=== PATIENT | male | born 1960 | race Caucasian/White ===

== ENCOUNTER → 2020-04-23 14:11 | Outpatient (BNVA) | payer MEDICARE, MEDICAID, SELFPAY | PROVIDERS: PCP Nurse Practitioner Family; Visit Provider Hospitalist | DX: J44.9 Chronic obstructive pulmonary disease, unspecified (principal); J96.10 Chronic respiratory failure, unspecified whether with hypoxia or hypercapnia; R91.8 Other nonspecific abnormal finding of lung field; F17.200 Nicotine dependence, unspecified, uncomplicated; Z99.81 Dependence on supplemental oxygen; Z71.6 Tobacco abuse counseling | CPT/HCPCS: 99214 ==

== ENCOUNTER 2020-05-14 10:37 | Outpatient (REF) | payer MEDICARE, MEDICAID, SELFPAY ==
--- NOTE | 2020-05-14 10:41 | CT_ITS ---
EXAMINATION: CT CHEST SCREENING CLINICAL INFORMATION: Smoker. COMPARISON: None. TECHNIQUE: Multidetector volumetric CT imaging of the chest is performed without contrast using low dose technique. Additional 2D coronal and sagittal reformatted images and axial 3D maximum intensity projection (MIP) images are generated on the CT workstation. This CT examination was performed using dose optimization techniques as appropriate, variously including the following: *Automated exposure control *Adjustment of mA and/or kV according to patient size (this includes techniques or standardized protocols for targeted exams where dose is matched to indication/reason for exam; i.e. extremities or head) *Use of iterative reconstruction technique DLP: 44 mGy-cm FINDINGS: LUNGS: The lungs are hyperinflated but clear of acute pneumonic process. There is no pulmonary nodule, mass or ground-glass density. Minimal atelectatic changes are seen in both lower lobes. MEDIASTINUM: The central trachea and bronchi are widely patent. The thyroid lobes are symmetrical and normal. The heart size and the great vessels are normal in caliber. There are pacer electrodes in right atrium and right ventricle. No pericardial effusion seen. PLEURA: There is no pleural effusion. No pleural mass or thickening. AXILLA: No lymphadenopathy. UPPER ABDOMEN: Visualized liver, spleen, pancreas, and bilateral adrenal glands are unremarkable. OSSEOUS STRUCTURES: No lytic or sclerotic process seen. CT/CT lung screening IMPRESSION: Emphysematous lungs without acute process. There is bilateral lower lobe atelectasis or scarring. ASSESSMENT: Lung-RADS category 1: Negative RECOMMENDATION: Low dose annual CT chest.
== END 2020-05-14 10:38 | disposition home or self-care (01) ==
LOC: HO.CT 10:37
PROVIDERS: Visit Provider Physician Assistant Medical
DX: F17.210 Nicotine dependence, cigarettes, uncomplicated (principal)
CPT/HCPCS: 71250

== ENCOUNTER 2020-09-17 14:22 | Outpatient (REF) | payer OTHER, SELFPAY ==
--- NOTE | ~2020-09-17 | XR_ITS ---
EXAMINATION: XR CHEST CLINICAL INFORMATION: Atrial fibrillation COMPARISON: 05/02/2019 TECHNIQUE: 2 views of the chest were obtained. FINDINGS: Heart size is enlarged. Again seen is a 3-lead pacer/defibrillator. There is mild upper zone redistribution consistent with elevated left ventricular end-diastolic pressure. No interstitial edema is seen. No infiltrates effusions or lung masses are present. The lungs are hyperinflated consistent with underlying emphysema. XR/XR chest 2V IMPRESSION: Emphysema, cardiomegaly and mild pulmonary vascular congestion without edema.
[2020-09-17 16:09] LABS: PLT CLUMP 1
[2020-09-17 16:11] LABS: Hematocrit 37.8 % (42-52); Hemoglobin 12.2 g/dl (14.0-18.0); Mean Corpuscular HGB Conc 32.3 g/dl (31.0-36.0); Mean Corpuscular Volume 105.3 fL (80-98); Mean Platelet Volume 11.2 fL (9.4-12.4); Red Blood Count 3.59 X10*6/uL (4.60-5.80); Red Cell Distribution Width 12.6 % (11.0-16.0); White Blood Count 4.9 X10*3/uL (4.8-10.8)
[2020-09-17 16:29] LABS: Platelet Count 72 X10*3/uL (160-400)
[2020-09-17 16:31] LABS: Anion Gap 13 (12-20); Blood Urea Nitrogen 28 mg/dL (9-16); Calcium 9.3 mg/dL (8.4-10.2); Carbon Dioxide 30 mmol/L (22-29); Chloride 103 mmol/L (96-108); Estimated Glomerular Filt Rate > 60; Glucose Random 65 mg/dL (60-115); Potassium 5.2 mmol/L (3.3-5.1); Sodium 141 mmol/L (135-145)
[2020-09-17 16:36] LABS: B Type Natriuretic Peptide 1210 pg/mL (<100)
[2020-09-17 16:52] LABS: TSH reflex Free T4 1.25 uIU/mL (0.32-4.0)
== END 2020-09-17 14:23 | disposition home or self-care (01) ==
LOC: HO.LAB 14:22
PROVIDERS: PCP Nurse Practitioner Family; Visit Provider Internal Medicine Cardiovascular Disease
DX: I48.19 Other persistent atrial fibrillation (principal); I48.0 Paroxysmal atrial fibrillation; I35.0 Nonrheumatic aortic (valve) stenosis; J96.10 Chronic respiratory failure, unspecified whether with hypoxia or hypercapnia; J44.9 Chronic obstructive pulmonary disease, unspecified; I50.20 Unspecified systolic (congestive) heart failure; Z88.0 Allergy status to penicillin; Z95.0 Presence of cardiac pacemaker; Z93.0 Tracheostomy status; Z87.891 Personal history of nicotine dependence; Z79.899 Other long term (current) drug therapy
CPT/HCPCS: 36415; 71046; 80048; 83880; 84443; 85027; 99212

== ENCOUNTER → 2020-09-18 13:17 | Outpatient (BNVA) | payer OTHER, SELFPAY | PROVIDERS: PCP Nurse Practitioner Family; Visit Provider Hospitalist | DX: R91.8 Other nonspecific abnormal finding of lung field (principal); J96.11 Chronic respiratory failure with hypoxia; J43.2 Centrilobular emphysema | CPT/HCPCS: 99212 ==

== ENCOUNTER 2020-09-24 19:39 | Emergency (ER) | payer OTHER, SELFPAY ==
--- NOTE | 2020-09-24 | ECG_ITS ---
Test Reason : SOB Blood Pressure : / mmHG Vent. Rate : 071 BPM Atrial Rate : 071 BPM P-R Int : 336 ms QRS Dur : 170 ms QT Int : 454 ms P-R-T Axes : 132 -35 210 degrees QTc Int : 493 ms Atrial-sensed ventricular-paced rhythm with prolonged AV conduction Abnormal ECG When compared with ECG of 24-SEP-2020 20:12, No significant change was found Referred By: Abdi Minaya Electronically Signed By:PONCHO DOMINGUEZ
--- NOTE | ~2020-09-24 | XR_ITS ---
EXAMINATION: XR CHEST CLINICAL INFORMATION: Shortness of breath COMPARISON: 09/17/2020 and 05/02/2020 TECHNIQUE: Frontal view of the chest was obtained. FINDINGS: Lungs are poorly expanded. The heart remains enlarged. There is a prominent central interstitial markings. It is difficult to rule out subtle infiltrates in the lungs, but some of these findings are chronic as can be seen when compared to the study from 05/02/2019. No gross lobar consolidation is seen. Again noted is a 3-lead left chest wall pacemaker/defibrillator XR/XR chest 1V IMPRESSION: Poorly inflated lungs. Interstitial prominence. Subtle infiltrates cannot be excluded. This could be due to infectious etiologies but ruling out mild interstitial edema is difficult.
[2020-09-24 19:52] VITALS: BP 114/91; BP 141/92; PULSE 76; PULSE 85; RESP 20; TEMP 36.7; O2SAT 100; O2SAT 95; BMI 20.9
[2020-09-24 19:58] VITALS: PULSE 86; O2SAT 95
[2020-09-24 20:00] VITALS: BP 125/86; PULSE 72; RESP 16; TEMP 36.7; O2SAT 95
--- NOTE | 2020-09-24 21:19 | ED.GENADULT ---
HPI - General Adult General Chief complaint: Dyspnea Stated complaint: sob Time Seen by Provider: 09/24/20 20:47 Source: family (Patient's daughter) Mode of arrival: EMS Limitations: language barrier ([place] speaking only, dementia) History of Present Illness HPI narrative: 60-year-old male who was sent to the emergency department by his daughter for evaluation of shortness of breath. Information was obtained from the patient's daughter since the patient has dementia and is [place]-speaking only. According to the daughter, the patient has been short of breath for about 3 days and his shortness of breath was getting worse. He felt hot and was diaphoretic yesterday but did not have a documented fever. He has had decreased appetite with good fluid intake. The daughter states that yesterday he seemed to be very short of breath and she called an ambulance, he was checked out by the paramedics and the family decided to keep him at home. Today he complained of increased shortness of breath. The daughter spoke to his assemblies and installations inspector who was concerned the patient started amiodarone and that this shortness of breath could be related this medication advised the daughter to bring the patient to the emergency department for evaluation. The daughter states that the patient has had increased dementia over the last 2-3 months and has been more confused than his baseline. He has also had an unsteady gait which is gotten progressively worse over the last 2-3 months. The daughter states that he stopped smoking approximately 2-3 weeks prior and is using a nicotine patch. The patient also has anxiety and this sometimes makes shortness of breath worse. 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 The daughter states that the patient did not take his nighttime amiodarone. Patient was seen by Cardiology on 09/17/2020 for increased exertional shortness of breath which was felt to be secondary to persistent underlying atrial fibrillation therefore he was started on amiodarone. He is on rivaroxaban. Related Data Home Medications Medication Instructions Recorded Confirmed benzonatate 100 mg capsule 100 mg PO Q8H PRN 04/18/20 09/18/20 carbamazepine 200 mg tablet mg PO 04/18/20 09/18/20 divalproex 500 mg tablet,delayed mg PO 04/18/20 09/18/20 release erythromycin 5 mg/gram (0.5 %) eye 500 mg OPHTHALMIC-RIGHT TID 04/18/20 09/18/20 ointment fluoxetine 20 mg capsule 20 mg PO DAILY 04/18/20 09/18/20 fluticasone propionate 50 1 spray INTRANASAL DAILY 04/18/20 09/18/20 mcg/actuation nasal spray,suspension lamotrigine 25 mg tablet 25 mg PO BID 04/18/20 09/18/20 melatonin 5 mg tablet 5 mg PO BEDTIME 04/18/20 09/18/20 metronidazole 500 mg tablet 500 mg PO TID 04/18/20 09/18/20 montelukast 10 mg tablet 10 mg PO BEDTIME 04/18/20 09/18/20 multivitamin 1 tab PO QAM 04/18/20 09/18/20 nystatin 100,000 unit/mL oral 2 PO Q3H PRN 04/18/20 09/18/20 suspension omeprazole 20 mg capsule,delayed 20 mg PO DAILY 04/18/20 09/18/20 release peg [id number] 1 1 drp OPHTHALMIC (EYE) TID-QID 04/18/20 09/18/20 %-0.2 %-0.2 % eye drops primidone 50 mg tablet 50 mg PO QID 04/18/20 09/18/20 Previous Rx's Medication Instructions Recorded albuterol sulfate 90 mcg/actuation 2 puff PO Q6H PRN 30 Days #18 g 04/23/20 aerosol inhaler fluticasone fur. 100 mcg-umeclid 1 ea PO DAILY 30 Days #60 ea 04/23/20 62.5 mcg-vilant 25 mcg inhalat.powder albuterol sulfate 2.5 mg INHALATION Q6H PRN #180 ml 06/23/20 rivaroxaban 20 mg tablet 20 mg PO DAILY 90 Days #90 tab 07/16/20 furosemide 20 mg tablet 20 mg PO QAM 90 Days #90 tab 08/05/20 lisinopril 10 mg tablet 10 mg PO QAM 90 Days #90 tab 08/05/20 metoprolol succinate 50 mg 50 mg PO QAM 90 Days #90 tab 08/05/20 tablet,extended release 24 hr amiodarone 200 mg tablet 200 mg PO DAILY #30 tab 09/17/20 amiodarone 400 mg tablet 400 mg PO BID #30 tab 09/17/20 ipratropium 0.5 mg-albuterol 3 mg 3 ml INHALATION QID 30 Days #360 ml 09/18/20 (2.5 mg base)/3 mL nebulization soln umeclidinium 62.5 mcg-vilanterol 1 inh INHALATION DAILY #60 ea 09/18/20 25 mcg/actuation powdr for inhalation nicotine 14 mg/24 hr daily 1 patch TRANSDERMAL DAILY 28 Days 09/24/20 transdermal patch #28 ea Allergies Allergy/AdvReac Type Severity Reaction Status Date / Time Penicillins [PENICILLINS] Allergy Severe SWELLING Verified 09/18/20 13:31 Review of Systems Review of Systems: Yes all other systems are reviewed and are negative [facility] Past Medical History [facility] Narrative: The patient lives at home with his family. He stopped smoking 2-3 weeks prior and uses a nicotine patch daily. He does not drink alcohol. He is a former heroin user and is receiving methadone daily. Medical History Aortic stenosis Biventricular ICD (implantable cardioverter-defibrillator) in place Chronic respiratory failure COPD (chronic obstructive pulmonary disease) Heart failure with reduced ejection fraction Nonischemic cardiomyopathy Paroxysmal atrial fibrillation Persistent atrial fibrillation Pulmonary nodules Tobacco dependence Surgical History Cardiac catheterization as the cause of abnormal reaction of the patient, or of later complication, without mention of misadventure at the time of the procedure Endotracheal tube present Epidermal cyst Lesion of tongue Pacemaker Family History Family History Father No problems noted. Mother HTN (hypertension) Arthritis of knee Unknown Recurrent strokes Diabetes mellitus Thyroid disease CVD (cerebrovascular disease) Social History Social History Alcohol intake: unknown Smoking Status: Unknown if ever smoked Tobacco Type: Cigarette Use of substances other than those prescribed or required for medical reasons: Unknown Advance Directives: No Advance Directives Information Provided: Yes Physical Exam Vital Signs: Vital Signs: Last Vital Signs Temp 98.5 F 09/24/20 21:28 Pulse 66 09/24/20 23:15 Resp 12 09/24/20 23:15 BP 105/77 09/24/20 23:15 Pulse Ox 97 09/24/20 23:15 Body Mass Index 20.9 Const: General: cooperative and other (Anxious appearing) Orientation/consciousness: oriented to person Limitations: other limitations (Dementia) HENMT: Head: Yes normal to inspection, Yes normocephalic and Yes atraumatic Ears: external ears normal General nose exam: Normal external nose present Face and sinus: Yes normal facial exam Mouth: Normal oral and palatal mucosa present Throat: Yes posterior oropharynx normal Eyes: Periorbital: periorbital findings normal Eyelids: Yes eyelids normal Conjunctivae: conjunctivae normal Sclerae: sclerae normal Corneas: corneas normal Pupils: Equal, round and reactive pupils present Direct Ophthalmoscopy: normal light reflex Neck: Neck: Yes full ROM, Yes no lymphadenopathy, Yes no meningeal signs, Yes trachea midline and Yes supple Chest: Chest palpation & inspection: normal inspection of the chest and normal palpation of entire chest wall Resp: Effort & Inspection: normal respiratory effort and able to speak in complete sentences Auscultation: clear to auscultation bilaterally Cardio: Rate: regular rate Rhythm: regular rhythm Heart sounds: S1 normal heart sound present, S2 normal heart sound present and no murmurs GI: Inspection: Yes normal to inspection Palpation (GI): Soft to palpation, nontender, no guarding, not rigid and No hepatosplenomegaly present : General: Yes no CVA tenderness Back/Spine/Pelvis: Back: no CVA tenderness Cervical Spine: normal cervical lordosis Thoracic/Lumbar Spine: thoracic and lumbar spine normal to inspection Skin: Lesions: no lesions Rashes: no rashes Wounds: no wounds Neuro: General: oriented to person and no meningeal signs Cranial nerves: Yes CN's II-XII intact bilaterally and Yes Equal, round and reactive pupils present Cognition (Neuro): normal cognition Motor exam (neuro): 5/5 motor strength present throughout Extrem: General: Yes normal to inspection and Yes full ROM Psych: Attitude: cooperative Course Course Course Narrative: 60-year-old male who was sent to the emergency department by his family for evaluation of shortness of breath x3 days which is gotten progressively worse. The patient does have chronic atrial fibrillation and nonischemic cardiomyopathy and has been recently started on amiodarone approximately 6 days prior. The patient's physical examination revealed that he was afebrile, his respiratory rate varied from 16-20, blood pressure was normal, O2 saturation was 70% on room air and 95% on 2 L (patient wears oxygen chronically for his COPD). The patient was cooperative but anxious. Lung exam was clear. I did order a septic workup and a COVID-19 test on this patient. The patient was ordered to get Ativan 0.5 mg IV for his anxiety. I also gave him his nighttime dose of amiodarone 400 mg orally. 0001: The patient's chest x-ray did not reveal any obvious pneumonia, he does have increased interstitial markings but I suspect this is secondary to COPD and this is chronic. The patient's laboratory evaluation did reveal an elevated BNP of 1396, this is similar to a value from 09/17/2020 and I suspect that this is chronic. CBC was consistent with his chronic anemia. Chemistries did reveal an elevated BUN 38 with an elevated creatinine of 1.39. The patient does have an elevated troponin of 52.9 but I do not think this reflects myocardial injury and may be secondary to chronic elevation and renal insufficiency. The patient was treated with Solu-Medrol 125 mg IV for possible COPD exacerbation, he may have bronchitis and he was started on doxycycline 100 mg twice a day. I did discuss my findings with the patient's daughter and the patient will be transported back to home by ambulance since he requires oxygen during transport. Medical Decision Making Lab Data Result diagrams: 09/24/20 21:53 09/24/20 22:55 Labs: Lab Results 09/24/20 09/24/20 09/24/20 Range/Units 21:53 21:53 21:53 WBC 4.2 L (4.8-10.8) X10*3/uL RBC 3.16 L (4.60-5.80) X10*6/uL Hgb 10.8 L (14.0-18.0) g/dl Hct 33.4 L (42-52) % MCV 105.7 H (80-98) fL MCH 34.2 H (27.0-33.0) pg MCHC 32.3 (31.0-36.0) g/dl RDW 13.0 (11.0-16.0) % Plt Count Not Reportable MPV Not Reportable Immature Gran % (Auto) 0.7 H (0.0-0.4) % Neut % (Auto) 69.9 (45-73) % Lymph % (Auto) 17.3 L (20-40) % Fisher % (Auto) 7.3 (2-11) % Eos % (Auto) 4.3 H (0-4) % Baso % (Auto) 0.5 (0-2) % Lymph # (Auto) 0.7 L (1.2-4.9) X10*3/uL Fisher # (Auto) 0.3 (0.1-1.2) X10*3/uL Eos # (Auto) 0.2 (0.0-0.4) X10*3/uL Baso # (Auto) 0.0 (0.0-0.2) X10*3/uL Abs Immat Gran (auto) 0.03 (0.00-0.03) X10*3/uL Absolute Neuts (auto) 3.0 (2.0-8.3) X10*3/uL Absolute Nucleated RBC 0.050 H (0.0-0.012) X10*3/uL Nucleated RBC % (auto) 1.2 H (0.0-0.2) /100WBC Smear Tech's Comments VERIFIED PT 18.8 H (10.8-13.0) SEC INR 1.6 H (0.9-1.1) APTT 47.5 H (24.1-38.0) SEC Sodium (135-145) mmol/L Potassium (3.3-5.1) mmol/L Chloride (96-108) mmol/L Carbon Dioxide (22-29) mmol/L Anion Gap (12-20) BUN (9-16) mg/dL Creatinine (0.5-1.4) mg/dL Estim Creat Clear Calc Estimated GFR Random Glucose (60-115) mg/dL Lactic Acid (0.5-2.0) mmol/L Calcium (8.4-10.2) mg/dL Total Bilirubin (0.0-1.0) mg/dL AST (5-37) U/L ALT (0-40) U/L Alkaline Phosphatase (39-117) U/L Troponin I High Sens (<3.5-35.0) ng/L B-Natriuretic Peptide 1396 H (<100) pg/mL Total Protein (6.5-8.0) g/dL Albumin (3.5-5.0) g/dL Lipase (8-78) U/L Ethyl Alcohol mg/dL COVID-19 (SAM) (Negative) COVID-19 Clin Com 09/24/20 09/24/20 09/24/20 Range/Units 21:53 21:53 21:54 WBC (4.8-10.8) X10*3/uL RBC (4.60-5.80) X10*6/uL Hgb (14.0-18.0) g/dl Hct (42-52) % MCV (80-98) fL MCH (27.0-33.0) pg MCHC (31.0-36.0) g/dl RDW (11.0-16.0) % Plt Count MPV Immature Gran % (Auto) (0.0-0.4) % Neut % (Auto) (45-73) % Lymph % (Auto) (20-40) % Fisher % (Auto) (2-11) % Eos % (Auto) (0-4) % Baso % (Auto) (0-2) % Lymph # (Auto) (1.2-4.9) X10*3/uL Fisher # (Auto) (0.1-1.2) X10*3/uL Eos # (Auto) (0.0-0.4) X10*3/uL Baso # (Auto) (0.0-0.2) X10*3/uL Abs Immat Gran (auto) (0.00-0.03) X10*3/uL Absolute Neuts (auto) (2.0-8.3) X10*3/uL Absolute Nucleated RBC (0.0-0.012) X10*3/uL Nucleated RBC % (auto) (0.0-0.2) /100WBC Smear Tech's Comments PT (10.8-13.0) SEC INR (0.9-1.1) APTT (24.1-38.0) SEC Sodium (135-145) mmol/L Potassium (3.3-5.1) mmol/L Chloride (96-108) mmol/L Carbon Dioxide (22-29) mmol/L Anion Gap (12-20) BUN (9-16) mg/dL Creatinine (0.5-1.4) mg/dL Estim Creat Clear Calc Estimated GFR Random Glucose (60-115) mg/dL Lactic Acid 1.0 (0.5-2.0) mmol/L Calcium (8.4-10.2) mg/dL Total Bilirubin (0.0-1.0) mg/dL AST (5-37) U/L ALT (0-40) U/L Alkaline Phosphatase (39-117) U/L Troponin I High Sens (<3.5-35.0) ng/L B-Natriuretic Peptide (<100) pg/mL Total Protein (6.5-8.0) g/dL Albumin (3.5-5.0) g/dL Lipase 78 (8-78) U/L Ethyl Alcohol < 10 mg/dL COVID-19 (SAM) (Negative) COVID-19 Clin Com 09/24/20 09/24/20 09/24/20 Range/Units 21:55 22:55 23:35 WBC (4.8-10.8) X10*3/uL RBC (4.60-5.80) X10*6/uL Hgb (14.0-18.0) g/dl Hct (42-52) % MCV (80-98) fL MCH (27.0-33.0) pg MCHC (31.0-36.0) g/dl RDW (11.0-16.0) % Plt Count MPV Immature Gran % (Auto) (0.0-0.4) % Neut % (Auto) (45-73) % Lymph % (Auto) (20-40) % Fisher % (Auto) (2-11) % Eos % (Auto) (0-4) % Baso % (Auto) (0-2) % Lymph # (Auto) (1.2-4.9) X10*3/uL Fisher # (Auto) (0.1-1.2) X10*3/uL Eos # (Auto) (0.0-0.4) X10*3/uL Baso # (Auto) (0.0-0.2) X10*3/uL Abs Immat Gran (auto) (0.00-0.03) X10*3/uL Absolute Neuts (auto) (2.0-8.3) X10*3/uL Absolute Nucleated RBC (0.0-0.012) X10*3/uL Nucleated RBC % (auto) (0.0-0.2) /100WBC Smear Tech's Comments PT (10.8-13.0) SEC INR (0.9-1.1) APTT (24.1-38.0) SEC Sodium 138 (135-145) mmol/L Potassium 5.6 H (3.3-5.1) mmol/L Chloride 100 (96-108) mmol/L Carbon Dioxide 31 H (22-29) mmol/L Anion Gap 13 (12-20) BUN 38 H (9-16) mg/dL Creatinine 1.39 (0.5-1.4) mg/dL Estim Creat Clear Calc 48.7 Estimated GFR 52 Random Glucose 102 D (60-115) mg/dL Lactic Acid (0.5-2.0) mmol/L Calcium 8.3 L D (8.4-10.2) mg/dL Total Bilirubin 0.3 (0.0-1.0) mg/dL AST 17 (5-37) U/L ALT 12 (0-40) U/L Alkaline Phosphatase 75 (39-117) U/L Troponin I High Sens 52.9 H (<3.5-35.0) ng/L B-Natriuretic Peptide (<100) pg/mL Total Protein 5.8 L (6.5-8.0) g/dL Albumin 3.7 (3.5-5.0) g/dL Lipase (8-78) U/L Ethyl Alcohol mg/dL COVID-19 (SAM) Negative (Negative) COVID-19 Clin Com See Note ECG Data Interpretation: 2125: The patient has an electronically paced rhythm with a rate of 71. Discharge Plan Discharge Clinical Impression: Acute exacerbation of chronic obstructive pulmonary disease, Bronchitis Patient Disposition: Home, Self-Care Instructions: Acute Bronchitis (ED), COPD (Chronic Obstructive Pulmonary Disease) (ED) Additional Instructions: Your laboratory evaluation is consistent with your baseline tests and is unchanged. Your chest x-ray did not reveal any evidence for pneumonia. Your EKG is consistent with a paced rhythm. I suspect that you may have bronchitis which is making your COPD worse. You received a dose of steroids, Solu-Medrol 125 mg IV here in the emergency department. Take doxycycline 100 mg pills, 1 pill twice a day for 7 days to treat bronchitis. I did give you your nighttime dose of amiodarone 400 mg orally, continue your amiodarone as prescribed by your doctor. Follow-up with your doctor in 2 days. Please return to the emergency department if your symptoms get worse or if you develop any symptoms that are concerning to you. Prescriptions: No Action albuterol sulfate 2.5 mg /3 mL (0.083 %) solution for nebulization 2.5 mg inhalation Q6H PRN (Reason: shortness of breath or wheezing) Qty: 180 RF: 3 rivaroxaban 20 mg tablet 20 mg PO DAILY 90 Days Qty: 90 RF: 1 metoprolol succinate 50 mg tablet extended release 24 hr 50 mg PO QAM 90 Days Qty: 90 RF: 3 furosemide 20 mg tablet 20 mg PO QAM 90 Days Qty: 90 RF: 3 lisinopril 10 mg tablet 10 mg PO QAM 90 Days Qty: 90 RF: 3 nicotine 14 mg/24 hr patch 24 hour 1 patch transdermal DAILY 28 Days Qty: 28 RF: 6 omeprazole 20 mg capsule,delayed release(DR/EC) 20 mg PO DAILY RF: 0 melatonin 5 mg tablet 5 mg PO BEDTIME RF: 0 fluoxetine 20 mg capsule 20 mg PO DAILY RF: 0 montelukast 10 mg tablet 10 mg PO BEDTIME RF: 0 carbamazepine 200 mg tablet PO RF: 0 lamotrigine 25 mg tablet 25 mg PO BID RF: 0 divalproex 500 mg tablet,delayed release (DR/EC) PO RF: 0 primidone 50 mg tablet 50 mg PO QID RF: 0 multivitamin Tablet 1 tab PO QAM RF: 0 Artificial Tears([id number]) 1-0.2-0.2 % drops 1 drp ophthalmic (eye) TID-QID RF: 0 erythromycin 5 mg/gram (0.5 %) ointment 500 mg ophthalmic-Right TID RF: 0 fluticasone propionate 50 mcg/actuation spray,suspension 1 spray intranasal DAILY RF: 0 metronidazole 500 mg tablet 500 mg PO TID RF: 0 benzonatate 100 mg capsule 100 mg PO Q8H PRN (Reason: cough) RF: 0 nystatin 100,000 unit/mL suspension 2 PO Q3H PRNRF: 0 [id number]-[id number] 100-62.5-25 mcg blister with device 1 ea PO DAILY 30 Days Qty: 60 RF: 11 albuterol sulfate 90 mcg/actuation HFA aerosol inhaler 2 puff PO Q6H PRN (Reason: shortness of breath or wheezing) 30 Days Qty: 18 RF: 11 Anoro Ellipta 62.5-25 mcg/actuation blister with device 1 inh inhalation DAILY Qty: 60 RF: 11 ipratropium-albuterol 0.5 mg-3 mg(2.5 mg base)/3 mL solution for nebulization 3 ml inhalation QID 30 Days Qty: 360 RF: 11 amiodarone 200 mg tablet 200 mg PO DAILY Qty: 30 RF: 2 amiodarone 400 mg tablet 400 mg PO BID Qty: 30 RF: 0 Interventions: ED Discharge Assessment Last Done: 09/25/20 00:46 Discharge Date/Time: 09/25/20 00:47
[2020-09-24 21:25] VITALS: BP 134/68; PULSE 69
[2020-09-24] MEDS: Amiodarone HCL 200 MG TABLET 400 MG PO (21:25)
[2020-09-24] MEDS: LORazepam 2 MG/ML VIAL 0.5 MG IVPUSH (21:27)
[2020-09-24 21:28] VITALS: BP 143/73; PULSE 78; RESP 14; TEMP 36.9; O2SAT 94
[2020-09-24 22:05] LABS: Basophils Percent Auto 0.5 % (0-2); Eosinophils Absolute Auto 0.2 X10*3/uL (0.0-0.4); Eosinophils Percent Auto 4.3 % (0-4); Imm Gran Abs Auto 0.03 X10*3/uL (0.00-0.03); Imm Gran Pct Auto 0.7 % (0.0-0.4); MANUAL DIFF FLAG SCAN; PLT CLUMP 1; Red Blood Count 3.16 X10*6/uL (4.60-5.80); SCAN SMEAR FLAG 1
[2020-09-24 22:07] LABS: Hematocrit 33.4 % (42-52); Hemoglobin 10.8 g/dl (14.0-18.0); Lymphocytes Absolute Auto 0.7 X10*3/uL (1.2-4.9); Lymphocytes Percent Auto 17.3 % (20-40); Mean Corpuscular HGB Conc 32.3 g/dl (31.0-36.0); Mean Corpuscular Hemoglobin 34.2 pg (27.0-33.0); Mean Corpuscular Volume 105.7 fL (80-98); Monocytes Absolute Auto 0.3 X10*3/uL (0.1-1.2); Monocytes Percent Auto 7.3 % (2-11); Neutrophils Percent Auto 69.9 % (45-73); White Blood Count 4.2 X10*3/uL (4.8-10.8)
--- NOTE | 2020-09-24 22:08 | PC.NURSE ---
PATIENT ATTEMPT TO HIT THIS PCT DURING BLOOD DRAW .
[2020-09-24 22:10] LABS: INTERNATIONAL NORM RATIO 1.6 (0.9-1.1); Prothrombin Time 18.8 SEC (10.8-13.0)
[2020-09-24 22:13] LABS: Partial Thromboplastin Time 47.5 SEC (24.1-38.0)
[2020-09-24 22:14] LABS: NRBC Pct Auto 1.2 /100WBC (0.0-0.2)
[2020-09-24 22:26] LABS: SLIDE REVIEW VERIFIED
[2020-09-24 22:27] LABS: Ethanol < 10 mg/dL
[2020-09-24 22:30] LABS: Lipase 78 U/L (8-78)
[2020-09-24 22:38] LABS: B Type Natriuretic Peptide 1396 pg/mL (<100)
[2020-09-24 22:56] LABS: COVID-19 Test Negative (Negative); IDNOW Serial# 9DD0AD1C
[2020-09-24 23:15] VITALS: BP 105/77; PULSE 66; RESP 12; O2SAT 97
[2020-09-24] MEDS: methylPREDNISolone Sod Succ/PF 125 MG/2 ML VIAL IVPUSH (23:17)
[2020-09-24 23:25] LABS: Alanine Aminotransferase 12 U/L (0-40); Albumin Level 3.7 g/dL (3.5-5.0); Alkaline Phosphatase 75 U/L (39-117); Anion Gap 13 (12-20); Aspartate Amino Transferase 17 U/L (5-37); Bilirubin Total 0.3 mg/dL (0.0-1.0); Blood Urea Nitrogen 38 mg/dL (9-16); Calcium 8.3 mg/dL (8.4-10.2); Carbon Dioxide 31 mmol/L (22-29); Chloride 100 mmol/L (96-108); Creatinine Clr Calc Pharmacy 48.7; Estimated Glomerular Filt Rate 52; Glucose Random 102 mg/dL (60-115); Potassium 5.6 mmol/L (3.3-5.1); Sodium 138 mmol/L (135-145); Total Protein 5.8 g/dL (6.5-8.0)
[2020-09-25 00:26] LABS: Troponin-I High Sensitivity 52.9 ng/L (<3.5-35.0)
== END 2020-09-25 00:47 | disposition home or self-care (01) ==
PROVIDERS: Emergency Provider Emergency Medicine Emergency Medical Services
DX: J44.1 Chronic obstructive pulmonary disease with (acute) exacerbation (principal); J20.9 Acute bronchitis, unspecified; F41.9 Anxiety disorder, unspecified; R26.81 Unsteadiness on feet; Z20.822 Contact with and (suspected) exposure to COVID-19; F03.90 Unspecified dementia, unspecified severity, without behavioral disturbance, psychotic disturbance, mood disturbance, and anxiety; F11.20 Opioid dependence, uncomplicated; Z95.810 Presence of automatic (implantable) cardiac defibrillator; I48.0 Paroxysmal atrial fibrillation; I48.19 Other persistent atrial fibrillation; Z79.01 Long term (current) use of anticoagulants; Z87.891 Personal history of nicotine dependence
CPT/HCPCS: 36415; 71045; 80053; 80320; 83605; 83690; 83880; 84484; 85025; 85610; 85730; 87040; 87635; 93005; 96361; 96374; 96375; 99285; J2060; J2930

== ENCOUNTER 2020-09-30 10:50 | Day surgery (SDC) | payer OTHER, SELFPAY ==
[2020-09-25 14:09] VITALS: BMI 23.3
--- NOTE | 2020-09-29 11:45 | HO.ANESPROP2 ---
Documented by User: Venita Harrisney 09/29/20 11:53 HPI - Anesthesia Eval Consult details Narrative: 60yo M for Cardioversion Chronic O2, [facility] ER 09/24/20 with SOB x 3 days. No acute findings. FORMERLY [facility], [facility]–1983 Active Problems Active Problems: All Active Problems (Updated 09/26/20 @ 00:01 by Background Daemon) Nonischemic cardiomyopathy (Acute) Chest discomfort (Acute) SOB (shortness of breath) (Acute) Persistent atrial fibrillation (Acute) Paroxysmal atrial fibrillation (Acute) Biventricular ICD (implantable cardioverter-defibrillator) in place (Acute) Heart failure with reduced ejection fraction (Acute) Aortic stenosis (Acute) Thrombocytopenia (Chronic) Tobacco dependence (Acute) Pulmonary nodules (Acute) Chronic respiratory failure (Acute) COPD (chronic obstructive pulmonary disease) (Acute) Past Medical History Medical History Aortic stenosis Biventricular ICD (implantable cardioverter-defibrillator) in place Chronic respiratory failure COPD (chronic obstructive pulmonary disease) Heart failure with reduced ejection fraction Nonischemic cardiomyopathy Paroxysmal atrial fibrillation Persistent atrial fibrillation Pulmonary nodules Tobacco dependence Family History Family History Father No problems noted. Mother HTN (hypertension) Arthritis of knee Unknown Recurrent strokes Diabetes mellitus Thyroid disease CVD (cerebrovascular disease) Surgical History Surgical History Cardiac catheterization as the cause of abnormal reaction of the patient, or of later complication, without mention of misadventure at the time of the procedure Endotracheal tube present Epidermal cyst Lesion of tongue Pacemaker Social History Social History Alcohol intake: unknown Smoking Status: Former smoker Tobacco Type: Cigarette Advance Directives: No Advance Directives Information Provided: Yes Meds Allergies Allergy/AdvReac Type Severity Reaction Status Date / Time Penicillins [PENICILLINS] Allergy Severe SWELLING Verified 09/30/20 11:06 Home Medications Medication Instructions Recorded Confirmed Last Taken Type carbamazepine 200 mg tablet mg PO 04/18/20 09/18/20 Unknown History erythromycin 5 mg/gram (0.5 %) eye 500 mg OPHTHALMIC-RIGHT TID 04/18/20 09/18/20 Unknown History ointment fluoxetine 20 mg capsule 20 mg PO DAILY 04/18/20 09/18/20 Unknown History fluticasone propionate 50 1 spray INTRANASAL DAILY 04/18/20 09/18/20 Unknown History mcg/actuation nasal spray,suspension lamotrigine 25 mg tablet 25 mg PO BID 04/18/20 09/18/20 09/30/20 08:00 History melatonin 5 mg tablet 5 mg PO BEDTIME 04/18/20 09/18/20 Unknown History montelukast 10 mg tablet 10 mg PO BEDTIME 04/18/20 09/18/20 Unknown History multivitamin 1 tab PO QAM 04/18/20 09/18/20 Unknown History nystatin 100,000 unit/mL oral 2 PO Q3H PRN 04/18/20 09/18/20 Unknown History suspension omeprazole 20 mg capsule,delayed 20 mg PO DAILY 04/18/20 09/18/20 Unknown History release peg [id number] 1 1 drp OPHTHALMIC (EYE) TID-QID 04/18/20 09/18/20 Unknown History %-0.2 %-0.2 % eye drops primidone 50 mg tablet 50 mg PO QID 04/18/20 09/18/20 Unknown History divalproex 2 tab PO 09/30/20 09/30/20 09/30/20 08:00 History doxycycline monohydrate 1 cap PO BID 09/30/20 09/30/20 09/30/20 08:00 History Exam Exam Date and Time: September 29, 2020 1145 Height,Weight and Vital Signs: Height 5 ft 5 in Weight 63.503 kg Pertinent Lab Results Pertinent Lab Results: Laboratory Tests 09/24/20 09/24/20 21:53 22:55 WBC 4.2 L Hgb 10.8 L Hct 33.4 L Sodium 138 Potassium 5.6 H Chloride 100 Carbon Dioxide 31 H BUN 38 H Creatinine 1.39 Narrative Narrative: EKG 09/24/20 Atrial-sensed ventricular-paced rhythm with prolonged AV conduction Abnormal ECG When compared with ECG of 24-SEP-2020 20:12, No significant change was found ICD Interr 08/2020 atrial fibrillation for at least last 50 days. Pacing mode was changed from DDDR to VVIR. Biventricular pacing is 96% of the time. No shocks delivered Documented by User: Jesus Manuel Escobedo 09/30/20 13:20 FORMERLY [facility], [facility] Past Medical History Medical History Aortic stenosis Biventricular ICD (implantable cardioverter-defibrillator) in place Chronic respiratory failure COPD (chronic obstructive pulmonary disease) Heart failure with reduced ejection fraction Nonischemic cardiomyopathy Paroxysmal atrial fibrillation Persistent atrial fibrillation Pulmonary nodules Tobacco dependence Family History Family History Father No problems noted. Mother HTN (hypertension) Arthritis of knee Unknown Recurrent strokes Diabetes mellitus Thyroid disease CVD (cerebrovascular disease) Surgical History Surgical History Cardiac catheterization as the cause of abnormal reaction of the patient, or of later complication, without mention of misadventure at the time of the procedure Endotracheal tube present Epidermal cyst Lesion of tongue Pacemaker Social History Social History Alcohol intake: unknown Smoking Status: Former smoker Tobacco Type: Cigarette Advance Directives: No Advance Directives Information Provided: Yes Meds Allergies Allergy/AdvReac Type Severity Reaction Status Date / Time Penicillins [PENICILLINS] Allergy Severe SWELLING Verified 09/30/20 11:06 Home Medications Medication Instructions Recorded Confirmed Last Taken Type carbamazepine 200 mg tablet mg PO 04/18/20 09/18/20 Unknown History erythromycin 5 mg/gram (0.5 %) eye 500 mg OPHTHALMIC-RIGHT TID 04/18/20 09/18/20 Unknown History ointment fluoxetine 20 mg capsule 20 mg PO DAILY 04/18/20 09/18/20 Unknown History fluticasone propionate 50 1 spray INTRANASAL DAILY 04/18/20 09/18/20 Unknown History mcg/actuation nasal spray,suspension lamotrigine 25 mg tablet 25 mg PO BID 04/18/20 09/18/20 09/30/20 08:00 History melatonin 5 mg tablet 5 mg PO BEDTIME 04/18/20 09/18/20 Unknown History montelukast 10 mg tablet 10 mg PO BEDTIME 04/18/20 09/18/20 Unknown History multivitamin 1 tab PO QAM 04/18/20 09/18/20 Unknown History nystatin 100,000 unit/mL oral 2 PO Q3H PRN 04/18/20 09/18/20 Unknown History suspension omeprazole 20 mg capsule,delayed 20 mg PO DAILY 04/18/20 09/18/20 Unknown History release peg [id number] 1 1 drp OPHTHALMIC (EYE) TID-QID 04/18/20 09/18/20 Unknown History %-0.2 %-0.2 % eye drops primidone 50 mg tablet 50 mg PO QID 04/18/20 09/18/20 Unknown History divalproex 2 tab PO 09/30/20 09/30/20 09/30/20 08:00 History doxycycline monohydrate 1 cap PO BID 09/30/20 09/30/20 09/30/20 08:00 History Exam Airway Mallampati Class: II TM Dist: >3cm Neck ROM: Full Denture: Upper and Lower Heart: irreg irreg S1S2 Lungs: CTA b/l Assessment and Plan Assessment Anesthesia Assessment: Anesthesia Plan Discussed, PAT Visit and Chart Reviewed Final Anesthetic Review NPO: Yes ASA Class: IV Final Preanesthetic Review: No Changes in Pt Med Stat, Meds/Allgs Chart Reviewed, Consent Obtained/Reviewed and Anes Risks/Benef Reviewed Patient Risk: Intermediate Procedure Risk: Low Assessment/Block/Sedation in SS: Assess/Block/Sedation-SS Anesthetic Plan Anesthetic Plan: MAC: and Agree w/ Assess. and Plan Disposition: Standard PACU
[2020-09-30] VITALS (7 sets, daily range): BP systolic 116–135; BP diastolic 76–86; PULSE 60–75; RESP 16–18; TEMP 36.7; O2SAT 96–99
--- NOTE | 2020-09-30 08:32 | MHC.SHP ---
Pre-Procedural Eval Section A The patient is an INPATIENT: No Changes since office visit: Yes Changes in Medication and Yes Patient answered all questions; No Cold of Flu in the past 2 weeks and No New Medical Problems The History & Physical has been completed within 30 days and I have reviewed it.: Yes Section B Chief Complaint: afib Allergies: Allergies Allergy/AdvReac Type Severity Reaction Status Date / Time Penicillins [PENICILLINS] Allergy Severe SWELLING Verified 09/18/20 13:31 Plan I have reviewed the history and physical and performed a pertinent physical examination on my patient. No changes have occurred unless specified.
[2020-09-30] MEDS: Lactated Ringers 1,000 ML 20 ML IVCONT (11:29)
--- NOTE | 2020-09-30 13:15 | ECG_ITS ---
Test Reason : POST CARDIOVERSION Blood Pressure : / mmHG Vent. Rate : 073 BPM Atrial Rate : 070 BPM P-R Int : 000 ms QRS Dur : 184 ms QT Int : 478 ms P-R-T Axes : 000 -82 096 degrees QTc Int : 526 ms Ventricular-paced rhythm Abnormal ECG When compared with ECG of 24-SEP-2020 20:31, Vent. rate has increased BY 2 BPM Referred By: Elton Moore Electronically Signed By:Enzo Culver
--- NOTE | 2020-09-30 13:16 | P.PNCAR_ITS ---
Cardioversion Procedure Note Cardioversion Date of Procedure: 09/30/2020 Ordering Provider: Myself Performing Provider: Myself Indication for Procedure: Symptomatic persistent atrial fibrillation/flutter Pre-Op Diagnosis: Persistent atrial fibrillation Post-Op Diagnosis: Same Performed with Transesophageal Echo: No History: See history and physical for details Consent: Verbal and Written consent was obtained from the patient's daughter with the help of a certified sign language interpreter before starting and confirming oral anticoagulation. The patient was made aware of the risk of the procedure including risks, alternatives and 2nd opinion. Procedure: After consent obtained, cardioversion pads were attached in AP configuration and the patient was sedated by the anesthesia team. Once adequate sedation achieved, delivered 200 joules of biphasic synchronized energy in AP configuration Complications: None Impression: Successful conversion to atrially paced rhythm reestablishing AV synchrony Recommendations: 1. Status EKG 2. Switch to 200 mg of amiodarone daily 3. Continue Xarelto 4. Follow-up in the office in 4 weeks time.
--- NOTE | 2020-09-30 13:18 | P.EN_ITS ---
Event Note Date of Service: 09/30/20 Event Note: Patient has biventricular [employer] ICD in place. This was reprog rammed from VVIR to DDDR at 70 beats per minute. Atrial pacing thresholds are excellent. RV pacing thresholds are stable. LV pacing thresholds elevated and reprogrammed to provide adequate safety. Battery life is around 11 months
== END 2020-09-30 14:32 | disposition home or self-care (01) ==
PROVIDERS: PCP Nurse Practitioner Family; Visit Provider Internal Medicine Cardiovascular Disease
PROC: 5A2204Z Restoration of Cardiac Rhythm, Single (ICD-10-PCS; principal; 2020-09-30 12:30)
DX: I48.19 Other persistent atrial fibrillation (principal); Z79.01 Long term (current) use of anticoagulants; I42.8 Other cardiomyopathies; Z95.810 Presence of automatic (implantable) cardiac defibrillator; J96.10 Chronic respiratory failure, unspecified whether with hypoxia or hypercapnia; I35.0 Nonrheumatic aortic (valve) stenosis; Z79.51 Long term (current) use of inhaled steroids; Z79.899 Other long term (current) drug therapy; Z88.0 Allergy status to penicillin; F17.210 Nicotine dependence, cigarettes, uncomplicated
CPT/HCPCS: 92960; 93005; J0330; J0461

== ENCOUNTER → 2020-10-13 11:21 | Outpatient (REF) | payer OTHER, SELFPAY ==
--- NOTE | 2020-10-13 11:31 | CA_ITS ---
Transthoracic Echocardiogram Patient (Last, First, Middle): Benito Guzman, Gender: Male Date of : 1960 Age: 60 Procedure Date: 10/13/2020 Procedure Type: Transthoracic Echocardiogram Location: OP Height: 167.64 cm Weight: 63.5 kg BSA: 1.72 m2 Heart Rate: bpm BP: 100 / 58 mmHg Hand Bootmaker: SONIA Referring MD: Elton Moore MD Symptoms: R06.02 - Shortness of breath Study Quality: Fair ECG Rhythm: Undetermined Conclusions: - The left ventricular systolic function is severely decreased. The visually estimated ejection fraction is between 10-15%. There is severe global hypokinesis. - The inferolateral wall, the basal inferior, and mid inferior segments are akinetic. - There is severe aortic valve stenosis. The peak aortic velocity is 2.91 m/s with a calculated peak gradient of 34 mmHg. The mean gradient is 20 mmHg. The aortic valve area is 0.71 cm2. Dimensionless index 0.21. LV stroke volume index 21ml/m2. Diminished gradients due to low stroke volume. - There is moderate tricuspid valve regurgitation. - Mild pulmonary hypertension is present. Findings Left Ventricle Normal left ventricular cavity size. There is mildly increased left ventricular wall thickness. The left ventricular systolic function is severely decreased. The visually estimated ejection fraction is between 10 15%. There is severe global hypokinesis. E/E prime ratio is between 8 and 15 consistent with indeterminate filling pressures. Wall Motion Rest Echo Findings The inferolateral wall, the basal inferior, and mid inferior segments are akinetic. Right Ventricle Mildly increased right ventricular cavity size. There is mildly decreased right ventricular systolic function. Atria Severe biatrial enlargement. A pacemaker wire is identified in the right atrium. Aortic Valve There is severe aortic valve stenosis. The peak aortic velocity is 2.91 m/s with a calculated peak gradient of 34 mmHg. The mean gradient is 20 mmHg. The aortic valve area is 0.71 cm2. There is mild aortic valve regurgitation. Dimensionless index 0.21. LV stroke volume index 21ml/m2. Mitral Valve There is mild mitral annular calcification. There is mild mitral valve regurgitation. There is no mitral valve stenosis. Pulmonic Valve The pulmonic valve was not well visualized. Tricuspid Valve Normal tricuspid valve structure. There is moderate tricuspid valve regurgitation. The right ventricular systolic pressure is 41 mmHg. Mild pulmonary hypertension is present. Great Vessels The aortic annulus is normal in size. Venous The inferior vena cava is normal in size and collapses greater than 50% with inspiration. Pericardium/Pleural There is no evidence of pericardial effusion. Prior Study Comparison Changes noted compared to prior study dated: 02/28/2020. Suspect progression of aortic stenosis. Measurements 2D Linear Measurements RVIDd: 4.38 RVIDd Index: 2.55 IVSd: 1.11 0.6-0.9/0.6-1.0 cm LVIDd: 5.74 3.9-5.3/4.2-5.9 cm LVIDd Index: 3.34 2.4-3.2/2.2-3.1 cm/m2 LVIDs: 4.93 2.0-3.6 cm LVPWd: 1.33 0.7-1.1 cm Ao Root: 2.90 2.1-3.5 cm LA Diam: 5.30 2.7-3.8/3.0-4.0 cm LAIDs Index: 3.08 1.5-2.3 cm/m2 LV Mass: 372.55 67-162/88-224 g LV Mass Index: 216.60 43-95/49-115 g/m2 LVOT Diam: 2.20 3.0+(-)1.3 cm 2D Systolic Function EF 4C: 14.40 >55% EF 2C: 25.70 >55% EF BiP: 25.60 >55% Mitral Valve MV Pk E: 0.72 MV Decel Time: 219.00 E'Lateral: 5.55 E'Medial: 5.22 E/E' Med: 13.80 E/E' Lat: 13.00 PHT: 64.00 MVA PHT: 3.44 Decel [place]: 3.30 Aortic Valve AoV Pk Diaz: 2.91 AoV Mn Diaz: 2.06 AoV VTI: 0.51 AoV Pk Grad: 34.00 Aov Mn Grad: 20.00 RIANNA Cont.VTI: 0.71 LVOT LVOT Pk Diaz: 0.60 LVOT Mn Diaz: 0.37 LVOT VTI: 0.09 LVOT Pk Grad: 1.00 LVOT Mn Grad: 1.00 LVOT Diam: 2.20 LVOT Area: 3.80 Diastolic Function MV Pk E: 0.72 E'Medial: 5.22 E/E' Med: 13.80 E' Laterial: 5.55 E/E' Lat: 13.00 Tricuspid Valve TR Pk Diaz: 3.08 TR Pk Grad: 38.00 RA Press: 3.00 RVSP: 41.00 Great Vessels Aorta Ao Root-2D: 2.90 2.0-3.7 cm Updated in Other Vendor System with Status of Final Jaspreet Bain MD electronically signed on 10/15/2020 5:08:14 PM with status of Final
== END ==
LOC: HO.CARD 11:21
PROVIDERS: Visit Provider Internal Medicine Cardiovascular Disease
DX: R06.02 Shortness of breath (principal); I35.0 Nonrheumatic aortic (valve) stenosis; I50.20 Unspecified systolic (congestive) heart failure
CPT/HCPCS: 93306

== ENCOUNTER → 2020-10-29 13:12 | Outpatient (BNVA) | payer OTHER, SELFPAY | PROVIDERS: PCP Nurse Practitioner Family; Visit Provider Nurse Practitioner Family | DX: I48.92 Unspecified atrial flutter (principal); I42.8 Other cardiomyopathies; I35.0 Nonrheumatic aortic (valve) stenosis; Z95.810 Presence of automatic (implantable) cardiac defibrillator | CPT/HCPCS: 93005; 99212 ==

== ENCOUNTER 2020-11-07 10:08 | Emergency (ER) | payer OTHER, SELFPAY ==
--- NOTE | ~2020-11-07 | XR_ITS ---
EXAMINATION: XR CHEST CLINICAL INFORMATION: Chest pain. COMPARISON: None TECHNIQUE: Frontal view of the chest was obtained. FINDINGS: The lungs are well-expanded with patchy opacities seen scattered in both lungs consistent with infiltrates. Underlying pulmonary vascular congestion cannot be excluded. There is prominence of hypervascularity with mild cardiomegaly. There are pacer electrodes in right atrium and right ventricle. No pleural effusion seen on this exam. No gross bony abnormality. XR/XR chest 1V IMPRESSION: Bilateral patchy opacities question infiltrate. Underlying vascular congestion catheter cannot be excluded. There is mild cardiomegaly.
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
[2020-11-07 10:11] VITALS: BP 153/95; PULSE 105; O2SAT 95
--- NOTE | 2020-11-07 10:16 | ECG_ITS ---
Test Reason : SOB Blood Pressure : / mmHG Vent. Rate : 083 BPM Atrial Rate : 066 BPM P-R Int : 000 ms QRS Dur : 186 ms QT Int : 454 ms P-R-T Axes : 000 -35 079 degrees QTc Int : 533 ms Poor data quality, interpretation may be adversely affected Ventricular-paced rhythm with premature ventricular or aberrantly conducted complexes Abnormal ECG When compared with ECG of 30-SEP-2020 13:29, Vent. rate has increased BY 10 BPM Referred By: Terrance Killian Electronically Signed By:Enzo Culver
--- NOTE | 2020-11-07 10:17 | ECG_ITS ---
Test Reason : SOB Blood Pressure : / mmHG Vent. Rate : 071 BPM Atrial Rate : 036 BPM P-R Int : 000 ms QRS Dur : 170 ms QT Int : 442 ms P-R-T Axes : 000 -85 100 degrees QTc Int : 480 ms Ventricular-paced rhythm Abnormal ECG When compared with ECG of 30-SEP-2020 13:29, Vent. rate has decreased BY 2 BPM Referred By: Terrance Killian Electronically Signed By:Enzo Culver
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
[2020-11-07 10:24] VITALS: BP 120/78; PULSE 105; RESP 18; TEMP 36.9; O2SAT 94; BMI 26.5
--- NOTE | 2020-11-07 10:49 | PC.NURSE ---
REPORT GIVEN TO BELEN SOLANO. PT MOVED TO MAIN ED FOR FURTHER WORK.
[2020-11-07 11:43] LABS: Basophils Percent Auto 0.6 % (0-2); Imm Gran Abs Auto 0.01 X10*3/uL (0.00-0.03); Imm Gran Pct Auto 0.3 % (0.0-0.4); MANUAL DIFF FLAG SCAN; PLT CLUMP 1; SCAN SMEAR FLAG 1
[2020-11-07 11:44] LABS: Eosinophils Absolute Auto 0.2 X10*3/uL (0.0-0.4); Eosinophils Percent Auto 5.9 % (0-4); Hematocrit 37.7 % (42-52); Hemoglobin 11.7 g/dl (14.0-18.0); Lymphocytes Absolute Auto 1.2 X10*3/uL (1.2-4.9); Lymphocytes Percent Auto 34.6 % (20-40); Mean Corpuscular Hemoglobin 33.4 pg (27.0-33.0); Mean Corpuscular Volume 107.7 fL (80-98); Mean Platelet Volume 11.6 fL (9.4-12.4); Monocytes Absolute Auto 0.3 X10*3/uL (0.1-1.2); Neutrophils Absolute Auto 1.8 X10*3/uL (2.0-8.3); Neutrophils Percent Auto 49.6 % (45-73); Red Cell Distribution Width 14.6 % (11.0-16.0); White Blood Count 3.6 X10*3/uL (4.8-10.8)
[2020-11-07 11:45] LABS: Platelet Count 73 X10*3/uL (160-400)
[2020-11-07 12:00] LABS: COVID-19 Test Negative (Negative); IDNOW Serial# 9DD0AD1C
[2020-11-07 12:03] LABS: Anion Gap 18 (12-20); Blood Urea Nitrogen 28 mg/dL (9-16); Calcium 8.9 mg/dL (8.4-10.2); Carbon Dioxide 30 mmol/L (22-29); Chloride 99 mmol/L (96-108); Creatinine Clr Calc Pharmacy 52.8; Estimated Glomerular Filt Rate > 60; Glucose Random 105 mg/dL (60-115); Potassium 5.2 mmol/L (3.3-5.1); Sodium 142 mmol/L (135-145)
[2020-11-07 12:08] LABS: Troponin-I High Sensitivity 34.9 ng/L (<3.5-35.0)
[2020-11-07 14:10] VITALS: BP 125/84; PULSE 70; RESP 18; O2SAT 99
[2020-11-07 15:29] LABS: Troponin-I High Sensitivity 46.1 ng/L (<3.5-35.0)
== END 2020-11-07 16:34 | disposition home or self-care (01) ==
PROVIDERS: Physician Assistant Medical; Emergency Provider Emergency Medicine
DX: S29.8XXA Other specified injuries of thorax, initial encounter (principal); R07.81 Pleurodynia; I48.91 Unspecified atrial fibrillation; F17.210 Nicotine dependence, cigarettes, uncomplicated; V43.62XA Car passenger injured in collision with other type car in traffic accident, initial encounter; Y93.9 Activity, unspecified; Y92.410 Unspecified street and highway as the place of occurrence of the external cause; Y99.9 Unspecified external cause status; Z20.822 Contact with and (suspected) exposure to COVID-19; Z79.899 Other long term (current) drug therapy; Z71.6 Tobacco abuse counseling
CPT/HCPCS: 36415; 71045; 71250; 80048; 84484; 85025; 87635; 93005; 99284

== ENCOUNTER → 2020-11-17 13:08 | Outpatient (BNVA) | payer OTHER, SELFPAY | PROVIDERS: PCP Nurse Practitioner Family; Visit Provider Hospitalist | DX: J43.2 Centrilobular emphysema (principal); J96.11 Chronic respiratory failure with hypoxia; R91.8 Other nonspecific abnormal finding of lung field; Z79.899 Other long term (current) drug therapy; Z87.891 Personal history of nicotine dependence | CPT/HCPCS: Q3014 ==

== ENCOUNTER → 2020-12-08 13:13 | Outpatient (BNVA) | payer OTHER, SELFPAY | PROVIDERS: PCP General Practice; Visit Provider Internal Medicine Cardiovascular Disease | DX: Z45.02 Encounter for adjustment and management of automatic implantable cardiac defibrillator (principal); I35.0 Nonrheumatic aortic (valve) stenosis; I48.19 Other persistent atrial fibrillation; I50.20 Unspecified systolic (congestive) heart failure | CPT/HCPCS: 93005; 99212 ==

== ENCOUNTER 2020-12-10 18:07 | Inpatient (IN) | payer OTHER, SELFPAY ==
--- NOTE | ~2020-12-10 | XR_ITS ---
EXAMINATION: PORTABLE CHEST 1 VIEW CLINICAL INFORMATION: Shortness of breath . COMPARISON: 11/07/2020. TECHNIQUE: Portable frontal view of the chest was obtained. FINDINGS: Lungs are mildly hyperinflated with patchy bilateral airspace disease with a distribution similar to the prior chest x-ray. The emphysematous changes were better delineated on the CT scan obtained at that time. No significant effusion overt edema, or pneumothorax. Cardiac silhouette remains enlarged with a biventricular pacemaker/AICD. No acute bony abnormality XR/XR chest 1V IMPRESSION: Hyperinflated with chronic appearing changes in the lungs. The emphysematous changes are better seen on prior CT scans but there are chronic airspace changes that persists similar to the 11/07/2020 exam.
--- NOTE | ~2020-12-10 | CT_ITS ---
EXAMINATION: CT HEAD WITHOUT CONTRAST CLINICAL INFORMATION: Dizziness. COMPARISON: None TECHNIQUE: Contiguous axial imaging was performed from the skull base to vertex without intravenous administration of contrast. This CT examination was performed using dose optimization techniques as appropriate, variously including the following: *Automated exposure control *Adjustment of mA and/or kV according to patient size (this includes techniques or standardized protocols for targeted exams where dose is matched to indication/reason for exam; i.e. extremities or head) *Use of iterative reconstruction technique DLP: 697 mGy-cm FINDINGS: There is no evidence of acute intracranial hemorrhage or territorial infarction. There is right subfrontal deep white matter hypodensity likely old infarct No abnormal mass effect or midline shift is seen. Hernandez to white matter differentiation is well preserved. No extra-axial fluid collections are identified. The lateral ventricles are symmetrical but mildly dilated. The osseous structures and soft tissues are normal. The mastoid air cells and visualized portions of the paranasal sinuses are well aerated. CT/CT head/brain wo con IMPRESSION: No acute intracranial process seen. 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
--- NOTE | 2020-12-10 18:19 | ED_ITS ---
HPI - SOB/Dyspnea General Chief Complaint: Dizziness Stated Complaint: SOB Time Seen by Provider: 12/11/20 00:39 Source: patient, family and EMS Mode of arrival: EMS Limitations: language barrier History of Present Illness HPI Narrative: 60-year-old male with past medical history of AFib a flutter, cardiomyopathy, shortness of breath, COPD O2 dependent, biventricular ICD, heart failure with reduced ejection fraction, aortic stenosis, thrombocytopenia, presents via EMS from his primary care for dizziness and shortness of breath. MD elicited complaint: shortness of breath and anxiety Pertinent past history: COPD and congestive heart failure Onset (ago): week(s) Context: occurred during exertion Timing: intermittent Severity: moderate Exacerbating factors: movement Relieving factors: rest Known history of: COPD and congestive heart failure Associated symptoms: lightheadedness Treatment prior to arrival: oxygen Related Data Home oxygen amount: 2 liters Home Medications Medication Instructions Recorded Confirmed erythromycin 5 mg/gram (0.5 %) eye 500 mg OPHTHALMIC-RIGHT TID 04/18/20 12/08/20 ointment fluoxetine 20 mg capsule 20 mg PO DAILY 04/18/20 12/08/20 fluticasone propionate 50 1 spray INTRANASAL DAILY 04/18/20 12/08/20 mcg/actuation nasal spray,suspension lamotrigine 25 mg tablet 25 mg PO BID 04/18/20 12/08/20 melatonin 5 mg tablet 5 mg PO BEDTIME 04/18/20 12/08/20 multivitamin 1 tab PO QAM 04/18/20 12/08/20 nystatin 100,000 unit/mL oral 2 PO Q3H PRN 04/18/20 12/08/20 suspension peg [id number] 1 1 drp OPHTHALMIC (EYE) TID-QID 04/18/20 12/08/20 %-0.2 %-0.2 % eye drops primidone 50 mg tablet 50 mg PO QID 04/18/20 12/08/20 divalproex 2 tab PO 09/30/20 12/08/20 doxycycline monohydrate 1 cap PO BID 09/30/20 12/08/20 carbamazepine 200 mg tablet 200 mg PO DAILY tab 12/08/20 12/08/20 omeprazole 20 mg capsule,delayed 40 mg PO DAILY cap 12/08/20 12/08/20 release Previous Rx's Medication Instructions Recorded albuterol sulfate 90 mcg/actuation 2 puff PO Q6H PRN 30 Days #18 g 04/23/20 aerosol inhaler fluticasone fur. 100 mcg-umeclid 1 ea PO DAILY 30 Days #60 ea 04/23/20 62.5 mcg-vilant 25 mcg inhalat.powder albuterol sulfate 2.5 mg INHALATION Q6H PRN #180 ml 06/23/20 rivaroxaban 20 mg tablet 20 mg PO DAILY 90 Days #90 tab 07/16/20 furosemide 20 mg tablet 20 mg PO QAM 90 Days #90 tab 08/05/20 lisinopril 10 mg tablet 10 mg PO QAM 90 Days #90 tab 08/05/20 metoprolol succinate 50 mg 50 mg PO QAM 90 Days #90 tab 08/05/20 tablet,extended release 24 hr ipratropium 0.5 mg-albuterol 3 mg 3 ml INHALATION QID 30 Days #360 ml 09/18/20 (2.5 mg base)/3 mL nebulization soln umeclidinium 62.5 mcg-vilanterol 1 inh INHALATION DAILY #60 ea 09/18/20 25 mcg/actuation powdr for inhalation montelukast 10 mg tablet 10 mg PO BEDTIME #30 tab 10/08/20 Allergies Allergy/AdvReac Type Severity Reaction Status Date / Time Penicillins [PENICILLINS] Allergy Severe SWELLING Verified 11/17/20 13:09 Review of Systems Review of Systems: Constitutional: Positive dizziness, No Fever, No Chills ENT/Mouth: No Hoarseness, No sore throat, No Rhinorrhea Eyes: No Redness, No Discharge, No Vision Changes Cardiovascular: No Chest Pain, positive SOB, positive Dyspnea on Exertion, positive bilateral lower extremity Edema Respiratory: positive Cough, No Sputum, positive Wheezing, Gastrointestinal: No Nausea, No Vomiting, No Diarrhea, No abdominal Pain Genitourinary: No Dysuria, No Hematuria Musculoskeletal: No joint pain, No Myalgias Skin: No rash Neuro: No Weakness, No Numbness, No Headache Psych: No anxiety, depression Heme/Lymph: No Bruising, No Bleeding Endocrine: No Polyuria, No Polydipsia Yes all other systems are reviewed and are negative [facility] Past Medical History Attestation statement: The following information was validated with the patient. Source: old records reviewed Medical History Aortic stenosis Biventricular ICD (implantable cardioverter-defibrillator) in place Chronic respiratory failure COPD (chronic obstructive pulmonary disease) Heart failure with reduced ejection fraction Nonischemic cardiomyopathy Paroxysmal atrial fibrillation Persistent atrial fibrillation Pulmonary nodules Tobacco dependence Surgical History Cardiac catheterization as the cause of abnormal reaction of the patient, or of later complication, without mention of misadventure at the time of the procedure Endotracheal tube present Epidermal cyst Lesion of tongue Pacemaker Family History Family History Father No problems noted. Mother HTN (hypertension) Arthritis of knee Unknown Recurrent strokes Diabetes mellitus Thyroid disease CVD (cerebrovascular disease) Social History Social History Alcohol intake: unknown Smoking Status: Former smoker Tobacco Type: Cigarette Advance Directives: No Advance Directives Information Provided: No Physical Exam Vital Signs: Vital Signs: Last Vital Signs Temp 98.4 F 12/10/20 21:45 Pulse 70 12/10/20 23:52 Resp 17 12/10/20 21:45 BP 125/85 12/10/20 21:45 Pulse Ox 99 12/10/20 21:45 Oxygen Flow Rate 2 12/10/20 18:30 Body Mass Index 23.3 Appearance: Alert. Oriented X3. Mild distress. Head: Normal external exam. Normocephalic. Atraumatic. No Pickard signs noted. No raccoon eyes noted Eyes: PERRLA. EOMI. Conjunctiva and sclera normal. Eyelids normal. ENT: TM's Normal. Pharynx normal. Uvula midline. Moist mucous membranes. No trismus noted. No drooling noted. No muffled voice noted. Neck: Normal inspection. Neck supple. No adenopathy. Thyroid Normal. No meningeal signs. No neck mass noted. CVS: Normal heart rate and rhythm. Heart sound normal. No murmurs noted. Pulses equal to all extremities. Respiratory: No respiratory distress. Painless inspiration. Lung sounds dimin ished at the bases, coarse. Chest nontender. Abdomen: Soft and nontender. Bowel sounds normal in all 4 quadrants. No distention noted. No organomegaly noted. No visible injury noted. Back: No CVA tenderness. Full range of motion noted. Skin: Skin warm and dry. Normal skin color. Normal skin turgor. No rashes/lesions/lacerations noted. Extremities: Positive +2 bilateral lower pitting lower extremity edema. Extremities exhibit normal range of motion. Extremities nontender. Neuro: cranial nerves 2-12 intact, no focal neural deficits, strength 5/5 to all extremities, No motor deficit. No sensory deficit. NIH Stroke Scale Internal: Initial- Upon Arrival Level of Consciousness: Alert Level of Consciousness Questions: Answers both questions correctly Level of Consciousness Commands: Performs both tasks correctly Best Gaze: Normal Visual: No visual loss Facial Palsy: Normal Motor Arm (Right): No drift Motor Arm (Left): No drift Motor Leg (Right): No drift Motor Leg (Left): No drift Limb Ataxia: Absent Sensory: Normal Best Language: No aphasia Dysarthia: Normal Extinction and Inattention: No abnormality Score: 0 Course Course Course Narrative: 60-year-old male arrives via EMS for dizziness, weakness, and shortness of breath. Patient states that he has felt like this for quite some time however over the past few days has been more difficult for him to get up. He feels like he is going to fall every time he tries to stand. 7:58 p.m. labs, EKG and urine still pending. Troponin 45.4, will repeat 2nd. White count 3.6 which is consistent with prior values throughout the year 2000, H&H is 10.6/32.4 which is consistent from prior values from September 2020, platelets are 55 slightly lower than his baseline, BUN elevated at 31 which is consistent with prior values, BNP 1457, again consistent with prior values. Based on these values will treat with Lasix 40 mg IV push for CHF exacerbation. COVID test is negative. Repeat troponin is 49.7, patient admitted to hospitalist for CHF exacerbation, weakness, and dizziness. MDM - SOB/Dyspnea Differential Diagnosis Differential diagnosis: Likely acute exacerbation of chronic obstructive airways disease and congestive heart failure Medical Records Attestation: I reviewed the patient's medical records. Lab Data Attestation: I reviewed the patient's lab results. Result diagrams: 12/10/20 20:14 12/10/20 20:14 Labs: Lab Results 12/10/20 12/10/20 12/10/20 Range/Units 20:14 20:14 20:14 WBC 3.6 L (4.8-10.8) X10*3/uL RBC 3.11 L (4.60-5.80) X10*6/uL Hgb 10.6 L (14.0-18.0) g/dl Hct 32.4 L (42-52) % MCV 104.2 H (80-98) fL MCH 34.1 H (27.0-33.0) pg MCHC 32.7 (31.0-36.0) g/dl RDW 14.5 (11.0-16.0) % Plt Count 55 L (160-400) X10*3/uL MPV 12.5 H (9.4-12.4) fL Immature Gran % (Auto) 0.3 (0.0-0.4) % Neut % (Auto) 70.3 (45-73) % Lymph % (Auto) 18.6 L (20-40) % Zavala % (Auto) 6.9 (2-11) % Eos % (Auto) 3.6 (0-4) % Baso % (Auto) 0.3 (0-2) % Lymph # (Auto) 0.7 L (1.2-4.9) X10*3/uL Zavala # (Auto) 0.3 (0.1-1.2) X10*3/uL Eos # (Auto) 0.1 (0.0-0.4) X10*3/uL Baso # (Auto) 0.0 (0.0-0.2) X10*3/uL Abs Immat Gran (auto) 0.01 (0.00-0.03) X10*3/uL Absolute Neuts (auto) 2.5 (2.0-8.3) X10*3/uL Absolute Nucleated RBC 0.000 (0.0-0.012) X10*3/uL Nucleated RBC % (auto) 0.0 (0.0-0.2) /100WBC Smear Tech's Comments VERIFIED PT (10.8-13.0) SEC INR (0.9-1.1) APTT (24.1-38.0) SEC Sodium 141 (135-145) mmol/L Potassium 4.7 (3.3-5.1) mmol/L Chloride 102 (96-108) mmol/L Carbon Dioxide 29 (22-29) mmol/L Anion Gap 15 (12-20) BUN 31 H (9-16) mg/dL Creatinine 1.09 (0.5-1.4) mg/dL Estim Creat Clear Calc 61.1 Estimated GFR > 60 Random Glucose 89 (60-115) mg/dL Calcium 8.7 (8.4-10.2) mg/dL Magnesium 1.8 (1.6-2.6) mg/dL Troponin I High Sens 45.4 H* (<3.5-35.0) ng/L B-Natriuretic Peptide 1457 H (<100) pg/mL 12/10/20 Range/Units 20:39 WBC (4.8-10.8) X10*3/uL RBC (4.60-5.80) X10*6/uL Hgb (14.0-18.0) g/dl Hct (42-52) % MCV (80-98) fL MCH (27.0-33.0) pg MCHC (31.0-36.0) g/dl RDW (11.0-16.0) % Plt Count (160-400) X10*3/uL MPV (9.4-12.4) fL Immature Gran % (Auto) (0.0-0.4) % Neut % (Auto) (45-73) % Lymph % (Auto) (20-40) % Zavala % (Auto) (2-11) % Eos % (Auto) (0-4) % Baso % (Auto) (0-2) % Lymph # (Auto) (1.2-4.9) X10*3/uL Zavala # (Auto) (0.1-1.2) X10*3/uL Eos # (Auto) (0.0-0.4) X10*3/uL Baso # (Auto) (0.0-0.2) X10*3/uL Abs Immat Gran (auto) (0.00-0.03) X10*3/uL Absolute Neuts (auto) (2.0-8.3) X10*3/uL Absolute Nucleated RBC (0.0-0.012) X10*3/uL Nucleated RBC % (auto) (0.0-0.2) /100WBC Smear Tech's Comments PT 15.9 H (10.8-13.0) SEC INR 1.3 H (0.9-1.1) APTT 44.8 H (24.1-38.0) SEC Sodium (135-145) mmol/L Potassium (3.3-5.1) mmol/L Chloride (96-108) mmol/L Carbon Dioxide (22-29) mmol/L Anion Gap (12-20) BUN (9-16) mg/dL Creatinine (0.5-1.4) mg/dL Estim Creat Clear Calc Estimated GFR Random Glucose (60-115) mg/dL Calcium (8.4-10.2) mg/dL Magnesium (1.6-2.6) mg/dL Troponin I High Sens (<3.5-35.0) ng/L B-Natriuretic Peptide (<100) pg/mL Imaging Data Chest x-ray: Attestation: I personally reviewed and interpreted this imaging study as follows: Radiologist's impression: EXAMINATION: PORTABLE CHEST 1 VIEW CLINICAL INFORMATION: Shortness of breath . COMPARISON: 11/07/2020. TECHNIQUE: Portable frontal view of the chest was obtained. FINDINGS: Lungs are mildly hyperinflated with patchy bilateral airspace disease with a distribution similar to the prior chest x-ray. The emphysematous changes were better delineated on the CT scan obtained at that time. No significant effusion overt edema, or pneumothorax. Cardiac silhouette remains enlarged with a biventricular pacemaker/AICD. No acute bony abnormality XR/XR chest 1V IMPRESSION: Hyperinflated with chronic appearing changes in the lungs. The emphysematous changes are better seen on prior CT scans but there are chronic airspace changes that persists similar to the 11/07/[address] scan - head: Attestation: I personally reviewed and interpreted this imaging study as follows: Radiologist's impression: EXAMINATION: CT HEAD WITHOUT CONTRAST CLINICAL INFORMATION: Dizziness. COMPARISON: None TECHNIQUE: Contiguous axial imaging was performed from the skull base to vertex without intravenous administration of contrast. This CT examination was performed using dose optimization techniques as appropriate, variously including the following: *Automated exposure control *Adjustment of mA and/or kV according to patient size (this includes techniques or standardized protocols for targeted exams where dose is matched to indication/reason for exam; i.e. extremities or head) *Use of iterative reconstruction technique DLP: 697 mGy-cm FINDINGS: There is no evidence of acute intracranial hemorrhage or territorial infarction. There is right subfrontal deep white matter hypodensity likely old infarct No abnormal mass effect or midline shift is seen. Hernandez to white matter differentiation is well preserved. No extra-axial fluid collections are identified. The lateral ventricles are symmetrical but mildly dilated. The osseous structures and soft tissues are normal. The mastoid air cells and visualized portions of the paranasal sinuses are well aerated. CT/CT head/brain wo con IMPRESSION: No acute intracranial process seen. 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 ECG Data Attestation: I personally reviewed and interpreted this ECG as follows: ECG interpretation date: 12/10/20 ECG interpretation time: 19:59 Interpretation: Vent. rate 70 BPM RI interval * ms QRS duration 164 ms QT/QTc 450/486 ms P-R-T axes * -84 87 Ventricular-paced rhythm Abnormal ECG When compared with ECG of 07-NOV-2020 11:01, No significant change was found Critical Care Time Critical Care Time Critical Care Time: Yes Total Critical Care Time: 45 Attestation: I have personally provided critical care time exclusive of time spent on separately billable procedures. Time includes review of laboratory data, radiology results, discussion with consultants, and monitoring for potential decompensation. Interventions were performed as documented. Discharge Plan Discharge Clinical Impression: Tobacco dependence, Thrombocytopenia, Heart failure with reduced ejection fraction COPD (chronic obstructive pulmonary disease) Qualifiers: COPD type: emphysema Emphysema type: panlobular Qualified Code(s): J43.1 - Panlobular emphysema Aortic stenosis Qualifiers: Cardiac valve disease etiology: etiology unspecified Qualified Code(s): I35.0 - Nonrheumatic aortic (valve) stenosis Acute exacerbation of congestive heart failure Qualifiers: Heart failure type: combined systolic and diastolic Qualified Code(s): I50.43 - Acute on chronic combined systolic (congestive) and diastolic (congestive) heart failure Patient Disposition: Admitted As Inpatient
--- NOTE | 2020-12-10 18:23 | ECG_ITS ---
Test Reason : DIZZINESS Blood Pressure : / mmHG Vent. Rate : 070 BPM Atrial Rate : 038 BPM P-R Int : 000 ms QRS Dur : 164 ms QT Int : 450 ms P-R-T Axes : 000 -84 087 degrees QTc Int : 486 ms Ventricular-paced rhythm Underlying AF Abnormal ECG When compared with ECG of 07-NOV-2020 11:01, No significant change was found Referred By: Mely Gooden Electronically Signed By:JANELL BOOTH MD
[2020-12-10 18:30] VITALS: BP 132/72; PULSE 70; RESP 11; TEMP 36.6; O2SAT 98; BMI 23.3
[2020-12-10 20:21] LABS: Basophils Percent Auto 0.3 % (0-2); Eosinophils Absolute Auto 0.1 X10*3/uL (0.0-0.4); Eosinophils Percent Auto 3.6 % (0-4); Hematocrit 32.4 % (42-52); Hemoglobin 10.6 g/dl (14.0-18.0); Imm Gran Abs Auto 0.01 X10*3/uL (0.00-0.03); Imm Gran Pct Auto 0.3 % (0.0-0.4); Lymphocytes Absolute Auto 0.7 X10*3/uL (1.2-4.9); Lymphocytes Percent Auto 18.6 % (20-40); MANUAL DIFF FLAG SCAN; Mean Corpuscular HGB Conc 32.7 g/dl (31.0-36.0); Mean Corpuscular Hemoglobin 34.1 pg (27.0-33.0); Mean Corpuscular Volume 104.2 fL (80-98); Mean Platelet Volume 12.5 fL (9.4-12.4); Monocytes Absolute Auto 0.3 X10*3/uL (0.1-1.2); Monocytes Percent Auto 6.9 % (2-11); Neutrophils Absolute Auto 2.5 X10*3/uL (2.0-8.3); Neutrophils Percent Auto 70.3 % (45-73); Red Blood Count 3.11 X10*6/uL (4.60-5.80); Red Cell Distribution Width 14.5 % (11.0-16.0); SCAN SMEAR FLAG 1; White Blood Count 3.6 X10*3/uL (4.8-10.8)
[2020-12-10 20:23] LABS: Platelet Count 55 X10*3/uL (160-400)
[2020-12-10 20:44] LABS: Anion Gap 15 (12-20); Blood Urea Nitrogen 31 mg/dL (9-16); Calcium 8.7 mg/dL (8.4-10.2); Carbon Dioxide 29 mmol/L (22-29); Chloride 102 mmol/L (96-108); Creatinine Clr Calc Pharmacy 61.1; Estimated Glomerular Filt Rate > 60; Glucose Random 89 mg/dL (60-115); Magnesium 1.8 mg/dL (1.6-2.6); Potassium 4.7 mmol/L (3.3-5.1); Sodium 141 mmol/L (135-145)
[2020-12-10 20:45] LABS: SLIDE REVIEW VERIFIED
[2020-12-10 20:50] LABS: INTERNATIONAL NORM RATIO 1.3 (0.9-1.1); Prothrombin Time 15.9 SEC (10.8-13.0)
[2020-12-10 20:54] LABS: Partial Thromboplastin Time 44.8 SEC (24.1-38.0)
[2020-12-10 21:13] LABS: B Type Natriuretic Peptide 1457 pg/mL (<100); Troponin-I High Sensitivity 45.4 ng/L (<3.5-35.0)
[2020-12-10 21:45] VITALS: BP 125/85; PULSE 75; RESP 17; TEMP 36.9; O2SAT 99
[2020-12-10] MEDS: Furosemide 40 MG/4 ML VIAL IVPUSH (23:41)
[2020-12-10] MEDS: Albuterol/Iprat 2.5/0.5MG 3 ML AMPUL.NEB INHALE (23:51)
[2020-12-10 23:52] VITALS: PULSE 70; O2SAT 98
[2020-12-11] VITALS (10 sets, daily range): BP systolic 107–132; BP diastolic 58–83; PULSE 70–85; RESP 16–19; TEMP 36.3–37.2; O2SAT 95–99; BMI 22.1
[2020-12-11 01:09] LABS: Troponin-I High Sensitivity 49.7 ng/L (<3.5-35.0)
[2020-12-11 01:37] LABS: COVID-19 Test Negative (Negative); IDNOW Serial# 9DD0AD1C
--- NOTE | 2020-12-11 02:06 | PC.NURSE ---
Late Entry: Throughout this shift, patient has been agitated with all staff providing care. Patient's daughter was previously at the bedside and went home. Earlier, patient became agitated regarding need for additional labs, and removed the cardiac nurse from himself, and angrily walked to the bathroom without oxygen use. While ambulating, patient stated go to hell to this RN. Patient ambulated without issue. Staff senior medical billing specialist was present, as well as Felicia (WEB DEVELOPMENT INSTRUCTOR) to explain need for admission. Pt was then apologetic to staff for behavior. Pt was medicated with Lasix as ordered. Pt has voided multiple times frequently into urinals since. Pt is stubborn, and uses call acevedo but does not wait for staff and insists on standing without assistance. When standing, patient begins to sway but has not fallen. Pt has been repeatedly encouraged to wait for a staff member to come to the bedside to assist with standing/ambulation. Pt refuses to use urinal while sitting or laying down. When this RN obtained the COVID swab for admission, patient stated any other useless things that you're gonna do to me today? and asked staff to leave his room. Staff senior medical billing specialist present during all interactions.
[2020-12-11] MEDS: Morphine Sulfate 4 MG/ML CARTRIDGE IVPUSH (04:23)
[2020-12-11] MEDS: Furosemide 40 MG/4 ML VIAL IVPUSH (05:13)
--- NOTE | 2020-12-11 05:54 | P.HPHOSP_ITS ---
History of Present Illness Date of Service: 12/11/20 Chief Complaint: dizziness, weakness, This is a 60-year-old male with past medical history of CHF status post ICD, COPD, severe aortic stenosis, AFib, who presents to the hospital with complaints of dizziness. Patient is also complaining of chronic shortness of breath that has not worsened, orthopnea, and generalized weakness. Patient reports that he has been feeling very tired and fatigued, denies any fever or chills, no cough, no chest pain, no palpitations. No abdominal pain nausea or vomiting, no diarrhea constipation, and no urinary symptoms. Vitals on arrival significant for temp of 98?, heart rate of 70, respiratory rate of 11 blood pressure of 132/72, satting 97% 2 L of oxygen Labs on arrival significant for WBC count of 3.6 which is chronic for him, hemoglobin of 10.6, PT of 15.9, INR of 1.3, PTT of 44.8, BUN of 31, creatinine of 1.09, troponin 45.4 which increased to 49.7, BNP of 14 57, COVID-19 negative. Chest x-ray shows hyperinflated lungs with chronic appearing changes in the lungs. With no acute disease EKG ventricular paced rhythm, no significant changes to prior EKG Review of Systems Review of Systems: Yes all other systems are reviewed and are negative [facility] Medical History Aortic stenosis Biventricular ICD (implantable cardioverter-defibrillator) in place Chronic respiratory failure COPD (chronic obstructive pulmonary disease) Heart failure with reduced ejection fraction Nonischemic cardiomyopathy Paroxysmal atrial fibrillation Persistent atrial fibrillation Pulmonary nodules Tobacco dependence Family History Father No problems noted. Mother HTN (hypertension) Arthritis of knee Unknown Recurrent strokes Diabetes mellitus Thyroid disease CVD (cerebrovascular disease) Surgical History Cardiac catheterization as the cause of abnormal reaction of the patient, or of later complication, without mention of misadventure at the time of the procedure Endotracheal tube present Epidermal cyst Lesion of tongue Pacemaker Social History Household Members: None Housing: Apartment Do you presently have visiting nurse or other home services: No Alcohol intake: unknown Smoking Status: Former smoker Tobacco Type: Cigarette Use of substances other than those prescribed or required for medical reasons: Yes Have you been hit, kicked, punched, or otherwise hurt by someone within the past year? If so, by whom?: No Do you feel safe in your current relationship?: No Is there a partner from a previous relationship who is making you feel unsafe now?: No Are you made to feel afraid or neglected: No Advance Directives: No Advance Directives Information Provided: No Do you have thoughts of harming others: None Do you have a plan to hurt others: No Plan Nutrition Risks: No Nutritional Risk Poor oral hygiene: No Meds Allergies Allergy/AdvReac Type Severity Reaction Status Date / Time Penicillins [PENICILLINS] Allergy Severe SWELLING Verified 12/11/20 02:37 Active Medications: Current Medications Generic Name Dose Route Start Last Admin Trade Name Freq PRN Reason Stop Dose Admin Acetaminophen 650 mg 12/11/20 04:51 Acetaminophen 325 Mg Tablet PO Q6H PRN Pain, Mild (Pain Scale 1-3) Docusate Sodium 100 mg 12/11/20 04:51 Docusate Sodium 100 Mg Capsule PO DAILY PRN Constipation Furosemide 40 mg 12/11/20 05:00 12/11/20 05:13 Furosemide 40 Mg/4 Ml Vial IVPUSH 40 mg Q12H [facility] Administration Protocol Ondansetron HCl 4 mg 12/11/20 04:51 Ondansetron Hcl 4 Mg/2 Ml Vial IVPUSH Q8H PRN Nausea and Vomiting Sodium Chloride 3 ml 12/11/20 08:00 0.9 % Sodium Chloride Flush 3 Ml Syringe IVFLUSH QSHIFT [facility] Home Medications Medication Instructions Recorded Confirmed Last Taken Type fluoxetine 20 mg capsule 20 mg PO DAILY 04/18/20 12/11/20 12/10/20 History fluticasone propionate 50 1 spray INTRANASAL DAILY 04/18/20 12/11/20 Unknown History mcg/actuation nasal spray,suspension lamotrigine 25 mg tablet 25 mg PO BID 04/18/20 12/11/20 12/10/20 History melatonin 5 mg tablet 10 mg PO BEDTIME 04/18/20 12/11/20 12/10/20 History multivitamin 1 tab PO QAM 04/18/20 12/11/20 12/10/20 History nystatin 100,000 unit/mL oral 2 ml PO Q3H PRN 04/18/20 12/11/20 Unknown History suspension peg [id number] 1 1 drp OPHTHALMIC (EYE) TID-QID 04/18/20 12/11/20 Unknown History %-0.2 %-0.2 % eye drops primidone 50 mg tablet 50 mg PO TID 04/18/20 12/11/20 12/10/20 History divalproex 2 tab PO DAILY 09/30/20 12/11/20 12/10/20 History carbamazepine 200 mg tablet 200 mg PO DAILY tab 12/08/20 12/11/20 12/10/20 History omeprazole 20 mg capsule,delayed 40 mg PO DAILY cap 12/08/20 12/11/20 12/10/20 History release Physical Exam Vital Signs and Narrative: Vital Signs: Last Vital Signs Temp 98.2 F 12/11/20 04:50 Pulse 85 12/11/20 04:50 Resp 18 12/11/20 04:50 BP 132/73 12/11/20 04:50 Pulse Ox 95 12/11/20 04:50 Oxygen Flow Rate 2 12/10/20 18:30 Body Mass Index 22.1 Const: General: cooperative and no acute distress Orientation/consciousness : patient oriented x3 Eyes: General: appearance normal, both eyes and all related structures Resp: Effort & Inspection: normal respiratory effort and able to speak in complete sentences Cardio: Rate: regular rate Rhythm: regular rhythm GI: Palpation (GI): Soft to palpation Auscultation: normal bowel sounds Skin: General skin exam: no rashes or lesions noted Neuro: General: patient oriented x3 Cognition (Neuro): normal cognition Extrem: General: Yes normal to inspection and Yes no pedal edema Results Labs CBC and Chem 7: 12/10/20 20:14 12/10/20 20:14 Labs: Laboratory Results - last 24 hr 12/10/20 12/10/20 12/10/20 20:14 20:14 20:14 MCV 104.2 H MCH 34.1 H MCHC 32.7 RDW 14.5 Plt Count 55 L MPV 12.5 H Immature Gran % (Auto) 0.3 Neut % (Auto) 70.3 Lymph % (Auto) 18.6 L [place] % (Auto) 6.9 Eos % (Auto) 3.6 Baso % (Auto) 0.3 Lymph # (Auto) 0.7 L [place] # (Auto) 0.3 Eos # (Auto) 0.1 Baso # (Auto) 0.0 Abs Immat Gran (auto) 0.01 Absolute Neuts (auto) 2.5 Absolute Nucleated RBC 0.000 Nucleated RBC % (auto) 0.0 Smear Tech's Comments VERIFIED PT INR APTT Anion Gap 15 Estim Creat Clear Calc 61.1 Estimated GFR > 60 Random Glucose 89 Calcium 8.7 Magnesium 1.8 Troponin I High Sens 45.4 H* B-Natriuretic Peptide 1457 H COVID-19 (SAM) COVID-19 [employer] 12/10/20 12/11/20 12/11/20 20:39 00:34 01:17 MCV MCH MCHC RDW Plt Count MPV Immature Gran % (Auto) Neut % (Auto) Lymph % (Auto) [place] % (Auto) Eos % (Auto) Baso % (Auto) Lymph # (Auto) [place] # (Auto) Eos # (Auto) Baso # (Auto) Abs Immat Gran (auto) Absolute Neuts (auto) Absolute Nucleated RBC Nucleated RBC % (auto) Smear Tech's Comments PT 15.9 H INR 1.3 H APTT 44.8 H Anion Gap Estim Creat Clear Calc Estimated GFR Random Glucose Calcium Magnesium Troponin I High Sens 49.7 H* B-Natriuretic Peptide COVID-19 (SAM) Negative COVID-19 Clin Com See Note Imaging Radiologist's Impressions: Impressions Head CT 12/10/20 19:58 IMPRESSION: No acute intracranial process seen. 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 Chest X-Ray 12/10/20 19:59 IMPRESSION: Hyperinflated with chronic appearing changes in the lungs. The emphysematous changes are better seen on prior CT scans but there are chronic airspace changes that persists similar to the 11/07/2020 exam. Assessment and Plan (1) Dizziness: Status: Acute (2) Acute exacerbation of congestive heart failure: Qualifiers: Heart failure type: combined systolic and diastolic Qualified Code(s): I50.43 - Acute on chronic combined systolic (congestive) and diastolic (congestive) heart failure Status: Acute (3) Severe aortic stenosis: Status: Acute This is a 60-year-old male with past medical history of CHF with ejection fraction of 10-15%, severe who presents to the hospital with complaints of dizziness # dizziness - most likely secondary to his severe - will admit to telemetry and consult Cardiology for any further recommendation or intervention although patient will most likely need to be transferred if an intervention indicated # CHF exacerbation - has dyspnea - elevated BNP - will start him on IV Lasix - strict I&O, daily weight, low-sodium diet - consult cardiology - most recent echo done in September shows ejection fraction of 10-15% # severe aortic stenosis - symptomatic - will consult Cardiology # AFib - continue metoprolol, and Xarelto # COPD - not in exacerbation - continue home inhalers DVT prophylaxis: Xarelto
[2020-12-11] MEDS: Albuterol/Iprat 2.5/0.5MG 3 ML AMPUL.NEB INHALE (07:19)
[2020-12-11] MEDS: lamoTRIgine 25 MG TABLET PO ×2 (07:42→20:22)
[2020-12-11] MEDS: FLUoxetine HCl 20 MG CAPSULE PO (07:42)
[2020-12-11] MEDS: lisinopriL 10 MG TABLET PO (07:42)
[2020-12-11] MEDS: Metoprolol Succinate ER 50 MG TAB.ER.24H PO (07:42)
[2020-12-11] MEDS: Omeprazole 20 MG CAPSULE.DR 40 MG PO (07:43)
[2020-12-11] MEDS: Divalproex Sodium 500 MG TABLET.DR 1000 MG PO ×2 (07:43→20:22)
[2020-12-11] MEDS: Multivitamin TABLET 1 TAB PO (07:43)
[2020-12-11] MEDS: 0.9 % Sodium Chloride Flush 3 ML SYRINGE IVFLUSH ×3 (07:44→20:22)
[2020-12-11] MEDS: carBAMazepine 200 MG TABLET PO ×2 (09:02→20:21)
[2020-12-11] MEDS: Fluticasone Propionate Nasal 16 GM SPRAY 1 SPRAY NOSTRIL-B (09:02)
[2020-12-11] MEDS: Primidone 50 MG TABLET PO ×3 (09:02→20:22)
[2020-12-11 10:04] LABS: Appearance Urine CLEAR; Color Urine YELLOW; Glucose Urine UA NEG (NEG); Leukocyte Esterase Urine NEG (NEG); Nitrite Urine NEG (NEG); PH 6.5 (5.0-8.0); Urine Blood NEG (NEG); Urine Ketones NEG (NEG); Urine Protein NEG (NEG-TRACE)
--- NOTE | 2020-12-11 10:16 | P.CONCA_ITS ---
History of Present Illness History of Present Illness Date of Service: 12/11/20 Requesting physician: Timo Pereira Consult reason: congestive heart failure and aortic stenosis Chief complaint: CHF exacerbation Narrative: We are asked to see Benito in cardiology consultation today for congestive heart failure and dizziness. Patient is well known to me and was recently evaluated in the office for multitude of cardiovascular issues inclu ding severe aortic stenosis, severe cardiomyopathy, congestive heart failure, atrial fibrillation with biventricular ICD in place. Recently was referred for cardiac catheterization for severe aortic stenosis with a plan for transcatheter aortic valve replacement. At that time unfortunately had take in his oral anticoagulant therapy and this was canceled but was noted to have some cognitive issues and confusion. Therefore he was seen recently in the office at that time after extensive discussion with his daughter with help of instrument technologist was decided that patient was in reasonable mental function stat 8 and would refer him for outpatient transcatheter aortic valve replacement. However over the last 2 days he has been getting increasingly lightheaded with any minimal activity and increasing shortness of breath with minimal activity. No clear orthopnea or PND or significant leg edema. He has been taking all his medications except for amiodarone which was discontinued last visit due to persistent atrial fibrillation. Patient denies any full syncopal episode. History is limited because of both language barrier as well as patient's understanding and education level. He denies any chest pressure. Denies any bleeding issues or neurologic events. EKG on presentation shows ventricular paced rhythm with underlying atrial fibrillation. BNP is further elevated compared to baseline. Review of Systems Constitutional: Constitutional: Denies chills, Reports fatigue, Denies fever(s), Denies frequent falls and Reports lethargy Cardiovascular: Cardiovascular: Denies chest pain, Reports lightheadedness, Denies Loss of Consciousness, Denies palpitations, Reports dyspnea on exertion and Denies orthopnea Respiratory: Respiratory: Denies cough and Reports dyspnea on exertion Gastrointestinal: Gastrointestinal: Reports no additional gastrointestinal complaints Neurologic: Denies frequent falls Endocrine: Endocrine: Reports fatigue and Denies palpitations PMF Past Medical History Medical History Aortic stenosis Biventricular ICD (implantable cardioverter-defibrillator) in place Chronic respiratory failure COPD (chronic obstructive pulmonary disease) Heart failure with reduced ejection fraction Nonischemic cardiomyopathy Paroxysmal atrial fibrillation Persistent atrial fibrillation Pulmonary nodules Tobacco dependence Family History Family History Father No problems noted. Mother HTN (hypertension) Arthritis of knee Unknown Recurrent strokes Diabetes mellitus Thyroid disease CVD (cerebrovascular disease) Surgical History Surgical History Cardiac catheterization as the cause of abnormal reaction of the patient, or of later complication, without mention of misadventure at the time of the procedure Endotracheal tube present Epidermal cyst Lesion of tongue Pacemaker Social History Social History Household Members: None Housing: Apartment Do you presently have visiting nurse or other home services: No Alcohol intake: unknown Smoking Status: Former smoker Tobacco Type: Cigarette Use of substances other than those prescribed or required for medical reasons: Yes Have you been hit, kicked, punched, or otherwise hurt by someone within the past year? If so, by whom?: No Do you feel safe in your current relationship?: No Is there a partner from a previous relationship who is making you feel unsafe now?: No Are you made to feel afraid or neglected: No Advance Directives: No Advance Directives Information Provided: No Do you have thoughts of harming others: None Do you have a plan to hurt others: No Plan Nutrition Risks: No Nutritional Risk Poor oral hygiene: No Meds Allergies Allergy/AdvReac Type Severity Reaction Status Date / Time Penicillins [PENICILLINS] Allergy Severe SWELLING Verified 12/11/20 02:37 Active Medications: Current Medications Generic Name Dose Route Start Last Admin Trade Name Jennifer PRN Reason Stop Dose Admin Acetaminophen 650 mg 12/11/20 04:51 Acetaminophen 325 Mg Tablet PO Q6H PRN Pain, Mild (Pain Scale 1-3) Albuterol Sulfate 2 puff 12/11/20 06:09 Albuterol Sulfate 90 Mcg 8 Gm Inhaler INHALE Q6H PRN shortness of breath or wheezing Albuterol/Ipratropium 3 ml 12/11/20 09:00 12/11/20 07:19 Albuterol/Iprat 2.5/0.5mg 3 Ml Ampul.Neb INHALE 3 ml QID [facility] Administration Carbamazepine 200 mg 12/11/20 09:00 12/11/20 09:02 Carbamazepine 200 Mg Tablet PO 200 mg BID [facility] Administration Divalproex Sodium 1,000 mg 12/11/20 09:00 12/11/20 07:43 Divalproex Sodium 500 Mg Tablet. PO 1,000 mg BID [facility] Administration Docusate Sodium 100 mg 12/11/20 04:51 Docusate Sodium 100 Mg Capsule PO DAILY PRN Constipation Fluoxetine HCl 20 mg 12/11/20 09:00 12/11/20 07:42 Fluoxetine Hcl 20 Mg Capsule PO 20 mg DAILY [facility] Administration Fluticasone Propionate 1 spray 12/11/20 09:00 12/11/20 09:02 Fluticasone Propionate Nasal 16 Gm [place] NOSTRIL-B 1 spray DAILY [facility] Administration Furosemide 20 mg 12/11/20 10:15 Furosemide 40 Mg/4 Ml Vial IVPUSH Q12H [facility] Protocol Lamotrigine 25 mg 12/11/20 09:00 12/11/20 07:42 Lamotrigine 25 Mg Tablet PO 25 mg BID [facility] Administration Lisinopril 10 mg 12/11/20 09:00 12/11/20 07:42 Lisinopril 10 Mg Tablet PO 10 mg DAILY [facility] Administration Protocol Melatonin 9 mg 12/11/20 21:00 Melatonin 3 Mg Tablet PO BEDTIME [facility] Metoprolol Succinate 50 mg 12/11/20 09:00 12/11/20 07:42 Metoprolol Succinate Er 50 Mg Tab.Er.24h PO 50 mg DAILY [facility] Administration Protocol Montelukast Sodium 10 mg 12/11/20 21:00 Montelukast Sodium 10 Mg Tablet PO BEDTIME [facility] Multivitamins/Vitamin C 1 tab 12/11/20 09:00 12/11/20 07:43 Multivitamin Tablet PO 1 tab DAILY [facility] Administration Non-Formulary Medication 1 each 12/11/20 09:00 [id number] PO DAILY [facility] Non-Formulary Medication 1 inhalation 12/11/20 09:00 Umeclidinium-Vilanterol [Anoro Ellipta] INHALE DAILY [facility] Nystatin 300,000 unit 12/11/20 06:09 Nystatin Oral Susp 500,000 Unit/5 Ml Oral.Susp PO Q3H PRN Mouth Irritation Protocol Omeprazole 40 mg 12/11/20 09:00 12/11/20 07:43 Omeprazole 20 Mg Capsule. PO 40 mg DAILY [facility] Administration Ondansetron HCl 4 mg 12/11/20 04:51 Ondansetron Hcl 4 Mg/2 Ml Vial IVPUSH Q8H PRN Nausea and Vomiting Primidone 50 mg 12/11/20 09:00 12/11/20 09:02 Primidone 50 Mg Tablet PO 50 mg TID [facility] Administration Rivaroxaban 20 mg 12/11/20 17:00 Rivaroxaban 20 Mg Tablet PO DAILY@1700 [facility] Sodium Chloride 3 ml 12/11/20 08:00 12/11/20 07:44 0.9 % Sodium Chloride Flush 3 Ml Syringe IVFLUSH 3 ml QSHIFT [facility] Administration Home Medications Medication Instructions Recorded Confirmed Last Taken Type fluoxetine 20 mg capsule 20 mg PO DAILY 04/18/20 12/11/20 12/10/20 History fluticasone propionate 50 1 spray INTRANASAL DAILY 04/18/20 12/11/20 Unknown History mcg/actuation nasal spray,suspension lamotrigine 25 mg tablet 25 mg PO BID 04/18/20 12/11/20 12/10/20 History melatonin 5 mg tablet 10 mg PO BEDTIME 04/18/20 12/11/20 12/10/20 History multivitamin 1 tab PO QAM 04/18/20 12/11/20 12/10/20 History nystatin 100,000 unit/mL oral 2 ml PO Q3H PRN 04/18/20 12/11/20 Unknown History suspension peg [id number] 1 1 drp OPHTHALMIC (EYE) TID-QID 04/18/20 12/11/20 Unknown History %-0.2 %-0.2 % eye drops primidone 50 mg tablet 50 mg PO TID 04/18/20 12/11/20 12/10/20 History divalproex 2 tab PO BID 09/30/20 12/11/20 12/10/20 History carbamazepine 200 mg tablet 200 mg PO BID tab 12/08/20 12/11/20 12/10/20 History omeprazole 20 mg capsule,delayed 40 mg PO DAILY cap 12/08/20 12/11/20 12/10/20 History release Physical Exam Vital Signs: Vital Signs: Last Vital Signs Temp 97.3 F 12/11/20 07:25 Pulse 71 12/11/20 07:25 Resp 16 12/11/20 07:25 BP 115/70 12/11/20 07:25 Pulse Ox 96 12/11/20 07:25 Oxygen Flow Rate 2 12/10/20 18:30 Body Mass Index 22.1 Const: General: cooperative, comfortable, no acute distress, alert, awake and ill appearing Nutritional Appearance: thin and other (Frail) Orientation/consciousness: oriented to person and oriented to time Limitations: language barrier HENMT: Head: Yes normocephalic and Yes atraumatic Neck: Neck: Yes trachea midline and Yes no JVD Resp: Effort & Inspection: normal respiratory effort Auscultation: crackles bilateral at the base and diminished lung sounds Cardio: Jugular venous distension: no JVD Palpation: abnormal PMI displaced PMI Rate: regular rate Rhythm: regular rhythm Heart sounds: S1 normal heart sound present and Murmur heart sound present systolic late, decrescendo and crescendo GI: Auscultation: normal bowel sounds Skin: General skin exam: no rashes or lesions noted Neuro: General: oriented to person and oriented to time Extrem: General: Yes no clubbing, cyanosis or edema Psych: Appearance: grossly normal Results Labs and Meds Result diagrams: 12/10/20 20:14 12/10/20 20:14 Lab results: Laboratory Results - last 24 hr 12/10/20 12/10/20 12/10/20 20:14 20:14 20:14 WBC 3.6 L RBC 3.11 L Hgb 10.6 L Hct 32.4 L MCV 104.2 H MCH 34.1 H MCHC 32.7 RDW 14.5 Plt Count 55 L MPV 12.5 H Immature Gran % (Auto) 0.3 Neut % (Auto) 70.3 Lymph % (Auto) 18.6 L [place] % (Auto) 6.9 Eos % (Auto) 3.6 Baso % (Auto) 0.3 Lymph # (Auto) 0.7 L [place] # (Auto) 0.3 Eos # (Auto) 0.1 Baso # (Auto) 0.0 Abs Immat Gran (auto) 0.01 Absolute Neuts (auto) 2.5 Absolute Nucleated RBC 0.000 Nucleated RBC % (auto) 0.0 Smear Tech's Comments VERIFIED PT INR APTT Sodium 141 Potassium 4.7 Chloride 102 Carbon Dioxide 29 Anion Gap 15 BUN 31 H Creatinine 1.09 Estim Creat Clear Calc 61.1 Estimated GFR > 60 Random Glucose 89 Calcium 8.7 Magnesium 1.8 Troponin I High Sens 45.4 H* B-Natriuretic Peptide 1457 H Urine Color Urine Appearance Urine pH Ur Specific [place] Urine Protein Urine Glucose (UA) Urine Ketones Urine Blood Urine Nitrite Ur Leukocyte Esterase COVID-19 (SAM) COVID-19 Clin Com 12/10/20 12/11/20 12/11/20 20:39 00:34 01:17 WBC RBC Hgb Hct MCV MCH MCHC RDW Plt Count MPV Immature Gran % (Auto) Neut % (Auto) Lymph % (Auto) [place] % (Auto) Eos % (Auto) Baso % (Auto) Lymph # (Auto) [place] # (Auto) Eos # (Auto) Baso # (Auto) Abs Immat Gran (auto) Absolute Neuts (auto) Absolute Nucleated RBC Nucleated RBC % (auto) Smear Tech's Comments PT 15.9 H INR 1.3 H APTT 44.8 H Sodium Potassium Chloride Carbon Dioxide Anion Gap BUN Creatinine Estim Creat Clear Calc Estimated GFR Random Glucose Calcium Magnesium Troponin I High Sens 49.7 H* B-Natriuretic Peptide Urine Color Urine Appearance Urine pH Ur Specific [place] Urine Protein Urine Glucose (UA) Urine Ketones Urine Blood Urine Nitrite Ur Leukocyte Esterase COVID-19 (SAM) Negative [facility] Com See Note 12/11/20 12/11/20 09:32 09:32 WBC RBC Hgb Hct MCV MCH MCHC RDW Plt Count MPV Immature Gran % (Auto) Neut % (Auto) Lymph % (Auto) [place] % (Auto) Eos % (Auto) Baso % (Auto) Lymph # (Auto) [place] # (Auto) Eos # (Auto) Baso # (Auto) Abs Immat Gran (auto) Absolute Neuts (auto) Absolute Nucleated RBC Nucleated RBC % (auto) Smear Tech's Comments PT INR APTT Sodium Potassium Chloride Carbon Dioxide Anion Gap BUN Creatinine Estim Creat Clear Calc Estimated GFR Random Glucose Calcium Magnesium Troponin I High Sens B-Natriuretic Peptide Urine Color YELLOW Cancelled Urine Appearance CLEAR Cancelled Urine pH 6.5 Cancelled Ur Specific [place] 1.010 Cancelled Urine Protein NEG Cancelled Urine Glucose (UA) NEG Cancelled Urine Ketones NEG Cancelled Urine Blood NEG Cancelled Urine Nitrite NEG Cancelled Ur Leukocyte Esterase NEG Cancelled COVID-19 (SAM) COVID-19 Clin Com EKG shows ventricular paced rhythm with underlying atrial fibrillation. Imaging Radiologist's impression: Impressions Head CT 12/10/20 19:58 IMPRESSION: No acute intracranial process seen. 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 Chest X-Ray 12/10/20 19:59 IMPRESSION: Hyperinflated with chronic appearing changes in the lungs. The emphysematous changes are better seen on prior CT scans but there are chronic airspace changes that persists similar to the 11/07/2020 exam. Assessment and Plan (1) Severe aortic stenosis: Status: Acute Patient presents with worsening symptoms of lightheadedness as well as shortness of breath in the setting of known severe and severe LV systolic d ysfunction. This is suggestive of progressive ventricular dysfunction related to severe . Will need to evaluate for contractile reserve by to be remain echocardiogram once patient better compensated. Meanwhile will diurese him gently with Lasix 20 mg b.i.d.. Strict intake and output chart needs to be pursued. Continue to trend BMP and BNP. Will follow him closely. Avoid sudden rapid diurese is as this may lead to significant hypotension. Prognosis overall guarded. Once patient is compensated and shows on dobutamine echocardiogram that has contractile reserve will transfer to [facility] for cardiac catheterization evaluation by valve team which will most likely happen on Monday. This was discussed with patient in details with help of instrument technologist and patient's daughter at bedside. They understand and agree. (2) Heart failure with reduced ejection fraction: Status: Acute Worsening heart failure syndrome with worsening symptoms with elevated BNP. However this could be just related to progressive myocardial dysfunction and severe aortic stenosis. Clinically does not appear to be markedly fluid overloaded. Gentle diuresis will be pursued. Continue strict intake and output chart. Continue to trend BMP and BNP. Continue neurohormonal modulation with lisinopril and metoprolol therapy. Will closely monitor him. (3) Persistent atrial fibrillation: Status: Acute Persistent atrial fibrillation, currently rate controlled. Continue rate control with metoprolol. Amiodarone and should be discontinued. Can continue oral anticoagulation Xarelto. Continue to trend renal function. Starting tomorrow will switch to parenteral anticoagulation and last does on Monday morning with Lovenox. Will follow with the patient. Greater than 45 minutes was spent in managing his complex care and discussing his care. Procedures Date of Service Date of Service: 12/11/20
[2020-12-11] MEDS: Furosemide 40 MG/4 ML VIAL 20 MG IVPUSH ×2 (11:04→20:22)
--- NOTE | 2020-12-11 11:38 | MHC.CM.PN ---
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
--- NOTE | 2020-12-11 11:54 | MHC.CM.PN ---
per multi dis rounds pt may be transferred to [facility]
[2020-12-11] MEDS: Acetaminophen 325 MG TABLET 650 MG PO ×2 (12:29→20:22)
[2020-12-11] MEDS: Rivaroxaban 20 MG TABLET PO (16:36)
[2020-12-11] MEDS: Melatonin 3 MG TABLET 9 MG PO (20:21)
[2020-12-11] MEDS: Montelukast Sodium 10 MG TABLET PO (20:22)
[2020-12-12] VITALS (9 sets, daily range): BP systolic 109–148; BP diastolic 65–84; PULSE 70–95; RESP 18–22; TEMP 36.4–37.3; O2SAT 93–100; BMI 22.2
[2020-12-12] MEDS: Albuterol/Iprat 2.5/0.5MG 3 ML AMPUL.NEB INHALE ×3 (07:13→15:05)
[2020-12-12] MEDS: 0.9 % Sodium Chloride Flush 3 ML SYRINGE IVFLUSH ×3 (07:49→20:24)
[2020-12-12] MEDS: Omeprazole 20 MG CAPSULE.DR 40 MG PO (07:49)
[2020-12-12] MEDS: Metoprolol Succinate ER 50 MG TAB.ER.24H PO (07:50)
[2020-12-12] MEDS: lamoTRIgine 25 MG TABLET PO ×2 (07:50→20:22)
[2020-12-12] MEDS: Multivitamin TABLET 1 TAB PO (07:50)
[2020-12-12] MEDS: lisinopriL 10 MG TABLET PO (07:50)
[2020-12-12] MEDS: Divalproex Sodium 500 MG TABLET.DR 1000 MG PO ×2 (07:51→20:22)
[2020-12-12] MEDS: FLUoxetine HCl 20 MG CAPSULE PO (07:51)
[2020-12-12] MEDS: Primidone 50 MG TABLET PO ×3 (07:51→20:22)
[2020-12-12] MEDS: carBAMazepine 200 MG TABLET PO ×2 (07:51→20:22)
[2020-12-12] MEDS: Fluticasone Propionate Nasal 16 GM SPRAY 1 SPRAY NOSTRIL-B (07:55)
[2020-12-12 08:23] LABS: Anion Gap 15 (12-20); Basophils Percent Auto 0.6 % (0-2); Blood Urea Nitrogen 31 mg/dL (9-16); Calcium 9.1 mg/dL (8.4-10.2); Carbon Dioxide 32 mmol/L (22-29); Chloride 99 mmol/L (96-108); Creatinine Clr Calc Pharmacy 61.3; Eosinophils Absolute Auto 0.2 X10*3/uL (0.0-0.4); Eosinophils Percent Auto 5.5 % (0-4); Estimated Glomerular Filt Rate > 60; Glucose Random 86 mg/dL (60-115); Hematocrit 39.1 % (42-52); Hemoglobin 13.2 g/dl (14.0-18.0); Imm Gran Abs Auto 0.01 X10*3/uL (0.00-0.03); Imm Gran Pct Auto 0.3 % (0.0-0.4); Lymphocytes Percent Auto 29.5 % (20-40); MANUAL DIFF FLAG SCAN; Mean Corpuscular HGB Conc 33.8 g/dl (31.0-36.0); Mean Corpuscular Hemoglobin 33.8 pg (27.0-33.0); Mean Corpuscular Volume 100.3 fL (80-98); Monocytes Absolute Auto 0.3 X10*3/uL (0.1-1.2); Neutrophils Absolute Auto 1.9 X10*3/uL (2.0-8.3); Neutrophils Percent Auto 55.1 % (45-73); PLT CLUMP 1; Potassium 5.2 mmol/L (3.3-5.1); Red Cell Distribution Width 13.8 % (11.0-16.0); SCAN SMEAR FLAG 1; Sodium 141 mmol/L (135-145)
[2020-12-12 08:25] LABS: PLT ABN DIST 1
[2020-12-12 08:27] LABS: B Type Natriuretic Peptide 656 pg/mL (<100)
[2020-12-12 08:42] LABS: Platelet Count 79 X10*3/uL (160-400); White Blood Count 3.5 X10*3/uL (4.8-10.8)
[2020-12-12 08:43] LABS: SLIDE REVIEW VERIFIED
[2020-12-12] MEDS: Furosemide 40 MG/4 ML VIAL 20 MG IVPUSH (09:02)
--- NOTE | 2020-12-12 09:54 | PM.PNCARD ---
Subjective Subjective Date of Service: 12/12/20 Principal diagnosis: CHF, aortic stenosis Interval history: Patient says he is feeling better. Denies any shortness of breath or lightheadedness today. Has diuresed well. BNP is down trended. Blood pressure is adequate. Denies any chest pain. Review of Systems Constitutional: Reports no additional constitutional complaints Cardiovascular: Reports no additional cardiovascular complaints Respiratory: Reports no additional respiratory complaints Gastrointestinal: Reports no additional gastrointestinal complaints Reports system reviewed and no additional complaints, except as documented Physical Exam Vital Signs: Last Vital Signs Temp 98.0 F 12/12/20 07:33 Pulse 76 12/12/20 07:33 Resp 20 12/12/20 07:33 BP 127/80 12/12/20 07:33 Pulse Ox 96 12/12/20 07:33 Oxygen Flow Rate 2 12/10/20 18:30 Body Mass Index 22.2 Neck Neck: Yes trachea midline, Yes supple and Yes no JVD Resp Effort & Inspection: normal respiratory effort Auscultation: no rales, no wheezes and diminished lung sounds Cardio Palpation: abnormal PMI displaced PMI Rate: regular rate Rhythm: regular rhythm Heart sounds: S1 normal heart sound present and Murmur heart sound present systolic late, decrescendo and crescendo GI Auscultation: normal bowel sounds Skin General skin exam: no rashes or lesions noted Extrem General: Yes no clubbing, cyanosis or edema Results Labs and Meds Result diagrams: 12/12/20 06:37 12/12/20 06:37 Lab results: Laboratory Results - last 24 hr 12/11/20 12/11/20 12/12/20 09:32 09:32 06:37 WBC 3.5 L RBC 3.90 L D Hgb 13.2 L D Hct 39.1 L D MCV 100.3 H MCH 33.8 H MCHC 33.8 RDW 13.8 Plt Count 79 L D MPV Not Reportable Immature Gran % (Auto) 0.3 Neut % (Auto) 55.1 Lymph % (Auto) 29.5 [place] % (Auto) 9.0 Eos % (Auto) 5.5 H Baso % (Auto) 0.6 Lymph # (Auto) 1.0 L [place] # (Auto) 0.3 Eos # (Auto) 0.2 Baso # (Auto) 0.0 Abs Immat Gran (auto) 0.01 Absolute Neuts (auto) 1.9 L Absolute Nucleated RBC 0.000 Nucleated RBC % (auto) 0.0 Smear Tech's Comments VERIFIED Sodium Potassium Chloride Carbon Dioxide Anion Gap BUN Creatinine Estim Creat Clear Calc Estimated GFR Random Glucose Calcium B-Natriuretic Peptide Urine Color YELLOW Cancelled Urine Appearance CLEAR Cancelled Urine pH 6.5 Cancelled Ur Specific [place] 1.010 Cancelled Urine Protein NEG Cancelled Urine Glucose (UA) NEG Cancelled Urine Ketones NEG Cancelled Urine Blood NEG Cancelled Urine Nitrite NEG Cancelled Ur Leukocyte Esterase NEG Cancelled 12/12/20 12/12/20 12/12/20 06:37 06:37 06:37 WBC Cancelled RBC Cancelled Hgb Cancelled Hct Cancelled MCV Cancelled MCH Cancelled MCHC Cancelled RDW Cancelled Plt Count Cancelled MPV Cancelled Immature Gran % (Auto) Neut % (Auto) Lymph % (Auto) [place] % (Auto) Eos % (Auto) Baso % (Auto) Lymph # (Auto) [place] # (Auto) Eos # (Auto) Baso # (Auto) Abs Immat Gran (auto) Absolute Neuts (auto) Absolute Nucleated RBC Cancelled Nucleated RBC % (auto) Cancelled Smear Tech's Comments Sodium 141 Potassium 5.2 H Chloride 99 Carbon Dioxide 32 H Anion Gap 15 BUN 31 H Creatinine 1.07 Estim Creat Clear Calc 61.3 Estimated GFR > 60 Random Glucose 86 Calcium 9.1 B-Natriuretic Peptide 656 H Urine Color Urine Appearance Urine pH Ur Specific [place] Urine Protein Urine Glucose (UA) Urine Ketones Urine Blood Urine Nitrite Ur Leukocyte Esterase Progress Note: A&P Assessment and plan (1) Acute exacerbation of congestive heart failure: Status: Acute Assessment and Plan: CHF, clinically improved. BNP is down trended. He is tolerating Lasix diuresis. Will reduce further to 20 mg once a day. Continue strict intake and output chart. Continue lisinopril and metoprolol therapy at this point in time. Trend BMP tomorrow along with BNP. (2) Severe aortic stenosis: Status: Acute Assessment and Plan: Severe aortic stenosis in the setting of severe LV systolic dysfunction. Needs consideration for transcatheter aortic valve replacement. Will perform a dobutamine stress echocardiogram on Monday once he is better compensated to evaluate for contractile reserve. If there is adequate contractile reserve, will transfer to [facility] on Monday for cardiac catheterization Monday and to be seen by valve team. (3) Persistent atrial fibrillation: Status: Acute Assessment and Plan: Persistent atrial fibrillation, currently rate controlled. Continue metoprolol therapy. Discontinue amiodarone therapy which is already being discontinued. Switch Xarelto to parenteral anticoagulation with Lovenox. Last dose of Lovenox should be on Monday morning. Will follow with the patient. Thank you for allowing us to partake in his care Fall Risk Details Current Medications: Current Medications Generic Name Dose Route Start Last Admin Trade Name Freq PRN Reason Stop Dose Admin Acetaminophen 650 mg 12/11/20 04:51 12/11/20 20:22 Acetaminophen 325 Mg Tablet PO 650 mg Q6H PRN Administration Pain, Mild (Pain Scale 1-3) Albuterol Sulfate 2 puff 12/11/20 06:09 Albuterol Sulfate 90 Mcg 8 Gm Inhaler INHALE Q6H PRN shortness of breath or wheezing Albuterol/Ipratropium 3 ml 12/11/20 12:00 12/12/20 07:13 Albuterol/Iprat 2.5/0.5mg 3 Ml Ampul.Neb INHALE 3 ml RQID [facility] Administration Carbamazepine 200 mg 12/11/20 09:00 12/12/20 07:51 Carbamazepine 200 Mg Tablet PO 200 mg BID [facility] Administration Divalproex Sodium 1,000 mg 12/11/20 09:00 12/12/20 07:51 Divalproex Sodium 500 Mg Tablet.Dr PO 1,000 mg BID [facility] Administration Docusate Sodium 100 mg 12/11/20 04:51 Docusate Sodium 100 Mg Capsule PO DAILY PRN Constipation Enoxaparin Sodium 60 mg 12/12/20 17:00 Enoxaparin Sodium 60 Mg/0.6 Ml Syringe SUBCUT Q24H [facility] Fluoxetine HCl 20 mg 12/11/20 09:00 12/12/20 07:51 Fluoxetine Hcl 20 Mg Capsule PO 20 mg DAILY [facility] Administration Fluticasone Propionate 1 spray 12/11/20 09:00 12/12/20 07:55 Fluticasone Propionate Nasal 16 Gm [place] NOSTRIL-B 1 spray DAILY [facility] Administration Furosemide 20 mg 12/11/20 10:15 12/12/20 09:02 Furosemide 40 Mg/4 Ml Vial IVPUSH 20 mg Q12H [facility] Administration Protocol Lamotrigine 25 mg 12/11/20 09:00 12/12/20 07:50 Lamotrigine 25 Mg Tablet PO 25 mg BID [facility] Administration Lisinopril 10 mg 12/11/20 09:00 12/12/20 07:50 Lisinopril 10 Mg Tablet PO 10 mg DAILY [facility] Administration Protocol Melatonin 9 mg 12/11/20 21:00 12/11/20 20:21 Melatonin 3 Mg Tablet PO 9 mg BEDTIME [facility] Administration Metoprolol Succinate 50 mg 12/11/20 09:00 12/12/20 07:50 Metoprolol Succinate Er 50 Mg Tab.Er.24h PO 50 mg DAILY [facility] Administration Protocol Montelukast Sodium 10 mg 12/11/20 21:00 12/11/20 20:22 Montelukast Sodium 10 Mg Tablet PO 10 mg BEDTIME [facility] Administration Multivitamins/Vitamin C 1 tab 12/11/20 09:00 12/12/20 07:50 Multivitamin Tablet PO 1 tab DAILY [facility] Administration Non-Formulary Medication 1 each 12/11/20 09:00 [id number] PO DAILY [facility] Non-Formulary Medication 1 inhalation 12/11/20 09:00 Umeclidinium-Vilanterol [Anoro Ellipta] INHALE DAILY [facility] Nystatin 300,000 unit 12/11/20 06:09 Nystatin Oral Susp 500,000 Unit/5 Ml Oral.Susp PO Q3H PRN Mouth Irritation Protocol Omeprazole 40 mg 12/11/20 09:00 12/12/20 07:49 Omeprazole 20 Mg Capsule.Dr PO 40 mg DAILY [facility] Administration Ondansetron HCl 4 mg 12/11/20 04:51 Ondansetron Hcl 4 Mg/2 Ml Vial IVPUSH Q8H PRN Nausea and Vomiting Primidone 50 mg 12/11/20 09:00 12/12/20 07:51 Primidone 50 Mg Tablet PO 50 mg TID [facility] Administration Sodium Chloride 3 ml 12/11/20 08:00 12/12/20 07:49 0.9 % Sodium Chloride Flush 3 Ml Syringe IVFLUSH 3 ml QSHIFT [facility] Administration Time Spent With Patient Time: Total time spent is greater than 50% in coordination of care (as documented) at patient's floor/unit and/or counseling patient: Time with patient: 25 - 35 minutes Procedures Date of Service Date of Service: 12/12/20
--- NOTE | 2020-12-12 11:51 | HO.PM.IMPN ---
Subjective Subjective Date of Service: 12/12/20 Interval History: The patient was seen and evaluated this morning Laying in bed, feels comfortable has no more dizziness or lightheadedness reported Still having dyspnea with exertion Denies any fever, chills or chest pain No reported other overnight events. Systemic review: No fever, chills but generalized weakness and lightheadedness with exertion No chest pain, palpitation No shortness of breath or coughing No abdominal pain, nausea or vomiting No urinary symptoms No any rash or wounds Physical Exam Vital Signs: Vital Signs: Last Vital Signs Temp 97.9 F 12/12/20 11:27 Pulse 70 12/12/20 11:27 Resp 20 12/12/20 11:27 BP 109/65 12/12/20 11:27 Pulse Ox 95 12/12/20 11:27 Oxygen Flow Rate 2 12/10/20 18:30 Body Mass Index 22.2 Const: Other: Constitutional : Alert, oriented, not in distress Neck : Normal inspection, Supple Cardiovascular : RRR, S1 S2, no lower extremity edema Respiratory : Good bilateral air entry, no crackles, wheezes or rhonchi Gastrointestinal: soft, lax, Normal bowel sounds, Non tender Skin : Warm/Dry, Neurological : Alert & oriented x3, No focal deficit Objective Data Current Medications Generic Name Dose Route Start Last Admin Trade Name Michaelq PRN Reason Stop Dose Admin Acetaminophen 650 mg 12/11/20 04:51 12/11/20 20:22 Acetaminophen 325 Mg Tablet PO 650 mg Q6H PRN Administration Pain, Mild (Pain Scale 1-3) Albuterol Sulfate 2 puff 12/11/20 06:09 Albuterol Sulfate 90 Mcg 8 Gm Inhaler INHALE Q6H PRN shortness of breath or wheezing Albuterol/Ipratropium 3 ml 12/11/20 12:00 12/12/20 10:56 Albuterol/Iprat 2.5/0.5mg 3 Ml Ampul.Neb INHALE 3 ml RQID [facility] Administration Carbamazepine 200 mg 12/11/20 09:00 12/12/20 07:51 Carbamazepine 200 Mg Tablet PO 200 mg BID [facility] Administration Divalproex Sodium 1,000 mg 12/11/20 09:00 12/12/20 07:51 Divalproex Sodium 500 Mg Tablet. PO 1,000 mg BID [facility] Administration Docusate Sodium 100 mg 12/11/20 04:51 Docusate Sodium 100 Mg Capsule PO DAILY PRN Constipation Enoxaparin Sodium 60 mg 12/12/20 17:00 Enoxaparin Sodium 60 Mg/0.6 Ml Syringe SUBCUT Q24H [facility] Fluoxetine HCl 20 mg 12/11/20 09:00 12/12/20 07:51 Fluoxetine Hcl 20 Mg Capsule PO 20 mg DAILY [facility] Administration Fluticasone Propionate 1 spray 12/11/20 09:00 12/12/20 07:55 Fluticasone Propionate Nasal 16 Gm [place] NOSTRIL-B 1 spray DAILY [facility] Administration Furosemide 20 mg 12/13/20 09:00 Furosemide 40 Mg/4 Ml Vial IVPUSH DAILY [facility] Protocol Lamotrigine 25 mg 12/11/20 09:00 12/12/20 07:50 Lamotrigine 25 Mg Tablet PO 25 mg BID [facility] Administration Lisinopril 10 mg 12/11/20 09:00 12/12/20 07:50 Lisinopril 10 Mg Tablet PO 10 mg DAILY [facility] Administration Protocol Melatonin 9 mg 12/11/20 21:00 12/11/20 20:21 Melatonin 3 Mg Tablet PO 9 mg BEDTIME [facility] Administration Metoprolol Succinate 50 mg 12/11/20 09:00 12/12/20 07:50 Metoprolol Succinate Er 50 Mg Tab.Er.24h PO 50 mg DAILY [facility] Administration Protocol Montelukast Sodium 10 mg 12/11/20 21:00 12/11/20 20:22 Montelukast Sodium 10 Mg Tablet PO 10 mg BEDTIME [facility] Administration Multivitamins/Vitamin C 1 tab 12/11/20 09:00 12/12/20 07:50 Multivitamin Tablet PO 1 tab DAILY [facility] Administration Non-Formulary Medication 1 inhalation 12/11/20 09:00 Umeclidinium-Vilanterol [Anoro Ellipta] INHALE DAILY [facility] Nystatin 300,000 unit 12/11/20 06:09 Nystatin Oral Susp 500,000 Unit/5 Ml Oral.Susp PO Q3H PRN Mouth Irritation Protocol Omeprazole 40 mg 12/11/20 09:00 12/12/20 07:49 Omeprazole 20 Mg Capsule.Dr PO 40 mg DAILY [facility] Administration Ondansetron HCl 4 mg 12/11/20 04:51 Ondansetron Hcl 4 Mg/2 Ml Vial IVPUSH Q8H PRN Nausea and Vomiting Primidone 50 mg 12/11/20 09:00 12/12/20 07:51 Primidone 50 Mg Tablet PO 50 mg TID [facility] Administration Sodium Chloride 3 ml 12/11/20 08:00 12/12/20 07:49 0.9 % Sodium Chloride Flush 3 Ml Syringe IVFLUSH 3 ml QSHIFT [facility] Administration Labs CBC & Chem 7: 12/12/20 06:37 12/12/20 06:37 Assessment and Plan (1) Dizziness: Status: Acute (2) Acute exacerbation of congestive heart failure: Status: Acute (3) Severe aortic stenosis: Status: Acute Assessment and Plan: This is a 60-year-old male with past medical history of CHF with ejection fraction of 10-15%, severe who presents to the hospital with complaints of dizziness Dizziness, lightheadedness Secondary to symptomatic severe Plan to treat fluid overload and transferred to [facility] on Monday hopefully for further evaluation of TAVR CHF exacerbation Improving Trending down BNP Decrease IV Lasix to 20 mg daily strict I&O, daily weight, low-sodium diet Cardiology input appreciated, to do stress test on Monday and try to transfer to [facility] most recent echo done in September shows ejection fraction of 10-15% AFib continue metoprolol Discontinue Xarelto Start Lovenox full-dose COPD not in exacerbation continue home inhalers DVT prophylaxis Xarelto
[2020-12-12] MEDS: Sodium Polystyrene Sulfon/Sorb 15 GM/60 ML ORAL.SUSP 30 GM PO (15:01)
[2020-12-12] MEDS: Enoxaparin Sodium 60 MG/0.6 ML SYRINGE SUBCUT (16:59)
[2020-12-12] MEDS: Melatonin 3 MG TABLET 9 MG PO (20:22)
[2020-12-12] MEDS: Montelukast Sodium 10 MG TABLET PO (20:22)
[2020-12-12] MEDS: Acetaminophen 325 MG TABLET 650 MG PO (20:23)
[2020-12-13] VITALS (8 sets, daily range): BP systolic 102–118; BP diastolic 58–76; PULSE 71–90; RESP 15–20; TEMP 36.2–36.8; O2SAT 94–99
[2020-12-13 06:52] LABS: Hematocrit 40.6 % (42-52); Hemoglobin 13.6 g/dl (14.0-18.0); Mean Corpuscular HGB Conc 33.5 g/dl (31.0-36.0); Mean Corpuscular Hemoglobin 33.8 pg (27.0-33.0); Mean Platelet Volume 11.9 fL (9.4-12.4); Red Blood Count 4.02 X10*6/uL (4.60-5.80); Red Cell Distribution Width 13.8 % (11.0-16.0); White Blood Count 3.2 X10*3/uL (4.8-10.8)
[2020-12-13 07:00] LABS: Platelet Count 89 X10*3/uL (160-400)
[2020-12-13 07:10] LABS: Anion Gap 14 (12-20); Blood Urea Nitrogen 33 mg/dL (9-16); Calcium 9.2 mg/dL (8.4-10.2); Carbon Dioxide 31 mmol/L (22-29); Chloride 99 mmol/L (96-108); Creatinine Clr Calc Pharmacy 68.3; Estimated Glomerular Filt Rate > 60; Glucose Random 97 mg/dL (60-115); Potassium 4.3 mmol/L (3.3-5.1); Sodium 140 mmol/L (135-145)
[2020-12-13 07:16] LABS: B Type Natriuretic Peptide 894 pg/mL (<100)
[2020-12-13] MEDS: Furosemide 40 MG/4 ML VIAL 20 MG IVPUSH ×2 (07:48→17:56)
[2020-12-13] MEDS: Omeprazole 20 MG CAPSULE.DR 40 MG PO (07:48)
[2020-12-13] MEDS: Divalproex Sodium 500 MG TABLET.DR 1000 MG PO ×2 (07:49→21:02)
[2020-12-13] MEDS: carBAMazepine 200 MG TABLET PO ×2 (07:49→21:02)
[2020-12-13] MEDS: Multivitamin TABLET 1 TAB PO (07:49)
[2020-12-13] MEDS: lamoTRIgine 25 MG TABLET PO ×2 (07:49→21:02)
[2020-12-13] MEDS: FLUoxetine HCl 20 MG CAPSULE PO (07:49)
[2020-12-13] MEDS: Metoprolol Succinate ER 50 MG TAB.ER.24H PO (07:50)
[2020-12-13] MEDS: 0.9 % Sodium Chloride Flush 3 ML SYRINGE IVFLUSH ×3 (07:50→23:51)
[2020-12-13] MEDS: lisinopriL 10 MG TABLET PO (07:50)
[2020-12-13] MEDS: Primidone 50 MG TABLET PO ×3 (07:50→21:02)
[2020-12-13] MEDS: Fluticasone Propionate Nasal 16 GM SPRAY 1 SPRAY NOSTRIL-B (07:59)
--- NOTE | 2020-12-13 13:30 | HO.PM.IMPN ---
Subjective Subjective Date of Service: 12/13/20 Interval History: The patient was seen and evaluated this morning Laying in bed, feels comfortable no more dizziness or lightheadedness Still having dyspnea with exertion, on oxygen supplement Denies any fever, chills or chest pain No reported other overnight events. Systemic review: No fever, chills but generalized weakness and lightheadedness with exertion No chest pain, palpitation Dyspnea on exertion No abdominal pain, nausea or vomiting No urinary symptoms No any rash or wounds Physical Exam Vital Signs: Vital Signs: Last Vital Signs Temp 97.2 F 12/13/20 07:46 Pulse 71 12/13/20 07:46 Resp 20 12/13/20 07:46 BP 108/76 12/13/20 07:46 Pulse Ox 96 12/13/20 07:46 Oxygen Flow Rate 2 12/10/20 18:30 Body Mass Index 22.2 Const: Other: Constitutional : Alert, oriented, not in distress Neck : Normal inspection, Supple, non elevated JVP Cardiovascular : RRR, S1 S2, no lower extremity edema Respiratory : Good bilateral air entry, no crackles, wheezes or rhonchi Gastrointestinal: soft, lax, Normal bowel sounds, Non tender Skin : Warm/Dry, Neurological : Alert & oriented x3, No focal deficit Objective Data Current Medications Generic Name Dose Route Start Last Admin Trade Name Michaelq PRN Reason Stop Dose Admin Acetaminophen 650 mg 12/11/20 04:51 12/12/20 20:23 Acetaminophen 325 Mg Tablet PO 650 mg Q6H PRN Administration Pain, Mild (Pain Scale 1-3) Albuterol Sulfate 2 puff 12/11/20 06:09 Albuterol Sulfate 90 Mcg 8 Gm Inhaler INHALE Q6H PRN shortness of breath or wheezing Albuterol/Ipratropium 3 ml 12/11/20 12:00 12/13/20 11:51 Albuterol/Iprat 2.5/0.5mg 3 Ml Ampul.Neb INHALE Not Given RQID [facility] Carbamazepine 200 mg 12/11/20 09:00 12/13/20 07:49 Carbamazepine 200 Mg Tablet PO 200 mg BID [facility] Administration Divalproex Sodium 1,000 mg 12/11/20 09:00 12/13/20 07:49 Divalproex Sodium 500 Mg Tablet. PO 1,000 mg BID [facility] Administration Docusate Sodium 100 mg 12/11/20 04:51 Docusate Sodium 100 Mg Capsule PO DAILY PRN Constipation Enoxaparin Sodium 60 mg 12/12/20 17:00 12/12/20 16:59 Enoxaparin Sodium 60 Mg/0.6 Ml Syringe SUBCUT 12/14/20 08:00 60 mg Q24H [facility] Administration Fluoxetine HCl 20 mg 12/11/20 09:00 12/13/20 07:49 Fluoxetine Hcl 20 Mg Capsule PO 20 mg DAILY [facility] Administration Fluticasone Propionate 1 spray 12/11/20 09:00 12/13/20 07:59 Fluticasone Propionate Nasal 16 Gm [place] NOSTRIL-B 1 spray DAILY [facility] Administration Furosemide 20 mg 12/13/20 18:00 Furosemide 40 Mg/4 Ml Vial IVPUSH BID@0900,1800 [facility] Protocol Lamotrigine 25 mg 12/11/20 09:00 12/13/20 07:49 Lamotrigine 25 Mg Tablet PO 25 mg BID [facility] Administration Lisinopril 10 mg 12/11/20 09:00 12/13/20 07:50 Lisinopril 10 Mg Tablet PO 10 mg DAILY [facility] Administration Protocol Melatonin 9 mg 12/11/20 21:00 12/12/20 20:22 Melatonin 3 Mg Tablet PO 9 mg BEDTIME [facility] Administration Metoprolol Succinate 50 mg 12/11/20 09:00 12/13/20 07:50 Metoprolol Succinate Er 50 Mg Tab.Er.24h PO 50 mg DAILY [facility] Administration Protocol Montelukast Sodium 10 mg 12/11/20 21:00 12/12/20 20:22 Montelukast Sodium 10 Mg Tablet PO 10 mg BEDTIME [facility] Administration Multivitamins/Vitamin C 1 tab 12/11/20 09:00 12/13/20 07:49 Multivitamin Tablet PO 1 tab DAILY [facility] Administration Non-Formulary Medication 1 inhalation 12/11/20 09:00 Umeclidinium-Vilanterol [Anoro Ellipta] INHALE DAILY [facility] Nystatin 300,000 unit 12/11/20 06:09 Nystatin Oral Susp 500,000 Unit/5 Ml Oral.Susp PO Q3H PRN Mouth Irritation Protocol Omeprazole 40 mg 12/11/20 09:00 12/13/20 07:48 Omeprazole 20 Mg Capsule.Dr PO 40 mg DAILY [facility] Administration Ondansetron HCl 4 mg 12/11/20 04:51 Ondansetron Hcl 4 Mg/2 Ml Vial IVPUSH Q8H PRN Nausea and Vomiting Primidone 50 mg 12/11/20 09:00 12/13/20 07:50 Primidone 50 Mg Tablet PO 50 mg TID [facility] Administration Sodium Chloride 3 ml 12/11/20 08:00 12/13/20 07:50 0.9 % Sodium Chloride Flush 3 Ml Syringe IVFLUSH 3 ml QSHIFT [facility] Administration Labs CBC & Chem 7: 12/13/20 06:29 12/13/20 06:29 Assessment and Plan (1) Dizziness: Status: Acute (2) Acute exacerbation of congestive heart failure: Status: Acute (3) Severe aortic stenosis: Status: Acute Assessment and Plan: This is a 60-year-old male with past medical history of CHF with ejection fraction of 10-15%, severe who presents to the hospital with complaints of dizziness Dizziness, lightheadedness Secondary to symptomatic severe Plan to treat fluid overload and transferred to [facility] on Monday hopefully for further evaluation of TAVR CHF exacerbation Improving Trending down BNP Decrease IV Lasix to 20 mg daily strict I&O, daily weight, low-sodium diet Cardiology input appreciated, to do dobutamine stress test on Monday and try to transfer to [facility] for possible TAVR most recent echo done in September shows ejection fraction of 10-15% AFib continue metoprolol Discontinue Xarelto Start Lovenox full-dose COPD not in exacerbation continue home inhalers DVT prophylaxis Xarelto
--- NOTE | 2020-12-13 13:31 | PM.PNCARD ---
Subjective Subjective Date of Service: 12/13/20 Principal diagnosis: CHF, aortic stenosis Interval history: Patient not having any more her lightheadedness. Continues to be short of breath. However this is not worsening. His BNP was slightly elevated after reduction in his Lasix yesterday. Intake and output chart is recording lower urine output yesterday. No palpitations. Review of Systems Constitutional: Reports no additional constitutional complaints Cardiovascular: Denies chest pain, Denies lightheadedness, Reports dyspnea on exertion and Denies orthopnea Respiratory: Reports dyspnea on exertion Gastrointestinal: Reports no additional gastrointestinal complaints Genitourinary: Reports no additional male genitourinary complaints Reports system reviewed and no additional complaints, except as documented Psychiatric: Reports no additional psychiatric complaints Endocrine: Reports no additional endocrine complaints Physical Exam Vital Signs: Last Vital Signs Temp 97.2 F 12/13/20 07:46 Pulse 71 12/13/20 07:46 Resp 20 12/13/20 07:46 BP 108/76 12/13/20 07:46 Pulse Ox 96 12/13/20 07:46 Oxygen Flow Rate 2 12/10/20 18:30 Body Mass Index 22.2 Neck Neck: Yes trachea midline, Yes supple and Yes no JVD Resp Effort & Inspection: normal respiratory effort Auscultation: no rales, no wheezes and diminished lung sounds Cardio Palpation: abnormal PMI displaced PMI Heart sounds: S1 normal heart sound present and Murmur heart sound present systolic late, decrescendo and crescendo GI Auscultation: normal bowel sounds Skin General skin exam: no rashes or lesions noted Extrem General: Yes no clubbing, cyanosis or edema Results Labs and Meds Result diagrams: 12/13/20 06:29 12/13/20 06:29 Lab results: Laboratory Results - last 24 hr 12/13/20 12/13/20 12/13/20 06:29 06:29 06:29 WBC 3.2 L RBC 4.02 L Hgb 13.6 L Hct 40.6 L MCV 101.0 H MCH 33.8 H MCHC 33.5 RDW 13.8 Plt Count 89 L MPV 11.9 Absolute Nucleated RBC 0.000 Nucleated RBC % (auto) 0.0 Sodium 140 Potassium 4.3 Chloride 99 Carbon Dioxide 31 H Anion Gap 14 BUN 33 H Creatinine 0.96 Estim Creat Clear Calc 68.3 Estimated GFR > 60 Random Glucose 97 Calcium 9.2 B-Natriuretic Peptide 894 H Progress Note: A&P Assessment and plan (1) Acute exacerbation of congestive heart failure: Status: Acute Assessment and Plan: Recently decompensated heart failure with most likely related to progressive myocardial dysfunction setting of severe aortic stenosis with known severe LV systolic dysfunction. BNP is increased further. No overt otherwise other signs of heart failure. Will increase Lasix again to 20 mg twice a day. Strict intake and output chart to be pursued. Continue to monitor BMP and BNP today. Further evaluation of aortic stenosis as below. (2) Severe aortic stenosis: Status: Acute Assessment and Plan: Aortic stenosis which is severe by recent echocardiogram with low gradient aortic stenosis related to reduce stroke volume related to severe LV systolic dysfunction. Will suggest a dobutamine echocardiogram tomorrow to assess for contractile reserve. If there is adequate contractile reserve, will transfer to [facility] for consideration for cardiac catheterization and evaluation by valve team as was discussed as outpatient with after recent OV (3) Persistent atrial fibrillation: Status: Acute Assessment and Plan: Persistent atrial fibrillation. Hold oral anticoagulation with Xarelto. Continue metoprolol for rate control. Switch to Lovenox, last dose tomorrow morning. Will follow with the patient. Thank you for allowing us to partake in his care Fall Risk Details Current Medications: Current Medications Generic Name Dose Route Start Last Admin Trade Name Freq PRN Reason Stop Dose Admin Acetaminophen 650 mg 12/11/20 04:51 12/12/20 20:23 Acetaminophen 325 Mg Tablet PO 650 mg Q6H PRN Administration Pain, Mild (Pain Scale 1-3) Albuterol Sulfate 2 puff 12/11/20 06:09 Albuterol Sulfate 90 Mcg 8 Gm Inhaler INHALE Q6H PRN shortness of breath or wheezing Albuterol/Ipratropium 3 ml 12/11/20 12:00 12/13/20 11:51 Albuterol/Iprat 2.5/0.5mg 3 Ml Ampul.Neb INHALE Not Given RQID [facility] Carbamazepine 200 mg 12/11/20 09:00 12/13/20 07:49 Carbamazepine 200 Mg Tablet PO 200 mg BID COCO Administration Divalproex Sodium 1,000 mg 12/11/20 09:00 12/13/20 07:49 Divalproex Sodium 500 Mg Tablet. PO 1,000 mg BID COCO Administration Docusate Sodium 100 mg 12/11/20 04:51 Docusate Sodium 100 Mg Capsule PO DAILY PRN Constipation Enoxaparin Sodium 60 mg 12/12/20 17:00 12/12/20 16:59 Enoxaparin Sodium 60 Mg/0.6 Ml Syringe SUBCUT 12/14/20 08:00 60 mg Q24H COCO Administration Fluoxetine HCl 20 mg 12/11/20 09:00 12/13/20 07:49 Fluoxetine Hcl 20 Mg Capsule PO 20 mg DAILY COCO Administration Fluticasone Propionate 1 spray 12/11/20 09:00 12/13/20 07:59 Fluticasone Propionate Nasal 16 Gm [place] NOSTRIL-B 1 spray DAILY [facility]OCO Administration Furosemide 20 mg 12/13/20 18:00 Furosemide 40 Mg/4 Ml Vial IVPUSH BID@0900,1800 [facility] Protocol Lamotrigine 25 mg 12/11/20 09:00 12/13/20 07:49 Lamotrigine 25 Mg Tablet PO 25 mg BID COCO Administration Lisinopril 10 mg 12/11/20 09:00 12/13/20 07:50 Lisinopril 10 Mg Tablet PO 10 mg DAILY COCO Administration Protocol Melatonin 9 mg 12/11/20 21:00 12/12/20 20:22 Melatonin 3 Mg Tablet PO 9 mg BEDTIME COCO Administration Metoprolol Succinate 50 mg 12/11/20 09:00 12/13/20 07:50 Metoprolol Succinate Er 50 Mg Tab.Er.24h PO 50 mg DAILY COCO Administration Protocol Montelukast Sodium 10 mg 12/11/20 21:00 12/12/20 20:22 Montelukast Sodium 10 Mg Tablet PO 10 mg BEDTIME COCO Administration Multivitamins/Vitamin C 1 tab 12/11/20 09:00 12/13/20 07:49 Multivitamin Tablet PO 1 tab DAILY COCO Administration Non-Formulary Medication 1 inhalation 12/11/20 09:00 Umeclidinium-Vilanterol [Anoro Ellipta] INHALE DAILY [facility] Nystatin 300,000 unit 12/11/20 06:09 Nystatin Oral Susp 500,000 Unit/5 Ml Oral.Susp PO Q3H PRN Mouth Irritation Protocol Omeprazole 40 mg 12/11/20 09:00 12/13/20 07:48 Omeprazole 20 Mg Capsule. PO 40 mg DAILY COCO Administration Ondansetron HCl 4 mg 12/11/20 04:51 Ondansetron Hcl 4 Mg/2 Ml Vial IVPUSH Q8H PRN Nausea and Vomiting Primidone 50 mg 12/11/20 09:00 12/13/20 07:50 Primidone 50 Mg Tablet PO 50 mg TID COCO Administration Sodium Chloride 3 ml 12/11/20 08:00 12/13/20 07:50 0.9 % Sodium Chloride Flush 3 Ml Syringe IVFLUSH 3 ml QSHIFT COCO Administration Time Spent With Patient Time: Total time spent is greater than 50% in coordination of care (as documented) at patient's floor/unit and/or counseling patient: Time with patient: 15 - 24 minutes Procedures Date of Service Date of Service: 12/13/20
[2020-12-13] MEDS: Albuterol/Iprat 2.5/0.5MG 3 ML AMPUL.NEB INHALE ×2 (14:56→19:48)
[2020-12-13] MEDS: Enoxaparin Sodium 60 MG/0.6 ML SYRINGE SUBCUT (16:01)
[2020-12-13] MEDS: Acetaminophen 325 MG TABLET 650 MG PO (18:01)
[2020-12-13] MEDS: Melatonin 3 MG TABLET 9 MG PO (21:02)
[2020-12-13] MEDS: Montelukast Sodium 10 MG TABLET PO (21:02)
[2020-12-14 04:00] VITALS: BP 117/66; PULSE 76; RESP 20; TEMP 36.6; O2SAT 100
[2020-12-14 06:00] VITALS: BMI 21.2
--- NOTE | 2020-12-14 06:02 | PC.NURSE ---
PT HAS BEEN ON NPO STATUS OF 2399. PT IS CHINESE SPEAKING. HE CAN BE IMPULSIVE AND BOLT OUT OF BED WITHOUT ASSISTANCE. HE RESPONDS APPROPRIATELY TO SIMPLE CHINESE COMMAND. HE HAS FRAIL AND DEBILITATED APPEARANCE. RHE IS DYSPNEIC WITH MINIMAL EXERTION. HE IS IN NEED OF SUPPLEMENTAL O2 WHEN AMBULATING TO BATHROOM. BREATH SOUNDS CTA BUT DIMINISHED. HEART TONES + NILESH. ECG DISPLAYS V-PACED RHYTHM. 100% CAPTURE. INTRINSIC RHYTHM IS AFIB. HE IS WEAK AND USES CANE FOR AMBULATION. HIS GAIT IS UNSTEADY.
[2020-12-14 07:32] LABS: Hemoglobin 13.7 g/dl (14.0-18.0); Mean Corpuscular HGB Conc 33.4 g/dl (31.0-36.0); Mean Corpuscular Hemoglobin 33.8 pg (27.0-33.0); Mean Corpuscular Volume 101.2 fL (80-98); Mean Platelet Volume 11.5 fL (9.4-12.4); Platelet Count 102 X10*3/uL (160-400); Red Blood Count 4.05 X10*6/uL (4.60-5.80); Red Cell Distribution Width 13.6 % (11.0-16.0); White Blood Count 3.7 X10*3/uL (4.8-10.8)
[2020-12-14] MEDS: 0.9 % Sodium Chloride Flush 3 ML SYRINGE IVFLUSH ×2 (07:33→17:12)
[2020-12-14] MEDS: Albuterol/Iprat 2.5/0.5MG 3 ML AMPUL.NEB INHALE ×2 (07:55→15:44)
[2020-12-14 07:56] VITALS: PULSE 82; O2SAT 95
[2020-12-14 08:00] VITALS: BP 93/60; PULSE 73; RESP 18; TEMP 36.4; O2SAT 99
[2020-12-14 08:05] LABS: B Type Natriuretic Peptide 517 pg/mL (<100)
[2020-12-14 08:08] LABS: Anion Gap 16 (12-20); Blood Urea Nitrogen 40 mg/dL (9-16); Calcium 8.8 mg/dL (8.4-10.2); Carbon Dioxide 31 mmol/L (22-29); Chloride 97 mmol/L (96-108); Creatinine Clr Calc Pharmacy 58.7; Estimated Glomerular Filt Rate > 60; Glucose Random 95 mg/dL (60-115); Sodium 140 mmol/L (135-145)
[2020-12-14] MEDS: Omeprazole 20 MG CAPSULE.DR 40 MG PO (08:49)
[2020-12-14] MEDS: Primidone 50 MG TABLET PO ×2 (08:50→14:19)
[2020-12-14] MEDS: Multivitamin TABLET 1 TAB PO (08:50)
[2020-12-14] MEDS: Furosemide 40 MG/4 ML VIAL 20 MG IVPUSH ×2 (08:50→17:12)
[2020-12-14] MEDS: FLUoxetine HCl 20 MG CAPSULE PO (08:50)
[2020-12-14] MEDS: lisinopriL 10 MG TABLET PO (08:50)
[2020-12-14] MEDS: lamoTRIgine 25 MG TABLET PO (08:50)
[2020-12-14] MEDS: carBAMazepine 200 MG TABLET PO (08:50)
[2020-12-14] MEDS: Divalproex Sodium 500 MG TABLET.DR 1000 MG PO (08:50)
--- NOTE | 2020-12-14 10:28 | CA_ITS ---
Exercise Test Summary The patient was stressed according to the DOBUTAMINE for 19:22 min:s, achieving a work level of Max. METS: 1.0. The resting heart rate of 80 bpm diane to a maximal heart rate of 106 bpm. This value represents 67% of the maximal, age predicted heart rate. The resting blood pressure of 138/72 mmHg, diane to a maximum blood pressure of 138/72 mmHg. The was terminated due to completed per protocol. Interpretation Summary: Resting ECG: afib, V paced, PVCs, [place] beats. Functional Capacity: Could not be adequately assessed. HR response to exercise: Appropriate BP response to exercise: Hypotensive at rest, appropriate response to infu. Chest pain: None Arrhythmias: Ventricular premature beats-isolated ST changes: None Overall Impression: Not diagnostic for ischemia. Conclusions: Pharmacological stress test with Dobutamine infusion to max of 20mcg/kg/min, per protocol, with each stage 5-6 min, without anginal symptoms, with isolated PVCs, short runs of what looks like [place] heart beats, V paced beats, with mild hypotension prior to start of infusion with rise of systolic to 100 during infusion, with max heart rate achieved briefly 105, 66% MPHR, with nondiagnostic EKG for ischemia. Echo image obtained by tech at rest, at Dobutamine doses of 5mc, 10 mcg, and 20 mcg and in recovery. Test reviewed with Dr. Bain. Echocardiographic component was reviewed. Data as follows; At rest- mean gradient - 11 mmHg; stroke volume 30ml; RIANNA 0.84sqcm At Dobutamine 10mcg/kg/min - mean gradient 19 mmHg; stroke volume 48cc; RIANNA 1 sqcm; At Dobutamine 20mcg/kg/min - mean gradient 30 mmHg; stroke volume 46cc; RIANNA 0.89 sqcm; Based on appropriate increase in stroke volume with dobutamine, there is evidence of contractile reserve. As the calculated aortic valve area remains grossly unchanged, this is suggestive of paradoxical low gradient, low flow severe aortic stenosis. (due to technical issues, above report was re-typed as reported in [facility]) [facility]
--- NOTE | 2020-12-14 10:29 | PM.PNCARD ---
Subjective Subjective Date of Service: 12/14/20 Principal diagnosis: CHF, aortic stenosis Interval history: Patient states that he feels okay. No new complaints. Review of Systems Review of Systems Yes all other systems are reviewed and are negative Cardiovascular: Reports as per HPI, Reports no additional cardiovascular complaints, Denies acrocyanosis, Denies cool extremities, Denies painful fingertips, Denies chest pain, Denies chest pain at rest, Denies diaphoresis, Denies syncope, Denies irregular heart rhythm, Denies claudication, Denies leg edema, Denies lightheadedness, Denies palpitations and Reports dyspnea Respiratory: Reports dyspnea Denies syncope Endocrine: Denies palpitations Physical Exam Vital Signs: Last Vital Signs Temp 97.6 F 12/14/20 08:00 Pulse 73 12/14/20 08:00 Resp 18 12/14/20 08:00 BP 93/60 12/14/20 08:00 Pulse Ox 99 12/14/20 08:00 Oxygen Flow Rate 2 12/10/20 18:30 Body Mass Index 21.2 Const General: cooperative, comfortable and no acute distress Orientation/consciousness: patient oriented x3 HENMT Other: Unremarkable Neck Neck: Yes normal visual inspection Chest Chest palpation & inspection: normal inspection of the chest Resp Auscultation: clear to auscultation bilaterally, no crackles and no wheezes Cardio Jugular venous distension: no JVD Palpation: normal PMI Heart sounds: S1 normal heart sound present, S2 normal heart sound present, no gallops, Murmur heart sound present systolic early, II/ and at the right sternal border and no rubs GI Palpation (GI): Soft to palpation Back/Spine/Pelvis Other: unremarkable Skin General skin exam: no rashes or lesions noted Neuro General: patient oriented x3 Extrem General: Yes no clubbing, cyanosis or edema Psych Mental Status: mental status grossly normal Results Labs and Meds Result diagrams: 12/14/20 05:24 12/14/20 05:24 Lab results: Laboratory Results - last 24 hr 12/14/20 12/14/20 12/14/20 05:24 05:24 05:24 WBC 3.7 L RBC 4.05 L Hgb 13.7 L Hct 41.0 L MCV 101.2 H MCH 33.8 H MCHC 33.4 RDW 13.6 Plt Count 102 L MPV 11.5 Absolute Nucleated RBC 0.000 Nucleated RBC % (auto) 0.0 Sodium 140 Potassium 4.0 Chloride 97 Carbon Dioxide 31 H Anion Gap 16 BUN 40 H Creatinine 1.07 Estim Creat Clear Calc 58.7 Estimated GFR > 60 Random Glucose 95 Calcium 8.8 B-Natriuretic Peptide 517 H Progress Note: A&P Assessment and plan (1) Acute on chronic heart failure with preserved ejection fraction: Status: Acute (2) Severe aortic stenosis: Status: Acute (3) Nonischemic cardiomyopathy: Status: Acute (4) Persistent atrial fibrillation: Status: Acute Assessment and Plan: Severe aortic stenosis and decompensated heart failure. Clinically, he appears euvolemic. We will proceed with dobutamine stress echocardiogram to further assess aortic stenosis and also decide if he is a candidate for transcatheter valve replacement. Fall Risk Details Current Medications: Current Medications Generic Name Dose Route Start Last Admin Trade Name Freq PRN Reason Stop Dose Admin Acetaminophen 650 mg 12/11/20 04:51 12/13/20 18:01 Acetaminophen 325 Mg Tablet PO 650 mg Q6H PRN Administration Pain, Mild (Pain Scale 1-3) Albuterol Sulfate 2 puff 12/11/20 06:09 Albuterol Sulfate 90 Mcg 8 Gm Inhaler INHALE Q6H PRN shortness of breath or wheezing Albuterol/Ipratropium 3 ml 12/11/20 12:00 12/14/20 07:55 Albuterol/Iprat 2.5/0.5mg 3 Ml Ampul.Neb INHALE 3 ml RQID COCO Administration Artificial Tears 1 drop 12/14/20 08:11 Artificial Tears 15 Ml Drops EYE-BOTH Q4H PRN Dry Eyes Carbamazepine 200 mg 12/11/20 09:00 12/14/20 08:50 Carbamazepine 200 Mg Tablet PO 200 mg BID COCO Administration Divalproex Sodium 1,000 mg 12/11/20 09:00 12/14/20 08:50 Divalproex Sodium 500 Mg Tablet.Dr PO 1,000 mg BID COCO Administration Docusate Sodium 100 mg 12/11/20 04:51 Docusate Sodium 100 Mg Capsule PO DAILY PRN Constipation Fluoxetine HCl 20 mg 12/11/20 09:00 12/14/20 08:50 Fluoxetine Hcl 20 Mg Capsule PO 20 mg DAILY COCO Administration Fluticasone Propionate 1 spray 12/11/20 09:00 12/13/20 07:59 Fluticasone Propionate Nasal 16 Gm [place] NOSTRIL-B 1 spray DAILY [facility]OCO Administration Furosemide 20 mg 12/13/20 18:00 12/14/20 08:50 Furosemide 40 Mg/4 Ml Vial IVPUSH 20 mg BID@0900,1800 COCO Administration Protocol Lamotrigine 25 mg 12/11/20 09:00 12/14/20 08:50 Lamotrigine 25 Mg Tablet PO 25 mg BID COCO Administration Lisinopril 10 mg 12/11/20 09:00 12/14/20 08:50 Lisinopril 10 Mg Tablet PO 10 mg DAILY COCO Administration Protocol Melatonin 9 mg 12/11/20 21:00 12/13/20 21:02 Melatonin 3 Mg Tablet PO 9 mg BEDTIME COCO Administration Methadone HCl 40 mg 12/14/20 09:00 Methadone Hcl 1 Mg/0.1 Ml Oral.Conc PO DAILY COCO Metoprolol Succinate 50 mg 12/11/20 09:00 12/14/20 09:06 Metoprolol Succinate Er 50 Mg Tab.Er.24h PO Not Given DAILY [facility] Protocol Montelukast Sodium 10 mg 12/11/20 21:00 12/13/20 21:02 Montelukast Sodium 10 Mg Tablet PO 10 mg BEDTIME COCO Administration Multivitamins/Vitamin C 1 tab 12/11/20 09:00 12/14/20 08:50 Multivitamin Tablet PO 1 tab DAILY COCO Administration Non-Formulary Medication 1 inhalation 12/11/20 09:00 Umeclidinium-Vilanterol [Anoro Ellipta] INHALE DAILY [facility] Nystatin 300,000 unit 12/11/20 06:09 Nystatin Oral Susp 500,000 Unit/5 Ml Oral.Susp PO Q3H PRN Mouth Irritation Protocol Omeprazole 40 mg 12/11/20 09:00 12/14/20 08:49 Omeprazole 20 Mg Capsule.Dr PO 40 mg DAILY COCO Administration Ondansetron HCl 4 mg 12/11/20 04:51 Ondansetron Hcl 4 Mg/2 Ml Vial IVPUSH Q8H PRN Nausea and Vomiting Primidone 50 mg 12/11/20 09:00 12/14/20 08:50 Primidone 50 Mg Tablet PO 50 mg TID COCO Administration Sodium Chloride 3 ml 12/11/20 08:00 12/14/20 07:33 0.9 % Sodium Chloride Flush 3 Ml Syringe IVFLUSH 3 ml QSHIFT COCO Administration Time Spent With Patient Time: Total time spent is greater than 50% in coordination of care (as documented) at patient's floor/unit and/or counseling patient: Time with patient: less than 15 minutes Procedures Date of Service Date of Service: 12/14/20
[2020-12-14 11:55] VITALS: BP 160/58; PULSE 80; RESP 18; TEMP 36.4; O2SAT 100
--- NOTE | 2020-12-14 14:02 | MHC.CM.PN ---
per multidis rounds pt may go to [facility] will continue to follow
--- NOTE | 2020-12-14 14:11 | PM.DS ---
DS: Providers Provider Date of Service: 12/14/20 Date of admission: 12/11/20 00:29 Primary care physician: [facility] Consults: 12/11/20 04:51 Consult to Cardiology Routine Consulting Provider: Elton Moore Reason for consultation: chf, severe as Has provider been notified: No DS: Diagnosis Discharge Diagnosis (1) Acute on chronic heart failure with preserved ejection fraction: Status: Acute (2) Severe aortic stenosis: Status: Acute (3) Nonischemic cardiomyopathy: Status: Acute (4) Persistent atrial fibrillation: Status: Acute DS: Medications Discharge Medications Home Medications: Home Medications Medication Instructions Recorded Confirmed fluoxetine 20 mg capsule 20 mg PO DAILY 04/18/20 12/11/20 fluticasone propionate 50 1 spray INTRANASAL DAILY 04/18/20 12/11/20 mcg/actuation nasal spray,suspension lamotrigine 25 mg tablet 25 mg PO BID 04/18/20 12/11/20 melatonin 5 mg tablet 10 mg PO BEDTIME 04/18/20 12/11/20 multivitamin 1 tab PO QAM 04/18/20 12/11/20 nystatin 100,000 unit/mL oral 2 ml PO Q3H PRN 04/18/20 12/11/20 suspension peg [id number] 1 1 drp OPHTHALMIC (EYE) TID-QID 04/18/20 12/11/20 %-0.2 %-0.2 % eye drops primidone 50 mg tablet 50 mg PO TID 04/18/20 12/11/20 divalproex 2 tab PO BID 09/30/20 12/11/20 carbamazepine 200 mg tablet 200 mg PO BID tab 12/08/20 12/11/20 omeprazole 20 mg capsule,delayed 40 mg PO DAILY cap 12/08/20 12/11/20 release methadone [Methadone Intensol] 43 mg PO DAILY 12/14/20 12/14/20 Previous Rx's Medication Instructions Recorded albuterol sulfate 90 mcg/actuation 2 puff PO Q6H PRN 30 Days #18 g 04/23/20 aerosol inhaler rivaroxaban 20 mg tablet 20 mg PO DAILY 90 Days #90 tab 07/16/20 furosemide 20 mg tablet 20 mg PO QAM 90 Days #90 tab 08/05/20 lisinopril 10 mg tablet 10 mg PO QAM 90 Days #90 tab 08/05/20 metoprolol succinate 50 mg 50 mg PO QAM 90 Days #90 tab 08/05/20 tablet,extended release 24 hr ipratropium 0.5 mg-albuterol 3 mg 3 ml INHALATION QID 30 Days #360 ml 09/18/20 (2.5 mg base)/3 mL nebulization soln umeclidinium 62.5 mcg-vilanterol 1 inh INHALATION DAILY #60 ea 09/18/20 25 mcg/actuation powdr for inhalation montelukast 10 mg tablet 10 mg PO BEDTIME #30 tab 10/08/20 DS: Summary Hospital Course Hospital Course: Admission note HPI This is a 60-year-old male with past medical history of CHF status post ICD, COPD, severe aortic stenosis, AFib, who presents to the hospital with complaints of dizziness. Patient is also complaining of chronic shortness of breath that has not worsened, orthopnea, and generalized weakness. Patient reports that he has been feeling very tired and fatigued, denies any fever or chills, no cough, no chest pain, no palpitations. No abdominal pain nausea or vomiting, no diarrhea constipation, and no urinary symptoms. Vitals on arrival significant for temp of 98?, heart rate of 70, respiratory rate of 11 blood pressure of 132/72, satting 97% 2 L of oxygen Labs on arrival significant for WBC count of 3.6 which is chronic for him, hemoglobin of 10.6, PT of 15.9, INR of 1.3, PTT of 44.8, BUN of 31, creatinine of 1.09, troponin 45.4 which increased to 49.7, BNP of 14 57, COVID-19 negative. Chest x-ray shows hyperinflated lungs with chronic appearing changes in the lungs. With no acute disease Hospital care The patient was treated for CHF exacerbation with IV Lasix with good response over the course of hospital stay as his shortness of breath improved. Continue to have dyspnea with exertion which is believed to be a result of severe aortic stenosis. A stress test was done by Cardiology, final report not reported did but cardiology reported with the patient still have contractile reserve and would benefit from TAVR. Plan to transfer to [facility] for diagnostic angiogram possible aortic valve replacement surgery. Continue home medications. Time Spent with Patient Time attestation: Total time spent providing and/or coordinating discharge services: Discharge coordination time: Greater than 30 minutes Quality: Stroke Does the patient have a stroke diagnosis?: No Physical Exam Vital Signs: Vital Signs: Last Vital Signs Temp 97.6 F 12/14/20 11:55 Pulse 80 12/14/20 11:55 Resp 18 12/14/20 11:55 BP 160/58 H 12/14/20 11:55 Pulse Ox 100 12/14/20 11:55 Oxygen Flow Rate 2 12/10/20 18:30 Body Mass Index 21.2 Const: Other: Constitutional : Alert, oriented, not in distress Neck : Normal inspection, Supple, non elevated JVP Cardiovascular : RRR, S1 S2, no lower extremity edema Respiratory : Good bilateral air entry, no crackles, wheezes or rhonchi Gastrointestinal: soft, lax, Normal bowel sounds, Non tender Skin : Warm/Dry, Neurological : Alert & oriented x3, No focal deficit DS: Data Data Completed and Pending Labs on day of discharge: Laboratory Results - last 24 hr 12/14/20 12/14/20 12/14/20 05:24 05:24 05:24 WBC 3.7 L RBC 4.05 L Hgb 13.7 L Hct 41.0 L MCV 101.2 H MCH 33.8 H MCHC 33.4 RDW 13.6 Plt Count 102 L MPV 11.5 Absolute Nucleated RBC 0.000 Nucleated RBC % (auto) 0.0 Sodium 140 Potassium 4.0 Chloride 97 Carbon Dioxide 31 H Anion Gap 16 BUN 40 H Creatinine 1.07 Estim Creat Clear Calc 58.7 Estimated GFR > 60 Random Glucose 95 Calcium 8.8 B-Natriuretic Peptide 517 H Imaging Chest x-ray: Radiologist's impression: ITS Impressions Head CT 12/10/20 19:58 IMPRESSION: No acute intracranial process seen. 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 Chest X-Ray 12/10/20 19:59 IMPRESSION: Hyperinflated with chronic appearing changes in the lungs. The emphysematous changes are better seen on prior CT scans but there are chronic airspace changes that persists similar to the 11/07/[address] scan - head: Radiologist's impression: ITS Impressions Head CT 12/10/20 19:58 IMPRESSION: No acute intracranial process seen. 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 Chest X-Ray 12/10/20 19:59 IMPRESSION: Hyperinflated with chronic appearing changes in the lungs. The emphysematous changes are better seen on prior CT scans but there are chronic airspace changes that persists similar to the 11/07/2020 exam. Discharge Plan Discharge Patient Disposition: [facility] Discharge Diagnosis: CHF exacerbation Severe aortic valve stenosis Referrals: [facility] [Primary Care Provider] - 1 Week Discharge Medications: Continued rivaroxaban 20 mg tablet 20 mg PO DAILY 90 Days Qty: 90 RF: 1 metoprolol succinate 50 mg tablet extended release 24 hr 50 mg PO QAM 90 Days Qty: 90 RF: 3 furosemide 20 mg tablet 20 mg PO QAM 90 Days Qty: 90 RF: 3 lisinopril 10 mg tablet 10 mg PO QAM 90 Days Qty: 90 RF: 3 montelukast 10 mg tablet 10 mg PO BEDTIME Qty: 30 RF: 11 divalproex 500 mg tablet,delayed release (DR/EC) 2 tab PO BID RF: 0 methadone [Methadone Intensol] 10 mg/mL Concentrate 43 mg PO DAILY RF: 0 melatonin 5 mg tablet 10 mg PO BEDTIME RF: 0 fluoxetine 20 mg capsule 20 mg PO DAILY RF: 0 lamotrigine 25 mg tablet 25 mg PO BID RF: 0 primidone 50 mg tablet 50 mg PO TID RF: 0 multivitamin Tablet 1 tab PO QAM RF: 0 peg [id number] 1-0.2-0.2 % drops 1 drp ophthalmic (eye) TID-QID RF: 0 fluticasone propionate 50 mcg/actuation spray,suspension 1 spray intranasal DAILY RF: 0 nystatin 100,000 unit/mL suspension 2 ml PO Q3H PRN (Reason: Mouth Irritation) RF: 0 carbamazepine 200 mg tablet 200 mg PO BID RF: 0 omeprazole 20 mg capsule,delayed release(DR/EC) 40 mg PO DAILY RF: 0 albuterol sulfate 90 mcg/actuation HFA aerosol inhaler 2 puff PO Q6H PRN (Reason: shortness of breath or wheezing) 30 Days Qty: 18 RF: 11 Anoro Ellipta 62.5-25 mcg/actuation blister with device 1 inh inhalation DAILY Qty: 60 RF: 11 ipratropium-albuterol 0.5 mg-3 mg(2.5 mg base)/3 mL solution for nebulization 3 ml inhalation QID 30 Days Qty: 360 RF: 11 Discharge Orders: Discharge Order (Routine); Ordered 12/14/20 Ordered By: Timo Pereira Diet: advance to usual diet Activity on Discharge: As tolerated Stand Alone Forms: Patient Portal Discharge page Care Plan Goals: Read below Health Concerns: Read below Plan of Treatment: You were treated with water pills with good response. Evaluated by Cardiology who did a stress test and recommended transfer to [facility] for intervention angiogram for the heart and possible valve replacement surgery. Assessment: Continue home medications Transfer to [facility] for angiogram and possible surgery
[2020-12-14 15:08] VITALS: BP 101/46; PULSE 82; RESP 18; TEMP 36.4; O2SAT 99
[2020-12-14 15:45] VITALS: PULSE 88; O2SAT 96
== END 2020-12-14 19:10 | disposition short-term general hospital (02) | DRG 292 ==
LOC: HO.ED 12-11 00:29 → HO.EDOVER 12-11 00:51 → HO.IMC 12-11 02:38
PROVIDERS: Nurse Practitioner Family; Admitting Provider Internal Medicine; Emergency Provider Emergency Medicine; PCP General Practice; Visit Provider Student in an Organized Health Care Education/Training Program
DX: I50.33 Acute on chronic diastolic (congestive) heart failure (principal); I48.19 Other persistent atrial fibrillation; I42.8 Other cardiomyopathies; D69.6 Thrombocytopenia, unspecified; J43.1 Panlobular emphysema; F17.210 Nicotine dependence, cigarettes, uncomplicated; I35.0 Nonrheumatic aortic (valve) stenosis; Z95.810 Presence of automatic (implantable) cardiac defibrillator; Z71.6 Tobacco abuse counseling; Z20.822 Contact with and (suspected) exposure to COVID-19; Z99.81 Dependence on supplemental oxygen; Z88.0 Allergy status to penicillin; Z79.51 Long term (current) use of inhaled steroids; Z79.01 Long term (current) use of anticoagulants; Z79.899 Other long term (current) drug therapy
CPT/HCPCS: 36415; 70450; 71045; 80048; 81003; 83735; 83880; 84484; 85025; 85027; 85610; 85730; 87635; 93005; 93351; 94640; 96374; 99212; 99285; 99291; J1250; J1650; J1940; J2270

== ENCOUNTER → 2020-12-30 10:58 | Outpatient (BNVA) | payer OTHER, SELFPAY | PROVIDERS: PCP General Practice; Visit Provider Hospitalist | DX: Z01.811 Encounter for preprocedural respiratory examination (principal); R91.8 Other nonspecific abnormal finding of lung field; R06.02 Shortness of breath | CPT/HCPCS: 99212 ==

== ENCOUNTER 2021-01-04 10:29 | Outpatient (REF) | payer OTHER, SELFPAY ==
--- NOTE | ~2021-01-04 | US_ITS ---
EXAMINATION: US ABDOMEN COMPLETE CLINICAL INFORMATION: Hepatitis C antibody positive, abdominal pain. COMPARISON: None TECHNIQUE: Real-time imaging of the abdominal viscera. FINDINGS: PANCREAS: Pancreas is completely obscured by overlying gas. ABDOMINAL AORTA: The proximal, mid, and distal segments are normal in caliber. INFERIOR VENA CAVA: Visualized portions are normal. LIVER: The liver is normal in size. The liver contour is normal. There is increased liver echogenicity. No focal hepatic lesion. There is no intrahepatic biliary duct dilatation seen. GALLBLADDER: Normal. The gallbladder is physiologically distended without evidence of stones, sludge, polyps, wall thickening or pericholecystic fluid. COMMON BILE DUCT: Normal in caliber measuring 0.83 cm in diameter. RIGHT KIDNEY: Normal. No hydronephrosis. No renal calculi or focal parenchymal lesions. The kidney measures 10.1 cm in maximum dimension. LEFT KIDNEY: Normal. No hydronephrosis. No renal calculi or focal parenchymal lesions. The kidney measures 8.5 cm in maximum dimension. SPLEEN: Normal. The spleen measures 8.2 cm in maximum dimension. FREE FLUID: None. US/US abdomen complete IMPRESSION: Diffuse hepatic steatosis. No focal lesion seen.
== END 2021-01-04 10:30 | disposition home or self-care (01) ==
LOC: HO.US 10:29
PROVIDERS: Visit Provider General Practice
DX: R76.8 Other specified abnormal immunological findings in serum (principal)
CPT/HCPCS: 76700

== ENCOUNTER → 2021-01-06 13:18 | Outpatient (BNVA) | payer OTHER, SELFPAY | PROVIDERS: PCP General Practice; Referring Provider General Practice; Visit Provider Internal Medicine Cardiovascular Disease | DX: I35.0 Nonrheumatic aortic (valve) stenosis (principal); I50.20 Unspecified systolic (congestive) heart failure; I48.19 Other persistent atrial fibrillation | CPT/HCPCS: 99212 ==

== ENCOUNTER → 2021-02-02 13:59 | Outpatient (BNVA) | payer OTHER, SELFPAY | PROVIDERS: PCP General Practice; Referring Provider General Practice; Visit Provider Internal Medicine Cardiovascular Disease | DX: Z45.02 Encounter for adjustment and management of automatic implantable cardiac defibrillator (principal); I48.19 Other persistent atrial fibrillation; J96.11 Chronic respiratory failure with hypoxia; R54 Age-related physical debility; Z98.890 Other specified postprocedural states | CPT/HCPCS: 99212 ==

== ENCOUNTER → 2021-02-12 08:18 | Outpatient (REF) | payer OTHER, SELFPAY ==
--- NOTE | 2021-02-12 08:23 | CA_ITS ---
Transthoracic Echocardiogram Patient (Last, First, Middle): Benito Guzman, Gender: Male Date of : 1960 Age: 60 Procedure Date: 02/12/2021 Procedure Type: Transthoracic Echocardiogram Location: OP Height: 170.18 cm Weight: 72.58 kg BSA: 1.84 m2 Heart Rate: bpm BP: 110 / 60 mmHg Heel Sewer: DUANE Whitman MD: Elton Moore MD Tumbler Tender: Elton Moore MD Symptoms: Z98.890 - Other specified postprocedural states Study Quality: Good ECG Rhythm: Ventriculary paced rhythm Conclusions: - 1. Severe LV systolic dysfunction with moderately dilated left ventricle with LVEF of 15-20% 2. Severely dilated left atrium 3. Moderate to severe aortic stenosis status post balloon aortic valvuloplasty with mean gradient of 18 mm of mercury with mild-to moderate aortic regurgitation 4. Normal RV systolic pressure 5. No gross pericardial effusion Findings Left Ventricle Moderately increased left ventricular cavity size. There is normal left ventricular wall thickness. The left ventricular systolic function is severely decreased. The visually estimated ejection fraction is between 15 20%. There is severe global hypokinesis. Elevated filling pressures. Right Ventricle Mildly increased right ventricular cavity size. There is low normal right ventricular systolic function. Atria The left atrium is severely dilated. There is no evidence of interatrial shunt. The right atrium is moderately dilated. Aortic Valve The aortic valve was not well visualized. There is moderate calcification of the aortic valve. There is moderate to severe aortic valve stenosis. The peak aortic gradient is 36 mmHg.The mean gradient is 18 mmHg. The aortic valve area is 1.03 cm2. There is mild to moderate aortic valve regurgitation. Mitral Valve Normal mitral valve structure and function. There is mild mitral valve regurgitation. There is no mitral valve stenosis. Pulmonic Valve The pulmonic valve was not well visualized. Tricuspid Valve Likely normal tricuspid valve structure and function. The right ventricular systolic pressure is normal. The right ventricular systolic pressure is 35 mmHg. There is no evidence of pulmonary hypertension. Great Vessels All visible segments of the aorta are normal in size. The pulmonary artery was not well visualized. Venous The inferior vena cava is normal in size and collapses greater than 50% with inspiration. Pericardium/Pleural There is no evidence of pericardial effusion. Prior Study Comparison Changes noted compared to prior study dated: 10/13/2020. Patient status post balloon aortic valvuloplasty. LV ejection fraction is marginally improved with marginally improved valve area to 1.03 cm2 with similar gradients, suggestive of overall improvement in stroke volume. Measurements 2D Linear Measurements IVSd: 0.86 0.6-0.9/0.6-1.0 cm LVIDd: 6.52 3.9-5.3/4.2-5.9 cm LVIDd Index: 3.54 2.4-3.2/2.2-3.1 cm/m2 LVIDs: 5.99 2.0-3.6 cm LVPWd: 0.94 0.7-1.1 cm Ao Root: 3.40 2.1-3.5 cm LA Diam: 5.10 2.7-3.8/3.0-4.0 cm LAIDs Index: 2.77 1.5-2.3 cm/m2 LV Mass: 310.28 67-162/88-224 g LV Mass Index: 168.63 43-95/49-115 g/m2 LVOT Diam: 2.20 3.0+(-)1.3 cm 2D Systolic Function EF 4C: 27.60 >55% EF 2C: 15.60 >55% EF BiP: 18.70 >55% Aortic Valve AoV Pk Diaz: 2.98 AoV Mn Diaz: 1.97 AoV VTI: 0.52 AoV Pk Grad: 36.00 Aov Mn Grad: 18.00 RIANNA Cont.VTI: 1.03 AI Pk Diaz: 4.36 AI [place]: 2.48 LVOT LVOT Pk Diaz: 0.75 LVOT Mn Diaz: 0.50 LVOT VTI: 0.14 LVOT Pk Grad: 2.00 LVOT Mn Grad: 1.00 LVOT Diam: 2.20 LVOT Area: 3.80 Tricuspid Valve TR Pk Diaz: 2.84 TR Pk Grad: 32.00 RA Press: 3.00 RVSP: 35.00 Great Vessels Aorta Ao Root-2D: 3.40 2.0-3.7 cm Ao Arch: 2.70 Updated in Other Vendor System with Status of Final Elton Moore MD electronically signed on 02/13/2021 11:37:02 AM with status of Final
== END ==
LOC: HO.CARD 08:18
PROVIDERS: Visit Provider Internal Medicine Cardiovascular Disease
DX: Z98.890 Other specified postprocedural states (principal)
CPT/HCPCS: 93306

== ENCOUNTER → 2021-03-22 13:46 | Outpatient (BNVA) | payer OTHER, SELFPAY | PROVIDERS: PCP General Practice; Visit Provider Internal Medicine | DX: J44.9 Chronic obstructive pulmonary disease, unspecified (principal); J96.11 Chronic respiratory failure with hypoxia; R91.8 Other nonspecific abnormal finding of lung field | CPT/HCPCS: 99212 ==

== ENCOUNTER → 2021-04-08 14:08 | Outpatient (BNVA) | payer OTHER, SELFPAY | PROVIDERS: PCP General Practice; Referring Provider General Practice; Visit Provider Internal Medicine Cardiovascular Disease | DX: I35.0 Nonrheumatic aortic (valve) stenosis (principal); I51.7 Cardiomegaly; I50.20 Unspecified systolic (congestive) heart failure; I48.0 Paroxysmal atrial fibrillation; J44.9 Chronic obstructive pulmonary disease, unspecified; J96.10 Chronic respiratory failure, unspecified whether with hypoxia or hypercapnia; Z87.891 Personal history of nicotine dependence; Z95.810 Presence of automatic (implantable) cardiac defibrillator; Z88.0 Allergy status to penicillin; Z79.891 Long term (current) use of opiate analgesic; Z79.899 Other long term (current) drug therapy | CPT/HCPCS: 99212 ==

== ENCOUNTER 2021-04-20 18:37 | Emergency (ER) | payer OTHER, SELFPAY ==
--- NOTE | ~2021-04-20 | XR_ITS ---
EXAMINATION: XR CHEST CLINICAL INFORMATION: Dyspnea COMPARISON: 12/10/2020 TECHNIQUE: Frontal view of the chest was obtained. FINDINGS: Left chest wall pacer is unchanged. Cardiac leads overlie the chest. Lung volumes are low. Chronic appearing changes in the lungs. No consolidation, edema, or effusion. No pneumothorax. The cardiomediastinal silhouette is unchanged, with a tortuous and calcified aorta. XR/XR chest 1V IMPRESSION: Chronic appearing changes in the lungs with no acute pulmonary finding.
[2021-04-20 19:11] VITALS: BP 141/105; PULSE 70; RESP 30; TEMP 36.6; O2SAT 100; BMI 21.9
--- NOTE | 2021-04-20 19:14 | ECG_ITS ---
Test Reason : DYPNEA Blood Pressure : / mmHG Vent. Rate : 071 BPM Atrial Rate : 073 BPM P-R Int : 000 ms QRS Dur : 168 ms QT Int : 440 ms P-R-T Axes : 000 269 093 degrees QTc Int : 478 ms Ventricular-paced rhythm Abnormal ECG When compared with ECG of 10-DEC-2020 19:59, No significant change was found Referred By: Caesar Romeo Electronically Signed By:DEE RODAS
--- NOTE | 2021-04-20 19:28 | ED.SOB ---
HPI - SOB/Dyspnea General Chief Complaint: Dyspnea Stated Complaint: cough Time Seen by Provider: 04/20/21 19:15 Source: patient and old records reviewed Limitations: no limitations History of Present Illness HPI Narrative: Patient with shortness of breath for approximately 5 days. Positive cough but unable to cough up his phlegm. No fevers or chills. Positive malaise. He states he can ambulate at home. He is typically on oxygen at 4 5 L at home. He has a history of congestive heart failure as well with a hospitalization in November of this year. Positive sick contacts. Question family members with COVID-19. It is unclear if he has been vaccinated. Related Data Home Medications Medication Instructions Recorded Confirmed fluoxetine 20 mg capsule 20 mg PO DAILY 04/18/20 04/20/21 lamotrigine 25 mg tablet 25 mg PO BID 04/18/20 04/20/21 melatonin 5 mg tablet 10 mg PO BEDTIME 04/18/20 04/20/21 multivitamin 1 tab PO QAM 04/18/20 04/20/21 primidone 50 mg tablet 50 mg PO TID 04/18/20 04/20/21 carbamazepine 200 mg tablet 200 mg PO BID tab 12/08/20 04/20/21 methadone 10 mg/mL oral 43 mg PO DAILY 12/14/20 04/08/21 concentrate (Methadone Intensol) omeprazole 40 mg capsule,delayed 40 mg PO DAILY 12/30/20 04/20/21 release divalproex 500 mg tablet,delayed 1,000 mg PO BID 02/02/21 04/20/21 release furosemide 20 mg tablet 40 mg PO QAM tab 04/08/21 04/20/21 Previous Rx's Medication Instructions Recorded metoprolol succinate 50 mg 50 mg PO QAM 90 Days #90 tab 08/05/20 tablet,extended release 24 hr montelukast 10 mg tablet 10 mg PO BEDTIME #30 tab 10/08/20 rivaroxaban 20 mg tablet (Xarelto) 20 mg PO QAM #90 tab 12/28/20 albuterol sulfate 90 mcg/actuation 2 puff PO Q6H PRN 30 Days #18 g 03/22/21 aerosol inhaler ipratropium 0.5 mg-albuterol 3 mg 3 ml INHALATION QID 30 Days #360 ml 03/22/21 (2.5 mg base)/3 mL nebulization soln umeclidinium 62.5 mcg-vilanterol 1 inh INHALATION DAILY #60 ea 03/22/21 25 mcg/actuation powdr for inhalation (Anoro Ellipta) Allergies Allergy/AdvReac Type Severity Reaction Status Date / Time Penicillins [PENICILLINS] Allergy Severe SWELLING Verified 04/20/21 19:11 Review of Systems Constitutional: Constitutional: Denies fever(s) Cardiovascular: Comments: Chest pain with respirations Respiratory: Comments: Positive dyspnea. Positive cough. Gastrointestinal: Comments: No nausea vomiting PMFSH Past Medical History Medical History (Updated 04/20/21 @ 22:00 by Caesar Romeo MD) Aortic stenosis Biventricular ICD (implantable cardioverter-defibrillator) in place Chronic respiratory failure COPD (chronic obstructive pulmonary disease) COPD (chronic obstructive pulmonary disease) Heart failure with reduced ejection fraction Nonischemic cardiomyopathy Paroxysmal atrial fibrillation Persistent atrial fibrillation Pre-op chest exam Pulmonary nodules Thrombocytopenia Tobacco dependence Surgical History Cardiac catheterization as the cause of abnormal reaction of the patient, or of later complication, without mention of misadventure at the time of the procedure Endotracheal tube present Epidermal cyst Lesion of tongue Pacemaker S/P balloon aortic valvuloplasty Family History Family History Father No problems noted. Mother HTN (hypertension) Arthritis of knee Unknown Recurrent strokes Diabetes mellitus Thyroid disease CVD (cerebrovascular disease) Social History Social History Household Members: None Housing: Apartment Do you presently have visiting nurse or other home services: No Alcohol intake: unknown Patient Tobacco Use Status: Former Tobacco user Tobacco use type: Cigarette Years Smoked: 20+ years Advance Directives: No Advance Directives Information Provided: Yes service: No Physical Exam Vital Signs: Vital Signs: Last Vital Signs Temp 97.9 F 04/20/21 21:34 Pulse 70 04/20/21 21:45 Resp 18 04/20/21 21:45 BP 100/61 04/20/21 21:45 Pulse Ox 95 04/20/21 21:45 Oxygen Flow Rate 2 04/20/21 19:11 Body Mass Index 21.9 Const: Other: Patient appears fatigued. He is cachectic and ill-appearing. Chest: Other: Pacemaker in place left upper chest wall Resp: Other: Diminished bilaterally with diffuse scattered rhonchi and expiratory wheezes. Oxygen saturation is 100% on nasal cannula patient is tachypneic at 30 Cardio: Other: Regular rate and rhythm without murmurs rubs or gallops GI: Other: Soft nontender nondistended Skin: Other: Warm pink and dry Course Course Course Narrative: COPD exacerbation Pneumonia Viral infection COVID-19 pneumonia Congestive heart failure EKG shows pacemaker rhythm without obvious ischemic changes. 9:56 p.m.. Patient feels much better. His respiratory rate is down to 18 and his saturation is still 95. He states he feels back to normal. He is able to get up and walk in the emergency department without desaturating. His workup is significant for a troponin of 41 which is at his baseline. His BNP is elevated to 2336 which is higher than his average baseline which ranges between 500 and 1457. But his blood pressure is 100/61 at this point. He does not appear clinically to be fluid overloaded. And he responded to treatment for COPD any URI. His viral panel is negative for COVID-19, RSV and flu. Given all of this, patient is stable to go home. I will start him on prednisone at home. MDM - SOB/Dyspnea Lab Data Result diagrams: 04/20/21 19:59 04/20/21 19:59 Labs: Lab Results 04/20/21 04/20/21 04/20/21 Range/Units 19:59 19:59 19:59 WBC 3.0 L (4.8-10.8) X10*3/uL RBC 3.21 L D (4.60-5.80) X10*6/uL Hgb 11.1 L (14.0-18.0) g/dl Hct 34.6 L (42-52) % MCV 107.8 H (80-98) fL MCH 34.6 H (27.0-33.0) pg MCHC 32.1 (31.0-36.0) g/dl RDW 13.4 (11.0-16.0) % Plt Count 59 L D (160-400) X10*3/uL MPV 12.5 H (9.4-12.4) fL Immature Gran % (Auto) 0.0 (0.0-0.4) % Neut % (Auto) 52.0 (45-73) % Lymph % (Auto) 31.9 (20-40) % [place] % (Auto) 9.9 (2-11) % Eos % (Auto) 5.9 H (0-4) % Baso % (Auto) 0.3 (0-2) % Lymph # (Auto) 1.0 L (1.2-4.9) X10*3/uL [place] # (Auto) 0.3 (0.1-1.2) X10*3/uL Eos # (Auto) 0.2 (0.0-0.4) X10*3/uL Baso # (Auto) 0.0 (0.0-0.2) X10*3/uL Abs Immat Gran (auto) 0.00 (0.00-0.03) X10*3/uL Absolute Neuts (auto) 1.6 L (2.0-8.3) X10*3/uL Absolute Nucleated RBC 0.000 (0.0-0.012) X10*3/uL Nucleated RBC % (auto) 0.0 (0.0-0.2) /100WBC Sodium 141 (135-145) mmol/L Potassium 4.9 D (3.3-5.1) mmol/L Chloride 101 (96-108) mmol/L Carbon Dioxide 34 H (22-29) mmol/L Anion Gap 11 L (12-20) BUN 28 H (9-16) mg/dL Creatinine 1.04 (0.5-1.4) mg/dL Estim Creat Clear Calc 66.1 Estimated GFR > 60 Random Glucose 106 (60-115) mg/dL Lactic Acid (0.5-2.0) mmol/L Calcium 8.8 (8.4-10.2) mg/dL Troponin I High Sens 41.5 H* (<3.5-35.0) ng/L B-Natriuretic Peptide 2336 H (<100) pg/mL Coronavirus (PCR) (Negative) Influenza Type A (PCR) (Negative) Influenza Type B (PCR) (Negative) RSV RNA Qual (PCR) (Negative) 04/20/21 04/20/21 Range/Units 19:59 20:11 WBC (4.8-10.8) X10*3/uL RBC (4.60-5.80) X10*6/uL Hgb (14.0-18.0) g/dl Hct (42-52) % MCV (80-98) fL MCH (27.0-33.0) pg MCHC (31.0-36.0) g/dl RDW (11.0-16.0) % Plt Count (160-400) X10*3/uL MPV (9.4-12.4) fL Immature Gran % (Auto) (0.0-0.4) % Neut % (Auto) (45-73) % Lymph % (Auto) (20-40) % [place] % (Auto) (2-11) % Eos % (Auto) (0-4) % Baso % (Auto) (0-2) % Lymph # (Auto) (1.2-4.9) X10*3/uL [place] # (Auto) (0.1-1.2) X10*3/uL Eos # (Auto) (0.0-0.4) X10*3/uL Baso # (Auto) (0.0-0.2) X10*3/uL Abs Immat Gran (auto) (0.00-0.03) X10*3/uL Absolute Neuts (auto) (2.0-8.3) X10*3/uL Absolute Nucleated RBC (0.0-0.012) X10*3/uL Nucleated RBC % (auto) (0.0-0.2) /100WBC Sodium (135-145) mmol/L Potassium (3.3-5.1) mmol/L Chloride (96-108) mmol/L Carbon Dioxide (22-29) mmol/L Anion Gap (12-20) BUN (9-16) mg/dL Creatinine (0.5-1.4) mg/dL Estim Creat Clear Calc Estimated GFR Random Glucose (60-115) mg/dL Lactic Acid 0.6 (0.5-2.0) mmol/L Calcium (8.4-10.2) mg/dL Troponin I High Sens (<3.5-35.0) ng/L B-Natriuretic Peptide (<100) pg/mL Coronavirus (PCR) NEGATIVE (Negative) Influenza Type A (PCR) NEGATIVE (Negative) Influenza Type B (PCR) NEGATIVE (Negative) RSV RNA Qual (PCR) NEGATIVE (Negative) Discharge Plan Discharge Clinical Impression: COPD (chronic obstructive pulmonary disease) Patient Disposition: Home, Self-Care Instructions: COPD (Chronic Obstructive Pulmonary Disease) (ED) Additional Instructions: Your workup in the emergency department showed no evidence of pneumonia. Her COVID test was negative. As he improved with treatment and feeling significantly better, it is okay to go home. Return if your breathing gets worse Prescriptions: No Action metoprolol succinate 50 mg tablet extended release 24 hr 50 mg PO QAM 90 Days Qty: 90 RF: 3 montelukast 10 mg tablet 10 mg PO BEDTIME Qty: 30 RF: 11 rivaroxaban [Xarelto] 20 mg tablet 20 mg PO QAM Qty: 90 RF: 1 divalproex 500 mg tablet,delayed release (DR/EC) 1,000 mg PO BID RF: 0 methadone [Methadone Intensol] 10 mg/mL Concentrate 43 mg PO DAILY RF: 0 melatonin 5 mg tablet 10 mg PO BEDTIME RF: 0 fluoxetine 20 mg capsule 20 mg PO DAILY RF: 0 lamotrigine 25 mg tablet 25 mg PO BID RF: 0 primidone 50 mg tablet 50 mg PO TID RF: 0 multivitamin Tablet 1 tab PO QAM RF: 0 carbamazepine 200 mg tablet 200 mg PO BID RF: 0 furosemide 20 mg tablet 40 mg PO QAM RF: 0 albuterol sulfate 90 mcg/actuation HFA aerosol inhaler 2 puff PO Q6H PRN (Reason: shortness of breath or wheezing) 30 Days Qty: 18 RF: 3 ipratropium-albuterol 0.5 mg-3 mg(2.5 mg base)/3 mL solution for nebulization 3 ml inhalation QID 30 Days Qty: 360 RF: 11 Anoro Ellipta 62.5-25 mcg/actuation blister with device 1 inh inhalation DAILY Qty: 60 RF: 5 omeprazole 40 mg capsule,delayed release(DR/EC) 40 mg PO DAILY RF: 0 Interventions: ED Discharge Assessment Last Done: 04/21/21 00:19 Discharge Date/Time: 04/21/21 00:21
[2021-04-20] MEDS: Ipratropium Bromide 0.5 MG/2.5 ML SOLUTION INHALE (20:02)
[2021-04-20] MEDS: Albuterol Sulfate (0.083%) 2.5 MG/3 ML VIAL.NEB 10 MG INHALE (20:02)
[2021-04-20] MEDS: methylPREDNISolone Sod Succ 125 MG/2 ML VIAL IVPUSH (20:02)
[2021-04-20 20:04] VITALS: PULSE 73; O2SAT 98
[2021-04-20 20:05] LABS: MANUAL DIFF FLAG NO
[2021-04-20 20:07] LABS: Basophils Percent Auto 0.3 % (0-2); Eosinophils Absolute Auto 0.2 X10*3/uL (0.0-0.4); Eosinophils Percent Auto 5.9 % (0-4); Hematocrit 34.6 % (42-52); Hemoglobin 11.1 g/dl (14.0-18.0); Lymphocytes Percent Auto 31.9 % (20-40); Mean Corpuscular HGB Conc 32.1 g/dl (31.0-36.0); Mean Corpuscular Hemoglobin 34.6 pg (27.0-33.0); Mean Corpuscular Volume 107.8 fL (80-98); Mean Platelet Volume 12.5 fL (9.4-12.4); Monocytes Absolute Auto 0.3 X10*3/uL (0.1-1.2); Monocytes Percent Auto 9.9 % (2-11); Neutrophils Absolute Auto 1.6 X10*3/uL (2.0-8.3); Red Blood Count 3.21 X10*6/uL (4.60-5.80); Red Cell Distribution Width 13.4 % (11.0-16.0)
--- NOTE | 2021-04-20 20:18 | PC.NURSE ---
Patient arrives to ED with c/o SOB. [place]raini speaking, vp integrity required. Patient states he has hx of COPD and CHF. Lung sounds wheezing. Labs drawn and sent. VSS. IV placed and flushed. Meds given per SEP. Resting safely.
[2021-04-20 20:25] LABS: Platelet Count 59 X10*3/uL (160-400)
[2021-04-20 20:27] LABS: Lactic Acid 0.6 mmol/L (0.5-2.0)
[2021-04-20 20:30] LABS: Anion Gap 11 (12-20); Blood Urea Nitrogen 28 mg/dL (9-16); Calcium 8.8 mg/dL (8.4-10.2); Carbon Dioxide 34 mmol/L (22-29); Chloride 101 mmol/L (96-108); Creatinine Clr Calc Pharmacy 66.1; Estimated Glomerular Filt Rate > 60; Glucose Random 106 mg/dL (60-115); Potassium 4.9 mmol/L (3.3-5.1); Sodium 141 mmol/L (135-145)
[2021-04-20 20:40] LABS: B Type Natriuretic Peptide 2336 pg/mL (<100); Troponin-I High Sensitivity 41.5 ng/L (<3.5-35.0)
[2021-04-20 20:43] LABS: Influenza A PCR NEGATIVE (Negative); Influenza B PCR NEGATIVE (Negative); Resp Syncy Virus RNA Qual PCR NEGATIVE (Negative); SARS COV2 PCR INHOUSE NEGATIVE (Negative)
[2021-04-20 21:34] VITALS: BP 107/68; PULSE 84; RESP 14; TEMP 36.6; O2SAT 93
--- NOTE | 2021-04-20 21:42 | PHA.MEDREC ---
Pharmacy Consult ? Medication Reconciliation Pharmacy has completed the medication reconciliation. Patient would no respond when I arrived with the door furring installer. Patient had list of medication in [facility] from [facility]. The only medications out side his medbox were the albuterol inhaler, duoneb and anoro which had recent fills. Since patient would no respond I was unable to find out what clinic patient recieved methadone from. Mariely Rose, MlD
[2021-04-20 21:45] VITALS: BP 100/61; PULSE 70; RESP 18; O2SAT 95
--- NOTE | 2021-04-20 23:19 | P.HPHOSP_ITS ---
History of Present Illness Date of Service: 04/20/21 Chief Complaint: Shortness of breath 60-year-old female with past medical history of hypertension, hyperlipidemia, CHF, COPD, paroxysmal AFib, chronic respiratory failure on home oxygen, tobacco dependence, anxiety, depression, bipolar, history of aortic stenosis, pulmonary nodules presented to the hospital with a chief complaint of shortness of breath. Patient reports he has been having shortness of breath over the past few days; also complains of cough and sputum production. Whitish in nature. Mentioned that she is on supplemental oxygen chronically. Denies any fevers. Denies any nausea vomiting or diarrhea. Denies any chest pain palpitations lightheadedness or dizziness. Review of all other systems is negative except mentioned above ER course: Per ER team patient on presentation noted to be mildly tachypneic, mild distress, noted to have significant wheezing and crackles; patient was given Solu-Medrol, nebulizer treatment; on labs noted to have elevated proBNP; Chest x-ray showed no evidence of pneumonia. Admitted to the hospital for further management. [facility] Medical History (Updated 04/20/21 @ 22:00 by Caesar Romeo MD) Aortic stenosis Biventricular ICD (implantable cardioverter-defibrillator) in place Chronic respiratory failure COPD (chronic obstructive pulmonary disease) COPD (chronic obstructive pulmonary disease) Heart failure with reduced ejection fraction Nonischemic cardiomyopathy Paroxysmal atrial fibrillation Persistent atrial fibrillation Pre-op chest exam Pulmonary nodules Thrombocytopenia Tobacco dependence Family History Father No problems noted. Mother HTN (hypertension) Arthritis of knee Unknown Recurrent strokes Diabetes mellitus Thyroid disease CVD (cerebrovascular disease) Pertinent family history: as above Surgical History Cardiac catheterization as the cause of abnormal reaction of the patient, or of later complication, without mention of misadventure at the time of the procedure Endotracheal tube present Epidermal cyst Lesion of tongue Pacemaker S/P balloon aortic valvuloplasty Social History Household Members: None Housing: Apartment Do you presently have visiting nurse or other home services: No Alcohol intake: unknown Patient Tobacco Use Status: Former Tobacco user Tobacco use type: Cigarette Years Smoked: 20+ years Advance Directives: No Advance Directives Information Provided: Yes service: No Meds Allergies Allergy/AdvReac Type Severity Reaction Status Date / Time Penicillins [PENICILLINS] Allergy Severe SWELLING Verified 04/20/21 19:11 Active Medications: Current Medications Acetaminophen (Acetaminophen 325 Mg Tablet) 650 mg PO Q6H PRN PRN Reason: Pain, Mild (Pain Scale 1-3) Albuterol/Ipratropium (Albuterol/Iprat 2.5/0.5mg 3 Ml Ampul.Neb) 3 ml INHALE QID [facility] Azithromycin (Azithromycin 500 Mg Tablet) 500 mg PO Q24H [facility] Carbamazepine (Carbamazepine 200 Mg Tablet) 200 mg PO BID [facility] Divalproex Sodium (Divalproex Sodium 500 Mg Tablet.) mg PO BID [facility] Fluoxetine HCl (Fluoxetine Hcl 20 Mg Capsule) 20 mg PO DAILY [facility] Furosemide (Furosemide 40 Mg/4 Ml Vial) 40 mg IVPUSH DAILY [facility]; Protocol Lamotrigine (Lamotrigine 25 Mg Tablet) 25 mg PO BID [facility] Levalbuterol HCl (Levalbuterol Hcl 1.25 Mg/0.5 Ml Vial.Neb) 1.25 mg INHALE Q8H PRN PRN Reason: Shortness of Breath/Wheezing Magnesium Hydroxide (Milk Of Magnesia 30 Ml Oral.Susp) 30 ml PO DAILY PRN PRN Reason: Constipation Melatonin (Melatonin 3 Mg Tablet) 6 mg PO BEDTIME PRN PRN Reason: Insomnia Metoprolol Succinate (Metoprolol Succinate Er 50 Mg Tab.Er.24h) 50 mg PO QAM [facility]; Protocol Montelukast Sodium (Montelukast Sodium 10 Mg Tablet) 10 mg PO BEDTIME [facility] Multivitamins/Vitamin C (Multivitamin Tablet) 1 tab PO QAM [facility] Nitroglycerin (Nitroglycerin 0.4 Mg Tab.Subl) 0.4 mg SUBLINGUAL Q5MX3 PRN PRN Reason: Chest Pain Non-Formulary Medication (Umeclidinium-Vilanterol [Anoro Ellipta]) 1 inhalation INHALE DAILY [facility] Omeprazole (Omeprazole 40 Mg Capsule.) 40 mg PO DAILY [facility] Pharmacy Consult (Consult Rx Perform Med Rec) 1 each MISCELLANE ONCE PRN PRN Reason: Consult order Prednisone (Prednisone 20 Mg Tablet) 40 mg PO DAILY [facility] Stop: 04/25/21 09:01 Primidone (Primidone 50 Mg Tablet) 50 mg PO TID [facility] Rivaroxaban (Rivaroxaban 20 Mg Tablet) 20 mg PO QAM [facility] Sodium Chloride (0.9 % Sodium Chloride Flush 3 Ml Syringe) 3 ml IVFLUSH QSHIFT [facility] Home Medications Medication Instructions Recorded Confirmed Last Taken Type fluoxetine 20 mg capsule 20 mg PO DAILY 04/18/20 04/20/21 12/10/20 History lamotrigine 25 mg tablet 25 mg PO BID 04/18/20 04/20/21 12/10/20 History melatonin 5 mg tablet 10 mg PO BEDTIME 04/18/20 04/20/21 12/10/20 History multivitamin 1 tab PO QAM 04/18/20 04/20/21 12/10/20 History primidone 50 mg tablet 50 mg PO TID 04/18/20 04/20/21 12/10/20 History carbamazepine 200 mg tablet 200 mg PO BID tab 12/08/20 04/20/21 12/10/20 History methadone 10 mg/mL oral 43 mg PO DAILY 12/14/20 04/08/21 Unknown History concentrate (Methadone Intensol) omeprazole 40 mg capsule,delayed 40 mg PO DAILY 12/30/20 04/20/21 Unknown History release divalproex 500 mg tablet,delayed 1,000 mg PO BID 02/02/21 04/20/21 Unknown History release furosemide 20 mg tablet 40 mg PO QAM tab 04/08/21 04/20/21 Unknown History Physical Exam Vital Signs and Narrative: Vital Signs: Last Vital Signs Temp 97.9 F 04/20/21 21:34 Pulse 70 04/20/21 21:45 Resp 18 04/20/21 21:45 BP 100/61 04/20/21 21:45 Pulse Ox 95 04/20/21 21:45 Oxygen Flow Rate 2 04/20/21 19:11 Body Mass Index 21.9 Gen: Appears be in no acute distress; able to speak in full sentences; supplemental HEENT: NCAT, Moist mucosa. Pulmonary: Coarse breath sounds; crackles at bases CVS: Normal S1-S2 Abdomen: BS+, Soft, Nontender Extremities: Warm well perfused Neuro: Alert and awake. Results Labs CBC and Chem 7: 04/20/21 19:59 04/20/21 19:59 Labs: Laboratory Results - last 24 hr 09/28/21 09/28/21 09/28/21 19:59 19:59 19:59 MCV 107.8 H MCH 34.6 H MCHC 32.1 RDW 13.4 Plt Count 59 L D MPV 12.5 H Immature Gran % (Auto) 0.0 Neut % (Auto) 52.0 Lymph % (Auto) 31.9 [place] % (Auto) 9.9 Eos % (Auto) 5.9 H Baso % (Auto) 0.3 Lymph # (Auto) 1.0 L [place] # (Auto) 0.3 Eos # (Auto) 0.2 Baso # (Auto) 0.0 Abs Immat Gran (auto) 0.00 Absolute Neuts (auto) 1.6 L Absolute Nucleated RBC 0.000 Nucleated RBC % (auto) 0.0 Anion Gap 11 L Estim Creat Clear Calc 66.1 Estimated GFR > 60 Random Glucose 106 Lactic Acid Calcium 8.8 Troponin I High Sens 41.5 H* B-Natriuretic Peptide 2336 H Coronavirus (PCR) Influenza Type A (PCR) Influenza Type B (PCR) RSV RNA Qual (PCR) 04/20/21 04/20/21 19:59 20:11 MCV MCH MCHC RDW Plt Count MPV Immature Gran % (Auto) Neut % (Auto) Lymph % (Auto) [place] % (Auto) Eos % (Auto) Baso % (Auto) Lymph # (Auto) [place] # (Auto) Eos # (Auto) Baso # (Auto) Abs Immat Gran (auto) Absolute Neuts (auto) Absolute Nucleated RBC Nucleated RBC % (auto) Anion Gap Estim Creat Clear Calc Estimated GFR Random Glucose Lactic Acid 0.6 Calcium Troponin I High Sens B-Natriuretic Peptide Coronavirus (PCR) NEGATIVE Influenza Type A (PCR) NEGATIVE Influenza Type B (PCR) NEGATIVE RSV RNA Qual (PCR) NEGATIVE Imaging Radiologist's Impressions: Impressions Chest X-Ray 04/20/21 19:14 IMPRESSION: Chronic appearing changes in the lungs with no acute pulmonary finding. Assessment and Plan (1) Nonischemic cardiomyopathy: Status: Acute (2) COPD (chronic obstructive pulmonary disease): Status: Acute (3) SOB (shortness of breath): Status: Acute 60-year-old female with past medical history of hypertension, hyperlipidemia, CHF, COPD, paroxysmal AFib, chronic respiratory failure on home oxygen, tobacco dependence, anxiety, depression, bipolar, history of aortic stenosis, pulmonary nodules presented to the hospital with a chief complaint of shortness of breath. CHF exacerbation: Continue Lasix 40 mg IV daily. Cardiology consult. Telemetry Daily weights and I's and O's. COPD exacerbation: Will keep the patient on prednisone 40 mg daily. Levalbuterol nebulization. History of paroxysmal AFib: Continue home rivaroxaban. History of anxiety/depression/bipolar: Continue home divalproex, carbamazepine, fluoxetine. Quality Stroke Does the patient have a stroke diagnosis?: No VTE Prior VTE?: No VTE Risk Level:: Medical - moderate - high VTE Device Contraindication: Treatment Not Tolerated VTE Drug Contraindication: N/A - Med Ordered
== END 2021-04-21 00:21 | disposition home or self-care (01) ==
PROVIDERS: Emergency Provider Emergency Medicine
DX: J44.9 Chronic obstructive pulmonary disease, unspecified (principal); R06.00 Dyspnea, unspecified; R05 Cough; F17.210 Nicotine dependence, cigarettes, uncomplicated; Z20.822 Contact with and (suspected) exposure to COVID-19; Z71.6 Tobacco abuse counseling; Z79.899 Other long term (current) drug therapy
CPT/HCPCS: 0241U; 36415; 71045; 80048; 83605; 83880; 84484; 85025; 87040; 93005; 94640; 94644; 96374; 96375; 99283; 99284; J2930

== ENCOUNTER 2021-04-27 03:06 | Emergency (ER) | payer OTHER, SELFPAY ==
--- NOTE | ~2021-04-27 | XR_ITS ---
EXAMINATION: XR CHEST CLINICAL INFORMATION: Shortness of breath COMPARISON: 04/20/2021 TECHNIQUE: Frontal view of the chest was obtained. FINDINGS: Left chest wall pacer is unchanged. Cardiac leads overlie the chest. The lungs are well expanded. No consolidation, edema, or effusion. No pneumothorax. Prominent cardiac silhouette is unchanged with a calcified aorta. XR/XR chest 1V IMPRESSION: No acute pulmonary finding.
[2021-04-27 03:14] VITALS: BP 125/69; PULSE 73; RESP 16; TEMP 37; O2SAT 96; O2SAT 97; BMI 24.4
--- NOTE | 2021-04-27 03:16 | ECG_ITS ---
Test Reason : SOB Blood Pressure : / mmHG Vent. Rate : 073 BPM Atrial Rate : 074 BPM P-R Int : 000 ms QRS Dur : 168 ms QT Int : 446 ms P-R-T Axes : 000 -88 085 degrees QTc Int : 491 ms Poor data quality, interpretation may be adversely affected Ventricular-paced rhythm Abnormal ECG When compared with ECG of 20-APR-2021 19:21, Vent. rate has increased BY 2 BPM Referred By: Merle Farmer Electronically Signed By:DEE RODAS
--- NOTE | 2021-04-27 03:57 | PC.NURSE ---
IV inserted into right forearm. VSS. Labs drawn. PT has no complaints at this time.
[2021-04-27 03:59] LABS: Eosinophils Absolute Auto 0.1 X10*3/uL (0.0-0.4); MANUAL DIFF FLAG SCAN; Mean Corpuscular Volume 105.4 fL (80-98); PLT CLUMP 1; SCAN SMEAR FLAG 1; Venous Blood Gas Refer to POC result
[2021-04-27 04:01] LABS: Basophils Percent Auto 0.7 % (0-2); Eosinophils Percent Auto 4.7 % (0-4); Hematocrit 33.2 % (42-52); Lymphocytes Absolute Auto 0.9 X10*3/uL (1.2-4.9); Lymphocytes Percent Auto 33.2 % (20-40); Mean Corpuscular HGB Conc 33.1 g/dl (31.0-36.0); Mean Corpuscular Hemoglobin 34.9 pg (27.0-33.0); Mean Platelet Volume 11.3 fL (9.4-12.4); Monocytes Absolute Auto 0.3 X10*3/uL (0.1-1.2); Neutrophils Absolute Auto 1.5 X10*3/uL (2.0-8.3); Neutrophils Percent Auto 52.4 % (45-73); Red Blood Count 3.15 X10*6/uL (4.60-5.80); Red Cell Distribution Width 13.3 % (11.0-16.0); White Blood Count 2.8 X10*3/uL (4.8-10.8)
[2021-04-27 04:01] LABS: VBG Base Excess 13.6 mmol/L; VBG HCO3 41 mmol/L (22-26); VBG pCO2 70 mmHg; VBG pH 7.37 (7.32-7.43); VBG pO2 41 mmHg
[2021-04-27 04:08] LABS: Platelet Count 64 X10*3/uL (160-400)
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
[2021-04-27 04:19] LABS: Alanine Aminotransferase 14 U/L (0-40); Albumin Level 3.9 g/dL (3.5-5.0); Alkaline Phosphatase 90 U/L (39-117); Anion Gap 13 (12-20); Aspartate Amino Transferase 23 U/L (5-37); Bilirubin Total 0.6 mg/dL (0.0-1.0); Blood Urea Nitrogen 25 mg/dL (9-16); Calcium 9.2 mg/dL (8.4-10.2); Carbon Dioxide 34 mmol/L (22-29); Chloride 100 mmol/L (96-108); Creatinine Clr Calc Pharmacy 83.2; Estimated Glomerular Filt Rate > 60; Glucose Random 80 mg/dL (60-115); Sodium 142 mmol/L (135-145); Total Protein 6.3 g/dL (6.5-8.0)
[2021-04-27 04:20] LABS: B Type Natriuretic Peptide 1913 pg/mL (<100); Troponin-I High Sensitivity 40.6 ng/L (<3.5-35.0)
[2021-04-27 04:22] LABS: SLIDE REVIEW VERIFIED
[2021-04-27] MEDS: Albuterol/Iprat 2.5/0.5MG 3 ML AMPUL.NEB INHALE (04:47)
[2021-04-27 04:48] VITALS: PULSE 70; O2SAT 99
[2021-04-27 05:27] VITALS: BP 116/80; PULSE 73; RESP 16; TEMP 36.6; O2SAT 99
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
[2021-04-27 05:58] VITALS: BP 128/75; PULSE 71; RESP 16; O2SAT 100
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
== END 2021-04-27 06:40 | disposition home or self-care (01) ==
PROVIDERS: Emergency Provider Student in an Organized Health Care Education/Training Program
DX: J44.9 Chronic obstructive pulmonary disease, unspecified (principal); R06.02 Shortness of breath; F17.210 Nicotine dependence, cigarettes, uncomplicated; Z99.81 Dependence on supplemental oxygen; Z71.6 Tobacco abuse counseling; Z79.899 Other long term (current) drug therapy
CPT/HCPCS: 36415; 71045; 80053; 82803; 83880; 84484; 85025; 93005; 94640; 99284

== ENCOUNTER 2021-04-30 14:28 | Emergency (ER) | payer OTHER, SELFPAY ==
--- NOTE | ~2021-04-30 | XR_ITS ---
EXAMINATION: XR CHEST CLINICAL INFORMATION: Shortness of breath. COMPARISON: Multiple priors. Most recent chest radiograph dated from 04/27/2021. TECHNIQUE: AP view of the chest was obtained. FINDINGS: Unchanged prominence of the cardiomediastinal silhouette. Redemonstration of a left-sided pacer/ICD with unchanged positioning of its leads. The lungs are adequately expanded with interstitial prominence and parenchymal scarring, not significantly changed since priors. No new focal airspace opacities, pleural effusions or pneumothorax. No acute osseous findings. XR/XR chest 1V IMPRESSION: Chronic parenchymal changes without definite superimposed acute cardiopulmonary abnormalities.
[2021-04-30 14:42] VITALS: BP 122/82; PULSE 92; O2SAT 97
[2021-04-30 15:00] VITALS: BP 126/76; PULSE 84; RESP 16; TEMP 36.9; O2SAT 98; BMI 24.3
--- NOTE | 2021-04-30 17:22 | ECG_ITS ---
Test Reason : DYSPNEA Blood Pressure : / mmHG Vent. Rate : 071 BPM Atrial Rate : 087 BPM P-R Int : 000 ms QRS Dur : 178 ms QT Int : 452 ms P-R-T Axes : 000 -88 088 degrees QTc Int : 491 ms Ventricular-paced rhythm Abnormal ECG When compared with ECG of 27-APR-2021 03:23, Vent. rate has decreased BY 2 BPM No significant changes seen Referred By: Harrison Calderon Electronically Signed By:BERNY LEUNG MD
--- NOTE | 2021-04-30 17:23 | ED.GENADULT ---
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 The patient also felt today that he could not national coverage specialist anything with either of his hands. The patient says his shortness of breath is worse lying down. Denies any chest pain. He denies any abdominal pain, nausea, vomiting. He is not sure what medicines he is on, does provide a list and he is on metoprolol, furosemide, an anticoagulants, among others. 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 Related Data Home Medications Medication Instructions Recorded Confirmed fluoxetine 20 mg capsule 20 mg PO DAILY 04/18/20 04/30/21 lamotrigine 25 mg tablet 25 mg PO BID 04/18/20 04/30/21 melatonin 5 mg tablet 10 mg PO BEDTIME 04/18/20 04/30/21 multivitamin 1 tab PO QAM 04/18/20 04/30/21 primidone 50 mg tablet 50 mg PO TID 04/18/20 04/30/21 carbamazepine 200 mg tablet 200 mg PO BID tab 12/08/20 04/30/21 methadone 10 mg/mL oral 43 mg PO DAILY 12/14/20 04/08/21 concentrate (Methadone Intensol) omeprazole 40 mg capsule,delayed 40 mg PO DAILY 12/30/20 04/30/21 release divalproex 500 mg tablet,delayed 1,000 mg PO BID 02/02/21 04/30/21 release furosemide 20 mg tablet 20 mg PO QAM tab 04/08/21 04/30/21 Previous Rx's Medication Instructions Recorded metoprolol succinate 50 mg 50 mg PO QAM 90 Days #90 tab 08/05/20 tablet,extended release 24 hr montelukast 10 mg tablet 10 mg PO BEDTIME #30 tab 10/08/20 rivaroxaban 20 mg tablet (Xarelto) 20 mg PO QAM #90 tab 12/28/20 ipratropium 0.5 mg-albuterol 3 mg 3 ml INHALATION QID 30 Days #360 ml 03/22/21 (2.5 mg base)/3 mL nebulization soln umeclidinium 62.5 mcg-vilanterol 1 inh INHALATION DAILY #60 ea 03/22/21 25 mcg/actuation powdr for inhalation (Anoro Ellipta) Allergies Allergy/AdvReac Type Severity Reaction Status Date / Time Penicillins [PENICILLINS] Allergy Severe SWELLING Verified 04/20/21 19:11 Review of Systems Review of Systems: Yes all other systems are reviewed and are negative Constitutional: Constitutional: Reports as per HPI and Denies fever(s) Eyes: Eyes: Reports as per HPI and Reports no additional eye complaints ENT: Reports system reviewed and no additional complaints, except as documented, Reports as per HPI, Denies nasal congestion, Denies nasal discharge and Denies sore throat Cardiovascular: Cardiovascular: Reports as per HPI, Denies chest pain and Reports dyspnea Respiratory: Respiratory: Reports as per HPI, Denies cough and Reports dyspnea Gastrointestinal: Gastrointestinal: Reports as per HPI, Denies abdominal pain, Denies diarrhea and Denies vomiting Genitourinary: Genitourinary: Reports as per HPI, Denies hematuria, Denies dysuria and Denies urinary frequency Musculoskeletal: Musculoskeletal: Reports no additional musculoskeletal complaints and Denies numbness Integumentary/Breasts: Skin/Breast: Reports as per HPI and Denies rash Neurologic: Reports as per HPI, Denies focal weakness and Denies numbness Psychiatric: Psychiatric: Reports no additional psychiatric complaints and Reports as per HPI Endocrine: Endocrine: Reports no additional endocrine complaints and Reports as per HPI Hematologic/Lymphatic: Hematologic/Lymphatic: Reports no additional hematologic/lymphatic complaints, Reports as per HPI and Reports other (Only trace pitting edema to the feet and ankles) FOR[facility]LY [facility], LAT[facility] Past Medical History Medical History Aortic stenosis Biventricular ICD (implantable cardioverter-defibrillator) in place Chronic respiratory failure COPD (chronic obstructive pulmonary disease) COPD (chronic obstructive pulmonary disease) Heart failure with reduced ejection fraction Nonischemic cardiomyopathy Paroxysmal atrial fibrillation Persistent atrial fibrillation Pre-op chest exam Pulmonary nodules Thrombocytopenia Tobacco dependence Surgical History Cardiac catheterization as the cause of abnormal reaction of the patient, or of later complication, without mention of misadventure at the time of the procedure Endotracheal tube present Epidermal cyst Lesion of tongue Pacemaker S/P balloon aortic valvuloplasty Family History Family History Father No problems noted. Mother HTN (hypertension) Arthritis of knee Unknown Recurrent strokes Diabetes mellitus Thyroid disease CVD (cerebrovascular disease) Social History Social History Household Members: None Housing: Apartment Do you presently have visiting nurse or other home services: No Alcohol intake: former Patient Tobacco Use Status: Former Tobacco user Tobacco use type: Cigarette Years Smoked: 20+ years Use of substances other than those prescribed or required for medical reasons: Yes Advance Directives: No Advance Directives Information Provided: Yes service: No Physical Exam Vital Signs: Vital Signs: Last Vital Signs Temp 98.0 F 04/30/21 19:57 Pulse 70 04/30/21 21:19 Resp 16 04/30/21 21:19 BP 99/81 04/30/21 21:19 Pulse Ox 96 04/30/21 21:19 Oxygen Flow Rate 2 04/30/21 15:00 Body Mass Index 24.3 Medical Decision Making MDM Narrative Medical decision making narrative: Patient with a tremor, which his says is chronic but is been gradually worsening, to the point where today he was not able to national coverage specialist a glass well. Patient was also somnolent in the ED, which the also says is chronic for him, and notes that he sleeps with his eyes open. Patient complained of dyspnea and peripheral edema but had only trace pitting edema as chest x-ray was unchanged, no evidence of any cardiac decompensation. BUN and creatinine were mildly elevated, though they have been that elevated previously. Patient is on furosemide 20 mg daily, and the had stated that the patient's doctor had ordered him to double the dose, which I do not believe his a good idea given his BUN and creatinine and lack of edema. Patient's initial potassium was hemolyzed but repeat was normal. Aside from the patient's tremor, he had no focal neurologic symptoms which might suggest a stroke. Lab Data Lab results reviewed: Yes I reviewed the patient's lab results. Result diagrams: 04/30/21 18:29 04/30/21 20:07 Labs: Lab Results 04/30/21 04/30/21 04/30/21 Range/Units 18:29 18:29 18:30 WBC 2.8 L (4.8-10.8) X10*3/uL RBC 3.08 L (4.60-5.80) X10*6/uL Hgb 10.7 L (14.0-18.0) g/dl Hct 33.6 L (42-52) % MCV 109.1 H (80-98) fL MCH 34.7 H (27.0-33.0) pg MCHC 31.8 (31.0-36.0) g/dl RDW 13.6 (11.0-16.0) % Plt Count 55 L (160-400) X10*3/uL MPV 12.2 (9.4-12.4) fL Immature Gran % (Auto) 0.4 (0.0-0.4) % Neut % (Auto) 45.0 (45-73) % Lymph % (Auto) 39.4 (20-40) % [place] % (Auto) 10.2 (2-11) % Eos % (Auto) 4.6 H (0-4) % Baso % (Auto) 0.4 (0-2) % Lymph # (Auto) 1.1 L (1.2-4.9) X10*3/uL [place] # (Auto) 0.3 (0.1-1.2) X10*3/uL Eos # (Auto) 0.1 (0.0-0.4) X10*3/uL Baso # (Auto) 0.0 (0.0-0.2) X10*3/uL Abs Immat Gran (auto) 0.01 (0.00-0.03) X10*3/uL Absolute Neuts (auto) 1.3 L (2.0-8.3) X10*3/uL Absolute Nucleated RBC 0.000 (0.0-0.012) X10*3/uL Nucleated RBC % (auto) 0.0 (0.0-0.2) /100WBC Sodium 140 (135-145) mmol/L Potassium 6.0 H* (3.3-5.1) mmol/L Chloride 100 (96-108) mmol/L Carbon Dioxide 31 H (22-29) mmol/L Anion Gap 15 (12-20) BUN 32 H (9-16) mg/dL Creatinine 1.30 (0.5-1.4) mg/dL Estim Creat Clear Calc 55.0 Estimated GFR 56 Random Glucose 108 (60-115) mg/dL Calcium 9.3 (8.4-10.2) mg/dL Magnesium 1.9 (1.6-2.6) mg/dL Total Bilirubin 0.5 (0.0-1.0) mg/dL AST 26 (5-37) U/L ALT 14 (0-40) U/L Alkaline Phosphatase 84 (39-117) U/L Troponin I High Sens 43.6 H* (<3.5-35.0) ng/L B-Natriuretic Peptide 2219 H (<100) pg/mL Total Protein 6.5 (6.5-8.0) g/dL Albumin 3.9 (3.5-5.0) g/dL Valproic Acid (50.0-100.0) mcg/mL COVID-19 (SAM) (Negative) COVID-19 Clin Com 04/30/21 04/30/21 04/30/21 Range/Units 20:01 20:07 21:30 WBC (4.8-10.8) X10*3/uL RBC (4.60-5.80) X10*6/uL Hgb (14.0-18.0) g/dl Hct (42-52) % MCV (80-98) fL MCH (27.0-33.0) pg MCHC (31.0-36.0) g/dl RDW (11.0-16.0) % Plt Count (160-400) X10*3/uL MPV (9.4-12.4) fL Immature Gran % (Auto) (0.0-0.4) % Neut % (Auto) (45-73) % Lymph % (Auto) (20-40) % [place] % (Auto) (2-11) % Eos % (Auto) (0-4) % Baso % (Auto) (0-2) % Lymph # (Auto) (1.2-4.9) X10*3/uL [place] # (Auto) (0.1-1.2) X10*3/uL Eos # (Auto) (0.0-0.4) X10*3/uL Baso # (Auto) (0.0-0.2) X10*3/uL Abs Immat Gran (auto) (0.00-0.03) X10*3/uL Absolute Neuts (auto) (2.0-8.3) X10*3/uL Absolute Nucleated RBC (0.0-0.012) X10*3/uL Nucleated RBC % (auto) (0.0-0.2) /100WBC Sodium (135-145) mmol/L Potassium 4.4 D (3.3-5.1) mmol/L Chloride (96-108) mmol/L Carbon Dioxide (22-29) mmol/L Anion Gap (12-20) BUN (9-16) mg/dL Creatinine (0.5-1.4) mg/dL Estim Creat Clear Calc Estimated GFR Random Glucose (60-115) mg/dL Calcium (8.4-10.2) mg/dL Magnesium (1.6-2.6) mg/dL Total Bilirubin (0.0-1.0) mg/dL AST (5-37) U/L ALT (0-40) U/L Alkaline Phosphatase (39-117) U/L Troponin I High Sens (<3.5-35.0) ng/L B-Natriuretic Peptide (<100) pg/mL Total Protein (6.5-8.0) g/dL Albumin (3.5-5.0) g/dL Valproic Acid 53.5 (50.0-100.0) mcg/mL COVID-19 (SAM) Negative (Negative) COVID-19 Clin Com See Note Imaging Data Chest x-ray: Radiologist's impression: IMPRESSION: Chronic parenchymal changes without definite superimposed acute cardiopulmonary abnormalities. ? Discharge Plan Discharge Clinical Impression: Tremor, Chronic CHF Patient Disposition: Home, Self-Care Instructions: Heart Failure (ED), Tremors (ED) Additional Instructions: Continue current medications. Stay on the same dose of furosemide-do not increase it until you have been re-evaluated by your primary care doctor or academic department chair. Return for any new or worsened symptoms. Follow up with a neurologist regarding her tremors, ask your primary care physician for referral Prescriptions: No Action metoprolol succinate 50 mg tablet extended release 24 hr 50 mg PO QAM 90 Days Qty: 90 RF: 3 montelukast 10 mg tablet 10 mg PO BEDTIME Qty: 30 RF: 11 rivaroxaban [Xarelto] 20 mg tablet 20 mg PO QAM Qty: 90 RF: 1 divalproex 500 mg tablet,delayed release (DR/EC) 1,000 mg PO BID RF: 0 methadone [Methadone Intensol] 10 mg/mL Concentrate 43 mg PO DAILY RF: 0 melatonin 5 mg tablet 10 mg PO BEDTIME RF: 0 fluoxetine 20 mg capsule 20 mg PO DAILY RF: 0 lamotrigine 25 mg tablet 25 mg PO BID RF: 0 primidone 50 mg tablet 50 mg PO TID RF: 0 multivitamin Tablet 1 tab PO QAM RF: 0 carbamazepine 200 mg tablet 200 mg PO BID RF: 0 furosemide 20 mg tablet 20 mg PO QAM RF: 0 ipratropium-albuterol 0.5 mg-3 mg(2.5 mg base)/3 mL solution for nebulization 3 ml inhalation QID 30 Days Qty: 360 RF: 11 Anoro Ellipta 62.5-25 mcg/actuation blister with device 1 inh inhalation DAILY Qty: 60 RF: 5 omeprazole 40 mg capsule,delayed release(DR/EC) 40 mg PO DAILY RF: 0 Interventions: ED Discharge Assessment Last Done: 04/30/21 21:46
[2021-04-30 17:57] VITALS: BP 115/87; PULSE 71; RESP 18; O2SAT 100
--- NOTE | 2021-04-30 17:59 | PC.NURSE ---
BUE tremors, paced rhythm, plus 1-2 pitting edema BLE to knees only. unlabored resp. skin pwd. ls cta
[2021-04-30 18:35] LABS: MANUAL DIFF FLAG NO
[2021-04-30 18:36] LABS: Basophils Percent Auto 0.4 % (0-2); Eosinophils Absolute Auto 0.1 X10*3/uL (0.0-0.4); Eosinophils Percent Auto 4.6 % (0-4); Hematocrit 33.6 % (42-52); Hemoglobin 10.7 g/dl (14.0-18.0); Imm Gran Abs Auto 0.01 X10*3/uL (0.00-0.03); Imm Gran Pct Auto 0.4 % (0.0-0.4); Lymphocytes Absolute Auto 1.1 X10*3/uL (1.2-4.9); Lymphocytes Percent Auto 39.4 % (20-40); Mean Corpuscular HGB Conc 31.8 g/dl (31.0-36.0); Mean Corpuscular Hemoglobin 34.7 pg (27.0-33.0); Mean Corpuscular Volume 109.1 fL (80-98); Mean Platelet Volume 12.2 fL (9.4-12.4); Monocytes Absolute Auto 0.3 X10*3/uL (0.1-1.2); Monocytes Percent Auto 10.2 % (2-11); Neutrophils Absolute Auto 1.3 X10*3/uL (2.0-8.3); Red Blood Count 3.08 X10*6/uL (4.60-5.80); Red Cell Distribution Width 13.6 % (11.0-16.0); White Blood Count 2.8 X10*3/uL (4.8-10.8)
[2021-04-30 18:37] LABS: Platelet Count 55 X10*3/uL (160-400)
[2021-04-30 19:19] LABS: Alanine Aminotransferase 14 U/L (0-40); Albumin Level 3.9 g/dL (3.5-5.0); Alkaline Phosphatase 84 U/L (39-117); Aspartate Amino Transferase 26 U/L (5-37); Bilirubin Total 0.5 mg/dL (0.0-1.0); Blood Urea Nitrogen 32 mg/dL (9-16); Calcium 9.3 mg/dL (8.4-10.2); Estimated Glomerular Filt Rate 56; Glucose Random 108 mg/dL (60-115); Magnesium 1.9 mg/dL (1.6-2.6); Total Protein 6.5 g/dL (6.5-8.0)
[2021-04-30 19:24] LABS: B Type Natriuretic Peptide 2219 pg/mL (<100); Troponin-I High Sensitivity 43.6 ng/L (<3.5-35.0)
[2021-04-30 19:28] VITALS: BP 120/73; PULSE 70; RESP 18; TEMP 36.8; O2SAT 98
[2021-04-30 19:29] LABS: Anion Gap 15 (12-20); Carbon Dioxide 31 mmol/L (22-29); Chloride 100 mmol/L (96-108); Sodium 140 mmol/L (135-145)
[2021-04-30 19:57] VITALS: BP 110/60; PULSE 70; RESP 14; TEMP 36.7; O2SAT 99
[2021-04-30 20:28] LABS: COVID-19 Test Negative (Negative); IDNOW Serial# 08D9AD1C
[2021-04-30 20:40] LABS: Potassium 4.4 mmol/L (3.3-5.1)
--- NOTE | 2021-04-30 20:58 | PC.NURSE ---
Dr Calderon made aware of repeat K
[2021-04-30 21:19] VITALS: BP 99/81; PULSE 70; RESP 16; O2SAT 96
--- NOTE | 2021-04-30 21:40 | PC.NURSE ---
Per Dr Calderon, pt to have lab drawn and sent for processing. OK to be DC as lab will not result tonight and pt can be contacted if lab is abnormal. Pt's at bedside made aware of this plan, is agreeable.
[2021-04-30 22:00] LABS: Valproate 53.5 mcg/mL (50.0-100.0)
== END 2021-04-30 23:18 | disposition home or self-care (01) ==
PROVIDERS: Emergency Provider Emergency Medicine
DX: I50.22 Chronic systolic (congestive) heart failure (principal); R25.1 Tremor, unspecified; J44.9 Chronic obstructive pulmonary disease, unspecified; Z79.01 Long term (current) use of anticoagulants; Z79.899 Other long term (current) drug therapy; Z20.822 Contact with and (suspected) exposure to COVID-19; Z95.810 Presence of automatic (implantable) cardiac defibrillator
CPT/HCPCS: 36415; 71045; 80053; 80164; 83735; 83880; 84132; 84484; 85025; 87635; 93005; 99284

== ENCOUNTER → 2021-05-12 13:42 | Outpatient (REF) | payer OTHER, SELFPAY ==
--- NOTE | 2021-05-12 13:45 | CA_ITS ---
Transthoracic Echocardiogram Patient (Last, First, Middle): Benito Guzman, Gender: Male Date of : 1960 Age: 60 Procedure Date: 05/12/2021 Procedure Type: Transthoracic Echocardiogram Location: OP Height: 167.64 cm Weight: 58.97 kg BSA: 1.67 m2 Heart Rate: bpm BP: 120 / 79 mmHg Lunchroom Attendant: SONIA Referring MD: Elton Moore MD Symptoms: Z98.890 - Other specified postprocedural states Study Quality: Fair ECG Rhythm: Ventriculary paced rhythm Conclusions: - The left ventricular systolic function is severely decreased. The visually estimated ejection fraction is between 15-20%. - The apical inferior and mid inferior segments are akinetic. - Severe biatrial enlargement. - There is moderate to severe aortic valve stenosis. Findings Left Ventricle Mildly increased left ventricular cavity size. There is mildly increased left ventricular wall thickness. The left ventricular systolic function is severely decreased. The visually estimated ejection fraction is between 15 20%. There is severe global hypokinesis. Diastolic function is indeterminate on the basis of available data. Wall Motion Rest Echo Findings The apical inferior and mid inferior segments are akinetic. Right Ventricle Normal right ventricular cavity size. There is low normal right ventricular systolic function. There is an ICD wire seen in the right ventricle. TAPSE 1.75cm. Atria Severe biatrial enlargement. Aortic Valve There is severe calcification of the aortic valve. There is moderate to severe aortic valve stenosis. The peak aortic velocity is 2.83 m/s with a calculated peak gradient of 32 mmHg. The mean gradient is 20 mmHg. The aortic valve area is 0.81 cm2. There is mild aortic valve regurgitation. Dimensionless index 0.27. Stroke volume index 25cc. Mitral Valve There is moderate mitral annular calcification. There is mild mitral valve regurgitation. There is no mitral valve stenosis. Pulmonic Valve The pulmonic valve was not well visualized. Tricuspid Valve There is mild to moderate tricuspid valve regurgitation. Mild pulmonary hypertension is present. Great Vessels The aortic annulus is normal in size. Venous The inferior vena cava is normal in size and collapses less than 50% with inspiration. Pericardium/Pleural There is a small pericardial effusion. Prior Study Comparison No significant change compared to prior study dated: 02/12/2021. Measurements 2D Linear Measurements IVSd: 1.08 0.6-0.9/0.6-1.0 cm LVIDd: 5.77 3.9-5.3/4.2-5.9 cm LVIDd Index: 3.46 2.4-3.2/2.2-3.1 cm/m2 LVIDs: 5.04 2.0-3.6 cm LVPWd: 1.66 0.7-1.1 cm Ao Root: 2.50 2.1-3.5 cm LA Diam: 4.90 2.7-3.8/3.0-4.0 cm LAIDs Index: 2.93 1.5-2.3 cm/m2 LV Mass: 441.16 67-162/88-224 g LV Mass Index: 264.17 43-95/49-115 g/m2 LVOT Diam: 2.20 3.0+(-)1.3 cm 2D Systolic Function EF 4C: 14.20 >55% EF 2C: 30.60 >55% EF BiP: 22.90 >55% Mitral Valve MV Pk E: 0.67 MV PK A: 0.34 MV Decel Time: 165.00 E/A: 2.00 E'Lateral: 3.48 E'Medial: 0.11 E/E' Med: 611.90 E/E' Lat: 19.20 PHT: 48.00 MVA PHT: 4.58 Decel [place]: 4.03 Aortic Valve AoV Pk Diaz: 2.83 AoV Mn Diaz: 2.08 AoV VTI: 0.51 AoV Pk Grad: 32.00 Aov Mn Grad: 20.00 RIANNA Cont.VTI: 0.81 AI Pk Diaz: 4.71 AI [place]: 2.51 LVOT LVOT Pk Diaz: 0.77 LVOT Mn Diaz: 0.44 LVOT VTI: 0.11 LVOT Pk Grad: 2.00 LVOT Mn Grad: 1.00 LVOT Diam: 2.20 LVOT Area: 3.80 Diastolic Function MV Pk E: 0.67 MV Pk A: 0.34 E/A: 2.00 E'Medial: 0.11 E/E' Med: 611.90 E' Laterial: 3.48 E/E' Lat: 19.20 Right Ventricle TAPSE (mm): 1.75 Tricuspid Valve TR Pk Diaz: 2.78 TR Pk Grad: 31.00 RA Press: 8.00 RVSP: 39.00 Great Vessels Aorta Ao Root-2D: 2.50 2.0-3.7 cm Updated in Other Vendor System with Status of Final Jaspreet Bain MD electronically signed on 05/14/2021 3:22:03 PM with status of Final
== END ==
LOC: HO.CARD 13:42
PROVIDERS: Visit Provider Internal Medicine Cardiovascular Disease
DX: Z98.890 Other specified postprocedural states (principal)
CPT/HCPCS: 93306

== ENCOUNTER 2021-05-20 14:09 | Outpatient (REF) | payer OTHER, SELFPAY ==
[2021-05-20 15:01] LABS: MANUAL DIFF FLAG NO
[2021-05-20 15:26] LABS: Basophils Percent Auto 0.6 % (0-2); Eosinophils Absolute Auto 0.1 X10*3/uL (0.0-0.4); Eosinophils Percent Auto 4.2 % (0-4); Hematocrit 34.4 % (42-52); Hemoglobin 11.3 g/dl (14.0-18.0); INTERNATIONAL NORM RATIO 1.5 (0.9-1.1); Lymphocytes Absolute Auto 1.4 X10*3/uL (1.2-4.9); Mean Corpuscular HGB Conc 32.8 g/dl (31.0-36.0); Mean Corpuscular Hemoglobin 34.7 pg (27.0-33.0); Mean Corpuscular Volume 105.5 fL (80-98); Monocytes Absolute Auto 0.3 X10*3/uL (0.1-1.2); Monocytes Percent Auto 8.7 % (2-11); Neutrophils Absolute Auto 1.3 X10*3/uL (2.0-8.3); Neutrophils Percent Auto 42.5 % (45-73); Prothrombin Time 16.9 SEC (9.9-13.0); Red Blood Count 3.26 X10*6/uL (4.60-5.80); Red Cell Distribution Width 13.2 % (11.0-16.0); White Blood Count 3.1 X10*3/uL (4.8-10.8)
[2021-05-20 15:29] LABS: Platelet Count 62 X10*3/uL (160-400)
[2021-05-20 15:43] LABS: Anion Gap 12 (12-20); Blood Urea Nitrogen 29 mg/dL (9-16); Carbon Dioxide 30 mmol/L (22-29); Chloride 101 mmol/L (96-108); Estimated Glomerular Filt Rate > 60; Glucose Random 64 mg/dL (60-115); Potassium 4.6 mmol/L (3.3-5.1); Sodium 138 mmol/L (135-145)
[2021-05-20 15:48] LABS: B Type Natriuretic Peptide 2514 pg/mL (<100)
== END 2021-05-20 14:10 | disposition home or self-care (01) ==
LOC: HO.LAB 14:09
PROVIDERS: Nurse Practitioner Family; Visit Provider Internal Medicine Cardiovascular Disease
DX: R06.02 Shortness of breath (principal); I35.0 Nonrheumatic aortic (valve) stenosis; I50.9 Heart failure, unspecified; I42.8 Other cardiomyopathies; I48.19 Other persistent atrial fibrillation; Z95.810 Presence of automatic (implantable) cardiac defibrillator
CPT/HCPCS: 36415; 80048; 83880; 85025; 85610; 99212

== ENCOUNTER 2021-06-17 02:12 | Emergency (ER) | payer OTHER, SELFPAY ==
--- NOTE | ~2021-06-17 | CT_ITS ---
EXAMINATION: CT HEAD WITHOUT CONTRAST CLINICAL INFORMATION: Status post fall COMPARISON: 12/10/2020 TECHNIQUE: Contiguous axial imaging was performed from the skull base to vertex without intravenous administration of contrast. This CT examination was performed using dose optimization techniques as appropriate, variously including the following: *Automated exposure control *Adjustment of mA and/or kV according to patient size (this includes techniques or standardized protocols for targeted exams where dose is matched to indication/reason for exam; i.e. extremities or head) *Use of iterative reconstruction technique DLP: 673 mGy-cm FINDINGS: Suboptimal assessment some regions due to motion artifact. There is no evidence of acute intracranial hemorrhage or territorial infarction. No abnormal mass effect or midline shift is seen. Hernandez to white matter differentiation is well preserved. No extra-axial fluid collections are identified. The ventricles are normal in size. A few scattered foci of white matter hypoattenuation in the cerebral hemispheres are unchanged, most prominently in the right frontal lobe. Mild volume loss is noted. The osseous structures and soft tissues are normal. The mastoid air cells and visualized portions of the paranasal sinuses are well aerated. CT/CT head/brain wo con IMPRESSION: No acute intracranial pathology identified. Chronic changes as noted above.
[2021-06-17 02:26] VITALS: BP 134/84; BP 141/98; PULSE 86; PULSE 88; RESP 14; TEMP 36.6; O2SAT 92; O2SAT 96; BMI 25.0
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
--- NOTE | 2021-06-17 03:00 | ECG_ITS ---
Test Reason : AFIB Blood Pressure : / mmHG Vent. Rate : 070 BPM Atrial Rate : 058 BPM P-R Int : 000 ms QRS Dur : 168 ms QT Int : 448 ms P-R-T Axes : 000 -83 094 degrees QTc Int : 483 ms Ventricular-paced rhythm Biventricular pacemaker detected Possible underlying Rhythm shows atrial flutter with variable block Abnormal ECG When compared with ECG of 30-APR-2021 17:46, No significant change was found Referred By: Waldemar Mcmillan Electronically Signed By:BERNY LEUNG MD
[2021-06-17] MEDS: Albuterol Sulfate (0.083%) 2.5 MG/3 ML VIAL.NEB 5 MG INHALE (03:34)
[2021-06-17 03:37] VITALS: PULSE 71; O2SAT 99
[2021-06-17 03:55] LABS: COVID-19 Test Negative (Negative); IDNOW Serial# 9DD0AD1C
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
[2021-06-17 06:05] VITALS: BP 124/73; PULSE 69; O2SAT 98
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
--- NOTE | 2021-06-17 07:40 | PC.NURSE ---
this rn found pt in waiting room dressed in street clothing waiting on his sister to pick him up. pt is lucid and refusing to come back to er bed. pt's daughter jean-paul ([phone]) was called by this rn and message was relayed to her that pt sister is picking him up. pt's daughter states that its ok because she does not have a ride to pick him up. aware, d/c instructions verbalized/understood by pt's daughter via phone.
== END 2021-06-17 07:50 | disposition home or self-care (01) ==
PROVIDERS: Emergency Provider Internal Medicine
DX: R06.02 Shortness of breath (principal); Z20.822 Contact with and (suspected) exposure to COVID-19; J44.9 Chronic obstructive pulmonary disease, unspecified; I50.9 Heart failure, unspecified; I48.0 Paroxysmal atrial fibrillation; F17.200 Nicotine dependence, unspecified, uncomplicated; Z99.81 Dependence on supplemental oxygen
CPT/HCPCS: 36415; 70450; 87635; 93005; 94640; 94644; 99284

== ENCOUNTER → 2021-06-24 12:18 | Outpatient (BNVA) | payer OTHER, SELFPAY | PROVIDERS: PCP General Practice; Referring Provider General Practice; Visit Provider Internal Medicine Cardiovascular Disease | DX: Z45.02 Encounter for adjustment and management of automatic implantable cardiac defibrillator (principal); R91.8 Other nonspecific abnormal finding of lung field; J44.1 Chronic obstructive pulmonary disease with (acute) exacerbation; J96.11 Chronic respiratory failure with hypoxia; I35.0 Nonrheumatic aortic (valve) stenosis; I50.9 Heart failure, unspecified; I42.8 Other cardiomyopathies; I48.19 Other persistent atrial fibrillation | CPT/HCPCS: 99212 ==

== ENCOUNTER 2021-07-27 22:52 | Emergency (ER) | payer OTHER, SELFPAY ==
--- NOTE | ~2021-07-27 | XR_ITS ---
EXAMINATION: XR CHEST CLINICAL INFORMATION: Fever and cough COMPARISON: 04.30.2021 TECHNIQUE: Frontal view of the chest was obtained. FINDINGS: Stably positioned left chest wall biventricular AICD. Hyperinflated emphysematous lungs. No parenchymal consolidation. No pleural effusion. No pneumothorax. Cardiac silhouette remains enlarged. Pulmonary vascularity within normal limits. No acute osseous abnormalities. XR/XR chest 1V IMPRESSION: * No acute findings. * Stable cardiomegaly without evidence of decompensated heart failure. * Emphysema.
[2021-07-27 23:18] VITALS: BP 105/64; BP 114/69; PULSE 70; PULSE 92; TEMP 38.8; O2SAT 96; O2SAT 97; BMI 23.8
--- NOTE | 2021-07-27 23:21 | ECG_ITS ---
Test Reason : FEVER Blood Pressure : / mmHG Vent. Rate : 071 BPM Atrial Rate : 084 BPM P-R Int : 000 ms QRS Dur : 164 ms QT Int : 422 ms P-R-T Axes : 000 -87 096 degrees QTc Int : 458 ms Biventricular pacemaker detected Possible underlying AF Abnormal ECG When compared with ECG of 17-JUN-2021 03:26, No significant changes seen Referred By: Abe Hall Electronically Signed By:JANELL BOOTH MD
--- NOTE | 2021-07-27 23:23 | ED_ITS ---
HPI - General Adult General Chief complaint: Fever Stated complaint: General illness Time Seen by Provider: 07/27/21 23:20 Source: patient, EMS, old records reviewed and translator and interpreter Mode of arrival: EMS Limitations: no limitations History of Present Illness HPI narrative: 61-year-old male brought in by ambulance for evaluation of generalized body ache and subjective fever. This is a 61-year-old male speaking, overall a poor historian, history was obtained from EMS, old record review, and the patient's daughter. Patient with known history of congestive heart failure, COPD, on oxygen 2 L at all times, reportedly patient been having subjective fever and found to have fever of 101.9 in the emergency department, patient has been complaining of productive cough with yellow sputum, and generalized body ache, reportedly patient was excluded from taking COVID vaccination due to his medical conditions , patient declined any abdominal pain, normal bowel movement, no nausea or vomiting. Stated no frequent urination home. Related Data Home Medications Medication Instructions Recorded Confirmed fluoxetine 20 mg capsule 20 mg PO DAILY 04/18/20 06/24/21 lamotrigine 25 mg tablet 25 mg PO BID 04/18/20 06/24/21 melatonin 5 mg tablet 10 mg PO BEDTIME 04/18/20 06/24/21 multivitamin 1 tab PO QAM 04/18/20 06/24/21 primidone 50 mg tablet 50 mg PO TID 04/18/20 06/24/21 carbamazepine 200 mg tablet 200 mg PO BID tab 12/08/20 06/24/21 methadone 10 mg/mL oral 43 mg PO DAILY 12/14/20 06/24/21 concentrate (Methadone Intensol) omeprazole 40 mg capsule,delayed 40 mg PO DAILY 12/30/20 06/24/21 release divalproex 500 mg tablet,delayed 1,000 mg PO BID 02/02/21 06/24/21 release albuterol sulfate mg INHALATION 06/24/21 albuterol sulfate 90 mcg/actuation 0 mcg INHALATION 06/24/21 aerosol inhaler (Ventolin HFA) Previous Rx's Medication Instructions Recorded montelukast 10 mg tablet 10 mg PO BEDTIME #30 tab 10/08/20 ipratropium 0.5 mg-albuterol 3 mg 3 ml INHALATION QID 30 Days #360 ml 03/22/21 (2.5 mg base)/3 mL nebulization soln umeclidinium 62.5 mcg-vilanterol 1 inh INHALATION DAILY #60 ea 03/22/21 25 mcg/actuation powdr for inhalation (Anoro Ellipta) furosemide 20 mg tablet 40 mg PO QAM #60 tab 05/21/21 rivaroxaban 20 mg tablet (Xarelto) 20 mg PO QAM #90 tab 06/14/21 metoprolol succinate 50 mg 50 mg PO QAM 90 Days #90 tab 07/12/21 tablet,extended release 24 hr Allergies Allergy/AdvReac Type Severity Reaction Status Date / Time Penicillins [PENICILLINS] Allergy Severe SWELLING Verified 07/20/21 11:24 Review of Systems Review of Systems: All other systems are reviewed and are negative Constitutional: Reports as per HPI and Reports no additional constitutional complaints Eyes: Reports as per HPI and Reports no additional eye complaints Reports system reviewed and no additional complaints, except as documented Cardiovascular: Reports as per HPI and Reports no additional cardiovascular complaints Respiratory: Reports as per HPI and Reports no additional respiratory complaints Gastrointestinal: Reports as per HPI and Reports no additional gastrointestinal complaints Genitourinary: Reports no additional female genitourinary complaints Musculoskeletal: Reports no additional musculoskeletal complaints Skin/Breast: Reports system reviewed and no additional complaints, except as docu Psychiatric: Reports no additional psychiatric complaints Endocrine: Reports no additional endocrine complaints Hematologic/Lymphatic: Reports no additional hematologic/lymphatic complaints Allergic/Immunologic: Reports no additional allergic/immunologic complaints Reports system reviewed and no additional complaints, except as documented and Reports Abnormal speech present [facility] Past Medical History Medical History Aortic stenosis Biventricular ICD (implantable cardioverter-defibrillator) in place Chronic respiratory failure COPD (chronic obstructive pulmonary disease) COPD (chronic obstructive pulmonary disease) Heart failure with reduced ejection fraction Nonischemic cardiomyopathy Paroxysmal atrial fibrillation Persistent atrial fibrillation Pre-op chest exam Pulmonary nodules Thrombocytopenia Tobacco dependence Surgical History Cardiac catheterization as the cause of abnormal reaction of the patient, or of later complication, without mention of misadventure at the time of the procedure Endotracheal tube present Epidermal cyst Lesion of tongue Pacemaker S/P balloon aortic valvuloplasty Family History Family History Father No problems noted. Mother HTN (hypertension) Arthritis of knee Unknown Recurrent strokes Diabetes mellitus Thyroid disease CVD (cerebrovascular disease) Social History Social History (System 07/20/21 @ 11:24 by Елена Larsen) Household Members: None Housing: Apartment Do you presently have visiting nurse or other home services: No Alcohol intake: never Patient Tobacco Use Status: Former Tobacco user Tobacco use type: Cigarette Years Smoked: 20+ years Advance Directives: No service: No Physical Exam Vital Signs: Vital Signs: Last Vital Signs Temp 101.9 F H 07/27/21 23:18 Pulse 70 07/27/21 23:18 BP 105/64 07/27/21 23:18 Pulse Ox 96 07/27/21 23:18 Oxygen Flow Rate 2 07/27/21 23:18 BMI result Body Mass Index 23.8 Vital signs have been reviewed as appeared to be correct. Blood pressure normal. Heart rate normal. Respiration rate normal. Temperature elevated. Oxygen saturation normal. Appearance: Alert. Oriented X3. No acute distress. Head: Normal external exam. Normocephalic. Atraumatic. No Pickard signs noted. No raccoon eyes noted Eyes: PERRLA. EOMI. Conjunctiva and sclera normal. Eyelids normal. ENT: TM's Normal. Pharynx normal. Uvula midline. Moist mucous membranes. No trismus noted. No drooling noted. No muffled voice noted. Neck: Normal inspection. Neck supple. FROM. No adenopathy. Thyroid Normal. No meningeal signs. No neck mass noted. CVS: Normal heart rate and rhythm. Heart sound normal. No murmurs noted. Pulses normal throughout. Respiratory: No respiratory distress. Painless inspiration. Breath sounds damir l. No wheezes/rales/rhonchi noted. Chest nontender. No accessory muscle usage noted or decreased air movement noted. Abdomen: Soft and nontender. Bowel sounds normal in all 4 quadrants. No distention noted. No organomegaly noted. No visible injury noted. Back: No CVA tenderness. Full range of motion noted. Skin: Skin warm and dry. Normal skin color. Normal skin turgor. No rashes/lesions/lacerations noted. Extremities: +2 lower extremity edema bilaterally, Extremities exhibit normal range of motion. Extremities nontender. Neuro: Oriented X 3. Cranial nerve exam: II-XII are grossly intact No motor deficit. No sensory deficit. Reflexes normal. Course Course Course Narrative: Assessment and plan. 61-year-old male with multiple comorbidities including COPD/restrictive lung di sease/chronic supplemental oxygen at home came in with generalize body ache and coughing, patient did not meet criteria for SIRS, patient did not meet criteria for hospitalization neither, labs at his base value normal. Troponin is chronically elevated due to congestive heart failure and reduced ejection fraction. Chest x-ray is unremarkable for acute pathology. Patient tested positive for COVID. No evidence of acute bacterial infectious process. Lactic acidosis secondary to congestive heart failure/COPD. No symptoms for UTI, patient is not giving a urine sample. Patient is not in acute congestive heart failure exacerbation. Patient will be okay to be discharged home with instructions to return if worsening of the symptoms. Medical Decision Making Medical Records Medical records reviewed: Yes I reviewed the patient's medical records. Lab Data Lab results reviewed: Yes I reviewed the patient's lab results. Result diagrams: 07/28/21 00:04 07/28/21 00:04 Labs: Lab Results 07/27/21 07/28/21 07/28/21 Range/Units 23:35 00:04 00:04 WBC 3.1 L (4.8-10.8) X10*3/uL RBC 3.16 L (4.60-5.80) X10*6/uL Hgb 11.3 L (14.0-18.0) g/dl Hct 34.4 L (42.0-52.0) % MCV 108.9 H (80.0-98.0) fL MCH 35.8 H (27.0-33.0) pg MCHC 32.8 (31.0-36.0) g/dl RDW 14.0 (11.0-16.0) % Plt Count 56 L (160-400) X10*3/uL MPV 12.3 (9.4-12.4) fL Immature Gran % (Auto) 0.3 (0.0-0.4) % Neut % (Auto) 57.6 (45-73) % Lymph % (Auto) 25.8 (20-40) % Winston % (Auto) 14.7 H (2-11) % Eos % (Auto) 1.3 (0-4) % Baso % (Auto) 0.3 (0-2) % Lymph # (Auto) 0.8 L (1.2-4.9) X10*3/uL Winston # (Auto) 0.5 (0.1-1.2) X10*3/uL Eos # (Auto) 0.0 (0.0-0.4) X10*3/uL Baso # (Auto) 0.0 (0.0-0.2) X10*3/uL Abs Immat Gran (auto) 0.01 (0.00-0.03) X10*3/uL Absolute Neuts (auto) 1.8 L (2.0-8.3) x10*3/uL Absolute Nucleated RBC 0.000 (0.0-0.012) X10*3/uL Nucleated RBC % (auto) 0.0 (0.0-0.2) /100WBC Smear Tech's Comments VERIFIED Sodium 143 (135-145) mmol/L Potassium 5.2 H (3.3-5.1) mmol/L Chloride 101 (96-108) mmol/L Carbon Dioxide 32 H (22-29) mmol/L Anion Gap 15 (12-20) BUN 37 H (9-16) mg/dL Creatinine 1.34 (0.5-1.4) mg/dL Estim Creat Clear Calc 43.5 Estimated GFR 54 Random Glucose 88 D (60-115) mg/dL Lactic Acid (0.5-2.0) mmol/L Calcium 9.2 (8.4-10.2) mg/dL Total Bilirubin 0.5 (0.0-1.0) mg/dL Direct Bilirubin 0.3 (0.0-0.5) mg/dL AST 31 (5-37) U/L ALT 19 (0-40) U/L Alkaline Phosphatase 83 (39-117) U/L Troponin I High Sens (<3.5-35.0) ng/L B-Natriuretic Peptide (<100) pg/mL Total Protein 7.1 (6.5-8.0) g/dL Albumin 4.1 (3.5-5.0) g/dL Lipase 48 (8-78) U/L Influenza Type A (PCR) NEGATIVE (Negative) Influenza Type B (PCR) NEGATIVE (Negative) RSV RNA Qual (PCR) NEGATIVE (Negative) SARS-CoV-2 RNA (RT-PCR) POSITIVE A (Negative) 07/28/21 07/28/21 Range/Units 00:05 00:05 WBC (4.8-10.8) X10*3/uL RBC (4.60-5.80) X10*6/uL Hgb (14.0-18.0) g/dl Hct (42.0-52.0) % MCV (80.0-98.0) fL MCH (27.0-33.0) pg MCHC (31.0-36.0) g/dl RDW (11.0-16.0) % Plt Count (160-400) X10*3/uL MPV (9.4-12.4) fL Immature Gran % (Auto) (0.0-0.4) % Neut % (Auto) (45-73) % Lymph % (Auto) (20-40) % Winston % (Auto) (2-11) % Eos % (Auto) (0-4) % Baso % (Auto) (0-2) % Lymph # (Auto) (1.2-4.9) X10*3/uL Winston # (Auto) (0.1-1.2) X10*3/uL Eos # (Auto) (0.0-0.4) X10*3/uL Baso # (Auto) (0.0-0.2) X10*3/uL Abs Immat Gran (auto) (0.00-0.03) X10*3/uL Absolute Neuts (auto) (2.0-8.3) x10*3/uL Absolute Nucleated RBC (0.0-0.012) X10*3/uL Nucleated RBC % (auto) (0.0-0.2) /100WBC Smear Tech's Comments Sodium (135-145) mmol/L Potassium (3.3-5.1) mmol/L Chloride (96-108) mmol/L Carbon Dioxide (22-29) mmol/L Anion Gap (12-20) BUN (9-16) mg/dL Creatinine (0.5-1.4) mg/dL Estim Creat Clear Calc Estimated GFR Random Glucose (60-115) mg/dL Lactic Acid 3.3 H* (0.5-2.0) mmol/L Calcium (8.4-10.2) mg/dL Total Bilirubin (0.0-1.0) mg/dL Direct Bilirubin (0.0-0.5) mg/dL AST (5-37) U/L ALT (0-40) U/L Alkaline Phosphatase (39-117) U/L Troponin I High Sens 64.0 H (<3.5-35.0) ng/L B-Natriuretic Peptide 1682 H (<100) pg/mL Total Protein (6.5-8.0) g/dL Albumin (3.5-5.0) g/dL Lipase (8-78) U/L Influenza Type A (PCR) (Negative) Influenza Type B (PCR) (Negative) RSV RNA Qual (PCR) (Negative) SARS-CoV-2 RNA (RT-PCR) (Negative) Imaging Data Chest x-ray: Attestation: I personally reviewed and interpreted this imaging study as follows: Radiologist's impression: *? No acute findings. *? Stable cardiomegaly without evidence of decompensated heart failure. *? Emphysema. ? Discharge Plan Discharge Clinical Impression: COVID-19 virus infection Patient Disposition: Home, Self-Care Instructions: COVID-19 (Coronavirus Disease 2019) (ED) Additional Instructions: Self-quarantine for next 10 days, frequent hand washing, wears a face mask at all times, follow social distancing rules. Use Tylenol 500 mg OTC every 6 hours if needed for fever. Return if worsening of difficulty breathing or shortness of breadth. Use your home supplemental oxygen at all times. Prescriptions: No Action montelukast 10 mg tablet 10 mg PO BEDTIME Qty: 30 RF: 11 furosemide 20 mg tablet 40 mg PO QAM Qty: 60 RF: 2 Xarelto 20 mg tablet 20 mg PO QAM Qty: 90 RF: 3 metoprolol succinate 50 mg tablet extended release 24 hr 50 mg PO QAM 90 Days Qty: 90 RF: 3 divalproex 500 mg tablet,delayed release (DR/EC) 1,000 mg PO BID RF: 0 methadone [Methadone Intensol] 10 mg/mL Concentrate 43 mg PO DAILY RF: 0 melatonin 5 mg tablet 10 mg PO BEDTIME RF: 0 fluoxetine 20 mg capsule 20 mg PO DAILY RF: 0 lamotrigine 25 mg tablet 25 mg PO BID RF: 0 primidone 50 mg tablet 50 mg PO TID RF: 0 multivitamin Tablet 1 tab PO QAM RF: 0 carbamazepine 200 mg tablet 200 mg PO BID RF: 0 ipratropium-albuterol 0.5 mg-3 mg(2.5 mg base)/3 mL solution for nebulization 3 ml inhalation QID 30 Days Qty: 360 RF: 11 Anoro Ellipta 62.5-25 mcg/actuation blister with device 1 inh inhalation DAILY Qty: 60 RF: 5 albuterol sulfate [Ventolin HFA] 90 mcg/actuation HFA aerosol inhaler 0 mcg inhalation RF: 0 albuterol sulfate 2.5 mg /3 mL (0.083 %) solution for nebulization inhalation RF: 0 omeprazole 40 mg capsule,delayed release(DR/EC) 40 mg PO DAILY RF: 0 Referrals: Physician,Unknown J [Primary Care Provider] - 2 weeks Interventions: ED Discharge Assessment Last Done: 07/28/21 01:13
[2021-07-28 00:14] LABS: Basophils Percent Auto 0.3 % (0-2); Eosinophils Percent Auto 1.3 % (0-4); Hemoglobin 11.3 g/dl (14.0-18.0); Mean Corpuscular HGB Conc 32.8 g/dl (31.0-36.0); PLT CLUMP 1; SCAN SMEAR FLAG 1
[2021-07-28 00:16] LABS: Hematocrit 34.4 % (42.0-52.0); Imm Gran Abs Auto 0.01 X10*3/uL (0.00-0.03); Imm Gran Pct Auto 0.3 % (0.0-0.4); Lymphocytes Absolute Auto 0.8 X10*3/uL (1.2-4.9); Lymphocytes Percent Auto 25.8 % (20-40); MANUAL DIFF FLAG SCAN; Mean Corpuscular Hemoglobin 35.8 pg (27.0-33.0); Mean Corpuscular Volume 108.9 fL (80.0-98.0); Mean Platelet Volume 12.3 fL (9.4-12.4); Monocytes Absolute Auto 0.5 X10*3/uL (0.1-1.2); Monocytes Percent Auto 14.7 % (2-11); Neutrophils Absolute Auto 1.8 x10*3/uL (2.0-8.3); Neutrophils Percent Auto 57.6 % (45-73); Red Blood Count 3.16 X10*6/uL (4.60-5.80)
[2021-07-28 00:27] LABS: Lactic Acid 3.3 mmol/L (0.5-2.0)
[2021-07-28 00:29] LABS: Alanine Aminotransferase 19 U/L (0-40); Albumin Level 4.1 g/dL (3.5-5.0); Alkaline Phosphatase 83 U/L (39-117); Anion Gap 15 (12-20); Aspartate Amino Transferase 31 U/L (5-37); Bilirubin Direct 0.3 mg/dL (0.0-0.5); Bilirubin Total 0.5 mg/dL (0.0-1.0); Blood Urea Nitrogen 37 mg/dL (9-16); Calcium 9.2 mg/dL (8.4-10.2); Carbon Dioxide 32 mmol/L (22-29); Chloride 101 mmol/L (96-108); Creatinine Clr Calc Pharmacy 43.5; Estimated Glomerular Filt Rate 54; Glucose Random 88 mg/dL (60-115); Lipase 48 U/L (8-78); Potassium 5.2 mmol/L (3.3-5.1); Sodium 143 mmol/L (135-145); Total Protein 7.1 g/dL (6.5-8.0)
[2021-07-28] MEDS: Acetaminophen 325 MG TABLET 650 MG PO (00:29)
[2021-07-28] MEDS: 0.9 % Sodium Chloride 1,000 ML 999 ML IV (00:30)
[2021-07-28 00:34] LABS: B Type Natriuretic Peptide 1682 pg/mL (<100)
[2021-07-28 00:42] LABS: Platelet Count 56 X10*3/uL (160-400); SLIDE REVIEW VERIFIED; White Blood Count 3.1 X10*3/uL (4.8-10.8)
[2021-07-28 00:51] LABS: Influenza A PCR NEGATIVE (Negative); Influenza B PCR NEGATIVE (Negative); Resp Syncy Virus RNA Qual PCR NEGATIVE (Negative); SARS COV2 PCR INHOUSE POSITIVE (Negative)
[2021-07-28 02:10] LABS: Reflex Lactate? Lactic Acid Added
== END 2021-07-28 02:00 | disposition home or self-care (01) ==
PROVIDERS: Emergency Provider Emergency Medicine
DX: U07.1 COVID-19 (principal); R50.9 Fever, unspecified; J44.9 Chronic obstructive pulmonary disease, unspecified; I50.9 Heart failure, unspecified; I48.19 Other persistent atrial fibrillation; F17.200 Nicotine dependence, unspecified, uncomplicated; Z99.81 Dependence on supplemental oxygen; Z95.0 Presence of cardiac pacemaker; Z79.01 Long term (current) use of anticoagulants; Z79.899 Other long term (current) drug therapy
CPT/HCPCS: 0241U; 36415; 71045; 80048; 80076; 83605; 83690; 83880; 84484; 85025; 87040; 93005; 96360; 99284

== ENCOUNTER 2021-08-01 08:14 | Inpatient (IN) | payer OTHER, SELFPAY ==
--- NOTE | ~2021-08-01 | US_ITS ---
EXAMINATION: US ABDOMEN LIMITED CLINICAL INFORMATION: Elevated LFTs. Assess liver/gallbladder. COVID positive patient. COMPARISON: Ultrasound abdomen complete 01/04/2021. CT abdomen and pelvis 10/02/2009. TECHNIQUE: Real-time imaging of the right upper quadrant abdominal viscera. Severely limited study due to patient being combative. FINDINGS: PANCREAS: Not imaged. LIVER: Suboptimally seen, but mostly unremarkable. The liver is normal in size. The liver contour is normal. Parenchymal echogenicity is normal. No focal hepatic lesion. There is no intrahepatic biliary duct dilatation seen. GALLBLADDER: There may be a small amount of sludge layering within the gallbladder. The gallbladder is physiologically distended and otherwise unremarkable without evidence of stones, polyps, wall thickening or pericholecystic fluid. COMMON BILE DUCT: Normal in caliber measuring 0.5 cm in diameter. RIGHT KIDNEY: Normal. No hydronephrosis. No renal calculi or focal parenchymal lesions. The kidney measures 10.5 cm in maximum dimension. FREE FLUID: None. US/US abdomen limited IMPRESSION: Technically significantly limited exam. Pancreas not seen. Possible small volume sludge layering within the gallbladder, which is otherwise unremarkable. No other focal findings seen.
--- NOTE | ~2021-08-01 | CT_ITS ---
EXAMINATION: CT ANGIOGRAM OF THE CHEST WITH AND WITHOUT CONTRAST (CT PULMONARY ANGIOGRAM FOR PE) CLINICAL INFORMATION: Shortness of breath, hypoxia. COVID. COMPARISON: Multiple priors, most recent chest radiograph done earlier the same day. CT chest dated 11/07/2020. TECHNIQUE: Prior to contrast administration, noncontrast localization images were obtained. Subsequently, multidetector volumetric imaging was performed from the thoracic inlet to below the diaphragms following the administration of 70 mL Omnipaque 350 intravenous contrast. No contrast reaction reported. Sagittal, coronal, and MIP oblique sagittal reformatted images were obtained on the CT workstation, uploaded to PACS, and reviewed. This CT examination was performed using dose optimization techniques as appropriate, variously including the following: *Automated exposure control *Adjustment of mA and/or kV according to patient size (this includes techniques or standardized protocols for targeted exams where dose is matched to indication/reason for exam; i.e. extremities or head) *Use of iterative reconstruction technique Total exam dose-length product 400 mGy-cm FINDINGS: QUALITY OF STUDY/CONTRAST BOLUS: Satisfactory. PULMONARY ARTERIES: No central or segmental pulmonary emboli. THORACIC AORTA: No thoracic aortic dilatation. Scattered atherosclerotic calcifications. LUNG: Prominent emphysematous changes are redemonstrated. Diffuse right lower lobe interstitial prominence with patchy airspace opacities, new/increased when compared to the prior CT. No additional focal airspace consolidation. PLEURA: No pleural effusion or pneumothorax. MEDIASTINUM: Stable cardiomegaly. No pericardial effusion. No significant superior mediastinal or hilar lymphadenopathy. No evidence of septal bowing or right heart strain. CHEST WALL/AXILLA: Left chest wall pacer/AICD in unchanged position. No significant axillary or internal mammary lymphadenopathy. OSSEOUS STRUCTURES: No acute or suspicious osseous abnormality. UPPER ABDOMEN: Unremarkable. No reflux of contrast into the hepatic veins to suggest elevated right heart pressures. CT/CT angio chest PE protocol IMPRESSION: 1. No central or segmental pulmonary embolism. 2. Prominent emphysematous changes are redemonstrated. Right lower lobe interstitial prominence with patchy airspace opacities, new/increased when compared to the prior CT. 3. Stable cardiomegaly. VTE: negative
--- NOTE | ~2021-08-01 | XR_ITS ---
EXAMINATION: XR CHEST CLINICAL INFORMATION: Shortness of breath. COMPARISON: Multiple priors, most recent chest radiograph dated 07/27/2021. TECHNIQUE: Frontal view of the chest was obtained. FINDINGS: Redemonstration of prominent cardiomegaly. Left chest wall pacer/AICD with its leads overlying the right heart. Diffuse interstitial and pulmonary vascular prominence as well as patchy right lung airspace opacities, increased when compared to the prior examination. No pleural effusion or pneumothorax. XR/XR chest 1V IMPRESSION: Interstitial and pulmonary vascular prominence as well as faint patchy right lung airspace opacities, increased when compared to the prior examination. Stable cardiomegaly. Findings can be seen in the setting of pulmonary edema. An underlying infectious or inflammatory process could be considered in the appropriate clinical setting.
--- NOTE | ~2021-08-01 | XR_ITS ---
EXAMINATION: XR CHEST CLINICAL INFORMATION: Increasing O2 requirements. COMPARISON: Chest 08/01/2021 TECHNIQUE: Frontal view of the chest was obtained. FINDINGS: The lungs are well-expanded with patchy opacity seen both lower lobes, both midlung regions. There is no consolidation. The heart size and pulmonary vascularity is normal. There are pacer electrodes in right atrium and right ventricle. No gross bony abnormality seen. XR/XR chest 1V IMPRESSION: Diffuse bilateral patchy opacities in both lower lobes and midlung region slightly progressed since 08/01/2021.. No change in the pacer electrodes. No effusion seen.
--- NOTE | ~2021-08-01 | CT_ITS ---
EXAMINATION: CT HEAD WITHOUT CONTRAST CLINICAL INFORMATION: G and confusion. COMPARISON: CT brain 06/17/2021 TECHNIQUE: Contiguous axial imaging was performed from the skull base to vertex without intravenous administration of contrast. This CT examination was performed using dose optimization techniques as appropriate, variously including the following: *Automated exposure control *Adjustment of mA and/or kV according to patient size (this includes techniques or standardized protocols for targeted exams where dose is matched to indication/reason for exam; i.e. extremities or head) *Use of iterative reconstruction technique DLP: 719 mGy-cm FINDINGS: There is no acute intra-axial, extra-axial bleed, masses or midline shift. There is no acute infarction evolution. There is no edema. There is hypodensity in the right frontal lobe deep white matter likely subcortical old infarct or insult. The findings has been present before 12/10/2020. There is diffuse periventrical hypodensity in both cerebral hemispheres without mass effect consistent with small vessel ischemic changes The lateral ventricles are symmetrical in size and configuration without enlargement. Bone windows reveal no calvarial abnormality. Bilateral paranasal sinuses and mastoid air cells are well-aerated. There is no scalp soft tissue abnormality seen. CT/CT head/brain wo con IMPRESSION: No acute intracranial process seen. Old right subcortical hypodensity right frontal lobe likely old insult or infarct. Age-related mild cerebral volume loss with chronic small vessel disease in both cerebral hemispheres.
--- NOTE | 2021-08-01 08:33 | ED_ITS ---
HPI - URI/Sore Throat General Chief Complaint: Fever <SUSAN Schwartz - Last Filed: 08/01/21 13:23> Stated Complaint: covid + with covid symptoms <SUSAN Schwartz - Last Filed: 08/01/21 13:23> Time Seen by Provider: 08/01/21 08:33 <SUSAN Schwartz - Last Filed: 08/01/21 13:23> Source: patient <SUSAN Schwartz - Last Filed: 08/01/21 13:23> Mode of arrival: ambulatory <SUSAN Schwartz - Last Filed: 08/01/21 13:23> Limitations: no limitations <USSAN Schwartz - Last Filed: 08/01/21 13:23> History of Present Illness HPI Narrative: This is a 61-year-old male past medical history significant for Parkinson's disease, COPD, dementia, CHF recently diagnosed with COVID-19 on July 27, 2019 to was brought in by ambulance, his is concerned that patient is COVID positive and fever. There is no other concerns at this time. Due to patient's dementia he is unable to answer questions appropriately. He appears well, resting on the stretcher in no acute distress. EMS is vital signs were stable. Patient has no complaints and tells me he has a fever. Patient not vaccinated <SUSAN Schwartz - Last Filed: 08/01/21 13:23> MD elicited complaint: other (Fever ) <SUSAN Schwartz Last Filed: 08/01/21 13:23> Onset (ago): unknown <SUSAN Schwartz - Last Filed: 08/01/21 13:23> Consistency: constant <SUSAN Schwartz Last Filed: 08/01/21 13:23> Able to tolerate fluids by mouth: Yes <SUSAN Schwartz - Last Filed: 08/01/21 13:23> Exacerbating factors: nothing <SUSAN Schwartz Last Filed: 08/01/21 13:23> Relieving factors: nothing <SUSAN Schwartz Last Filed: 08/01/21 13:23> Associated symptoms: fever <SUSAN Schwartz - Last Filed: 08/01/21 13:23> Treatments prior to arrival: none <SUSAN Schwartz - Last Filed: 08/01/21 13:23> Related Data Home Medications: Home Medications Medication Instructions Recorded Confirmed fluoxetine 20 mg capsule 20 mg PO DAILY 04/18/20 08/01/21 lamotrigine 25 mg tablet 25 mg PO BID 04/18/20 08/01/21 melatonin 5 mg tablet 10 mg PO BEDTIME 04/18/20 08/01/21 multivitamin 1 tab PO QAM 04/18/20 08/01/21 primidone 50 mg tablet 50 mg PO TID 04/18/20 08/01/21 carbamazepine 200 mg tablet 200 mg PO BID tab 12/08/20 08/01/21 methadone 10 mg/mL oral 43 mg PO DAILY 12/14/20 06/24/21 concentrate (Methadone Intensol) omeprazole 40 mg capsule,delayed 40 mg PO DAILY 12/30/20 08/01/21 release divalproex 500 mg tablet,delayed 1,000 mg PO BID 02/02/21 08/01/21 release albuterol sulfate 90 mcg/actuation 2 puff INHALATION Q6H PRN 06/24/21 08/01/21 aerosol inhaler (Ventolin HFA) furosemide 40 mg tablet 1 tab PO QAM 08/01/21 08/01/21 Previous Rx's Medication Instructions Recorded montelukast 10 mg tablet 10 mg PO BEDTIME #30 tab 10/08/20 ipratropium 0.5 mg-albuterol 3 mg 3 ml INHALATION QID 30 Days #360 ml 03/22/21 (2.5 mg base)/3 mL nebulization soln umeclidinium 62.5 mcg-vilanterol 1 inh INHALATION DAILY #60 ea 03/22/21 25 mcg/actuation powdr for inhalation (Anoro Ellipta) rivaroxaban 20 mg tablet (Xarelto) 20 mg PO QAM #90 tab 06/14/21 metoprolol succinate 50 mg 50 mg PO QAM 90 Days #90 tab 07/12/21 tablet,extended release 24 hr <SUSAN Schwartz Last Filed: 08/01/21 13:23> Allergies/Adverse Reactions: Allergies Allergy/AdvReac Type Severity Reaction Status Date / Time Penicillins [PENICILLINS] Allergy Severe SWELLING Verified 07/20/21 11:24 <SUSAN Schwartz - Last Filed: 08/01/21 13:23> Review of Systems Review of Systems: Unable to obtain, patient has dimension is not answering questions appropriately <SUSAN Schwartz - Last Filed: 08/01/21 13:23> Yes Unobtainable due to mental status <SUSAN Schwartz - Last Filed: 08/01/21 13:23> [facility] Past Medical History Attestation statement: The following information was validated with the patient. <SUSAN Schwartz - Last Filed: 08/01/21 13:23> Source: old records reviewed and nursing notes reviewed <SUSAN Schwartz - Last Filed: 08/01/21 13:23> Medical History: Medical History Aortic stenosis Biventricular ICD (implantable cardioverter-defibrillator) in place Chronic respiratory failure COPD (chronic obstructive pulmonary disease) COPD (chronic obstructive pulmonary disease) Heart failure with reduced ejection fraction Nonischemic cardiomyopathy Paroxysmal atrial fibrillation Persistent atrial fibrillation Pre-op chest exam Pulmonary nodules Thrombocytopenia Tobacco dependence <SUSAN Schwartz - Last Filed: 08/01/21 13:23> Surgical History: Surgical History Cardiac catheterization as the cause of abnormal reaction of the patient, or of later complication, without mention of misadventure at the time of the procedure Endotracheal tube present Epidermal cyst Lesion of tongue Pacemaker S/P balloon aortic valvuloplasty <SUSAN Schwartz - Last Filed: 08/01/21 13:23> Family History Family History: Family History Father No problems noted. Mother HTN (hypertension) Arthritis of knee Unknown Recurrent strokes Diabetes mellitus Thyroid disease CVD (cerebrovascular disease) <SUSAN Schwartz - Last Filed: 08/01/21 13:23> Social History Social History: Social History Household Members: None Housing: Apartment Do you presently have visiting nurse or other home services: No Alcohol intake: unknown Patient Tobacco Use Status: Former Tobacco user Tobacco use type: Cigarette Years Smoked: 20+ years Use of substances other than those prescribed or required for medical reasons: Unknown Advance Directives: No Advance Directives Information Provided: Yes service: No <SUSAN Schwartz - Last Filed: 08/01/21 13:23> Physical Exam Vital Signs: Vital Signs: Last Vital Signs Temp 101 F H 08/01/21 08:37 Pulse 90 08/01/21 08:37 Resp 20 08/01/21 08:37 BP 104/45 L 08/01/21 08:37 Pulse Ox 93 08/01/21 08:37 Oxygen Flow Rate 3 08/01/21 08:37 BMI result Body Mass Index 24.7 Noted to be hypotensive and febrile. <SUSAN Schwartz - Last Filed: 08/01/21 13:23> Vital Signs: Last Vital Signs Temp 101 F H 08/01/21 08:37 Pulse 90 08/01/21 08:37 Resp 20 08/01/21 08:37 BP 104/45 L 08/01/21 08:37 Pulse Ox 93 08/01/21 08:37 Oxygen Flow Rate 3 08/01/21 08:37 BMI result Body Mass Index 24.7 <Waldemar Mcmillan MD - Last Filed: 08/01/21 12:22> Appearance: Alert. Awake, moving all extremities, patient has dementia at baseline. acute distress.? Head: Normocephalic, atraumatic, no step-offs or deformities Eyes: Pupils equal, round and reactive to light.? ENT: Pharynx normal.? Neck: Normal inspection.? Neck supple.? CVS: Normal heart rate and rhythm.? Pulses normal.? Respiratory: No respiratory distress.? Breath sounds normal.? Abdomen: Soft and nontender.? Skin: Skin warm and dry.? Normal skin color.? Normal skin turgor.? Extremities: No lower extremity edema.? No calf ttp. 5/5 strength to bilateral upper and lower extremities Back: No midline tenderness, no C-spine tenderness, full range of motion, no CVA tenderness bilaterally Neuro: Awake, alert moving all extremities in no acute distress, patient not answering questions appropriately due to dementia. No motor deficit.? No sensory deficit. <SUSAN Schwartz Last Filed: 08/01/21 13:23> Course Reevaluation(s) Reevaluation #1: Today patient is noted to be COVID positive. His labs have a pancytopenia which appears to be present in the past. Low white blood cell count likely secondary to viral infection. Patient's BUN is noted to be elevated however it appears to be chronically elevated. He will be given fluids. Carbon dioxide also noted to be chronically elevated. Patient is noted to be saturating 93% on nasal cannula from what was reported to us it appears as though patient uses oxygen at home. He was given Tylenol for his fever. <SUSAN Schwartz Last Filed: 08/01/21 13:23> Time: 09:54 <SUSAN Schwartz Last Filed: 08/01/21 13:23> Reevaluation #2: CTA no PE, VTE negative. Prominent emphysematous changes are redemon strated. Right lower lobe. interstitial prominence with patchy airspace opacities, new/increased when compared to the prior CT. . No meningeal signs. Spoke to who tells me she does not live with patient, she tells me patient has been short of breath despite home oxygen, especially with ambulation. Fatigue, poor PO intake also. She also tells me that patient has been febrile since July 27, she tells me she was given Tylenol and the fever has still not improved. <SUSAN Schwartz Last Filed: 08/01/21 13:23> Time: 11:49 <SUSAN Schwartz Last Filed: 08/01/21 13:23> Reevaluation #3: Trop elevated. 90.2 ordered a second. BNP elevated, lasix ordered. <SUSAN Schwartz Last Filed: 08/01/21 13:23> Time: 12:16 <SUSAN Schwartz Last Filed: 08/01/21 13:23> Additional Reevaluation(s): Due to patient's status, core mobilities, physical exam in history patient should be admitted into the hospital, will reach out to hospitalist for admiss ion. Will give doxy and admit <SUSAN Schwartz - Last Filed: 08/01/21 13:23> MDM - URI/Sore Throat MDM Narrative Medical decision making narrative: [id number] 61 yo M pmhx Parkinson's disease, COPD, dementia, CHF recently dx with COVID-19 07/27/2021 BIBA his is concerned that patient is COVID positive and has a fever. No other complaints PE benign. Patient is noted to be hypotensive, and febrile likely secondary to COVID-19 viral infection, unlikely that this is sepsis. Upon doing chart review it is noted that patient's blood pressure appears to be on the lower side at baseline. Fluids will be obtained. Plan at this time is to obtain a chest x-ray and basic labs. <SUSAN Schwartz - Last Filed: 08/01/21 13:23> Medical Records Attestation: I reviewed the patient's medical records. <SUSAN Schwartz - Last Fi led: 08/01/21 13:23> Lab Data Attestation: I reviewed the patient's lab results. <SUSAN Schwartz - Last Filed: 08/01/21 13:23> Result diagrams: : 08/01/21 09:33 08/01/21 09:23 <SUSAN Schwartz - Last Filed: 08/01/21 13:23> Labs: Lab Results 08/01/21 08/01/21 08/01/21 Range/Units 09:23 09:23 09:23 WBC (4.8-10.8) X10*3/uL RBC (4.60-5.80) X10*6/uL Hgb (14.0-18.0) g/dl Hct (42.0-52.0) % MCV (80.0-98.0) fL MCH (27.0-33.0) pg MCHC (31.0-36.0) g/dl RDW (11.0-16.0) % Plt Count (160-400) X10*3/uL MPV (9.4-12.4) fL Immature Gran % (Auto) (0.0-0.4) % Neut % (Auto) (45-73) % Lymph % (Auto) (20-40) % [place] % (Auto) (2-11) % Eos % (Auto) (0-4) % Baso % (Auto) (0-2) % Lymph # (Auto) (1.2-4.9) X10*3/uL [place] # (Auto) (0.1-1.2) X10*3/uL Eos # (Auto) (0.0-0.4) X10*3/uL Baso # (Auto) (0.0-0.2) X10*3/uL Abs Immat Gran (auto) (0.00-0.03) X10*3/uL Absolute Neuts (auto) (2.0-8.3) x10*3/uL Absolute Nucleated RBC (0.0-0.012) X10*3/uL Nucleated RBC % (auto) (0.0-0.2) /100WBC D-Dimer High Sensitivty NG/ML Sodium 141 (135-145) mmol/L Potassium 4.5 (3.3-5.1) mmol/L Chloride 100 (96-108) mmol/L Carbon Dioxide 34 H (22-29) mmol/L Anion Gap 12 (12-20) BUN 25 H (9-16) mg/dL Creatinine 1.00 (0.5-1.4) mg/dL Estim Creat Clear Calc 60.8 Estimated GFR > 60 Random Glucose 100 (60-115) mg/dL Calcium 8.7 (8.4-10.2) mg/dL Total Bilirubin 0.4 (0.0-1.0) mg/dL AST 31 (5-37) U/L ALT 16 (0-40) U/L Alkaline Phosphatase 95 (39-117) U/L Lactate Dehydrogenase 193 (118-273) U/L Troponin I High Sens 90.2 H (<3.5-35.0) ng/L B-Natriuretic Peptide 1390 H (<100) pg/mL Total Protein 5.9 L (6.5-8.0) g/dL Albumin 3.3 L (3.5-5.0) g/dL COVID-19 (SAM) Positive A (Negative) COVID-19 Clin Com See Note 08/01/21 08/01/21 Range/Units 09:33 10:54 WBC 3.0 L (4.8-10.8) X10*3/uL RBC 2.78 L (4.60-5.80) X10*6/uL Hgb 9.9 L (14.0-18.0) g/dl Hct 30.1 L (42.0-52.0) % MCV 108.3 H (80.0-98.0) fL MCH 35.6 H (27.0-33.0) pg MCHC 32.9 (31.0-36.0) g/dl RDW 13.7 (11.0-16.0) % Plt Count 41 L D (160-400) X10*3/uL MPV 12.0 (9.4-12.4) fL Immature Gran % (Auto) 0.7 H (0.0-0.4) % Neut % (Auto) 77.5 H (45-73) % Lymph % (Auto) 12.1 L (20-40) % [place] % (Auto) 9.7 (2-11) % Eos % (Auto) 0.0 (0-4) % Baso % (Auto) 0.0 (0-2) % Lymph # (Auto) 0.4 L (1.2-4.9) X10*3/uL [place] # (Auto) 0.3 (0.1-1.2) X10*3/uL Eos # (Auto) 0.0 (0.0-0.4) X10*3/uL Baso # (Auto) 0.0 (0.0-0.2) X10*3/uL Abs Immat Gran (auto) 0.02 (0.00-0.03) X10*3/uL Absolute Neuts (auto) 2.3 (2.0-8.3) x10*3/uL Absolute Nucleated RBC 0.000 (0.0-0.012) X10*3/uL Nucleated RBC % (auto) 0.0 (0.0-0.2) /100WBC D-Dimer High Sensitivty < 150 NG/ML Sodium (135-145) mmol/L Potassium (3.3-5.1) mmol/L Chloride (96-108) mmol/L Carbon Dioxide (22-29) mmol/L Anion Gap (12-20) BUN (9-16) mg/dL Creatinine (0.5-1.4) mg/dL Estim Creat Clear Calc Estimated GFR Random Glucose (60-115) mg/dL Calcium (8.4-10.2) mg/dL Total Bilirubin (0.0-1.0) mg/dL AST (5-37) U/L ALT (0-40) U/L Alkaline Phosphatase (39-117) U/L Lactate Dehydrogenase (118-273) U/L Troponin I High Sens (<3.5-35.0) ng/L B-Natriuretic Peptide (<100) pg/mL Total Protein (6.5-8.0) g/dL Albumin (3.5-5.0) g/dL COVID-19 (SAM) (Negative) COVID-19 Clin Com <SUSAN Schwartz - Last Filed: 08/01/21 13:23> Lab Results 08/01/21 08/01/21 08/01/21 Range/Units 09:23 09:23 09:23 WBC (4.8-10.8) X10*3/uL RBC (4.60-5.80) X10*6/uL Hgb (14.0-18.0) g/dl Hct (42.0-52.0) % MCV (80.0-98.0) fL MCH (27.0-33.0) pg MCHC (31.0-36.0) g/dl RDW (11.0-16.0) % Plt Count (160-400) X10*3/uL MPV (9.4-12.4) fL Immature Gran % (Auto) (0.0-0.4) % Neut % (Auto) (45-73) % Lymph % (Auto) (20-40) % [place] % (Auto) (2-11) % Eos % (Auto) (0-4) % Baso % (Auto) (0-2) % Lymph # (Auto) (1.2-4.9) X10*3/uL [place] # (Auto) (0.1-1.2) X10*3/uL Eos # (Auto) (0.0-0.4) X10*3/uL Baso # (Auto) (0.0-0.2) X10*3/uL Abs Immat Gran (auto) (0.00-0.03) X10*3/uL Absolute Neuts (auto) (2.0-8.3) x10*3/uL Absolute Nucleated RBC (0.0-0.012) X10*3/uL Nucleated RBC % (auto) (0.0-0.2) /100WBC D-Dimer High Sensitivty NG/ML Sodium 141 (135-145) mmol/L Potassium 4.5 (3.3-5.1) mmol/L Chloride 100 (96-108) mmol/L Carbon Dioxide 34 H (22-29) mmol/L Anion Gap 12 (12-20) BUN 25 H (9-16) mg/dL Creatinine 1.00 (0.5-1.4) mg/dL Estim Creat Clear Calc 60.8 Estimated GFR > 60 Random Glucose 100 (60-115) mg/dL Calcium 8.7 (8.4-10.2) mg/dL Total Bilirubin 0.4 (0.0-1.0) mg/dL AST 31 (5-37) U/L ALT 16 (0-40) U/L Alkaline Phosphatase 95 (39-117) U/L Lactate Dehydrogenase 193 (118-273) U/L Troponin I High Sens 90.2 H (<3.5-35.0) ng/L B-Natriuretic Peptide 1390 H (<100) pg/mL Total Protein 5.9 L (6.5-8.0) g/dL Albumin 3.3 L (3.5-5.0) g/dL COVID-19 (SAM) Positive A (Negative) COVID-19 Clin Com See Note 08/01/21 08/01/21 Range/Units 09:33 10:54 WBC 3.0 L (4.8-10.8) X10*3/uL RBC 2.78 L (4.60-5.80) X10*6/uL Hgb 9.9 L (14.0-18.0) g/dl Hct 30.1 L (42.0-52.0) % MCV 108.3 H (80.0-98.0) fL MCH 35.6 H (27.0-33.0) pg MCHC 32.9 (31.0-36.0) g/dl RDW 13.7 (11.0-16.0) % Plt Count 41 L D (160-400) X10*3/uL MPV 12.0 (9.4-12.4) fL Immature Gran % (Auto) 0.7 H (0.0-0.4) % Neut % (Auto) 77.5 H (45-73) % Lymph % (Auto) 12.1 L (20-40) % [place] % (Auto) 9.7 (2-11) % Eos % (Auto) 0.0 (0-4) % Baso % (Auto) 0.0 (0-2) % Lymph # (Auto) 0.4 L (1.2-4.9) X10*3/uL [place] # (Auto) 0.3 (0.1-1.2) X10*3/uL Eos # (Auto) 0.0 (0.0-0.4) X10*3/uL Baso # (Auto) 0.0 (0.0-0.2) X10*3/uL Abs Immat Gran (auto) 0.02 (0.00-0.03) X10*3/uL Absolute Neuts (auto) 2.3 (2.0-8.3) x10*3/uL Absolute Nucleated RBC 0.000 (0.0-0.012) X10*3/uL Nucleated RBC % (auto) 0.0 (0.0-0.2) /100WBC D-Dimer High Sensitivty < 150 NG/ML Sodium (135-145) mmol/L Potassium (3.3-5.1) mmol/L Chloride (96-108) mmol/L Carbon Dioxide (22-29) mmol/L Anion Gap (12-20) BUN (9-16) mg/dL Creatinine (0.5-1.4) mg/dL Estim Creat Clear Calc Estimated GFR Random Glucose (60-115) mg/dL Calcium (8.4-10.2) mg/dL Total Bilirubin (0.0-1.0) mg/dL AST (5-37) U/L ALT (0-40) U/L Alkaline Phosphatase (39-117) U/L Lactate Dehydrogenase (118-273) U/L Troponin I High Sens (<3.5-35.0) ng/L B-Natriuretic Peptide (<100) pg/mL Total Protein (6.5-8.0) g/dL Albumin (3.5-5.0) g/dL COVID-19 (SAM) (Negative) COVID-19 Clin Com <Waldemar Mcmillan MD - Last Filed: 08/01/21 12:22> Imaging Data CTA chest: Attestation: I personally reviewed and interpreted this imaging study as follows: <SUSAN Schwartz - Last Filed: 08/01/21 13:23> Radiologist's impression: CT/CT angio chest PE protocol IMPRESSION: 1. No central or segmental pulmonary embolism. ? 2. Prominent emphysematous changes are redemonstrated. Right lower lobe interstitial prominence with patchy airspace opacities, new/increased when compared to the prior CT. ? 3. Stable cardiomegaly. ? VTE: negative <SUSAN Schwartz - Last Filed: 08/01/21 13:23> Chest x-ray: Attestation: I personally reviewed and interpreted this imaging study as follows: <SUSAN Schwartz - Last Filed: 08/01/21 13:23> Radiologist's impression: INDINGS: Redemonstration of prominent cardiomegaly. Left chest wall pacer/AICD with its leads overlying the right heart. Diffuse interstitial and pulmonary vascular prominence as well as patchy right lung airspace opacities, increased when compared to the prior examination. No pleural effusion or pneumothorax. XR/XR chest 1V IMPRESSION: Interstitial and pulmonary vascular prominence as well as faint patchy right lung airspace opacities, increased when compared to the prior examination. Stable cardiomegaly. Findings can be seen in the setting of pulmonary edema. An underlying infectious or inflammatory process could be considered in the appropriate clinical setting. <SUSAN Schwartz - Last Filed: 08/01/21 13:23> ECG Data Attestation: I personally reviewed and interpreted this ECG as follows: <SUSAN Schwartz - Last Filed: 08/01/21 13:23> ECG interpretation date: 08/01/21 <SUSAN Schwartz - Last Filed: 08/01/21 13:23> ECG interpretation time: 11:59 <SUSAN Schwartz Last Filed: 08/01/21 13:23> Prior ECG tracings: available for review <SUSAN Schwartz Last Filed: 08/01/21 13:23> Interpretation: Ventricular rate of 107, QRS normal, QT/QTC normal. EKG shows ventricular paced rhythm, no signs of acute ischemia. No significant changes when compared to previous <SUSAN Schwartz - Last Filed: 08/01/21 13:23> Critical Care Time Critical Care Time Critical Care Time: No <SUSAN Schwartz Last Filed: 08/01/21 13:23> Discharge Plan Discharge Clinical Impression: COVID-19, Physical deconditioning, FTT (failure to thrive) in adult <SUSAN Schwartz - Last Filed: 08/01/21 13:23> Patient Disposition: Admitted As Inpatient <SUSAN Schwartz - Last Filed: 08/01/21 13:23> Additional Instructions: Take your medications as prescribed. If you were prescribed antibiotics today, it is important that you take your medication to their entirety, do not skip any doses, do not finish them early. Follow-up with your primary care provider this week. Return to the emergency department with new or worsening symptoms. In case of emergency call 911 <SUSAN Schwartz - Last Filed: 08/01/21 13:23>
--- NOTE | 2021-08-01 08:36 | ECG_ITS ---
Test Reason : SOB Blood Pressure : / mmHG Vent. Rate : 107 BPM Atrial Rate : 330 BPM P-R Int : 000 ms QRS Dur : 162 ms QT Int : 444 ms P-R-T Axes : 265 179 -62 degrees QTc Int : 592 ms Artifact in tracing Ventricular-paced rhythm Abnormal ECG When compared with ECG of 27-JUL-2021 23:35, due to poor quality, difficult to compare. Referred By: Jordan Meyer Electronically Signed By:PONCHO [email or web address]
[2021-08-01 08:37] VITALS: BP 104/45; PULSE 90; RESP 20; TEMP 38.3; O2SAT 93; BMI 24.7
[2021-08-01] MEDS: 0.9 % Sodium Chloride 1,000 ML 999 ML IV (09:03)
[2021-08-01 09:38] LABS: COVID-19 Test Positive (Negative)
[2021-08-01 09:38] LABS: MANUAL DIFF FLAG NO
[2021-08-01 09:44] LABS: Hematocrit 30.1 % (42.0-52.0); Hemoglobin 9.9 g/dl (14.0-18.0); Imm Gran Abs Auto 0.02 X10*3/uL (0.00-0.03); Imm Gran Pct Auto 0.7 % (0.0-0.4); Lymphocytes Absolute Auto 0.4 X10*3/uL (1.2-4.9); Lymphocytes Percent Auto 12.1 % (20-40); Mean Corpuscular HGB Conc 32.9 g/dl (31.0-36.0); Mean Corpuscular Hemoglobin 35.6 pg (27.0-33.0); Mean Corpuscular Volume 108.3 fL (80.0-98.0); Monocytes Absolute Auto 0.3 X10*3/uL (0.1-1.2); Monocytes Percent Auto 9.7 % (2-11); Neutrophils Absolute Auto 2.3 x10*3/uL (2.0-8.3); Neutrophils Percent Auto 77.5 % (45-73); Red Blood Count 2.78 X10*6/uL (4.60-5.80); Red Cell Distribution Width 13.7 % (11.0-16.0)
[2021-08-01 09:45] LABS: Platelet Count 41 X10*3/uL (160-400)
[2021-08-01 09:46] LABS: Alanine Aminotransferase 16 U/L (0-40); Albumin Level 3.3 g/dL (3.5-5.0); Alkaline Phosphatase 95 U/L (39-117); Anion Gap 12 (12-20); Aspartate Amino Transferase 31 U/L (5-37); Bilirubin Total 0.4 mg/dL (0.0-1.0); Blood Urea Nitrogen 25 mg/dL (9-16); Calcium 8.7 mg/dL (8.4-10.2); Carbon Dioxide 34 mmol/L (22-29); Chloride 100 mmol/L (96-108); Creatinine Clr Calc Pharmacy 60.8; Estimated Glomerular Filt Rate > 60; Glucose Random 100 mg/dL (60-115); Potassium 4.5 mmol/L (3.3-5.1); Sodium 141 mmol/L (135-145); Total Protein 5.9 g/dL (6.5-8.0)
[2021-08-01] MEDS: iohexoL 350 MG/ML 100 ML INFUS..BTL IV (10:36)
[2021-08-01] MEDS: Acetaminophen 325 MG TABLET 650 MG PO ×2 (10:58→20:19)
[2021-08-01 11:07] LABS: D Dimer High Sensitivity < 150 NG/ML
[2021-08-01 11:59] LABS: Troponin-I High Sensitivity 90.2 ng/L (<3.5-35.0)
[2021-08-01 12:06] LABS: B Type Natriuretic Peptide 1390 pg/mL (<100)
[2021-08-01 13:03] LABS: Lactate Dehydrogenase 193 U/L (118-273)
[2021-08-01 13:32] LABS: Procalcitonin 0.19 ng/mL
--- NOTE | 2021-08-01 13:57 | P.HPHOSP_ITS ---
History of Present Illness Date of Service: 08/01/21 <Suzanne Hopkins NP - Last Filed: 08/01/21 17:21> Attending physician on admission: Edson Alvarado <Suzanne Hopkins NP - Last Filed: 08/01/21 17:21> Chief Complaint: Weakness <Suzanne Hopkins NP - Last Filed: 08/01/21 17:21> 61 year old man presenting with increased shortness of breath and fever since 07/27/21. He was in the [facility] on 07/27/21 with fever and diagnosed with covid 19. He has seemed more confused lately according to his daughter and he was weak. initially during the interview the patient reported that he wants leave against medical advice even putting his coat on. I was able to reach his daughter and she convinced him to stay. He does have a history of lung disease and follows with a vending machine repairer. He also has a history of cardiomyopathy and is followed closely by a [facility] Cardiology. He did have a fever of 101 in the ER. He was intermittently in the low 90s, his oxygen saturation. He reports that he is normally on 2 L at home as needed. In the ER he was given doxycycline, Decadron, Lasix, Tylenol, ibuprofen, 1 L of IV fluid. He will be admitted for further management and treatment of COVID-19 pneumonia.f <Suzanne Hopkins NP - Last Filed: 08/01/21 17:21> Review of Systems Verdana 4l Review of Systems: Verdana 4d Verdana 4d Denies any recent fever chills or decrease in appetite respiratory increased shortness of breath cardiovascular denies chest pain gastrointestinal denies any dysphagia abdominal pain nausea vomiting or diarrhea genitourinary denies anyany dysuria frequency or hematuria musculoskeletal denies any joint pain or swelling neuropsych denies any weakness or seizures all other systems reviewed are negative <Suzanne Hopkins NP - Last Filed: 08/01/21 17:21> [facility] Medical History: Medical History (Updated 08/18/21 @ 00:02 by Tiny Hamilton) Aortic stenosis Biventricular ICD (implantable cardioverter-defibrillator) in place Chronic respiratory failure COPD (chronic obstructive pulmonary disease) COPD (chronic obstructive pulmonary disease) Frailty Heart failure with reduced ejection fraction Nonischemic cardiomyopathy Opioid dependence Paroxysmal atrial fibrillation Persistent atrial fibrillation Pulmonary nodules Thrombocytopenia Tobacco dependence <Suzanne Hopkins NP - Last Filed: 08/01/21 17:21> Family History: Family History Father No problems noted. Mother HTN (hypertension) Arthritis of knee Unknown Recurrent strokes Diabetes mellitus Thyroid disease CVD (cerebrovascular disease) <Suzanne Hopkins NP - Last Filed: 08/01/21 17:21> Surgical History: Surgical History (Updated 08/18/21 @ 00:02 by Tiny Hamilton) Cardiac catheterization as the cause of abnormal reaction of the patient, or of later complication, without mention of misadventure at the time of the procedure Endotracheal tube present Epidermal cyst Lesion of tongue Pacemaker S/P balloon aortic valvuloplasty <Suzanne Hopkins NP - Last Filed: 08/01/21 17:21> Social History: Social History Household Members: None Housing: Apartment Unable to assess alcohol history related to: Refusing to respond Alcohol intake: unknown Patient Tobacco Use Status: Former Tobacco user Tobacco use type: Cigarette Years Smoked: 20+ years service: No Current occupational status: unemployed <Suzanne Hopkins NP - Last Filed: 08/01/21 17:21> Meds Allergies/Adverse reactions: Allergies Allergy/AdvReac Type Severity Reaction Status Date / Time Penicillins [PENICILLINS] Allergy Severe SWELLING Verified 07/20/21 11:24 <Suzanne Hopkins NP - Last Filed: 08/01/21 17:21> Active Medications: Current Medications Acetaminophen (Acetaminophen 325 Mg Tablet) 650 mg PO Q6H PRN PRN Reason: Pain, Mild (Pain Scale 1-3) Albuterol/Ipratropium (Albuterol/Iprat 2.5/0.5mg 3 Ml Ampul.Neb) 3 ml INHALE RQ4H WHILE AWAKE COCO Dexamethasone Sodium Phosphate (Dexamethasone Sod Phosphate 4 Mg/Ml Vial) 6 mg IVPUSH DAILY COCO Doxycycline Hyclate 100 mg/ (Sodium Chloride) 250 mls @ 166.67 mls/hr IV Q12H S Ondansetron HCl (Ondansetron Hcl 4 Mg/2 Ml Vial) 4 mg IVPUSH Q8H PRN PRN Reason: Nausea and Vomiting Pharmacy Consult (Consult Rx Perform Med Rec) 1 each MISCELLANE ONCE PRN PRN Reason: Consult order Sodium Chloride (0.9 % Sodium Chloride Flush 3 Ml Syringe) 3 ml IVFLUSH QSHIFT COCO <Suzanne Hopkins NP - Last Filed: 08/01/21 17:21> Home medications: Home Medications Medication Instructions Recorded Confirmed Last Taken Type fluoxetine 20 mg 20 mg PO DAILY 04/18/20 08/01/21 12/10/20 History capsule lamotrigine 25 mg 25 mg PO BID 04/18/20 08/01/21 12/10/20 History tablet melatonin 5 mg 10 mg PO BEDTIME 04/18/20 08/01/21 12/10/20 History tablet multivitamin 1 tab PO QAM 04/18/20 08/01/21 12/10/20 History primidone 50 mg 50 mg PO TID 04/18/20 08/01/21 12/10/20 History tablet carbamazepine 200 200 mg PO BID 12/08/20 08/01/21 12/10/20 History mg tablet tab methadone 10 41 mg PO DAILY 12/14/20 08/02/21 Unknown History mg/mL oral concentrate (Methadone Intensol) omeprazole 40 mg 40 mg PO DAILY 12/30/20 08/01/21 Unknown History capsule,delayed release divalproex 500 mg 1,000 mg PO BID 02/02/21 08/01/21 Unknown History tablet,delayed release albuterol sulfate 2 puff 06/24/21 08/01/21 Unknown History 90 mcg/actuation INHALATION Q6H PRN aerosol inhaler (Ventolin HFA) <Suzanne Hopkins NP - Last Filed: 08/01/21 17:21> Physical Exam Verdana 4l Vital Signs and Narrative: Verdana 4d Verdana 4d Vital Signs: Verdana 4d Verdana 4Bd Last Vital Signs Verdana 4d Crane Operator Cab New 4d Crane Operator Cab New 4d Temp 101 F H 08/01/21 08:37 Crane Operator Cab New 4d Pulse 90 08/01/21 08:37 Crane Operator Cab New 4d Resp 20 08/01/21 08:37 BP 104/45 L 08/01/21 08:37 Pulse Ox 93 08/01/21 08:37 Oxygen Flow Rate 3 08/01/21 08:37 BMI result Body Mass Index 24.7 <Suzanne Hopkins NP - Last Filed: 08/01/21 17:21> Appearing in no acute distress head is normocephalic atraumatic eyes pupils are PERRLA sclera is anicteric mouth throat mucous membranes are intact and moist neck is supple no lymphadenopathy, no JVD noted lung sounds diminished/rhonchi heart regular rate rhythm, clear S1, S2 positive bowel sounds, abdomen is soft, nontender neuro patient is alert x3, no focal deficits <Suzanne Hopkins NP - Last Filed: 08/01/21 17:21> Results Labs CBC and Chem 7: : 08/10/21 06:00 08/10/21 06:00 <Suzanne Hopkins NP - Last Filed: 08/01/21 17:21> Labs: Laboratory Results - last 24 hr 08/01/21 08/01/21 08/01/21 09:23 09:23 09:23 MCV MCH MCHC RDW Plt Count MPV Immature Gran % (Auto) Neut % (Auto) Lymph % (Auto) Rock % (Auto) Eos % (Auto) Baso % (Auto) Lymph # (Auto) Rock # (Auto) Eos # (Auto) Baso # (Auto) Abs Immat Gran (auto) Absolute Neuts (auto) Absolute Nucleated RBC Nucleated RBC % (auto) D-Dimer High Sensitivty Anion Gap 12 Estim Creat Clear Calc 60.8 Estimated GFR > 60 Random Glucose 100 Calcium 8.7 Total Bilirubin 0.4 AST 31 ALT 16 Alkaline Phosphatase 95 Lactate Dehydrogenase 193 Troponin I High Sens 90.2 H B-Natriuretic Peptide 1390 H Total Protein 5.9 L Albumin 3.3 L Procalcitonin COVID-19 (SAM) Positive A COVID-19 Clin Com See Note 08/01/21 08/01/21 08/01/21 09:23 09:33 10:54 MCV 108.3 H MCH 35.6 H MCHC 32.9 RDW 13.7 Plt Count 41 L D MPV 12.0 Immature Gran % (Auto) 0.7 H Neut % (Auto) 77.5 H Lymph % (Auto) 12.1 L Rock % (Auto) 9.7 Eos % (Auto) 0.0 Baso % (Auto) 0.0 Lymph # (Auto) 0.4 L Rock # (Auto) 0.3 Eos # (Auto) 0.0 Baso # (Auto) 0.0 Abs Immat Gran (auto) 0.02 Absolute Neuts (auto) 2.3 Absolute Nucleated RBC 0.000 Nucleated RBC % (auto) 0.0 D-Dimer High Sensitivty < 150 Anion Gap Estim Creat Clear Calc Estimated GFR Random Glucose Calcium Total Bilirubin AST ALT Alkaline Phosphatase Lactate Dehydrogenase Troponin I High Sens B-Natriuretic Peptide Total Protein Albumin Procalcitonin 0.19 COVID-19 (SAM) COVID-19 Clin Com <Suzanne Hopkins NP - Last Filed: 08/01/21 17:21> Imaging Radiologist's Impressions: Impressions Chest X-Ray 08/01/21 09:40 IMPRESSION: Interstitial and pulmonary vascular prominence as well as faint patchy right lung airspace opacities, increased when compared to the prior examination. Stable cardiomegaly. Findings can be seen in the setting of pulmonary edema. An underlying infectious or inflammatory process could be considered in the appropriate clinical setting. Chest CTA 08/01/21 10:41 IMPRESSION: 1. No central or segmental pulmonary embolism. 2. Prominent emphysematous changes are redemonstrated. Right lower lobe interstitial prominence with patchy airspace opacities, new/increased when compared to the prior CT. 3. Stable cardiomegaly. VTE: negative <Suzanne Hopkins NP - Last Filed: 08/01/21 17:21> Assessment and Plan (1) COVID-19 virus infection: Status: Acute <Suzanne Hopkins NP - Last Filed: 08/01/21 17:21> Plan 61-year-old Green[place]ic-speaking male with history of chronic lung disease admitted with fever secondary to COVID-19 pneumonia. Unvaccinated. COVID-19 pneumonia. With fever no hypoxia noted Will start Decadron, vitamin-C, vitamin-D oxygen therapy Isolation Pulmonology consultation Chronic lung disease Albuterol treatments Doxycycline Elevated troponin. history of cardiomyopathy Likely secondary to viral pneumonia Echocardiogram in April of 2021 shows EF of 15-20% Cardiology consultation add aspirin, continue beta-robyn Failure to thrive. Nutrition consult History of atrial fibrillation Continue rivaroxaban Smoker NRT Discussed the importance of smoking cessation Has history of substance abuse Methadone DVT prophylaxis with rivaroxaban Attending Dr. Pascal DNR <Suzanne Hopkins NP - Last Filed: 08/01/21 17:21> 61-year-old [place]ic-speaking male with history of chronic lung disease admitted with fever secondary to COVID-19 pneumonia. Unvaccinated. COVID-19 pneumonia. With fever no hypoxia noted Will start Decadron, vitamin-C, vitamin-D oxygen therapy Isolation Pulmonology consultation Chronic lung disease Albuterol treatments Doxycycline Elevated troponin. history of cardiomyopathy Likely secondary to viral pneumonia Echocardiogram in April of 2021 shows EF of 15-20% Cardiology consultation add aspirin, continue beta-robyn Failure to thrive. Nutrition consult History of atrial fibrillation Continue rivaroxaban Smoker NRT Discussed the importance of smoking cessation Has history of substance abuse Methadone DVT prophylaxis with rivaroxaban Attending Dr. Alvarado DNR I personally saw patient and discussed findings, assessment plan and disposition with mid level provider and I gree with the above <Edson Alvarado MD - Last Filed: 08/29/21 11:57> Quality Stroke Does the patient have a stroke diagnosis?: No <Suzanne Hopkins NP - Last Filed: 08/01/21 17:21> VTE Prior VTE?: No <Suzanne Hopkins NP - Last Filed: 08/01/21 17:21> VTE Risk Level:: Medical - moderate - high <Suzanne Hopkins NP - Last Filed: 08/01/21 17:21> VTE Device Contraindication: Treatment Not Indicated <Suzanne Hopkins NP - Last Filed: 08/01/21 17:21> VTE Drug Contraindication: Treatment Not Indicated <Suzanne Hopkins NP - Last Filed: 08/01/21 17:21>
--- NOTE | 2021-08-01 14:03 | PHA.MEDREC ---
Pharmacy Consult ? Medication Reconciliation METHADONE DOSE WILL NEED TO BE VERIFIED PER POLICY Pharmacy has completed the medication reconciliation.
[2021-08-01 14:04] LABS: Ferritin 282 ng/mL (20-250)
[2021-08-01 14:29] VITALS: BP 100/68; PULSE 74; RESP 16; TEMP 36.8
[2021-08-01 14:47] VITALS: PULSE 74; RESP 18; O2SAT 95
[2021-08-01] MEDS: Albuterol/Iprat 2.5/0.5MG 3 ML AMPUL.NEB INHALE ×2 (14:47→19:50)
[2021-08-01] MEDS: dexAMETHasone 6 MG TABLET PO (15:09)
[2021-08-01] MEDS: Furosemide 20 MG/2 ML VIAL IVPUSH (15:09)
[2021-08-01 15:37] LABS: Lactic Acid 1.8 mmol/L (0.5-2.0)
[2021-08-01 15:49] LABS: Troponin-I High Sensitivity 125.1 ng/L (<3.5-35.0)
--- NOTE | 2021-08-01 16:20 | MHC.CM.PN ---
Addendum entered by Nikki Romero RN 08/01/21 16:28: PT HAS NO HCP AND DTR UNSURE OF NAME OF PCP. Original Note: IMM 08/01/21, CM CONTACTED PT'S DTR AND PCP TAY AT 1605 TO REVIEW INFO PT IS COVID +, DTR REPORTS PT LIVES ALONE AND SHE IS HIS PCP, PT HAS 9 DAY HRS AND 14 EVENING HRS, PT IS ON HOME O2, HAS VNA TWICE WEEKLY, DTR UNSURE IF IT IS [facility] OR [facility], DTR REPORTS PT WILL NEED TRANSPORT HOME IF SHE IS AT WORK AND SHE WOULD HAVE SOMEONE MEET PT AT HIS APT, DTR ALSO CONCERNED ABOUT PT GETTING HIS METHADONE DOSE AND REPORTS HE GETS 41MG DAILY, PER PREVIOUS RECORDS PT WAS RECEIVING 43MG, DTR UNSURE OF CLINIC BUT [facility], UNSURE IF IT SPR[facility]ED OF [place] LOCATION, HOSPITALIST AND NSG AWARE. D/C PLAN: HOME W/RESUMP OF SERVICES, PT MAY NEED TRANSPORT HOME
[2021-08-01] MEDS: methADONE HCl 20 MG/2 ML ORAL.CONC 40 MG PO (17:42)
[2021-08-01] MEDS: Doxycycline Hyclate 100 MG in 0.9 % Sodium Chloride 250 ML 166.67 MG IV (17:43)
[2021-08-01] MEDS: Aspirin Enteric Coated 81 MG TABLET.DR PO (17:43)
[2021-08-01 20:00] VITALS: PULSE 80; RESP 16; O2SAT 91
[2021-08-01 20:11] VITALS: BP 114/41; PULSE 120; RESP 16; TEMP 38.7; O2SAT 94
[2021-08-01 21:35] VITALS: RESP 16; TEMP 37.4
[2021-08-01] MEDS: Montelukast Sodium 10 MG TABLET PO (21:36)
[2021-08-01] MEDS: lamoTRIgine 25 MG TABLET PO (21:36)
[2021-08-01] MEDS: carBAMazepine 200 MG TABLET PO (21:37)
[2021-08-01] MEDS: Primidone 50 MG TABLET PO (21:37)
[2021-08-02] VITALS (7 sets, daily range): BP systolic 101–144; BP diastolic 48–80; PULSE 74–100; RESP 16–28; TEMP 36.5–36.9; O2SAT 90–100; BMI 24.7
[2021-08-02] MEDS: Doxycycline Hyclate 100 MG in 0.9 % Sodium Chloride 250 ML 125 MG IV (01:40)
--- NOTE | 2021-08-02 02:31 | PC.NURSE ---
Patient's c/o pain in IV flushes fine. IV removed then refused to have another iv placed. Dr. Ramos tigered ? possibly changing iv to po. Will continue to monitor.
[2021-08-02 07:43] LABS: Basophils Percent Auto 0.3 % (0-2); Hemoglobin 10.5 g/dl (14.0-18.0); Imm Gran Abs Auto 0.01 X10*3/uL (0.00-0.03); Imm Gran Pct Auto 0.3 % (0.0-0.4); MANUAL DIFF FLAG SCAN; PLT CLUMP 1; SCAN SMEAR FLAG 1
[2021-08-02 07:45] LABS: Hematocrit 32.4 % (42.0-52.0); Lymphocytes Absolute Auto 0.8 X10*3/uL (1.2-4.9); Lymphocytes Percent Auto 25.1 % (20-40); Mean Corpuscular HGB Conc 32.4 g/dl (31.0-36.0); Mean Corpuscular Hemoglobin 35.1 pg (27.0-33.0); Mean Corpuscular Volume 108.4 fL (80.0-98.0); Mean Platelet Volume 11.6 fL (9.4-12.4); Monocytes Absolute Auto 0.3 X10*3/uL (0.1-1.2); Monocytes Percent Auto 8.5 % (2-11); Neutrophils Percent Auto 65.8 % (45-73); Red Blood Count 2.99 X10*6/uL (4.60-5.80); Red Cell Distribution Width 13.7 % (11.0-16.0)
[2021-08-02] MEDS: Albuterol/Iprat 2.5/0.5MG 3 ML AMPUL.NEB INHALE ×2 (07:52→19:54)
[2021-08-02 07:54] LABS: Platelet Count 43 X10*3/uL (160-400); White Blood Count 3.1 X10*3/uL (4.8-10.8)
[2021-08-02 07:56] LABS: B Type Natriuretic Peptide 2252 pg/mL (<100)
[2021-08-02 08:06] LABS: Anion Gap 11 (12-20); Blood Urea Nitrogen 27 mg/dL (9-16); Calcium 9.3 mg/dL (8.4-10.2); Carbon Dioxide 36 mmol/L (22-29); Chloride 102 mmol/L (96-108); Creatinine Clr Calc Pharmacy 59.6; Estimated Glomerular Filt Rate > 60; Glucose Random 92 mg/dL (60-115); Sodium 144 mmol/L (135-145)
[2021-08-02 08:17] LABS: Troponin-I High Sensitivity 135.4 ng/L (<3.5-35.0)
--- NOTE | 2021-08-02 08:25 | MHC.CM.ED ---
Received notification from RUSS Matt, that patient goes to [facility] Methadone clinic and his dose needs to be verified. T/W spoke with Haley at [facility] methadone clinic via telephone. Dose verified. Form completed and faxed to pharmacy. AMANDA Palacios aware so Methadone can be ordered. Continue to monitor for d/c needs.
--- NOTE | 2021-08-02 09:09 | PM.CNPUL ---
History of Present Illness History of Present Illness Consult date: 08/02/21 Chief complaint: COVID 19 Narrative: This is an inpt pulmonary consultation. The patient is a 61 year old man with severe COPD, cardiomyopathy, opiod dependency presenting with increased shortness of breath and fever since 07/27/21. He was in the [facility] on 07/27/21 with fever and diagnosed with covid 19. He has seemed more confused lately according to his daughter and he was weak.? initially during the interview the patient reported that he wants leave against medical advice even putting his coat on.? I was able to reach his daughter and she convinced him to stay.? 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 He also has a history of cardiomyopathy and is followed closely by a [facility].? He did have a fever of 101 in the ER.? He was intermittently in the low 90s, his oxygen saturation.? He reports that he is normally on 2 L at home as needed.? In the ER he was given doxycycline, Decadron, Lasix, Tylenol, ibuprofen, 1 L of IV fluid.? He will be admitted for further management and treatment of COVID-19 pneumonia. HAd +NV, also complaining of severte diarrhea. He is asking for his methadone. Review of Systems Constitutional: Constitutional: Reports fever(s), Reports malaise, Denies night sweats, Reports poor appetite, Reports weakness and Reports weight loss ENT: Denies change in voice, Denies lip swelling, Denies mouth pain, Reports nasal congestion, Reports nasal discharge and Denies tongue swelling Cardiovascular: Cardiovascular: Denies chest pain Respiratory: Respiratory: Reports cough Gastrointestinal: Gastrointestinal: Denies abdominal pain and Reports diarrhea Musculoskeletal: Musculoskeletal: Denies no additional musculoskeletal complaints Neurologic: Denies Neuro-related abnormal movements, Reports tremor(s) and Reports weakness Psychiatric: Psychiatric: Denies no additional psychiatric complaints Hematologic/Lymphatic: Hematologic/Lymphatic: Denies easy bleeding and Denies lymphadenopathy Allergic/Immunologic: Allergic/Immunologic: Denies lip swelling and Denies tongue swelling [facility] Past Medical History Medical History (Updated 08/02/21 @ 09:16 by Quincy Hopkins MD) Aortic stenosis Biventricular ICD (implantable cardioverter-defibrillator) in place Chronic respiratory failure COPD (chronic obstructive pulmonary disease) Heart failure with reduced ejection fraction Nonischemic cardiomyopathy Opioid dependence Paroxysmal atrial fibrillation Pulmonary nodules Thrombocytopenia Tobacco dependence Family History Family History Father No problems noted. Mother HTN (hypertension) Arthritis of knee Unknown Recurrent strokes Diabetes mellitus Thyroid disease CVD (cerebrovascular disease) Surgical History Surgical History Cardiac catheterization as the cause of abnormal reaction of the patient, or of later complication, without mention of misadventure at the time of the procedure Endotracheal tube present Epidermal cyst Lesion of tongue Pacemaker S/P balloon aortic valvuloplasty Social History Social History Household Members: None Housing: Apartment Do you presently have visiting nurse or other home services: No Alcohol intake: unknown Patient Tobacco Use Status: Former Tobacco user Tobacco use type: Cigarette Years Smoked: 20+ years Use of substances other than those prescribed or required for medical reasons: Unknown Advance Directives: No Advance Directives Information Provided: Yes service: No Current occupational status: unemployed Meds Allergies Allergy/AdvReac Type Severity Reaction Status Date / Time Penicillins [PENICILLINS] Allergy Severe SWELLING Verified 07/20/21 11:24 Active Medications: Current Medications Acetaminophen (Acetaminophen 325 Mg Tablet) 650 mg PO Q6H PRN PRN Reason: Pain, Mild (Pain Scale 1-3) Last Admin: 08/01/21 20:19 Dose: 650 mg Documented by: Albuterol/Ipratropium (Albuterol/Iprat 2.5/0.5mg 3 Ml Ampul.[place]) 3 ml INHALE RQ4H WHILE AWAKE [facility] Last Admin: 08/02/21 07:52 Dose: 3 ml Documented by: Aspirin (Aspirin Enteric Coated 81 Mg Tablet.) 81 mg PO DAILY [facility] Last Admin: 08/01/21 17:43 Dose: 81 mg Documented by: Carbamazepine (Carbamazepine 200 Mg Tablet) 200 mg PO BID [facility] Last Admin: 08/01/21 21:37 Dose: 200 mg Documented by: Dexamethasone Sodium Phosphate (Dexamethasone Sod Phosphate 4 Mg/Ml Vial) 6 mg IVPUSH DAILY [facility] Stop: 08/10/21 09:01 Fluoxetine HCl (Fluoxetine Hcl 20 Mg Capsule) 20 mg PO DAILY [facility] Furosemide (Furosemide 40 Mg Tablet) 40 mg PO DAILY [facility]; Protocol Doxycycline Hyclate 100 mg/ (Sodium Chloride) 250 mls @ 166.67 mls/hr IV Q12H [facility] Last Infusion: 08/02/21 02:52 Dose: 0 mls/hr Documented by: Lamotrigine (Lamotrigine 25 Mg Tablet) 25 mg PO BID [facility] Last Admin: 08/01/21 21:36 Dose: 25 mg Documented by: Metoprolol Succinate (Metoprolol Succinate Er 50 Mg Tab.Er.24h) 50 mg PO DAILY [facility]; Protocol Montelukast Sodium (Montelukast Sodium 10 Mg Tablet) 10 mg PO BEDTIME [facility] Last Admin: 08/01/21 21:36 Dose: 10 mg Documented by: Multivitamins/Vitamin C (Multivitamin Tablet) 1 tab PO DAILY [facility] Omeprazole (Omeprazole 40 Mg Capsule.Dr) 40 mg PO DAILY@0630 [facility] Ondansetron HCl (Ondansetron Hcl 4 Mg/2 Ml Vial) 4 mg IVPUSH Q8H PRN PRN Reason: Nausea and Vomiting Pharmacy Consult (Consult Rx Perform Med Rec) 1 each MISCELLANE ONCE PRN PRN Reason: Consult order Primidone (Primidone 50 Mg Tablet) 50 mg PO TID [facility] Last Admin: 08/01/21 21:37 Dose: 50 mg Documented by: Rivaroxaban (Rivaroxaban 20 Mg Tablet) 20 mg PO DAILY [facility] Sodium Chloride (0.9 % Sodium Chloride Flush 3 Ml Syringe) 3 ml IVFLUSH QSHIFT [facility] Last Admin: 08/02/21 00:10 Dose: Not Given Documented by: Home Medications Medication Instructions Recorded Confirmed Last Taken Type fluoxetine 20 mg capsule 20 mg PO DAILY 04/18/20 08/01/21 12/10/20 History lamotrigine 25 mg tablet 25 mg PO BID 04/18/20 08/01/21 12/10/20 History melatonin 5 mg tablet 10 mg PO BEDTIME 04/18/20 08/01/21 12/10/20 History multivitamin 1 tab PO QAM 04/18/20 08/01/21 12/10/20 History primidone 50 mg tablet 50 mg PO TID 04/18/20 08/01/21 12/10/20 History carbamazepine 200 mg tablet 200 mg PO BID tab 12/08/20 08/01/21 12/10/20 History methadone 10 mg/mL oral 41 mg PO DAILY 12/14/20 08/02/21 Unknown History concentrate (Methadone Intensol) omeprazole 40 mg capsule,delayed 40 mg PO DAILY 12/30/20 08/01/21 Unknown History release divalproex 500 mg tablet,delayed 1,000 mg PO BID 02/02/21 08/01/21 Unknown History release albuterol sulfate 90 mcg/actuation 2 puff INHALATION Q6H PRN 06/24/21 08/01/21 Unknown History aerosol inhaler (Ventolin HFA) furosemide 40 mg tablet 1 tab PO QAM 08/01/21 08/01/21 Unknown History Physical Exam Vital Signs: Vital Signs: Last Vital Signs Temp 97.7 F 08/02/21 01:41 Pulse 100 08/02/21 07:53 Resp 22 H 08/02/21 07:53 BP 117/80 08/02/21 01:41 Pulse Ox 94 08/02/21 01:41 Oxygen Flow Rate 3 08/01/21 08:37 BMI result Body Mass Index 24.7 Const: General: alert Neck: Neck: Yes normal visual inspection, Yes full ROM and Yes no lymphadenopathy Chest: Chest palpation & inspection: normal inspection of the chest Resp: Auscultation: diminished lung sounds Cardio: Rate: regular rate Rhythm: regular rhythm Heart sounds: S1 normal heart sound present and S2 normal heart sound present GI: Palpation (GI): Soft to palpation and nontender Auscultation: normal bowel sounds Skin: General skin exam: rashes and/or lesions noted Results Laboratory Findings CBC and BMP: 08/02/21 07:18 08/02/21 07:18 Abnormal lab findings: Abnormal Labs 08/01/21 08/01/21 08/01/21 09:23 09:23 09:23 WBC RBC Hgb Hct MCV MCH Plt Count Immature Gran % (Auto) Neut % (Auto) Lymph % (Auto) Lymph # (Auto) Carbon Dioxide 34 H Anion Gap BUN 25 H Ferritin 282 H Troponin I High Sens 90.2 H B-Natriuretic Peptide 1390 H Total Protein 5.9 L Albumin 3.3 L COVID-19 (SAM) Positive A 08/01/21 08/01/21 08/02/21 09:33 15:17 07:18 WBC 3.0 L 3.1 L RBC 2.78 L 2.99 L Hgb 9.9 L 10.5 L Hct 30.1 L 32.4 L MCV 108.3 H 108.4 H MCH 35.6 H 35.1 H Plt Count 41 L D 43 L Immature Gran % (Auto) 0.7 H Neut % (Auto) 77.5 H Lymph % (Auto) 12.1 L Lymph # (Auto) 0.4 L 0.8 L Carbon Dioxide Anion Gap BUN Ferritin Troponin I High Sens 125.1 H* B-Natriuretic Peptide Total Protein Albumin COVID-19 (SAM) 08/02/21 08/02/21 08/02/21 07:18 07:18 07:18 WBC RBC Hgb Hct MCV MCH Plt Count Immature Gran % (Auto) Neut % (Auto) Lymph % (Auto) Lymph # (Auto) Carbon Dioxide 36 H Anion Gap 11 L BUN 27 H Ferritin Troponin I High Sens 135.4 H* B-Natriuretic Peptide 2252 H Total Protein Albumin COVID-19 (SAM) Assessment and Plan (1) COVID-19 virus infection: Status: Acute (2) COPD (chronic obstructive pulmonary disease): Qualifiers: COPD type: COPD with acute exacerbation Qualified Code(s): J44.1 - Chronic obstructive pulmonary disease with (acute) exacerbation Status: Acute (3) Nonischemic cardiomyopathy: Status: Acute (4) FTT (failure to thrive) in adult: Status: Acute (5) Opioid dependence: Status: Acute continue oxygen to keep pox >90% Decadron x 10 days continue respiratory therapy cardioprotective medications continue Xorelto continue doxy to treat consolidation in the RLL The patient has been FTT even before the covid 19. He is DNR. Procedures Date of Service Date of Service: 08/02/21
[2021-08-02] MEDS: Rivaroxaban 20 MG TABLET PO (09:50)
[2021-08-02] MEDS: FLUoxetine HCl 20 MG CAPSULE PO (09:50)
[2021-08-02] MEDS: Metoprolol Succinate ER 50 MG TAB.ER.24H PO (09:50)
[2021-08-02] MEDS: Multivitamin TABLET 1 TAB PO (09:50)
[2021-08-02] MEDS: Omeprazole 40 MG CAPSULE.DR PO (09:50)
[2021-08-02] MEDS: methADONE HCl 20 MG/2 ML ORAL.CONC 40 MG PO (09:51)
[2021-08-02] MEDS: Furosemide 40 MG TABLET PO (09:51)
[2021-08-02] MEDS: Aspirin Enteric Coated 81 MG TABLET.DR PO (09:51)
[2021-08-02] MEDS: lamoTRIgine 25 MG TABLET PO ×2 (10:18→20:24)
[2021-08-02] MEDS: carBAMazepine 200 MG TABLET PO ×2 (10:53→20:24)
[2021-08-02] MEDS: Acetaminophen 325 MG TABLET 650 MG PO ×2 (10:53→23:24)
[2021-08-02] MEDS: Primidone 50 MG TABLET PO ×3 (10:53→20:24)
--- NOTE | 2021-08-02 11:43 | P.CONCA_ITS ---
History of Present Illness History of Present Illness Date of Service: 08/02/21 Chief complaint: COVID 19 Narrative: This is a cardiology consultation regarding congestive heart failure. He sees Dr. Moore in the outpatient setting. Has a history of congestive heart failure, cardiomyopathy, aortic stenosis, Bi V ICD, atrial fibrillation, COPD among others. Current admission is because of shortness of breath and fever. He was recently diagnosed with COVID about a week ago. He apparently got more confused and was also feeling weak. Per H and P, admission was because of suspected COVID-19 pneumonia. Because of his concurrent cardiac issues we have been asked to see him. 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 When I questioned him regarding angina or other cardiac symptoms, he states he feels okay. But not clear how much he understood. Review of Systems Review of Systems: Yes all other systems are reviewed and are negative Cardiovascular: Cardiovascular: Reports as per HPI, Reports no additional cardiovascular complaints, Denies acrocyanosis, Denies cool extremities, Denies painful fingertips, Denies chest pain, Denies chest pain at rest, Denies diaphoresis, Denies syncope, Denies irregular heart rhythm, Denies claudication, Denies leg edema, Denies lightheadedness, Denies palpitations and Denies dyspnea Respiratory: Respiratory: Denies dyspnea Neurologic: Denies syncope Endocrine: Endocrine: Denies palpitations [facility] Past Medical History Medical History (Updated 08/02/21 @ 09:16 by Quincy Hopkins MD) Aortic stenosis Biventricular ICD (implantable cardioverter-defibrillator) in place Chronic respiratory failure COPD (chronic obstructive pulmonary disease) Heart failure with reduced ejection fraction Nonischemic cardiomyopathy Opioid dependence Paroxysmal atrial fibrillation Pulmonary nodules Thrombocytopenia Tobacco dependence Family History Family History Father No problems noted. Mother HTN (hypertension) Arthritis of knee Unknown Recurrent strokes Diabetes mellitus Thyroid disease CVD (cerebrovascular disease) Surgical History Surgical History Cardiac catheterization as the cause of abnormal reaction of the patient, or of later complication, without mention of misadventure at the time of the procedure Endotracheal tube present Epidermal cyst Lesion of tongue Pacemaker S/P balloon aortic valvuloplasty Social History Social History Household Members: None Housing: Apartment Do you presently have visiting nurse or other home services: No Alcohol intake: unknown Patient Tobacco Use Status: Former Tobacco user Tobacco use type: Cigarette Years Smoked: 20+ years Use of substances other than those prescribed or required for medical reasons: Unknown Advance Directives: No Advance Directives Information Provided: Yes service: No Current occupational status: unemployed Meds Allergies Allergy/AdvReac Type Severity Reaction Status Date / Time Penicillins [PENICILLINS] Allergy Severe SWELLING Verified 07/20/21 11:24 Active Medications: Current Medications Acetaminophen (Acetaminophen 325 Mg Tablet) 650 mg PO Q6H PRN PRN Reason: Pain, Mild (Pain Scale 1-3) Last Admin: 08/02/21 10:53 Dose: 650 mg Documented by: Albuterol/Ipratropium (Albuterol/Iprat 2.5/0.5mg 3 Ml Ampul.Neb) 3 ml INHALE RQ4H WHILE AWAKE [facility] Last Admin: 08/02/21 07:52 Dose: 3 ml Documented by: Aspirin (Aspirin Enteric Coated 81 Mg Tablet.) 81 mg PO DAILY [facility] Last Admin: 08/02/21 09:51 Dose: 81 mg Documented by: Carbamazepine (Carbamazepine 200 Mg Tablet) 200 mg PO BID [facility] Last Admin: 08/02/21 10:53 Dose: 200 mg Documented by: Dexamethasone Sodium Phosphate (Dexamethasone Sod Phosphate 4 Mg/Ml Vial) 6 mg IVPUSH DAILY [facility] Stop: 08/10/21 09:01 Fluoxetine HCl (Fluoxetine Hcl 20 Mg Capsule) 20 mg PO DAILY [facility] Last Admin: 08/02/21 09:50 Dose: 20 mg Documented by: Furosemide (Furosemide 40 Mg Tablet) 40 mg PO DAILY [facility]; Protocol Last Admin: 08/02/21 09:51 Dose: 40 mg Documented by: Doxycycline Hyclate 100 mg/ (Sodium Chloride) 250 mls @ 166.67 mls/hr IV Q12H [facility] Last Infusion: 08/02/21 10:10 Dose: 125 mls/hr Documented by: Lamotrigine (Lamotrigine 25 Mg Tablet) 25 mg PO BID [facility] Last Admin: 08/02/21 10:18 Dose: 25 mg Documented by: Methadone HCl (Methadone Hcl 20 Mg/2 Ml Oral.Conc) 40 mg PO DAILY [facility] Last Admin: 08/02/21 09:51 Dose: 40 mg Documented by: Metoprolol Succinate (Metoprolol Succinate Er 50 Mg Tab.Er.24h) 50 mg PO DAILY [facility]; Protocol Last Admin: 08/02/21 09:50 Dose: 50 mg Documented by: Montelukast Sodium (Montelukast Sodium 10 Mg Tablet) 10 mg PO BEDTIME [facility] Last Admin: 08/01/21 21:36 Dose: 10 mg Documented by: Multivitamins/Vitamin C (Multivitamin Tablet) 1 tab PO DAILY [facility] Last Admin: 08/02/21 09:50 Dose: 1 tab Documented by: Omeprazole (Omeprazole 40 Mg Capsule.Dr) 40 mg PO DAILY@0630 [facility] Last Admin: 08/02/21 09:50 Dose: 40 mg Documented by: Ondansetron HCl (Ondansetron Hcl 4 Mg/2 Ml Vial) 4 mg IVPUSH Q8H PRN PRN Reason: Nausea and Vomiting Pharmacy Consult (Consult Rx Perform Med Rec) 1 each MISCELLANE ONCE PRN PRN Reason: Consult order Primidone (Primidone 50 Mg Tablet) 50 mg PO TID [facility] Last Admin: 08/02/21 10:53 Dose: 50 mg Documented by: Rivaroxaban (Rivaroxaban 20 Mg Tablet) 20 mg PO DAILY [facility] Last Admin: 08/02/21 09:50 Dose: 20 mg Documented by: Sodium Chloride (0.9 % Sodium Chloride Flush 3 Ml Syringe) 3 ml IVFLUSH QSHIFT [facility] Last Admin: 08/02/21 10:10 Dose: Not Given Documented by: Home Medications Medication Instructions Recorded Confirmed Last Taken Type fluoxetine 20 mg capsule 20 mg PO DAILY 04/18/20 08/01/21 12/10/20 History lamotrigine 25 mg tablet 25 mg PO BID 04/18/20 08/01/21 12/10/20 History melatonin 5 mg tablet 10 mg PO BEDTIME 04/18/20 08/01/21 12/10/20 History multivitamin 1 tab PO QAM 04/18/20 08/01/21 12/10/20 History primidone 50 mg tablet 50 mg PO TID 04/18/20 08/01/21 12/10/20 History carbamazepine 200 mg tablet 200 mg PO BID tab 12/08/20 08/01/21 12/10/20 History methadone 10 mg/mL oral 41 mg PO DAILY 12/14/20 08/02/21 Unknown History concentrate (Methadone Intensol) omeprazole 40 mg capsule,delayed 40 mg PO DAILY 12/30/20 08/01/21 Unknown History release divalproex 500 mg tablet,delayed 1,000 mg PO BID 02/02/21 08/01/21 Unknown History release albuterol sulfate 90 mcg/actuation 2 puff INHALATION Q6H PRN 06/24/21 08/01/21 Unknown History aerosol inhaler (Ventolin HFA) furosemide 40 mg tablet 1 tab PO QAM 08/01/21 08/01/21 Unknown History Physical Exam Vital Signs: Vital Signs: Last Vital Signs Temp 97.7 F 08/02/21 01:41 Pulse 100 08/02/21 07:53 Resp 22 H 08/02/21 07:53 BP 117/80 08/02/21 01:41 Pulse Ox 94 08/02/21 01:41 Oxygen Flow Rate 3 08/01/21 08:37 BMI result Body Mass Index 24.7 Const: General: no acute distress HENMT: Other: Unremarkable Neck: Neck: Yes normal visual inspection Chest: Chest palpation & inspection: normal inspection of the chest Resp: Auscultation: no crackles and no wheezes Cardio: Palpation: normal PMI Heart sounds: S1 normal heart sound present, S2 normal heart sound present, no gallops, Murmur heart sound present (2/6 NILESH aortic area) and no rubs GI: Palpation (GI): Soft to palpation Back/Spine/Pelvis: Other: unremarkable Skin: Lesions: other Neuro: Cranial nerves: Yes Other cranial nerve findings present Extrem: General: Yes other Psych: Mental Status: other Objective Labs and Meds Result diagrams: 08/02/21 07:18 08/02/21 07:18 Lab results: Laboratory Results - last 24 hr 08/01/21 08/01/21 08/01/21 09:23 09:23 09:23 WBC RBC Hgb Hct MCV MCH MCHC RDW Plt Count MPV Immature Gran % (Auto) Neut % (Auto) Lymph % (Auto) [place] % (Auto) Eos % (Auto) Baso % (Auto) Lymph # (Auto) [place] # (Auto) Eos # (Auto) Baso # (Auto) Abs Immat Gran (auto) Absolute Neuts (auto) Absolute Nucleated RBC Nucleated RBC % (auto) Smear Tech's Comments Sodium Potassium Chloride Carbon Dioxide Anion Gap BUN Creatinine Estim Creat Clear Calc Estimated GFR Random Glucose Lactic Acid Calcium Ferritin 282 H Lactate Dehydrogenase 193 Troponin I High Sens 90.2 H B-Natriuretic Peptide 1390 H Procalcitonin 0.19 08/01/21 08/01/21 08/02/21 15:17 15:17 07:18 WBC 3.1 L RBC 2.99 L Hgb 10.5 L Hct 32.4 L MCV 108.4 H MCH 35.1 H MCHC 32.4 RDW 13.7 Plt Count 43 L MPV 11.6 Immature Gran % (Auto) 0.3 Neut % (Auto) 65.8 Lymph % (Auto) 25.1 [place] % (Auto) 8.5 Eos % (Auto) 0.0 Baso % (Auto) 0.3 Lymph # (Auto) 0.8 L [place] # (Auto) 0.3 Eos # (Auto) 0.0 Baso # (Auto) 0.0 Abs Immat Gran (auto) 0.01 Absolute Neuts (auto) 2.0 Absolute Nucleated RBC 0.000 Nucleated RBC % (auto) 0.0 Smear Tech's Comments Not Reportable Sodium Potassium Chloride Carbon Dioxide Anion Gap BUN Creatinine Estim Creat Clear Calc Estimated GFR Random Glucose Lactic Acid 1.8 Calcium Ferritin Lactate Dehydrogenase Troponin I High Sens 125.1 H* B-Natriuretic Peptide Procalcitonin 08/02/21 08/02/21 08/02/21 07:18 07:18 07:18 WBC RBC Hgb Hct MCV MCH MCHC RDW Plt Count MPV Immature Gran % (Auto) Neut % (Auto) Lymph % (Auto) [place] % (Auto) Eos % (Auto) Baso % (Auto) Lymph # (Auto) [place] # (Auto) Eos # (Auto) Baso # (Auto) Abs Immat Gran (auto) Absolute Neuts (auto) Absolute Nucleated RBC Nucleated RBC % (auto) Smear Tech's Comments Sodium 144 Potassium 5.0 Chloride 102 Carbon Dioxide 36 H Anion Gap 11 L BUN 27 H Creatinine 1.02 Estim Creat Clear Calc 59.6 Estimated GFR > 60 Random Glucose 92 Lactic Acid Calcium 9.3 D Ferritin Lactate Dehydrogenase Troponin I High Sens 135.4 H* B-Natriuretic Peptide 2252 H Procalcitonin ECG Interpretation: EKG with a lot of underlying artifact. Ventricular paced rhythm. Atrial rhythm is not clear. Assessment and Plan (1) Nonischemic cardiomyopathy: Status: Acute (2) Aortic stenosis: Qualifiers: Cardiac valve disease etiology: etiology unspecified Qualified Code(s): I35.0 - Nonrheumatic aortic (valve) stenosis Status: Acute (3) S/P balloon aortic valvuloplasty: Status: Acute (4) Persistent atrial fibrillation: Status: Acute (5) COVID-19: Status: Acute (6) Frailty: Status: Acute Pertinent data reviewed. Chest CT scan reported to have prominent emphysema. Right lower lobe interstitial prominence and patchy airspace opacities, new/increased when compared to prior study. Last echocardiogram from April with LVEF 15-20%; apical inferior/mid inferior akinesis; severe biatrial enlargement and moderate to severe aortic stenosis with mean gradient of 20 mm Hg and calculated valve area of 0.8 sq cm. Troponins and cardiac BNP reviewed. Currently he does not have any active cardiac symptoms and clinically does not appear volume overloaded or in active heart failure. However because of COVID, he could clearly decompensate any time. May continue medical regimen without changes. This includes his diuretics, beta-blockers. With regard to anticoagulation, his platelet counts have been going low and today's count is only 43,000. In the past, these levels were higher. Hence will need to discuss the risks/benefits of continuing anticoagulation with concurrent severe thrombocytopenia. May need Hematology input. Stop Aspirin. Otherwise, would treat his respiratory status as you would otherwise. Procedures Date of Service Date of Service: 08/02/21
--- NOTE | 2021-08-02 12:04 | HO.PM.IMPN ---
Subjective Subjective Date of Service: 08/02/21 Review of Systems follow-up COVID-19 Sitting at the edge of the bed, some shortness of breath especially with activity Denies chest pain, nausea, vomiting, diarrhea Physical Exam Vital Signs: Vital Signs: Last Vital Signs Temp 97.7 F 08/02/21 01:41 Pulse 100 08/02/21 07:53 Resp 22 H 08/02/21 07:53 BP 117/80 08/02/21 01:41 Pulse Ox 94 08/02/21 01:41 Oxygen Flow Rate 3 08/01/21 08:37 BMI result Body Mass Index 24.7 Appearing in no acute distress lung sounds normal lung expansion heart regular rate rhythm, clear S1, S2 positive bowel sounds, abdomen is soft, nontender neuro patient is alert x3, no focal deficits Objective Data Active Medications Acetaminophen (Acetaminophen 325 Mg Tablet) 650 mg PO Q6H PRN PRN Reason: Pain, Mild (Pain Scale 1-3) Last Admin: 08/02/21 10:53 Dose: 650 mg Documented by: GAVINO Albuterol/Ipratropium (Albuterol/Iprat 2.5/0.5mg 3 Ml Ampul.Neb) 3 ml INHALE RQ4H WHILE AWAKE [facility] Last Admin: 08/02/21 07:52 Dose: 3 ml Documented by: MENG Carbamazepine (Carbamazepine 200 Mg Tablet) 200 mg PO BID [facility] Last Admin: 08/02/21 10:53 Dose: 200 mg Documented by: GAVINO Dexamethasone Sodium Phosphate (Dexamethasone Sod Phosphate 4 Mg/Ml Vial) 6 mg IVPUSH DAILY [facility] Stop: 08/10/21 09:01 Fluoxetine HCl (Fluoxetine Hcl 20 Mg Capsule) 20 mg PO DAILY [facility] Last Admin: 08/02/21 09:50 Dose: 20 mg Documented by: GAVINO Furosemide (Furosemide 40 Mg Tablet) 40 mg PO DAILY [facility]; Protocol Last Admin: 08/02/21 09:51 Dose: 40 mg Documented by: GAVINO Doxycycline Hyclate 100 mg/ (Sodium Chloride) 250 mls @ 166.67 mls/hr IV Q12H [facility] Last Infusion: 08/02/21 10:10 Dose: 125 mls/hr Documented by: KAR Lamotrigine (Lamotrigine 25 Mg Tablet) 25 mg PO BID [facility] Last Admin: 08/02/21 10:18 Dose: 25 mg Documented by: KAR Methadone HCl (Methadone Hcl 20 Mg/2 Ml Oral.Conc) 40 mg PO DAILY [facility] Last Admin: 08/02/21 09:51 Dose: 40 mg Documented by: GAVINO Metoprolol Succinate (Metoprolol Succinate Er 50 Mg Tab.Er.24h) 50 mg PO DAILY [facility]; Protocol Last Admin: 08/02/21 09:50 Dose: 50 mg Documented by: GAVINO Montelukast Sodium (Montelukast Sodium 10 Mg Tablet) 10 mg PO BEDTIME [facility] Last Admin: 08/01/21 21:36 Dose: 10 mg Documented by: LAMAR Multivitamins/Vitamin C (Multivitamin Tablet) 1 tab PO DAILY [facility] Last Admin: 08/02/21 09:50 Dose: 1 tab Documented by: GAVINO Omeprazole (Omeprazole 40 Mg Capsule.Dr) 40 mg PO DAILY@0630 [facility] Last Admin: 08/02/21 09:50 Dose: 40 mg Documented by: GAVINO Ondansetron HCl (Ondansetron Hcl 4 Mg/2 Ml Vial) 4 mg IVPUSH Q8H PRN PRN Reason: Nausea and Vomiting Pharmacy Consult (Consult Rx Perform Med Rec) 1 each MISCELLANE ONCE PRN PRN Reason: Consult order Primidone (Primidone 50 Mg Tablet) 50 mg PO TID [facility] Last Admin: 08/02/21 10:53 Dose: 50 mg Documented by: GAVINO Sodium Chloride (0.9 % Sodium Chloride Flush 3 Ml Syringe) 3 ml IVFLUSH QSHIFT [facility] Last Admin: 08/02/21 10:10 Dose: Not Given Documented by: KAR Non-Admin Reason: NO IV ACCESS Labs CBC & Chem 7: 08/02/21 07:18 08/02/21 07:18 Labs: Laboratory Results - last 24 hr 08/01/21 08/01/21 08/01/21 09:23 09:23 09:23 MCV MCH MCHC RDW Plt Count MPV Immature Gran % (Auto) Neut % (Auto) Lymph % (Auto) Routt % (Auto) Eos % (Auto) Baso % (Auto) Lymph # (Auto) Routt # (Auto) Eos # (Auto) Baso # (Auto) Abs Immat Gran (auto) Absolute Neuts (auto) Absolute Nucleated RBC Nucleated RBC % (auto) Smear Tech's Comments Anion Gap Estim Creat Clear Calc Estimated GFR Random Glucose Lactic Acid Calcium Ferritin 282 H Lactate Dehydrogenase 193 Troponin I High Sens B-Natriuretic Peptide 1390 H Procalcitonin 0.19 08/01/21 08/01/21 08/02/21 15:17 15:17 07:18 MCV 108.4 H MCH 35.1 H MCHC 32.4 RDW 13.7 Plt Count 43 L MPV 11.6 Immature Gran % (Auto) 0.3 Neut % (Auto) 65.8 Lymph % (Auto) 25.1 Routt % (Auto) 8.5 Eos % (Auto) 0.0 Baso % (Auto) 0.3 Lymph # (Auto) 0.8 L Routt # (Auto) 0.3 Eos # (Auto) 0.0 Baso # (Auto) 0.0 Abs Immat Gran (auto) 0.01 Absolute Neuts (auto) 2.0 Absolute Nucleated RBC 0.000 Nucleated RBC % (auto) 0.0 Smear Tech's Comments Not Reportable Anion Gap Estim Creat Clear Calc Estimated GFR Random Glucose Lactic Acid 1.8 Calcium Ferritin Lactate Dehydrogenase Troponin I High Sens 125.1 H* B-Natriuretic Peptide Procalcitonin 08/02/21 08/02/21 08/02/21 07:18 07:18 07:18 MCV MCH MCHC RDW Plt Count MPV Immature Gran % (Auto) Neut % (Auto) Lymph % (Auto) Routt % (Auto) Eos % (Auto) Baso % (Auto) Lymph # (Auto) Routt # (Auto) Eos # (Auto) Baso # (Auto) Abs Immat Gran (auto) Absolute Neuts (auto) Absolute Nucleated RBC Nucleated RBC % (auto) Smear Tech's Comments Anion Gap 11 L Estim Creat Clear Calc 59.6 Estimated GFR > 60 Random Glucose 92 Lactic Acid Calcium 9.3 D Ferritin Lactate Dehydrogenase Troponin I High Sens 135.4 H* B-Natriuretic Peptide 2252 H Procalcitonin Assessment and Plan (1) COVID-19 virus infection: Status: Acute Assessment and Plan: 61-year-old Egyptian-speaking male with history of chronic lung disease admitted with fever secondary to COVID-19 pneumonia.? Unvaccinated.? COVID-19 pneumonia.? With fever no hypoxia noted Will start Decadron, vitamin-C, vitamin-D oxygen therapy Isolation Pulmonology following On Bhardwaj mask Pancytopenia/ thrombocytopenia Hold aspirin and rivaroxaban Hematology consultation for recommendations of continuing anticoagulation No overt bleeding Chronic lung disease Albuterol treatments Doxycycline Elevated troponin. history of cardiomyopathy Likely secondary to viral pneumonia Echocardiogram in April of 2021 shows EF of 15-20% Cardiology consultation continue beta-robyn Failure to thrive. Nutrition consult History of atrial fibrillation hold rivaroxaban due to pancytopenia/thrombocytopenia Continue beta-robyn Smoker NRT Discussed the importance of smoking cessation Has history of substance abuse Methadone DVT prophylaxis with ambulation Attending Dr. Posada DNR Quality Stroke Does the patient have a stroke diagnosis?: No VTE Prior VTE?: No VTE Risk Level:: Medical - moderate - high VTE Device Contraindication: Treatment Not Indicated VTE Drug Contraindication: Treatment Not Indicated
--- NOTE | 2021-08-02 13:14 | PC.NURSE ---
park came and told this nurse that the patient pulled out the iv from his neck, will notify provider as patient has medications due
--- NOTE | 2021-08-02 13:17 | PC.NURSE ---
paged dr. dumont about patient pulling out IV access to the EJ.
--- NOTE | 2021-08-02 13:34 | PC.NURSE ---
patient currently sleeping, vss, monitor car operator intact, hr 65-75 paced, o2 sat wnl 4l o2 nc, lunch brought into room, pt currently sleeping will continue to monitor
--- NOTE | 2021-08-02 14:11 | MHC.CLN ---
RE: CONSULT PT WITH HX FTT PER MD PREVIOUS WT HX: 58KG (06/24/21) 70KG (04/30/21) 60KG (02/02/21) PT CURRENTLY WEIGHS 63.5KG. PT IS 113% IBW INDICATES OVER WT FOR HT. DIET RX: 2GM NA -APPROPRIATE CAN LIBERALIZE IF PO INTAKE POOR WILL START ENSURE BID TO INCREASE KCALS R/T COVID MONITOR PO INTAKE CLOSELY SEE ALSO CLINICAL NUTRITION ASSESSMENT
--- NOTE | 2021-08-02 15:30 | PC.NURSE ---
currently unable to give IV medications as the patient does not have access, hospitalist is aware.
--- NOTE | 2021-08-02 15:43 | P.CNHO_ITS ---
Subjective - Subjective Chief complaint: Shortness of breath Patient: known to practice within the last 3 years Consult date: 08/02/21 Requesting Physician: Suzanne Hopkins NP Primary Care Provider: Unknown Physician Medical Summary: Chronic Thrombocytopenia, mild microcytic anemia, history of chronic hepatitis B and hepatitis C. No diagnosis of liver cirrhosis or splenomegaly. Serum immunofixation showed IgG monoclonal gammopathy, normal immunoglobulin levels. Beta 2 microglobulin slightly elevated. Normal iron studies, normal B12 and folate levels. HPI - Consult Narrative Reason for consult: Worsening thrombocytopenia Narrative: Benito Guzman is a 61 year old male is been admitted for COVID-19 pneumonia. He has a longstanding history of pancytopenia/thrombocytopenia. This was felt to be multifactorial, he was last seen in the Hematology Clinic in 2019. He was lost to follow-up after that. Generally his platelet counts have been above 50 K, currently they are under 45 K hand he is on anticoagulation for atrial fibrillation. He has no history of thromboembolism. He reports fatigue and shortness of breath. Review of Systems - Constitutional Reports fatigue, Reports fever(s) - Respiratory Reports dyspnea - Neurologic Denies abnormal movements, Denies syncope, Reports tremor(s), Reports weakness [facility] Medical History: Medical History (Last Updated 08/02/21 @ 09:16 by Quincy Hopkins MD) Aortic stenosis Biventricular ICD (implantable cardioverter-defibrillator) in place Chronic respiratory failure COPD (chronic obstructive pulmonary disease) Heart failure with reduced ejection fraction Nonischemic cardiomyopathy Opioid dependence Paroxysmal atrial fibrillation Pulmonary nodules Thrombocytopenia Tobacco dependence Family History: Family History (Last Reviewed 08/01/21 @ 08:38 by SUSAN Schwartz) Father No problems noted. Mother HTN (hypertension) Arthritis of knee Unknown Recurrent strokes Diabetes mellitus Thyroid disease CVD (cerebrovascular disease) Surgical History: Surgical History (Last Reviewed 08/01/21 @ 08:38 by SUSAN Schwartz) Cardiac catheterization as the cause of abnormal reaction of the patient, or of later complication, without mention of misadventure at the time of the procedure Endotracheal tube present Epidermal cyst Lesion of tongue Pacemaker S/P balloon aortic valvuloplasty Social History: Social History (Last Reviewed 08/01/21 @ 08:38 by SUSAN Schwartz) Living Situation History: Household Members: None Housing: Apartment Do you presently have visiting nurse or other home services: Do you presently have visiting nurse or other home services comment: unk Alcohol History: Unable to assess alcohol history related to: Refusing to respond Tobacco History: Patient Tobacco Use Status: Former Tobacco user Tobacco use type: Cigarette Years Smoked: 20+ years Occupation Assessmet: service: No Current occupational status: unemployed Home Medications and Allergies Current Medications: Current Medications Acetaminophen (Acetaminophen 325 Mg Tablet) 650 mg PO Q6H PRN PRN Reason: Pain, Mild (Pain Scale 1-3) Last Admin: 08/02/21 10:53 Dose: 650 mg Documented by: Albuterol/Ipratropium (Albuterol/Iprat 2.5/0.5mg 3 Ml Ampul.Neb) 3 ml INHALE RQ4H WHILE AWAKE [facility] Last Admin: 08/02/21 12:16 Dose: Not Given Documented by: Carbamazepine (Carbamazepine 200 Mg Tablet) 200 mg PO BID [facility] Last Admin: 08/02/21 10:53 Dose: 200 mg Documented by: Dexamethasone Sodium Phosphate (Dexamethasone Sod Phosphate 4 Mg/Ml Vial) 6 mg IVPUSH DAILY [facility] Stop: 08/10/21 09:01 Last Admin: 08/02/21 13:52 Dose: Not Given Documented by: Fluoxetine HCl (Fluoxetine Hcl 20 Mg Capsule) 20 mg PO DAILY [facility] Last Admin: 08/02/21 09:50 Dose: 20 mg Documented by: Furosemide (Furosemide 40 Mg Tablet) 40 mg PO DAILY [facility]; Protocol Last Admin: 08/02/21 09:51 Dose: 40 mg Documented by: Doxycycline Hyclate 100 mg/ (Sodium Chloride) 250 mls @ 166.67 mls/hr IV Q12H [facility] Last Infusion: 08/02/21 11:05 Dose: Infused Documented by: Lamotrigine (Lamotrigine 25 Mg Tablet) 25 mg PO BID [facility] Last Admin: 08/02/21 10:18 Dose: 25 mg Documented by: Methadone HCl (Methadone Hcl 20 Mg/2 Ml Oral.Conc) 40 mg PO DAILY [facility] Last Admin: 08/02/21 09:51 Dose: 40 mg Documented by: Metoprolol Succinate (Metoprolol Succinate Er 50 Mg Tab.Er.24h) 50 mg PO DAILY [facility]; Protocol Last Admin: 08/02/21 09:50 Dose: 50 mg Documented by: Montelukast Sodium (Montelukast Sodium 10 Mg Tablet) 10 mg PO BEDTIME [facility] Last Admin: 08/01/21 21:36 Dose: 10 mg Documented by: Multivitamins/Vitamin C (Multivitamin Tablet) 1 tab PO DAILY [facility] Last Admin: 08/02/21 09:50 Dose: 1 tab Documented by: Omeprazole (Omeprazole 40 Mg Capsule.) 40 mg PO DAILY@0630 [facility] Last Admin: 08/02/21 09:50 Dose: 40 mg Documented by: Ondansetron HCl (Ondansetron Hcl 4 Mg/2 Ml Vial) 4 mg IVPUSH Q8H PRN PRN Reason: Nausea and Vomiting Pharmacy Consult (Consult Rx Perform Med Rec) 1 each MISCELLANE ONCE PRN PRN Reason: Consult order Primidone (Primidone 50 Mg Tablet) 50 mg PO TID [facility] Last Admin: 08/02/21 10:53 Dose: 50 mg Documented by: Sodium Chloride (0.9 % Sodium Chloride Flush 3 Ml Syringe) 3 ml IVFLUSH QSHIFT [facility] Last Admin: 08/02/21 13:52 Dose: Not Given Documented by: Home Medications Medication Instructions Recorded Confirmed Type fluoxetine 20 mg capsule 20 mg PO DAILY 04/18/20 08/01/21 History lamotrigine 25 mg tablet 25 mg PO BID 04/18/20 08/01/21 History melatonin 5 mg tablet 10 mg PO BEDTIME 04/18/20 08/01/21 History multivitamin 1 tab PO QAM 04/18/20 08/01/21 History primidone 50 mg tablet 50 mg PO TID 04/18/20 08/01/21 History carbamazepine 200 mg tablet 200 mg PO BID tab 12/08/20 08/01/21 History methadone 10 mg/mL oral 41 mg PO DAILY 12/14/20 08/02/21 History concentrate (Methadone Intensol) omeprazole 40 mg capsule,delayed 40 mg PO DAILY 12/30/20 08/01/21 History release divalproex 500 mg tablet,delayed 1,000 mg PO BID 02/02/21 08/01/21 History release albuterol sulfate 90 mcg/actuation 2 puff INHALATION Q6H PRN 06/24/21 08/01/21 History aerosol inhaler (Ventolin HFA) furosemide 40 mg tablet 1 tab PO QAM 08/01/21 08/01/21 History Allergies Allergy/AdvReac Type Severity Reaction Status Date / Time Penicillins [PENICILLINS] Allergy Severe SWELLING Verified 07/20/21 11:24 Physical Exam Vital signs: Vital Signs Temp 98.5 F 08/02/21 13:31 Pulse 82 08/02/21 13:31 Resp 20 08/02/21 13:31 BP 101/48 L 08/02/21 13:31 Pulse Ox 95 08/02/21 13:31 Intake & Output 08/01/21 08/02/21 08/02/21 18:59 06:59 18:59 Intake Total 1000 / 1395.833 395.833 / 1395.833 104.167 / 104.167 Balance 1000 / 1395.833 395.833 / 1395.833 104.167 / 104.167 Intake: Intake, IV Amount 1000 / 1395.833 395.833 / 1395.833 104.167 / 104.167 0.9 % Sodium Chloride 1,000 ml 1000 / 1000 @ 999 mls/hr IV .Q1H1M [facility] Rx#: [id number] Doxycycline Hyclate 100 mg In 0 395.833 / 395.833 104.167 / 104.167 .9 % Sodium Chloride 250 ml @ 166.67 mls/hr IV Q12H [facility] Rx#: [id number] Other: Number of Unmeasured Voids 1 Weight 63.503 kg 63.503 kg Weight 63.503 kg - Constitutional Present: no acute distress - Routine Respiratory Exam Absent: accessory muscle use - Routine Cardiovascular Exam Cardiovascular: Present: S1, S2 Hem/Onc Consult Result - Labs CBC & Chem 7: 08/03/21 05:47 08/03/21 05:47 Labs: Short CBC 08/02/21 Range/Units 07:18 WBC 3.1 L (4.8-10.8) X10*3/uL Hgb 10.5 L (14.0-18.0) g/dl Hct 32.4 L (42.0-52.0) % Plt Count 43 L (160-400) X10*3/uL BMP 08/02/21 07:18 Sodium 144 Potassium 5.0 Chloride 102 Carbon Dioxide 36 H BUN 27 H Creatinine 1.02 Calcium 9.3 D Assessment and Plan Patient Active problem list reviewed?: Yes (1) Pancytopenia Status: Chronic Assessment and plan: 1. This is a 61-year-old male with chronic hepatitis C, thrombocytopenia and macrocytic anemia. He does not have liver cirrhosis or splenomegaly. He is on several medications that can cause thrombocytopenia/pancytopenia: Depakote, Lamictal and carbamazepine which have all been implicated in thrombocytopenia as well as pancytopenia. Blood work also showed IgG monoclonal protein, normal immunoglobulin levels. 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 His last blood work in April 2021 showed platelet counts ranging from 55-65 K. On this admission it has dropped to 41 K. this could be related to acute infection. For now, agree with briefly holding anticoagulation, may resume if platelet counts go above 50 K. 2. Macrocytosis, chronic. This is worsening. Submit vitamin B 12, folate levels. ? Related to alcohol. His liver enzymes are normal. Thank you for the consult. - Time Spent With Patient Time Spent with Patient (in minutes): 20
--- NOTE | 2021-08-02 16:14 | PC.NURSE ---
called pharmacy for missing med
[2021-08-02 18:01] LABS: Folate 19.2 ng/mL (> or = 4.0); Vitamin B12 786 pg/mL (200-900)
--- NOTE | 2021-08-02 18:16 | PC.NURSE ---
pt sleeping, wakes to verbal stimulus, playground monitor paced 70s, vss, pt medicated per order, will continue to monitor.
[2021-08-02] MEDS: Montelukast Sodium 10 MG TABLET PO (20:24)
[2021-08-03] VITALS (10 sets, daily range): BP systolic 106–138; BP diastolic 57–84; PULSE 71–99; RESP 18–20; TEMP 36.6–38.4; O2SAT 91–99
[2021-08-03] MEDS: 0.9 % Sodium Chloride Flush 3 ML SYRINGE IVFLUSH ×3 (01:09→15:35)
[2021-08-03 06:06] LABS: PLT ABN DIST 1; Red Cell Distribution Width 13.7 % (11.0-16.0)
[2021-08-03 06:07] LABS: Hematocrit 33.2 % (42.0-52.0); Hemoglobin 10.4 g/dl (14.0-18.0); Mean Corpuscular HGB Conc 31.3 g/dl (31.0-36.0); Mean Corpuscular Hemoglobin 34.8 pg (27.0-33.0); Mean Platelet Volume 12.7 fL (9.4-12.4); PLT CLUMP 1; Red Blood Count 2.99 X10*6/uL (4.60-5.80)
[2021-08-03 06:11] LABS: Platelet Count 51 X10*3/uL (160-400); White Blood Count 2.8 X10*3/uL (4.8-10.8)
[2021-08-03 06:20] LABS: Anion Gap 15 (12-20); Blood Urea Nitrogen 39 mg/dL (9-16); Calcium 9.3 mg/dL (8.4-10.2); Carbon Dioxide 30 mmol/L (22-29); Chloride 101 mmol/L (96-108); Estimated Glomerular Filt Rate 55; Glucose Random 88 mg/dL (60-115); Potassium 5.6 mmol/L (3.3-5.1); Sodium 140 mmol/L (135-145)
[2021-08-03 07:56] LABS: Lactate Dehydrogenase 318 U/L (118-273)
[2021-08-03 08:15] LABS: Ferritin 466 ng/mL (20-250)
[2021-08-03] MEDS: methADONE HCl 20 MG/2 ML ORAL.CONC 40 MG PO (08:33)
[2021-08-03] MEDS: FLUoxetine HCl 20 MG CAPSULE PO (08:38)
[2021-08-03] MEDS: carBAMazepine 200 MG TABLET PO ×2 (08:38→22:26)
[2021-08-03] MEDS: dexAMETHasone 6 MG TABLET PO (08:38)
[2021-08-03] MEDS: Multivitamin TABLET 1 TAB PO (08:38)
[2021-08-03] MEDS: lamoTRIgine 25 MG TABLET PO ×2 (08:38→22:27)
[2021-08-03] MEDS: Primidone 50 MG TABLET PO ×3 (08:38→22:26)
[2021-08-03] MEDS: Metoprolol Succinate ER 50 MG TAB.ER.24H PO (08:38)
[2021-08-03] MEDS: Furosemide 40 MG TABLET PO (08:38)
--- NOTE | 2021-08-03 10:31 | HO.PM.IMPN ---
Subjective Subjective Date of Service: 08/03/21 Review of Systems Follow up covid Edil continues to state that he wants to go home despite having hypoxia and cough as well as worsening thrombocytopenia Denies pain or sob Physical Exam Vital Signs: Vital Signs: Last Vital Signs Temp 99.8 F 08/03/21 07:39 Pulse 99 08/03/21 07:39 Resp 20 08/03/21 07:39 BP 138/84 08/03/21 07:39 Pulse Ox 94 08/03/21 07:39 Oxygen Flow Rate 3 08/01/21 08:37 BMI result Body Mass Index 24.7 Appearing in no acute distress lung sounds normal expansion heart regular rate rhythm, clear S1, S2 positive bowel sounds, abdomen is soft, nontender neuro patient is alert x3, no focal deficits Objective Data Active Medications Acetaminophen (Acetaminophen 325 Mg Tablet) 650 mg PO Q6H PRN PRN Reason: Pain, Mild (Pain Scale 1-3) Last Admin: 08/02/21 23:24 Dose: 650 mg Documented by: SHEILA Albuterol/Ipratropium (Albuterol/Iprat 2.5/0.5mg 3 Ml Ampul.Neb) 3 ml INHALE RQ4H WHILE AWAKE ON [facility] OF [facility] Last Admin: 08/03/21 07:25 Dose: Not Given Documented by: HEVER Non-Admin Reason: pt not avail Carbamazepine (Carbamazepine 200 Mg Tablet) 200 mg PO BID [facility] Last Admin: 08/03/21 08:38 Dose: 200 mg Documented by: JACKSON Dexamethasone (Dexamethasone 6 Mg Tablet) 6 mg PO DAILY [facility] Stop: 08/11/21 09:01 Last Admin: 08/03/21 08:38 Dose: 6 mg Documented by: JACKSON Doxycycline Hyclate (Doxycycline Hyclate 100 Mg Tablet) 100 mg PO Q12H [facility] Last Admin: 08/03/21 04:23 Dose: 100 mg Documented by: MARA Fluoxetine HCl (Fluoxetine Hcl 20 Mg Capsule) 20 mg PO DAILY [facility] Last Admin: 08/03/21 08:38 Dose: 20 mg Documented by: JACKSON Furosemide (Furosemide 40 Mg Tablet) 40 mg PO DAILY [facility]; Protocol Last Admin: 08/03/21 08:38 Dose: 40 mg Documented by: JACKSON Lamotrigine (Lamotrigine 25 Mg Tablet) 25 mg PO BID [facility] Last Admin: 08/03/21 08:38 Dose: 25 mg Documented by: JACKSON Methadone HCl (Methadone Hcl 20 Mg/2 Ml Oral.Conc) 40 mg PO DAILY [facility] Last Admin: 08/03/21 08:33 Dose: 40 mg Documented by: JACKSON Metoprolol Succinate (Metoprolol Succinate Er 50 Mg Tab.Er.24h) 50 mg PO DAILY [facility]; Protocol Last Admin: 08/03/21 08:38 Dose: 50 mg Documented by: JACKSON Montelukast Sodium (Montelukast Sodium 10 Mg Tablet) 10 mg PO BEDTIME [facility] Last Admin: 08/02/21 20:24 Dose: 10 mg Documented by: SHEILA Multivitamins/Vitamin C (Multivitamin Tablet) 1 tab PO DAILY [facility] Last Admin: 08/03/21 08:38 Dose: 1 tab Documented by: JACKSON Omeprazole (Omeprazole 40 Mg Capsule.Dr) 40 mg PO DAILY@0630 [facility] Last Admin: 08/03/21 06:17 Dose: Not Given Documented by: MARA Non-Admin Reason: Patient Refused Ondansetron HCl (Ondansetron Hcl 4 Mg/2 Ml Vial) 4 mg IVPUSH Q8H PRN PRN Reason: Nausea and Vomiting Pharmacy Consult (Consult Rx Perform Med Rec) 1 each MISCELLANE ONCE PRN PRN Reason: Consult order Primidone (Primidone 50 Mg Tablet) 50 mg PO TID [facility] Last Admin: 08/03/21 08:38 Dose: 50 mg Documented by: JACKSON Sodium Chloride (0.9 % Sodium Chloride Flush 3 Ml Syringe) 3 ml IVFLUSH QSHIFT ON [facility] Last Admin: 08/03/21 08:38 Dose: 3 ml Documented by: JACKSON Labs CBC & Chem 7: 08/03/21 05:47 08/03/21 05:47 Labs: Laboratory Results - last 24 hr 08/02/21 08/03/21 08/03/21 07:18 05:47 05:47 MCV 111.0 H MCH 34.8 H MCHC 31.3 RDW 13.7 Plt Count 51 L MPV 12.7 H Absolute Nucleated RBC 0.030 H Nucleated RBC % (auto) 1.0 H Anion Gap 15 Estim Creat Clear Calc 46.0 Estimated GFR 55 Random Glucose 88 Calcium 9.3 Ferritin Lactate Dehydrogenase Vitamin B12 786 Folate 19.2 08/03/21 05:47 MCV MCH MCHC RDW Plt Count MPV Absolute Nucleated RBC Nucleated RBC % (auto) Anion Gap Estim Creat Clear Calc Estimated GFR Random Glucose Calcium Ferritin 466 H Lactate Dehydrogenase 318 H Vitamin B12 Folate Microbiology Microbiology Results: Microbiology 08/01/21 15:17 Blood Culture - Preliminary Blood - Venous No growth after 24 hours. 08/01/21 15:17 Blood Culture - Preliminary Blood - Venous No growth after 24 hours. Assessment and Plan (1) Hypokalemia: Status: Acute (2) COVID-19: Status: Acute Assessment and Plan: 61-year-old Tajik-speaking male with history of chronic lung disease admitted with fever secondary to COVID-19 pneumonia.? Unvaccinated.? COVID-19 pneumonia.? No fevers, hypoxia noted doen to 87% without oxygen Will start Decadron, vitamin-C, vitamin-D oxygen therapy Isolation Pulmonology following On Bhardwaj mask, taking it off and on Home oxygen eval Pancytopenia/ thrombocytopenia. medication related vs alcohol and worsening with viral etiology Hold aspirin and rivaroxaban for now resume when PLT count goes above 50K Seen by Hematology No overt bleeding Hyperkalemia Lokelma follow BMP Macrocytic anemia check B12 and folate level Chronic lung disease Albuterol treatments Doxycycline Elevated troponin. history of cardiomyopathy Likely secondary to viral pneumonia Echocardiogram in April of 2021 shows EF of 15-20% Cardiology consultation continue beta-robyn Failure to thrive. Nutrition consult rec protein supplements with meals History of atrial fibrillation hold rivaroxaban due to pancytopenia/thrombocytopenia Continue beta-robyn Smoker NRT Discussed the importance of smoking cessation Has history of substance abuse Methadone DVT prophylaxis with ambulation Attending Dr. Posada DNR Quality Stroke Does the patient have a stroke diagnosis?: No VTE Prior VTE?: No VTE Risk Level:: Medical - moderate - high VTE Device Contraindication: Treatment Not Indicated VTE Drug Contraindication: Treatment Not Indicated
[2021-08-03 14:42] LABS: ABG Refer to POC result
[2021-08-03 14:42] LABS: ABG Base Excess 5.8 mmol/L; ABG HCO3 32 mmol/L (22-26); ABG pCO2 55 mmHg (32-45); ABG pCO2 TC 59 mmHg (32-45); ABG pH 7.36 (7.35-7.45); ABG pH TC 7.34 (7.35-7.45); ABG pO2 94 mmHg (83-108); ABG pO2 TC 103 (83-108)
[2021-08-03 18:06] LABS: Immunoglobulin A 191 mg/dL (70-320); Immunoglobulin G 991 mg/dL (600-1540); Immunoglobulin M 109 mg/dL (50-300)
[2021-08-03] MEDS: Albuterol/Iprat 2.5/0.5MG 3 ML AMPUL.NEB INHALE (20:16)
[2021-08-03] MEDS: Montelukast Sodium 10 MG TABLET PO (22:26)
[2021-08-04] VITALS (12 sets, daily range): BP systolic 90–159; BP diastolic 54–89; PULSE 71–88; RESP 16–24; TEMP 36.4–37.6; O2SAT 90–97
[2021-08-04] MEDS: 0.9 % Sodium Chloride Flush 3 ML SYRINGE IVFLUSH ×4 (00:52→21:43)
[2021-08-04] MEDS: Acetaminophen 325 MG TABLET 650 MG PO (03:17)
[2021-08-04] MEDS: Omeprazole 40 MG CAPSULE.DR PO (06:35)
[2021-08-04 06:44] LABS: Red Cell Distribution Width 13.5 % (11.0-16.0)
[2021-08-04 06:46] LABS: Hematocrit 33.3 % (42.0-52.0); Hemoglobin 10.6 g/dl (14.0-18.0); Mean Corpuscular HGB Conc 31.8 g/dl (31.0-36.0); Mean Corpuscular Hemoglobin 34.8 pg (27.0-33.0); Mean Corpuscular Volume 109.2 fL (80.0-98.0); Mean Platelet Volume 12.8 fL (9.4-12.4); NRBC Pct Auto 0.8 /100WBC (0.0-0.2); Red Blood Count 3.05 X10*6/uL (4.60-5.80); White Blood Count 2.6 X10*3/uL (4.8-10.8)
[2021-08-04 07:05] LABS: PLT ABN DIST 1; Platelet Count 52 X10*3/uL (160-400)
[2021-08-04 07:14] LABS: Anion Gap 17 (12-20); Blood Urea Nitrogen 66 mg/dL (9-16); Calcium 9.2 mg/dL (8.4-10.2); Carbon Dioxide 28 mmol/L (22-29); Chloride 100 mmol/L (96-108); Creatinine Clr Calc Pharmacy 31.6; Estimated Glomerular Filt Rate 36; Glucose Random 102 mg/dL (60-115); Potassium 5.5 mmol/L (3.3-5.1); Sodium 139 mmol/L (135-145)
[2021-08-04] MEDS: Albuterol/Iprat 2.5/0.5MG 3 ML AMPUL.NEB INHALE ×3 (07:45→15:23)
[2021-08-04] MEDS: carBAMazepine 200 MG TABLET PO ×2 (07:46→21:43)
[2021-08-04] MEDS: Primidone 50 MG TABLET PO ×3 (07:47→21:43)
[2021-08-04] MEDS: methADONE HCl 20 MG/2 ML ORAL.CONC 40 MG PO (07:47)
[2021-08-04] MEDS: Furosemide 40 MG TABLET PO (07:47)
[2021-08-04] MEDS: Metoprolol Succinate ER 50 MG TAB.ER.24H PO (07:47)
[2021-08-04] MEDS: lamoTRIgine 25 MG TABLET PO ×2 (07:47→21:43)
[2021-08-04] MEDS: FLUoxetine HCl 20 MG CAPSULE PO (07:47)
[2021-08-04] MEDS: dexAMETHasone 6 MG TABLET PO (07:47)
[2021-08-04] MEDS: Multivitamin TABLET 1 TAB PO (07:47)
[2021-08-04 08:32] LABS: B Type Natriuretic Peptide 1906 pg/mL (<100)
--- NOTE | 2021-08-04 09:26 | P.PNPL_ITS ---
Subjective Subjective Date of Service: 08/04/21 Interval history: The patient was seen on exam. He looks a lot better. Looks to be more his baseline. Currently on 2 L which she uses at home. At this point the patient clinically is looking better and is able to go home from a pulmonary standpoint. Objective Data Labs CBC & Chem 7: 08/04/21 06:28 08/04/21 06:28 Labs: Laboratory Results - last 24 hr 08/02/21 08/03/21 08/03/21 07:18 05:47 14:35 WBC RBC Hgb Hct MCV MCH MCHC RDW Plt Count MPV Absolute Nucleated RBC Nucleated RBC % (auto) Smear Path Review SEE NOTE O2 Saturation 96.0 ABG pH at Pt Temp 7.36 ABG pH (Temp Correct) 7.34 L ABG pCO2 at Pt Temp 55 H ABG pCO2 (Temp Corrct 59 H ABG pO2 at Pt Temp 94 ABG pO2 (Temp Correct 103 ABG HCO3 32 H ABG Base Excess (Actual) 5.8 Sodium Potassium Chloride Carbon Dioxide Anion Gap BUN Creatinine Estim Creat Clear Calc Estimated GFR Random Glucose Calcium B-Natriuretic Peptide IgG 991 IgA 191 IgM 109 08/04/21 08/04/21 08/04/21 06:28 06:28 06:28 WBC 2.6 L RBC 3.05 L Hgb 10.6 L Hct 33.3 L MCV 109.2 H MCH 34.8 H MCHC 31.8 RDW 13.5 Plt Count 52 L MPV 12.8 H Absolute Nucleated RBC 0.020 H Nucleated RBC % (auto) 0.8 H Smear Path Review O2 Saturation ABG pH at Pt Temp ABG pH (Temp Correct) ABG pCO2 at Pt Temp ABG pCO2 (Temp Corrct ABG pO2 at Pt Temp ABG pO2 (Temp Correct ABG HCO3 ABG Base Excess (Actual) Sodium 139 Potassium 5.5 H Chloride 100 Carbon Dioxide 28 Anion Gap 17 BUN 66 H D Creatinine 1.92 H Estim Creat Clear Calc 31.6 Estimated GFR 36 Random Glucose 102 Calcium 9.2 B-Natriuretic Peptide 1906 H IgG IgA IgM Microbiology Microbiology Results: Microbiology 08/01/21 15:17 Blood - Venous Blood Culture - Preliminary No growth after 48 hours. 08/01/21 15:17 Blood - Venous Blood Culture - Preliminary No growth after 48 hours. Review of Systems Constitutional: Reports fever(s), Reports malaise, Denies night sweats, Reports poor appetite, Reports weakness and Reports weight loss Denies change in voice, Denies lip swelling, Denies mouth pain, Reports nasal congestion, Reports nasal discharge and Denies tongue swelling Cardiovascular: Denies chest pain Respiratory: Reports cough Gastrointestinal: Denies abdominal pain and Denies diarrhea Musculoskeletal: Denies no additional musculoskeletal complaints Denies Neuro-related abnormal movements, Reports tremor(s) and Reports weakness Psychiatric: Denies no additional psychiatric complaints Hematologic/Lymphatic: Denies easy bleeding and Denies lymphadenopathy Allergic/Immunologic: Denies lip swelling and Denies tongue swelling Physical Exam Vital Signs: Vital Signs: Last Vital Signs Temp 98.2 F 08/04/21 08:00 Pulse 82 08/04/21 08:00 Resp 18 08/04/21 08:00 BP 159/89 H 08/04/21 08:00 Pulse Ox 93 08/04/21 08:00 Oxygen Flow Rate 3 08/01/21 08:37 BMI result Body Mass Index 24.7 Const: General: alert Neck: Neck: Yes normal visual inspection, Yes full ROM and Yes no lymphadenopathy Chest: Chest palpation & inspection: normal inspection of the chest Resp: Auscultation: diminished lung sounds Cardio: Rate: regular rate Rhythm: regular rhythm Heart sounds: S1 norm al heart sound present, S2 normal heart sound present and Murmur heart sound present GI: Palpation (GI): Soft to palpation and nontender Auscultation: normal bowel sounds Skin: General skin exam: rashes and/or lesions noted Procedures Date of Service Date of Service: 08/04/21 Assessment and Plan Assessment and plan (1) COVID-19 virus infection: Status: Acute (2) COPD (chronic obstructive pulmonary disease): Status: Acute (3) Nonischemic cardiomyopathy: Status: Acute (4) Chronic respiratory failure: Status: Acute Assessment and Plan: Currently the patient is doing a lot better for mode pulmonary standpoint. The patient may be able to be discharged from a pulmonary standpoint. Another daughter other active issues that need to be assessed. Recommendations: Continue dexamethasone for 10 days Continue doxycycline for approximately 8 days Continue oxygen supplementation 2 L to maintain a pulse ox above 90% To follow-up with outpatient pulmonary in the next few weeks Time Spent With Patient Time: Total time spent is greater than 50% in coordination of care (as documented) at patient's floor/unit and/or counseling patient: Time with patient: less than 15 minutes Progress Note: Quality Stroke Does the patient have a stroke diagnosis?: No
--- NOTE | 2021-08-04 10:39 | HO.PM.IMPN ---
Subjective Subjective Date of Service: 08/04/21 Review of Systems Follow up covjustyn Solo continues to state that he wants to go home despite having hypoxia and cough as well as worsening thrombocytopenia, mental status better today states that he feels better Denies pain or sob Physical Exam Vital Signs: Vital Signs: Last Vital Signs Temp 98.2 F 08/04/21 08:00 Pulse 82 08/04/21 08:00 Resp 18 08/04/21 08:00 BP 159/89 H 08/04/21 08:00 Pulse Ox 93 08/04/21 08:00 Oxygen Flow Rate 3 08/01/21 08:37 BMI result Body Mass Index 24.7 Appearing in no acute distress lungs normal expansion heart regular rate rhythm, clear S1, S2 positive bowel sounds, abdomen is soft, nontender neuro patient is alert x3, no focal deficits Objective Data Active Medications Acetaminophen (Acetaminophen 325 Mg Tablet) 650 mg PO Q6H PRN PRN Reason: Pain, Mild (Pain Scale 1-3) Last Admin: 08/04/21 03:17 Dose: 650 mg Documented by: ISRAEL Albuterol/Ipratropium (Albuterol/Iprat 2.5/0.5mg 3 Ml Ampul.Neb) 3 ml INHALE RQ4H WHILE AWAKE [facility] Last Admin: 08/04/21 07:45 Dose: 3 ml Documented by: TATUM Carbamazepine (Carbamazepine 200 Mg Tablet) 200 mg PO BID [facility] Last Admin: 08/04/21 07:46 Dose: 200 mg Documented by: CARLEY Dexamethasone (Dexamethasone 6 Mg Tablet) 6 mg PO DAILY [facility] Stop: 08/11/21 09:01 Last Admin: 08/04/21 07:47 Dose: 6 mg Documented by: CARLEY Doxycycline Hyclate (Doxycycline Hyclate 100 Mg Tablet) 100 mg PO Q12H [facility] Last Admin: 08/04/21 03:17 Dose: 100 mg Documented by: ISRAEL Fluoxetine HCl (Fluoxetine Hcl 20 Mg Capsule) 20 mg PO DAILY [facility] Last Admin: 08/04/21 07:47 Dose: 20 mg Documented by: CARLEY Lamotrigine (Lamotrigine 25 Mg Tablet) 25 mg PO BID [facility] Last Admin: 08/04/21 07:47 Dose: 25 mg Documented by: CARLEY Methadone HCl (Methadone Hcl 20 Mg/2 Ml Oral.Conc) 40 mg PO DAILY [facility] Last Admin: 08/04/21 07:47 Dose: 40 mg Documented by: CARLEY Metoprolol Succinate (Metoprolol Succinate Er 50 Mg Tab.Er.24h) 50 mg PO DAILY [facility]; Protocol Last Admin: 08/04/21 07:47 Dose: 50 mg Documented by: CARLEY Montelukast Sodium (Montelukast Sodium 10 Mg Tablet) 10 mg PO BEDTIME [facility] Last Admin: 08/03/21 22:26 Dose: 10 mg Documented by: SHEILA Multivitamins/Vitamin C (Multivitamin Tablet) 1 tab PO DAILY [facility] Last Admin: 08/04/21 07:47 Dose: 1 tab Documented by: CARLEY Omeprazole (Omeprazole 40 Mg Capsule.Dr) 40 mg PO DAILY@0630 [facility] Last Admin: 08/04/21 06:35 Dose: 40 mg Documented by: ISRAEL Ondansetron HCl (Ondansetron Hcl 4 Mg/2 Ml Vial) 4 mg IVPUSH Q8H PRN PRN Reason: Nausea and Vomiting Pharmacy Consult (Consult Rx Perform Med Rec) 1 each MISCELLANE ONCE PRN PRN Reason: Consult order Primidone (Primidone 50 Mg Tablet) 50 mg PO TID [facility] Last Admin: 08/04/21 07:47 Dose: 50 mg Documented by: CARLEY Sodium Chloride (0.9 % Sodium Chloride Flush 3 Ml Syringe) 3 ml IVFLUSH QSHIFT [facility] Last Admin: 08/04/21 07:48 Dose: 3 ml Documented by: CARLEY Labs CBC & Chem 7: 08/04/21 06:28 08/04/21 06:28 Labs: Laboratory Results - last 24 hr 08/01/21 08/02/21 08/02/21 09:23 07:18 07:18 MCV MCH MCHC RDW Plt Count MPV Absolute Nucleated RBC Nucleated RBC % (auto) Smear Path Review O2 Saturation ABG pH at Pt Temp ABG pH (Temp Correct) ABG pCO2 at Pt Temp ABG pCO2 (Temp Corrct ABG pO2 at Pt Temp ABG pO2 (Temp Correct ABG HCO3 ABG Base Excess (Actual) Anion Gap Creatinine 1.00 1.02 Estim Creat Clear Calc Estimated GFR Random Glucose Calcium B-Natriuretic Peptide IgG 991 IgA 191 IgM 109 08/03/21 08/03/21 08/03/21 05:47 05:47 14:35 MCV MCH MCHC RDW Plt Count MPV Absolute Nucleated RBC Nucleated RBC % (auto) Smear Path Review SEE NOTE O2 Saturation 96.0 ABG pH at Pt Temp 7.36 ABG pH (Temp Correct) 7.34 L ABG pCO2 at Pt Temp 55 H ABG pCO2 (Temp Corrct 59 H ABG pO2 at Pt Temp 94 ABG pO2 (Temp Correct 103 ABG HCO3 32 H ABG Base Excess (Actual) 5.8 Anion Gap Creatinine 1.32 Estim Creat Clear Calc Estimated GFR Random Glucose Calcium B-Natriuretic Peptide IgG IgA IgM 08/04/21 08/04/21 08/04/21 06:28 06:28 06:28 MCV 109.2 H MCH 34.8 H MCHC 31.8 RDW 13.5 Plt Count 52 L MPV 12.8 H Absolute Nucleated RBC 0.020 H Nucleated RBC % (auto) 0.8 H Smear Path Review O2 Saturation ABG pH at Pt Temp ABG pH (Temp Correct) ABG pCO2 at Pt Temp ABG pCO2 (Temp Corrct ABG pO2 at Pt Temp ABG pO2 (Temp Correct ABG HCO3 ABG Base Excess (Actual) Anion Gap 17 Creatinine 1.92 H Estim Creat Clear Calc 31.6 Estimated GFR 36 Random Glucose 102 Calcium 9.2 B-Natriuretic Peptide 1906 H IgG IgA IgM Microbiology Microbiology Results: Microbiology 08/01/21 15:17 Blood Culture - Preliminary Blood - Venous No growth after 48 hours. 08/01/21 15:17 Blood Culture - Preliminary Blood - Venous No growth after 48 hours. Assessment and Plan (1) Pancytopenia: Status: Chronic (2) COVID-19 virus infection: Status: Acute (3) Hyperkalemia: Status: Acute (4) MARITA (acute kidney injury): Status: Acute Assessment and Plan: 61-year-old Hungarian-speaking male with history of chronic lung disease admitted with fever secondary to COVID-19 pneumonia.? Unvaccinated.? MARITA Worsening Hold lasix for now, does not appear to be in failure COVID-19 pneumonia.? No fevers Decadron, vitamin-C, vitamin-D oxygen therapy Isolation Pulmonology following On Bhardwaj mask Home oxygen eval 3 liters Pancytopenia/ thrombocytopenia. medication related vs alcohol and worsening with viral etiology Hold aspirin and rivaroxaban for now resume when PLT count goes above 50K Seen by Hematology No overt bleeding Hyperkalemia Lokelma follow BMP Macrocytic anemia check B12 and folate level Chronic lung disease Albuterol treatments Doxycycline Elevated troponin. history of cardiomyopathy Likely secondary to viral pneumonia Echocardiogram in April of 2021 shows EF of 15-20% Cardiology consultation continue beta-robyn Failure to thrive. Nutrition consult rec protein supplements with meals History of atrial fibrillation hold rivaroxaban due to pancytopenia/thrombocytopenia Continue beta-robyn Smoker NRT Discussed the importance of smoking cessation Has history of substance abuse Methadone DISPO possible dc home tomorrow if renal function has improved DVT prophylaxis with ambulation Attending Dr. Posada DNR Quality Stroke Does the patient have a stroke diagnosis?: No VTE Prior VTE?: No VTE Risk Level:: Medical - moderate - high VTE Device Contraindication: Treatment Not Indicated VTE Drug Contraindication: Treatment Not Indicated
[2021-08-04] MEDS: Sodium Zirconium Cyclosilicate 5 GM POWD.PACK PO (11:55)
--- NOTE | 2021-08-04 12:51 | MHC.CM.PN ---
per rounds pt may be dcd tomorrowreferrals made to possible [facility] pt is on methadone
--- NOTE | 2021-08-04 13:59 | MHC.CM.PN ---
imm updated [facility] and spoke with mary jane from [facility] she stated pt is active with [facility] ..that he also has [facility] [employer] [facility] [employer] [facility] 30 hrs daytime and 14 hrs noc .pt is on methadone .physical therapy recommends str for pt .[facility] does not have a hcp n pt..will try md office [facility] has pt having leann reyes as pcp referrlas will be made
[2021-08-04] MEDS: Montelukast Sodium 10 MG TABLET PO (21:43)
[2021-08-05] VITALS (9 sets, daily range): BP systolic 109–129; BP diastolic 65–84; PULSE 69–82; RESP 16–30; TEMP 36.9–37.5; O2SAT 92–95
[2021-08-05] MEDS: LORazepam 0.5 MG TABLET PO ×2 (05:17→20:32)
[2021-08-05] MEDS: Albuterol/Iprat 2.5/0.5MG 3 ML AMPUL.NEB INHALE ×2 (07:24→11:59)
[2021-08-05 09:14] LABS: Anion Gap 14 (12-20); Blood Urea Nitrogen 73 mg/dL (9-16); Calcium 8.4 mg/dL (8.4-10.2); Carbon Dioxide 29 mmol/L (22-29); Chloride 99 mmol/L (96-108); Creatinine Clr Calc Pharmacy 35.5; Estimated Glomerular Filt Rate 41; Glucose Random 93 mg/dL (60-115); Potassium 4.7 mmol/L (3.3-5.1); Sodium 137 mmol/L (135-145)
[2021-08-05] MEDS: methADONE HCl 20 MG/2 ML ORAL.CONC 40 MG PO (09:43)
[2021-08-05] MEDS: dexAMETHasone 6 MG TABLET PO (09:44)
[2021-08-05] MEDS: FLUoxetine HCl 20 MG CAPSULE PO (09:44)
[2021-08-05] MEDS: Metoprolol Succinate ER 50 MG TAB.ER.24H PO (09:44)
[2021-08-05] MEDS: carBAMazepine 200 MG TABLET PO ×2 (09:44→20:32)
[2021-08-05] MEDS: lamoTRIgine 25 MG TABLET PO ×2 (09:44→20:32)
[2021-08-05] MEDS: Primidone 50 MG TABLET PO ×3 (09:44→20:32)
[2021-08-05] MEDS: Multivitamin TABLET 1 TAB PO (09:44)
[2021-08-05 13:43] LABS: Venous Blood Gas Refer to POC result
[2021-08-05 13:43] LABS: VBG Base Excess 4.3 mmol/L; VBG HCO3 29 mmol/L (22-26); VBG pCO2 46 mmHg; VBG pH 7.41 (7.32-7.43); VBG pO2 96 mmHg
--- NOTE | 2021-08-05 15:57 | HO.PM.IMPN ---
Subjective Subjective Date of Service: 08/05/21 Interval History: seen and examined this morning follow up for covid 19, hypoxia and confusion spoke with daughter this morning, she reports that he has been more confused since becoming sick with covid history obtained with the use of paraprofessional interpreter, he is awake and alert and able to answer some questions, but seems confused. wants to go home Review of Systems Review of Systems: Yes all other systems are reviewed and are negative Constitutional Constitutional: Denies chills and Denies fever(s) Cardiovascular Cardiovascular: Denies chest pain Gastrointestinal Gastrointestinal: Denies abdominal pain Physical Exam Vital Signs: Vital Signs: Last Vital Signs Temp 99.5 F 08/05/21 11:06 Pulse 82 08/05/21 11:59 Resp 16 08/05/21 11:59 BP 114/71 08/05/21 11:06 Pulse Ox 94 08/05/21 11:06 Oxygen Flow Rate 3 08/01/21 08:37 BMI result Body Mass Index 24.7 Const: Other: tremulous General: comfortable and alert Nutritional Appearance: well nourished HENMT: Head: Yes normocephalic and Yes atraumatic Eyes: Sclerae: sclerae normal Resp: Effort & Inspection: normal respiratory effort and no respiratory distress Cardio: Rate: regular rate Rhythm: regular rhythm GI: Inspection: No distended Palpation (GI): Soft to palpation and nontender Neuro: Cranial nerves: Yes Bilaterally intact EOM present Objective Data Active Medications Acetaminophen (Acetaminophen 325 Mg Tablet) 650 mg PO Q6H PRN PRN Reason: Pain, Mild (Pain Scale 1-3) Last Admin: 08/04/21 03:17 Dose: 650 mg Documented by: ISRAEL Albuterol/Ipratropium (Albuterol/Iprat 2.5/0.5mg 3 Ml Ampul.Neb) 3 ml INHALE RQ4H WHILE AWAKE [facility] Last Admin: 08/05/21 15:37 Dose: Not Given Documented by: APRYL Non-Admin Reason: Patient Asleep Carbamazepine (Carbamazepine 200 Mg Tablet) 200 mg PO BID [facility] Last Admin: 08/05/21 09:44 Dose: 200 mg Documented by: CINTHYA Dexamethasone (Dexamethasone 6 Mg Tablet) 6 mg PO DAILY [facility] Stop: 08/11/21 09:01 Last Admin: 08/05/21 09:44 Dose: 6 mg Documented by: CINTHYA Doxycycline Hyclate (Doxycycline Hyclate 100 Mg Tablet) 100 mg PO Q12H [facility] Last Admin: 08/05/21 03:11 Dose: 100 mg Documented by: TAMRA Fluoxetine HCl (Fluoxetine Hcl 20 Mg Capsule) 20 mg PO DAILY [facility] Last Admin: 08/05/21 09:44 Dose: 20 mg Documented by: CINTHYA Lamotrigine (Lamotrigine 25 Mg Tablet) 25 mg PO BID [facility] Last Admin: 08/05/21 09:44 Dose: 25 mg Documented by: CINTHYA Lorazepam (Lorazepam 0.5 Mg Tablet) 0.5 mg PO Q8H PRN PRN Reason: Anxiety Last Admin: 08/05/21 05:17 Dose: 0.5 mg Documented by: TAMRA Methadone HCl (Methadone Hcl 20 Mg/2 Ml Oral.Conc) 40 mg PO DAILY [facility] Last Admin: 08/05/21 09:43 Dose: 40 mg Documented by: CINTHYA Metoprolol Succinate (Metoprolol Succinate Er 50 Mg Tab.Er.24h) 50 mg PO DAILY [facility]; Protocol Last Admin: 08/05/21 09:44 Dose: 50 mg Documented by: CINTHYA Montelukast Sodium (Montelukast Sodium 10 Mg Tablet) 10 mg PO BEDTIME [facility] Last Admin: 08/04/21 21:43 Dose: 10 mg Documented by: TAMRA Multivitamins/Vitamin C (Multivitamin Tablet) 1 tab PO DAILY [facility] Last Admin: 08/05/21 09:44 Dose: 1 tab Documented by: CINTHYA Omeprazole (Omeprazole 40 Mg Capsule.Dr) 40 mg PO DAILY@0630 [facility] Last Admin: 08/05/21 05:24 Dose: Not Given Documented by: TAMRA Non-Admin Reason: Patient Refused Ondansetron HCl (Ondansetron Hcl 4 Mg/2 Ml Vial) 4 mg IVPUSH Q8H PRN PRN Reason: Nausea and Vomiting Pharmacy Consult (Consult Rx Perform Med Rec) 1 each MISCELLANE ONCE PRN PRN Reason: Consult order Primidone (Primidone 50 Mg Tablet) 50 mg PO TID [facility] Last Admin: 08/05/21 09:44 Dose: 50 mg Documented by: CINTHYA Sodium Chloride (0.9 % Sodium Chloride Flush 3 Ml Syringe) 3 ml IVFLUSH QSHIFT [facility] Last Admin: 08/05/21 09:45 Dose: Not Given Documented by: CINTHYA Non-Admin Reason: No Access Labs CBC & Chem 7: 08/04/21 06:28 08/05/21 08:11 Labs: Laboratory Results - last 24 hr 08/05/21 08/05/21 08:11 13:37 VBG pH 7.41 VBG pCO2 46 VBG pO2 96 VBG HCO3 29 H VBG O2 Saturation 97.0 VBG Base Excess 4.3 Anion Gap 14 Estim Creat Clear Calc 35.5 Estimated GFR 41 Random Glucose 93 Calcium 8.4 D Assessment and Plan (1) MARITA (acute kidney injury): Status: Acute (2) COVID-19 virus infection: Status: Acute Assessment and Plan: This is a 61-year-old Citizen Of [place]-speaking male with history of chronic lung disease admitted with fever secondary to COVID-19 pneumonia.? Unvaccinated.? MARITA creatinine improved to 1.71 Hold lasix for now, does not appear to be in failure Follow renal function Acute on chronic respiratory failure with hypoxia secondary to COVID-19 pneumonia.? unvaccinated. continue Decadron, vitamin-C, vitamin-D continue supplemental oxygen Pulmonology following, rec dexamethasone, doxycycline and supplemental oxygen at discharge Currently on 3L NC encephalopathy probably secondary to covid Pancytopenia/ thrombocytopenia. medication related vs alcohol and worsening with viral etiology rivaroxaban initially held, plt above 50k, will resume; asa d/c per cardiology rec Seen by Hematology No overt bleeding seizure disorder continue home medications tremors patient reports tremors present for 1 year, although denies formal diagnosis continue primodone outpatient neurology evaluation Hyperkalemia resolved s/p Lokelma follow BMP Macrocytic anemia check B12 and folate level Chronic lung disease Albuterol treatments Doxycycline HFrEF Echocardiogram in April of 2021 shows EF of 15-20%; s/p ICD continue beta-robyn elevated trooponin likely secondary to pneumonia no chest pain seen by cardiology Failure to thrive. Nutrition consult rec protein supplements with meals History of atrial fibrillation continue xarelto, renal dose Continue beta-robyn Smoker NRT Discussed the importance of smoking cessation Has history of substance abuse coninue Methadone DISPO seen by PT, rec STR. discussed with family, they are unsure about rehab DVT prophylaxis with ambulation Attending Dr. Posada DNR Quality Stroke Does the patient have a stroke diagnosis?: No VTE Prior VTE?: No VTE Risk Level:: Medical - moderate - high VTE Device Contraindication: Treatment Not Indicated VTE Drug Contraindication: Treatment Not Indicated
--- NOTE | 2021-08-05 16:16 | MHC.CM.PN ---
Called to ER by ER CM. Pts dtr is here requesting a HCP be documented. Met with Cesilia in the ER with [place], from [employer]. Cesilia requested a copy of the Pts Mol[employer] form. A copy has been made and given to dtr. It was explained that when a patient is confused, A HCP can not be named. She stated that [place] [facility] [facility] [place] a [place]. Unable to speak with a person.
[2021-08-05] MEDS: Divalproex Sodium 500 MG TABLET.DR 1000 MG PO (20:31)
[2021-08-05] MEDS: Montelukast Sodium 10 MG TABLET PO (20:32)
[2021-08-06] VITALS (10 sets, daily range): BP systolic 101–164; BP diastolic 58–89; PULSE 69–91; RESP 16–24; TEMP 35.7–37.2; O2SAT 70–97
[2021-08-06] MEDS: 0.9 % Sodium Chloride Flush 3 ML SYRINGE IVFLUSH (01:06)
[2021-08-06 05:58] LABS: Hematocrit 31.6 % (42.0-52.0); Hemoglobin 10.3 g/dl (14.0-18.0); Imm Gran Abs Auto 0.02 X10*3/uL (0.00-0.03); Imm Gran Pct Auto 0.6 % (0.0-0.4); Mean Corpuscular HGB Conc 32.6 g/dl (31.0-36.0); Mean Corpuscular Hemoglobin 34.9 pg (27.0-33.0); Mean Corpuscular Volume 107.1 fL (80.0-98.0); PLT CLUMP 1; Red Blood Count 2.95 X10*6/uL (4.60-5.80); Red Cell Distribution Width 13.4 % (11.0-16.0); SCAN SMEAR FLAG 1
[2021-08-06 06:00] LABS: Lymphocytes Absolute Auto 0.7 X10*3/uL (1.2-4.9); Lymphocytes Percent Auto 18.8 % (20-40); Mean Platelet Volume 12.4 fL (9.4-12.4); Monocytes Absolute Auto 0.2 X10*3/uL (0.1-1.2); Monocytes Percent Auto 6.4 % (2-11); Neutrophils Absolute Auto 2.6 x10*3/uL (2.0-8.3); Neutrophils Percent Auto 74.2 % (45-73)
[2021-08-06 06:07] LABS: NRBC Pct Auto 1.2 /100WBC (0.0-0.2)
[2021-08-06 06:08] LABS: MANUAL DIFF FLAG NO; Platelet Count 81 X10*3/uL (160-400); White Blood Count 3.5 X10*3/uL (4.8-10.8)
[2021-08-06 06:20] LABS: Anion Gap 11 (12-20); Blood Urea Nitrogen 54 mg/dL (9-16); Calcium 8.7 mg/dL (8.4-10.2); Carbon Dioxide 32 mmol/L (22-29); Chloride 97 mmol/L (96-108); Creatinine Clr Calc Pharmacy 49.8; Estimated Glomerular Filt Rate 60; Glucose Random 91 mg/dL (60-115); Potassium 4.8 mmol/L (3.3-5.1); Sodium 135 mmol/L (135-145)
[2021-08-06] MEDS: Albuterol/Iprat 2.5/0.5MG 3 ML AMPUL.NEB INHALE ×4 (07:31→19:43)
[2021-08-06] MEDS: lamoTRIgine 25 MG TABLET PO ×2 (08:50→22:57)
[2021-08-06] MEDS: Metoprolol Succinate ER 50 MG TAB.ER.24H PO (08:50)
[2021-08-06] MEDS: FLUoxetine HCl 20 MG CAPSULE PO (08:50)
[2021-08-06] MEDS: carBAMazepine 200 MG TABLET PO ×2 (08:50→22:57)
[2021-08-06] MEDS: Divalproex Sodium 500 MG TABLET.DR 1000 MG PO ×2 (08:50→22:57)
[2021-08-06] MEDS: Primidone 50 MG TABLET PO ×3 (08:50→22:57)
[2021-08-06] MEDS: dexAMETHasone 6 MG TABLET PO (08:50)
[2021-08-06] MEDS: Multivitamin TABLET 1 TAB PO (08:50)
[2021-08-06] MEDS: methADONE HCl 20 MG/2 ML ORAL.CONC 40 MG PO (08:50)
--- NOTE | 2021-08-06 10:22 | HO.PM.IMPN ---
Subjective Subjective Date of Service: 08/06/21 Interval History: seen and examined this morning seems more lethargic, initially difficult to arouse and then was able to stay awake history obtained with the use of a space engineer. poor historian, not answering most questions Review of Systems Review of Systems: Yes Unobtainable due to mental condition Physical Exam Vital Signs: Vital Signs: Last Vital Signs Temp 97.7 F 08/06/21 07:37 Pulse 89 08/06/21 07:37 Resp 24 H 08/06/21 07:37 BP 164/89 H 08/06/21 07:37 Pulse Ox 91 L 08/06/21 07:37 Oxygen Flow Rate 3 08/01/21 08:37 BMI result Body Mass Index 24.7 Const: Other: less tremor General: lethargic Nutritional Appearance: thin Orientation/consciousness: lethargic Resp: Effort & Inspection: normal respiratory effort and no respiratory distress GI: Inspection: No distended Palpation (GI): Soft to palpation and nontender Neuro: Other: lethargic, initially when he opened eyes, he appeared to have nystagmus, but pt unable to follow instructions to complete neuro exam Extrem: General: Yes no pedal edema Objective Data Active Medications Acetaminophen (Acetaminophen 325 Mg Tablet) 650 mg PO Q6H PRN PRN Reason: Pain, Mild (Pain Scale 1-3) Last Admin: 08/04/21 03:17 Dose: 650 mg Documented by: ISRAEL Albuterol/Ipratropium (Albuterol/Iprat 2.5/0.5mg 3 Ml Ampul.Neb) 3 ml INHALE RQ4H WHILE AWAKE [facility] Last Admin: 08/06/21 07:31 Dose: 3 ml Documented by: TATUM Carbamazepine (Carbamazepine 200 Mg Tablet) 200 mg PO BID [facility] Last Admin: 08/06/21 08:50 Dose: 200 mg Documented by: ROSALIE Dexamethasone (Dexamethasone 6 Mg Tablet) 6 mg PO DAILY [facility] Stop: 08/11/21 09:01 Last Admin: 08/06/21 08:50 Dose: 6 mg Documented by: ROSALIE Divalproex Sodium (Divalproex Sodium 500 Mg Tablet.) 1,000 mg PO BID [facility] Last Admin: 08/06/21 08:50 Dose: 1,000 mg Documented by: ROSALIE Doxycycline Hyclate (Doxycycline Hyclate 100 Mg Tablet) 100 mg PO Q12H [facility] Last Admin: 08/06/21 03:21 Dose: 100 mg Documented by: MAXI Fluoxetine HCl (Fluoxetine Hcl 20 Mg Capsule) 20 mg PO DAILY [facility] Last Admin: 08/06/21 08:50 Dose: 20 mg Documented by: ROSALIE Lamotrigine (Lamotrigine 25 Mg Tablet) 25 mg PO BID [facility] Last Admin: 08/06/21 08:50 Dose: 25 mg Documented by: ROSALIE Lorazepam (Lorazepam 0.5 Mg Tablet) 0.5 mg PO Q8H PRN PRN Reason: Anxiety Last Admin: 08/05/21 20:32 Dose: 0.5 mg Documented by: MAXI Methadone HCl (Methadone Hcl 20 Mg/2 Ml Oral.Conc) 40 mg PO DAILY [facility] Last Admin: 08/06/21 08:50 Dose: 40 mg Documented by: ROSALIE Metoprolol Succinate (Metoprolol Succinate Er 50 Mg Tab.Er.24h) 50 mg PO DAILY [facility]; Protocol Last Admin: 08/06/21 08:50 Dose: 50 mg Documented by: ROSALIE Montelukast Sodium (Montelukast Sodium 10 Mg Tablet) 10 mg PO BEDTIME [facility] Last Admin: 08/05/21 20:32 Dose: 10 mg Documented by: MAXI Multivitamins/Vitamin C (Multivitamin Tablet) 1 tab PO DAILY [facility] Last Admin: 08/06/21 08:50 Dose: 1 tab Documented by: ROSALIE Omeprazole (Omeprazole 40 Mg Capsule.Dr) 40 mg PO DAILY@0630 [facility] Last Admin: 08/06/21 06:29 Dose: Not Given Documented by: MAXI Non-Admin Reason: Patient Refused Ondansetron HCl (Ondansetron Hcl 4 Mg/2 Ml Vial) 4 mg IVPUSH Q8H PRN PRN Reason: Nausea and Vomiting Pharmacy Consult (Consult Rx Perform Med Rec) 1 each MISCELLANE ONCE PRN PRN Reason: Consult order Primidone (Primidone 50 Mg Tablet) 50 mg PO TID [facility] Last Admin: 08/06/21 08:50 Dose: 50 mg Documented by: ROSALIE Rivaroxaban (Rivaroxaban 15 Mg Tablet) 15 mg PO DAILY@1700 [facility] Sodium Chloride (0.9 % Sodium Chloride Flush 3 Ml Syringe) 3 ml IVFLUSH QSHIFT [facility] Last Admin: 08/06/21 08:51 Dose: Not Given Documented by: ROSALIE Non-Admin Reason: No Access Labs CBC & Chem 7: 08/06/21 05:40 08/06/21 05:40 Labs: Laboratory Results - last 24 hr 08/05/21 08/06/21 08/06/21 13:37 05:40 05:40 MCV 107.1 H MCH 34.9 H MCHC 32.6 RDW 13.4 Plt Count 81 L D MPV 12.4 Immature Gran % (Auto) 0.6 H Neut % (Auto) 74.2 H Lymph % (Auto) 18.8 L [place] % (Auto) 6.4 Eos % (Auto) 0.0 Baso % (Auto) 0.0 Lymph # (Auto) 0.7 L [place] # (Auto) 0.2 Eos # (Auto) 0.0 Baso # (Auto) 0.0 Abs Immat Gran (auto) 0.02 Absolute Neuts (auto) 2.6 Absolute Nucleated RBC 0.040 H Nucleated RBC % (auto) 1.2 H VBG pH 7.41 VBG pCO2 46 VBG pO2 96 VBG HCO3 29 H VBG O2 Saturation 97.0 VBG Base Excess 4.3 Anion Gap 11 L Estim Creat Clear Calc 49.8 Estimated GFR 60 Random Glucose 91 Calcium 8.7 Assessment and Plan (1) COVID-19 virus infection: Status: Acute (2) COPD (chronic obstructive pulmonary disease): Status: Acute (3) Encephalopathy: Status: Acute Assessment and Plan: This is a 61-year-old Citizen Of [place]-speaking male with history of chronic lung disease admitted with fever secondary to COVID-19 pneumonia.? Unvaccinated.? MARITA. Resolved. creatinine improved to 1.22 Acute on chronic respiratory failure with hypoxia secondary to COVID-19 pneumonia.? on a background of COPD unvaccinated. continue Decadron, vitamin-C, vitamin-D continue supplemental oxygen Pulmonology following, rec dexamethasone, doxycycline and supplemental oxygen at discharge oxygen requirements increasing slightly to 5L, will obtain CXR follow inflammatory markers encephalopathy probably secondary to covid more lethargic today, will obtain brain CT, neuro consultation Pancytopenia/ thrombocytopenia. medication related vs alcohol and worsening with viral etiology rivaroxaban initially held, plt above 50k, will resume; asa d/c per cardiology rec Seen by Hematology No overt bleeding HFrEF Echocardiogram in April of 2021 shows EF of 15-20%; s/p ICD continue beta-robyn lasix had been on hold for MARITA, will resume seizure disorder continue home medications tremors patient reports tremors present for 1 year, although denies formal diagnosis continue primodone outpatient neurology evaluation Hyperkalemia resolved s/p Lokelma follow BMP Macrocytic anemia check B12 and folate level Chronic lung disease Albuterol treatments Doxycycline per pulmonology rec elevated trooponin likely secondary to pneumonia no chest pain seen by cardiology Failure to thrive. Nutrition consult rec protein supplements with meals History of atrial fibrillation continue xarelto Continue beta-robyn Smoker Discussed the importance of smoking cessation Has history of substance abuse continue Methadone DISPO seen by PT, rec STR. discussed with family, they are unsure about rehab DVT prophylaxis - mau Attending Dr. Posada DNR/DNI Quality Stroke Does the patient have a stroke diagnosis?: No VTE Prior VTE?: No VTE Risk Level:: Medical - moderate - high VTE Device Contraindication: Treatment Not Indicated VTE Drug Contraindication: Treatment Not Indicated
[2021-08-06 11:25] LABS: Ammonia 45 umol/L (13-55)
[2021-08-06 11:51] LABS: Alanine Aminotransferase 296 U/L (0-40); Albumin Level 3.3 g/dL (3.5-5.0); Alkaline Phosphatase 151 U/L (39-117); Aspartate Amino Transferase 478 U/L (5-37); Bilirubin Direct 0.6 mg/dL (0.0-0.5); Bilirubin Total 0.9 mg/dL (0.0-1.0)
--- NOTE | 2021-08-06 11:55 | MHC.CM.PN ---
A [facility] Search is in progress; Covid (+), NO Covid vaccination and Methadone are barriers to dc. CM will follow.
[2021-08-06 12:04] LABS: Lactate Dehydrogenase 516 U/L (118-273)
--- NOTE | 2021-08-06 13:20 | MHC.CM.PN ---
Per RN and Production Gear Cutter, who have been receiving several calls from various family members (Daughter/Sara @ [phone], Marly(? Granddaughter) at [phone]). CM has not been able to locate nor family able to produce a HCP and per RN, Patient is very confused. Family wants Patient to return home and PT is recommending STR. Patient is not yet medically cleared for dc. CM will follow further as patient's progress advances.
[2021-08-06] MEDS: Lactulose 20 GM/30 ML SOLUTION PO (14:44)
[2021-08-06] MEDS: Rivaroxaban 20 MG TABLET PO (16:38)
[2021-08-06] MEDS: Montelukast Sodium 10 MG TABLET PO (22:57)
[2021-08-07] VITALS (8 sets, daily range): BP systolic 90–133; BP diastolic 53–75; PULSE 65–90; RESP 18–24; TEMP 36.2–37.6; O2SAT 89–97
[2021-08-07] MEDS: LORazepam 0.5 MG TABLET PO (00:32)
[2021-08-07] MEDS: Acetaminophen 325 MG TABLET 650 MG PO (00:32)
--- NOTE | 2021-08-07 01:17 | PC.NURSE ---
pt becoming very restless. Given PRN Ativan and Tylenol. Currently awaiting results. Needing frequent redirection.
[2021-08-07 06:30] LABS: Monocytes Absolute Auto 0.2 X10*3/uL (0.1-1.2); PLT CLUMP 1; Red Cell Distribution Width 13.3 % (11.0-16.0); SCAN SMEAR FLAG 1
[2021-08-07 06:32] LABS: Hematocrit 33.9 % (42.0-52.0); Imm Gran Abs Auto 0.04 X10*3/uL (0.00-0.03); Imm Gran Pct Auto 1.2 % (0.0-0.4); Lymphocytes Absolute Auto 0.6 X10*3/uL (1.2-4.9); Lymphocytes Percent Auto 18.6 % (20-40); MANUAL DIFF FLAG SCAN; Mean Corpuscular HGB Conc 32.4 g/dl (31.0-36.0); Mean Corpuscular Hemoglobin 34.5 pg (27.0-33.0); Mean Corpuscular Volume 106.3 fL (80.0-98.0); Mean Platelet Volume 11.8 fL (9.4-12.4); Monocytes Percent Auto 4.3 % (2-11); Neutrophils Absolute Auto 2.6 x10*3/uL (2.0-8.3); Neutrophils Percent Auto 75.9 % (45-73); Red Blood Count 3.19 X10*6/uL (4.60-5.80)
[2021-08-07 06:40] LABS: NRBC Pct Auto 1.2 /100WBC (0.0-0.2)
[2021-08-07 06:56] LABS: Platelet Count 81 X10*3/uL (160-400); SLIDE REVIEW VERIFIED; White Blood Count 3.5 X10*3/uL (4.8-10.8)
[2021-08-07 07:02] LABS: Alanine Aminotransferase 203 U/L (0-40); Albumin Level 3.1 g/dL (3.5-5.0); Alkaline Phosphatase 145 U/L (39-117); Anion Gap 15 (12-20); Aspartate Amino Transferase 237 U/L (5-37); Bilirubin Direct 0.6 mg/dL (0.0-0.5); Bilirubin Total 0.9 mg/dL (0.0-1.0); Blood Urea Nitrogen 37 mg/dL (9-16); Calcium 8.8 mg/dL (8.4-10.2); Carbon Dioxide 27 mmol/L (22-29); Chloride 104 mmol/L (96-108); Creatinine Clr Calc Pharmacy 58.5; Estimated Glomerular Filt Rate > 60; Glucose Random 87 mg/dL (60-115); Potassium 4.6 mmol/L (3.3-5.1); Sodium 141 mmol/L (135-145)
[2021-08-07] MEDS: Furosemide 40 MG TABLET PO (09:53)
[2021-08-07] MEDS: 0.9 % Sodium Chloride Flush 3 ML SYRINGE IVFLUSH (09:53)
[2021-08-07] MEDS: dexAMETHasone 6 MG TABLET PO (09:53)
[2021-08-07] MEDS: FLUoxetine HCl 20 MG CAPSULE PO (09:53)
[2021-08-07] MEDS: methADONE HCl 20 MG/2 ML ORAL.CONC 40 MG PO (09:53)
[2021-08-07] MEDS: Multivitamin TABLET 1 TAB PO (09:53)
[2021-08-07] MEDS: lamoTRIgine 25 MG TABLET PO ×2 (09:54→21:45)
[2021-08-07] MEDS: carBAMazepine 200 MG TABLET PO ×2 (09:54→21:45)
[2021-08-07] MEDS: Divalproex Sodium 500 MG TABLET.DR 1000 MG PO (09:54)
[2021-08-07] MEDS: Metoprolol Succinate ER 50 MG TAB.ER.24H PO (09:54)
[2021-08-07] MEDS: Primidone 50 MG TABLET PO ×3 (09:54→21:45)
--- NOTE | 2021-08-07 14:13 | P.PNIM_ITS ---
Subjective Subjective Date of Service: 08/07/21 Interval History: seen and examined this morning follow up for covid, encephalopthy, much more awake this morning, seems to be answering questions more appropriately Review of Systems Review of Systems: Yes all other systems are reviewed and are negative Constitutional Constitutional: Denies chills and Denies fever(s) Cardiovascular Cardiovascular: Denies chest pain Respiratory Respiratory: Denies cough Gastrointestinal Gastrointestinal: Denies abdominal pain Physical Exam Vital Signs: Vital Signs: Last Vital Signs Temp 97.4 F 08/07/21 11:34 Pulse 77 08/07/21 11:34 Resp 24 H 08/07/21 11:34 BP 133/70 08/07/21 11:34 Pulse Ox 95 08/07/21 11:34 Oxygen Flow Rate 3 08/01/21 08:37 BMI result Body Mass Index 24.7 Const: Other: less tremor General: cooperative, comfortable, alert and awake Nutritional Appearance: thin HENMT: Head: Yes normocephalic and Yes atraumatic Eyes: Sclerae: sclerae normal Resp: Effort & Inspection: normal respiratory effort and no respiratory distress Cardio: Rate: regular rate Rhythm: regular rhythm GI: Inspection: No distended Palpation (GI): Soft to palpation and nontender Neuro: Other: lethargic, initially when he opened eyes, he appeared to have nystagmus, but pt unable to follow instructions to complete neuro exam Cranial nerves: Yes Bilaterally intact EOM present Extrem: General: Yes no pedal edema Objective Data Active Medications Acetaminophen (Acetaminophen 325 Mg Tablet) 650 mg PO Q6H PRN PRN Reason: Pain, Mild (Pain Scale 1-3) Last Admin: 08/07/21 00:32 Dose: 650 mg Documented by: [place] Albuterol/Ipratropium (Albuterol/Iprat 2.5/0.5mg 3 Ml Ampul.Neb) 3 ml INHALE RQ4H WHILE AWAKE [facility] Last Admin: 08/07/21 12:22 Dose: Not Given Documented by: HEVER Non-Admin Reason: Patient Asleep Carbamazepine (Carbamazepine 200 Mg Tablet) 200 mg PO BID [facility] Last Admin: 08/07/21 09:54 Dose: 200 mg Documented by: JERRY Dexamethasone (Dexamethasone 6 Mg Tablet) 6 mg PO DAILY [facility] Stop: 08/11/21 09:01 Last Admin: 08/07/21 09:53 Dose: 6 mg Documented by: JERRY Divalproex Sodium (Divalproex Sodium 500 Mg Tablet.) 1,000 mg PO BID [facility] Last Admin: 08/07/21 09:54 Dose: 1,000 mg Documented by: JERRY Doxycycline Hyclate (Doxycycline Hyclate 100 Mg Tablet) 100 mg PO Q12H [facility] Last Admin: 08/07/21 05:04 Dose: Not Given Documented by: [place] Non-Admin Reason: Patient Refused Fluoxetine HCl (Fluoxetine Hcl 20 Mg Capsule) 20 mg PO DAILY [facility] Last Admin: 08/07/21 09:53 Dose: 20 mg Documented by: JERRY Furosemide (Furosemide 40 Mg Tablet) 40 mg PO DAILY [facility]; Protocol Last Admin: 08/07/21 09:53 Dose: 40 mg Documented by: JERRY Lamotrigine (Lamotrigine 25 Mg Tablet) 25 mg PO BID [facility] Last Admin: 08/07/21 09:54 Dose: 25 mg Documented by: JERRY Lorazepam (Lorazepam 0.5 Mg Tablet) 0.5 mg PO Q8H PRN PRN Reason: Anxiety Last Admin: 08/07/21 00:32 Dose: 0.5 mg Documented by: [place] Methadone HCl (Methadone Hcl 20 Mg/2 Ml Oral.Conc) 40 mg PO DAILY [facility] Last Admin: 08/07/21 09:53 Dose: 40 mg Documented by: JERRY Metoprolol Succinate (Metoprolol Succinate Er 50 Mg Tab.Er.24h) 50 mg PO DAILY [facility]; Protocol Last Admin: 08/07/21 09:54 Dose: 50 mg Documented by: JERRY Montelukast Sodium (Montelukast Sodium 10 Mg Tablet) 10 mg PO BEDTIME [facility] Last Admin: 08/06/21 22:57 Dose: 10 mg Documented by: [place] Multivitamins/Vitamin C (Multivitamin Tablet) 1 tab PO DAILY [facility] Last Admin: 08/07/21 09:53 Dose: 1 tab Documented by: JERRY Omeprazole (Omeprazole 40 Mg Capsule.) 40 mg PO DAILY@0630 [facility] Last Admin: 08/07/21 06:07 Dose: Not Given Documented by: [place] Non-Admin Reason: Patient Refused Ondansetron HCl (Ondansetron Hcl 4 Mg/2 Ml Vial) 4 mg IVPUSH Q8H PRN PRN Reason: Nausea and Vomiting Pharmacy Consult (Consult Rx Perform Med Rec) 1 each MISCELLANE ONCE PRN PRN Reason: Consult order Primidone (Primidone 50 Mg Tablet) 50 mg PO TID [facility] Last Admin: 08/07/21 12:29 Dose: Not Given Documented by: JERRY Non-Admin Reason: Patient Refused Rivaroxaban (Rivaroxaban 20 Mg Tablet) 20 mg PO DAILY@1700 [facility] Last Admin: 08/06/21 16:38 Dose: 20 mg Documented by: ROSALIE Sodium Chloride (0.9 % Sodium Chloride Flush 3 Ml Syringe) 3 ml IVFLUSH QSHIFT [facility] Last Admin: 08/07/21 09:53 Dose: 3 ml Documented by: JERRY Labs CBC & Chem 7: 08/07/21 06:07 08/07/21 06:07 Labs: Laboratory Results - last 24 hr 08/07/21 08/07/21 06:07 06:07 MCV 106.3 H MCH 34.5 H MCHC 32.4 RDW 13.3 Plt Count 81 L MPV 11.8 Immature Gran % (Auto) 1.2 H Neut % (Auto) 75.9 H Lymph % (Auto) 18.6 L [place] % (Auto) 4.3 Eos % (Auto) 0.0 Baso % (Auto) 0.0 Lymph # (Auto) 0.6 L [place] # (Auto) 0.2 Eos # (Auto) 0.0 Baso # (Auto) 0.0 Abs Immat Gran (auto) 0.04 H Absolute Neuts (auto) 2.6 Absolute Nucleated RBC 0.040 H Nucleated RBC % (auto) 1.2 H Smear Tech's Comments VERIFIED Anion Gap 15 Estim Creat Clear Calc 58.5 Estimated GFR > 60 Random Glucose 87 Calcium 8.8 Total Bilirubin 0.9 Direct Bilirubin 0.6 H AST 237 H ALT 203 H Alkaline Phosphatase 145 H Total Protein 6.0 L Albumin 3.1 L Microbiology Microbiology Results: Microbiology 08/01/21 15:17 Blood Culture - Final Blood - Venous No growth after 5 days. 08/01/21 15:17 Blood Culture - Final Blood - Venous No growth after 5 days. Assessment and Plan (1) MARITA (acute kidney injury): Status: Acute (2) COVID-19 virus infection: Status: Acute Assessment and Plan: This is a 61-year-old Burkinan-speaking male with history of chronic lung disease admitted with fever secondary to COVID-19 pneumonia.? Unvaccinated.? Acute on chronic respiratory failure with hypoxia secondary to COVID-19 pneumonia.? on a background of COPD unvaccinated. continue Decadron, vitamin-C, vitamin-D continue supplemental oxygen Pulmonology following, rec dexamethasone, doxycycline and supplemental oxygen at discharge repeat CXR from 08/06 showing slight progression back to baseline oxygen, 3L encephalopathy improved brain CT negative probably secondary to covid lactulose given empirically Transaminitis no abdominal pain probably secondary to viral infection abdominal US pending LFTs trending down Pancytopenia/ thrombocytopenia. medication related vs alcohol and worsening with viral etiology rivaroxaban initially held, plt above 50k, will resume; asa d/c per cardiology rec Seen by Hematology No overt bleeding MARITA. Resolved. HFrEF Echocardiogram in April of 2021 shows EF of 15-20%; s/p ICD continue beta-robyn continue lasix seizure disorder continue home medications tremors patient reports tremors present for 1 year, although denies formal diagnosis continue primodone outpatient neurology evaluation Hyperkalemia resolved s/p Lokelma follow BMP Macrocytic anemia check B12 and folate level Chronic lung disease Albuterol treatments Doxycycline per pulmonology rec elevated troponin likely secondary to pneumonia no chest pain seen by cardiology Failure to thrive. Nutrition consult rec protein supplements with meals History of atrial fibrillation continue xarelto Continue beta-robyn Smoker Discussed the importance of smoking cessation Has history of substance abuse continue Methadone DISPO seen by PT, rec STR. discussed with family, they do not want patient to go to rehab. was previously on hospice ?return home with hospice care. DVT prophylaxis - xarelto DNR/DNI HCP Renetta David Attending Dr. Bertrand Quality Stroke Does the patient have a stroke diagnosis?: No VTE Prior VTE?: No VTE Risk Level:: Medical - moderate - high VTE Device Contraindication: Treatment Not Indicated VTE Drug Contraindication: Treatment Not Indicated
[2021-08-07] MEDS: Rivaroxaban 20 MG TABLET PO (16:02)
[2021-08-07] MEDS: Albuterol/Iprat 2.5/0.5MG 3 ML AMPUL.NEB INHALE (21:01)
[2021-08-07] MEDS: Montelukast Sodium 10 MG TABLET PO (21:45)
[2021-08-08] VITALS (7 sets, daily range): BP systolic 106–150; BP diastolic 55–89; PULSE 72–99; RESP 17–22; TEMP 36.1–36.7; O2SAT 88–99
[2021-08-08 07:47] LABS: MANUAL DIFF FLAG NO
[2021-08-08 08:07] LABS: NRBC Pct Auto 0.8 /100WBC (0.0-0.2); PLT CLUMP 1; Red Cell Distribution Width 13.2 % (11.0-16.0); SCAN SMEAR FLAG 1
[2021-08-08 08:09] LABS: Ammonia 31 umol/L (13-55); Hematocrit 42.9 % (42.0-52.0); Imm Gran Abs Auto 0.02 X10*3/uL (0.00-0.03); Imm Gran Pct Auto 0.5 % (0.0-0.4); Lymphocytes Absolute Auto 0.6 X10*3/uL (1.2-4.9); Lymphocytes Percent Auto 15.2 % (20-40); Mean Corpuscular HGB Conc 32.6 g/dl (31.0-36.0); Mean Corpuscular Hemoglobin 34.7 pg (27.0-33.0); Mean Corpuscular Volume 106.5 fL (80.0-98.0); Mean Platelet Volume 12.1 fL (9.4-12.4); Monocytes Absolute Auto 0.1 X10*3/uL (0.1-1.2); Monocytes Percent Auto 3.8 % (2-11); Neutrophils Percent Auto 80.5 % (45-73); Red Blood Count 4.03 X10*6/uL (4.60-5.80)
[2021-08-08 08:11] LABS: Platelet Count 90 X10*3/uL (160-400); White Blood Count 3.7 X10*3/uL (4.8-10.8)
[2021-08-08 08:18] LABS: Alanine Aminotransferase 148 U/L (0-40); Albumin Level 3.4 g/dL (3.5-5.0); Alkaline Phosphatase 168 U/L (39-117); Anion Gap 19 (12-20); Aspartate Amino Transferase 129 U/L (5-37); Bilirubin Direct 0.8 mg/dL (0.0-0.5); Bilirubin Total 1.3 mg/dL (0.0-1.0); Blood Urea Nitrogen 39 mg/dL (9-16); Calcium 9.2 mg/dL (8.4-10.2); Carbon Dioxide 27 mmol/L (22-29); Chloride 99 mmol/L (96-108); Creatinine Clr Calc Pharmacy 50.2; Estimated Glomerular Filt Rate > 60; Glucose Random 98 mg/dL (60-115); Potassium 4.7 mmol/L (3.3-5.1); Sodium 140 mmol/L (135-145); Total Protein 6.8 g/dL (6.5-8.0)
[2021-08-08] MEDS: Albuterol/Iprat 2.5/0.5MG 3 ML AMPUL.NEB INHALE (08:52)
[2021-08-08] MEDS: carBAMazepine 200 MG TABLET PO ×2 (08:55→19:53)
[2021-08-08] MEDS: FLUoxetine HCl 20 MG CAPSULE PO (08:55)
[2021-08-08] MEDS: Primidone 50 MG TABLET PO ×3 (08:55→19:53)
[2021-08-08] MEDS: Furosemide 40 MG TABLET PO (08:58)
[2021-08-08] MEDS: lamoTRIgine 25 MG TABLET PO ×2 (08:58→19:53)
[2021-08-08] MEDS: Multivitamin TABLET 1 TAB PO (08:58)
[2021-08-08] MEDS: dexAMETHasone 6 MG TABLET PO (08:58)
[2021-08-08] MEDS: Metoprolol Succinate ER 50 MG TAB.ER.24H PO (09:04)
--- NOTE | 2021-08-08 10:51 | HO.PM.IMPN ---
Subjective Subjective Date of Service: 08/08/21 Interval History: seen and examined this morning awake and eating breakfast, seen with engineering documentation specialist became angry and yelling expletives did not allow exam, patient refusing to answer questions, unable to obtain ROS Physical Exam Vital Signs: Vital Signs: Last Vital Signs Temp 97.4 F 08/08/21 07:24 Pulse 72 08/08/21 08:54 Resp 20 08/08/21 08:54 BP 106/71 08/08/21 07:24 Pulse Ox 94 08/08/21 07:24 Oxygen Flow Rate 3 08/01/21 08:37 BMI result Body Mass Index 24.7 Const: Other: angry General: alert, awake and ill appearing Nutritional Appearance: thin HENMT: Head: Yes normocephalic and Yes atraumatic Eyes: Sclerae: sclerae normal Resp: Effort & Inspection: normal respiratory effort, able to speak in complete sentences and no respiratory distress Objective Data Active Medications Acetaminophen (Acetaminophen 325 Mg Tablet) 650 mg PO Q6H PRN PRN Reason: Pain, Mild (Pain Scale 1-3) Last Admin: 08/07/21 00:32 Dose: 650 mg Documented by: [place] Albuterol/Ipratropium (Albuterol/Iprat 2.5/0.5mg 3 Ml Ampul.Neb) 3 ml INHALE RQ4H WHILE AWAKE [facility] Last Admin: 08/08/21 08:52 Dose: 3 ml Documented by: BELL Carbamazepine (Carbamazepine 200 Mg Tablet) 200 mg PO BID [facility] Last Admin: 08/08/21 08:55 Dose: 200 mg Documented by: JACQUI Dexamethasone (Dexamethasone 6 Mg Tablet) 6 mg PO DAILY [facility] Stop: 08/11/21 09:01 Last Admin: 08/08/21 08:58 Dose: 6 mg Documented by: JACQUI Divalproex Sodium (Divalproex Sodium 500 Mg Tablet.) 1,000 mg PO BID [facility] Last Admin: 08/07/21 21:51 Dose: Not Given Documented by: SHEILA Non-Admin Reason: spit out Doxycycline Hyclate (Doxycycline Hyclate 100 Mg Tablet) 100 mg PO Q12H [facility] Last Admin: 08/08/21 04:34 Dose: Not Given Documented by: SHEILA Non-Admin Reason: Patient Refused Fluoxetine HCl (Fluoxetine Hcl 20 Mg Capsule) 20 mg PO DAILY [facility] Last Admin: 08/08/21 08:55 Dose: 20 mg Documented by: JACQUI Furosemide (Furosemide 40 Mg Tablet) 40 mg PO DAILY [facility]; Protocol Last Admin: 08/08/21 08:58 Dose: 40 mg Documented by: JACQUI Lamotrigine (Lamotrigine 25 Mg Tablet) 25 mg PO BID [facility] Last Admin: 08/08/21 08:58 Dose: 25 mg Documented by: JACQUI Lorazepam (Lorazepam 0.5 Mg Tablet) 0.5 mg PO Q8H PRN PRN Reason: Anxiety Last Admin: 08/07/21 00:32 Dose: 0.5 mg Documented by: [place] Methadone HCl (Methadone Hcl 20 Mg/2 Ml Oral.Conc) 40 mg PO DAILY [facility] Last Admin: 08/08/21 09:13 Dose: Not Given Documented by: JACQUI Non-Admin Reason: Patient Refused Metoprolol Succinate (Metoprolol Succinate Er 50 Mg Tab.Er.24h) 50 mg PO DAILY [facility]; Protocol Last Admin: 08/08/21 09:04 Dose: 50 mg Documented by: JACQUI Montelukast Sodium (Montelukast Sodium 10 Mg Tablet) 10 mg PO BEDTIME [facility] Last Admin: 08/07/21 21:45 Dose: 10 mg Documented by: SHEILA Multivitamins/Vitamin C (Multivitamin Tablet) 1 tab PO DAILY [facility] Last Admin: 08/08/21 08:58 Dose: 1 tab Documented by: JACQUI Omeprazole (Omeprazole 40 Mg Capsule.Dr) 40 mg PO DAILY@0630 [facility] Last Admin: 08/08/21 07:20 Dose: Not Given Documented by: SHEILA Non-Admin Reason: Patient Refused Ondansetron HCl (Ondansetron Hcl 4 Mg/2 Ml Vial) 4 mg IVPUSH Q8H PRN PRN Reason: Nausea and Vomiting Pharmacy Consult (Consult Rx Perform Med Rec) 1 each MISCELLANE ONCE PRN PRN Reason: Consult order Primidone (Primidone 50 Mg Tablet) 50 mg PO TID [facility] Last Admin: 08/08/21 08:55 Dose: 50 mg Documented by: JACQUI Rivaroxaban (Rivaroxaban 20 Mg Tablet) 20 mg PO DAILY@1700 [facility] Last Admin: 08/07/21 16:02 Dose: 20 mg Documented by: SHEILA Sodium Chloride (0.9 % Sodium Chloride Flush 3 Ml Syringe) 3 ml IVFLUSH QSHIFT [facility] Last Admin: 08/08/21 08:59 Dose: 3 ml Documented by: JACQUI Labs CBC & Chem 7: 08/08/21 07:39 08/08/21 07:39 Labs: Laboratory Results - last 24 hr 08/08/21 08/08/21 08/08/21 07:39 07:39 07:39 MCV 106.5 H MCH 34.7 H MCHC 32.6 RDW 13.2 Plt Count 90 L MPV 12.1 Immature Gran % (Auto) 0.5 H Neut % (Auto) 80.5 H Lymph % (Auto) 15.2 L [place] % (Auto) 3.8 Eos % (Auto) 0.0 Baso % (Auto) 0.0 Lymph # (Auto) 0.6 L [place] # (Auto) 0.1 Eos # (Auto) 0.0 Baso # (Auto) 0.0 Abs Immat Gran (auto) 0.02 Absolute Neuts (auto) 3.0 Absolute Nucleated RBC 0.030 H Nucleated RBC % (auto) 0.8 H Anion Gap 19 Estim Creat Clear Calc 50.2 Estimated GFR > 60 Random Glucose 98 Calcium 9.2 Total Bilirubin 1.3 H Direct Bilirubin 0.8 H AST 129 H ALT 148 H Alkaline Phosphatase 168 H Ammonia 31 Total Protein 6.8 Albumin 3.4 L Assessment and Plan (1) Encephalopathy: Status: Acute (2) COVID-19 virus infection: Status: Acute Assessment and Plan: This is a 61-year-old Telugu-speaking male with history of chronic lung disease admitted with fever secondary to COVID-19 pneumonia.? Unvaccinated.? Acute on chronic respiratory failure with hypoxia secondary to COVID-19 pneumonia.? on a background of COPD unvaccinated. continue Decadron, vitamin-C, vitamin-D continue supplemental oxygen Pulmonology following repeat CXR from 08/06 showing slight progression increased oxygen requirement, 8L this moring encephalopathy, unclear baseline family states he has been confused since diagnosis of covid awake this morning, but unable to fully assess as he is refusing to answer questions brain CT negative will hold depakote which he had previously not been getting ? causing afternoon lethargy neurology consult pending Transaminitis no abdominal pain probably secondary to viral infection abdominal US with some sludge in GB, but otherwise unremarkable d/w GI, likely r/t covid LFTs trending down Pancytopenia/ thrombocytopenia. medication related vs alcohol and worsening with viral etiology rivaroxaban initially held, plt above 50k, will resume; asa d/c per cardiology rec Seen by Hematology No overt bleeding MARITA. Resolved. HFrEF Echocardiogram in April of 2021 shows EF of 15-20%; s/p ICD continue beta-robyn continue lasix seizure disorder continue home medications tremors patient reports tremors present for 1 year, although denies formal diagnosis continue primodone outpatient neurology evaluation Hyperkalemia resolved s/p Lokelma follow BMP Macrocytic anemia check B12 and folate level Chronic lung disease Albuterol treatments Doxycycline per pulmonology rec elevated troponin likely secondary to pneumonia no chest pain seen by cardiology Failure to thrive. Nutrition consult rec protein supplements with meals History of atrial fibrillation continue xarelto Continue beta-robyn Smoker Discussed the importance of smoking cessation Has history of substance abuse continue Methadone DISPO seen by PT, rec STR. discussed with family both daughter and /HCP Renetta David with the use of a engineering documentation specialist, they do not want patient to go to rehab, they would like him to return home. he resides alone, his daugther provides salesperson hosiery hours in the morning and his granddaughter in the afternoon. was previously on hospice ?return home with hospice care. Despite multiple conversations about failing health unclear how much they comprehend. home with increased services vs home with hospice. d/w CM. DVT prophylaxis - xarelto DNR/DNI HCP Renetta David Attending Dr. Bertrand Quality Stroke Does the patient have a stroke diagnosis?: No VTE Prior VTE?: No VTE Risk Level:: Medical - moderate - high VTE Device Contraindication: Treatment Not Indicated VTE Drug Contraindication: Treatment Not Indicated
[2021-08-08] MEDS: LORazepam 0.5 MG TABLET PO ×2 (11:26→19:53)
[2021-08-08] MEDS: methADONE HCl 20 MG/2 ML ORAL.CONC 40 MG PO (11:34)
--- NOTE | 2021-08-08 15:02 | MHC.CM.PN ---
CM SPOKE TO PTS DAUGHTERTAY [phone]. SHE REPORTS THE FAMILY IS HOPING THE PT CAN RETURN HOME TOMORROW WITH VNA SERVICES SHE SAYS HE USED TO HAVE A VNA FOR ASSISTED AND PT, THEY ARE HOPING HE CAN AGAIN SHE CONFIRMS SHE PICKS UP HIS METHADONE WEEKLY FROM THE CLINIC IN [place]. SHE SAYS SHE HAS BEEN IN CONTACT WITH THE CLINIC AND WAS INFORMED SHE WOULD ONLY NEED THE PTS DC PAPERWORK AND LAST DOSE LETTER TO TOP WADDY HIS MEDS TOMORROW THAT WOULD START ON 08/10/21, PT WOULD DOSE HERE PRIOR TO DC. CURRENT DC PLAN IS HOME WITH [facility] [place] [facility] FAMILY REQUESTING PT SERVICES BE ADDED, HE ALREADY HAD SN HE WILL ALSO RESUME DAILY CAT SCANNER OPERATOR SERVICES PTS DAUGHTER WILL PROVIDE TRANSPORTATION.
[2021-08-08] MEDS: Rivaroxaban 20 MG TABLET PO (17:44)
[2021-08-08] MEDS: Montelukast Sodium 10 MG TABLET PO (19:53)
[2021-08-09] VITALS (7 sets, daily range): BP systolic 111–134; BP diastolic 48–75; PULSE 70–85; RESP 15–18; TEMP 36.3–37.4; O2SAT 91–98
--- NOTE | 2021-08-09 | ECG_ITS ---
Test Reason : QT interval Blood Pressure : / mmHG Vent. Rate : 073 BPM Atrial Rate : 088 BPM P-R Int : 000 ms QRS Dur : 166 ms QT Int : 476 ms P-R-T Axes : 000 -83 088 degrees QTc Int : 524 ms Ventricular-paced rhythm Abnormal ECG When compared with ECG of 09-AUG-2021 03:15, No significant change was found Referred By: Peter Lee Electronically Signed By:Enzo Culver
--- NOTE | 2021-08-09 | ECG_ITS ---
Test Reason : QT interval Blood Pressure : / mmHG Vent. Rate : 072 BPM Atrial Rate : 017 BPM P-R Int : 000 ms QRS Dur : 162 ms QT Int : 452 ms P-R-T Axes : 000 -82 091 degrees QTc Int : 494 ms Poor data quality, interpretation may be adversely affected Ventricular-paced rhythm Abnormal ECG When compared with ECG of 01-AUG-2021 10:45, Vent. rate has decreased BY 35 BPM Referred By: Peter Lee Electronically Signed By:
--- NOTE | 2021-08-09 10:20 | PC.NURSE ---
Addendum entered by Elva Durand RN 08/09/21 18:28: at 1709 patient had another fall. Patient attempted to get oob independently and voided on floor and slipped and fell. This fall was unwitnessed but seen by the camera room. VSS as charted. Suzanne Hopkins made aware. Original Note: 1009 Patient had a witnessed fall. Nurses aide witnessed patient attempting to get out of bed. Patient stood up, voided on the floor and slipped in urine. Patient landed on his coccyx. Patient did not his his head. No LOC. VSS as charted. Suzanne Hopkins CAT OPERATOR made aware. Pt resting in bed now. Bed alarm on. Telesitter in .
[2021-08-09] MEDS: LORazepam 0.5 MG TABLET PO (10:44)
[2021-08-09] MEDS: carBAMazepine 200 MG TABLET PO (10:44)
[2021-08-09] MEDS: dexAMETHasone 6 MG TABLET PO (10:45)
[2021-08-09] MEDS: Multivitamin TABLET 1 TAB PO (10:45)
[2021-08-09] MEDS: methADONE HCl 20 MG/2 ML ORAL.CONC 40 MG PO (10:45)
[2021-08-09] MEDS: Metoprolol Succinate ER 50 MG TAB.ER.24H PO (10:45)
[2021-08-09] MEDS: Primidone 50 MG TABLET PO (10:45)
[2021-08-09] MEDS: FLUoxetine HCl 20 MG CAPSULE PO (10:45)
[2021-08-09] MEDS: lamoTRIgine 25 MG TABLET PO (10:45)
[2021-08-09] MEDS: Furosemide 40 MG TABLET PO (10:45)
--- NOTE | 2021-08-09 14:04 | P.PNIM_ITS ---
Subjective Subjective Date of Service: 08/09/21 Review of Systems Follow up covid 19 more tired today no complaints of pain Physical Exam Vital Signs: Vital Signs: Last Vital Signs Temp 97.4 F 08/09/21 07:49 Pulse 79 08/09/21 10:17 Resp 18 08/09/21 08:00 BP 134/75 08/09/21 10:17 Pulse Ox 91 L 08/09/21 10:17 Oxygen Flow Rate 3 08/01/21 08:37 BMI result Body Mass Index 24.7 Appearing in no acute distress lung sounds dim heart regular rate rhythm, clear S1, S2 positive bowel sounds, abdomen is soft, nontender neuro patient is alert x3, no focal deficits Objective Data Active Medications Acetaminophen (Acetaminophen 325 Mg Tablet) 650 mg PO Q6H PRN PRN Reason: Pain, Mild (Pain Scale 1-3) Last Admin: 08/07/21 00:32 Dose: 650 mg Documented by: [place] Carbamazepine (Carbamazepine 200 Mg Tablet) 200 mg PO BID [facility] Last Admin: 08/09/21 10:44 Dose: 200 mg Documented by: RONALDO Dexamethasone (Dexamethasone 6 Mg Tablet) 6 mg PO DAILY [facility] Stop: 08/11/21 09:01 Last Admin: 08/09/21 10:45 Dose: 6 mg Documented by: RONALDO Divalproex Sodium (Divalproex Sodium 500 Mg Tablet.Dr) 1,000 mg PO BID [facility] Last Admin: 08/07/21 21:51 Dose: Not Given Documented by: SHEILA Non-Admin Reason: spit out Doxycycline Hyclate (Doxycycline Hyclate 100 Mg Tablet) 100 mg PO Q12H [facility] Last Admin: 08/09/21 03:49 Dose: Not Given Documented by: MAXI Non-Admin Reason: too lethargic to safely swallow Fluoxetine HCl (Fluoxetine Hcl 20 Mg Capsule) 20 mg PO DAILY [facility] Last Admin: 08/09/21 10:45 Dose: 20 mg Documented by: RONALDO Furosemide (Furosemide 40 Mg Tablet) 40 mg PO DAILY [facility]; Protocol Last Admin: 08/09/21 10:45 Dose: 40 mg Documented by: RONALDO Lamotrigine (Lamotrigine 25 Mg Tablet) 25 mg PO BID [facility] Last Admin: 08/09/21 10:45 Dose: 25 mg Documented by: RONALDO Methadone HCl (Methadone Hcl 20 Mg/2 Ml Oral.Conc) 40 mg PO DAILY [facility] Last Admin: 08/09/21 10:45 Dose: 40 mg Documented by: RONALDO Metoprolol Succinate (Metoprolol Succinate Er 50 Mg Tab.Er.24h) 50 mg PO DAILY [facility]; Protocol Last Admin: 08/09/21 10:45 Dose: 50 mg Documented by: RONALDO Montelukast Sodium (Montelukast Sodium 10 Mg Tablet) 10 mg PO BEDTIME [facility] Last Admin: 08/08/21 19:53 Dose: 10 mg Documented by: MAXI Multivitamins/Vitamin C (Multivitamin Tablet) 1 tab PO DAILY [facility] Last Admin: 08/09/21 10:45 Dose: 1 tab Documented by: RONALDO Omeprazole (Omeprazole 40 Mg Capsule.Dr) 40 mg PO DAILY@0630 [facility] Last Admin: 08/09/21 06:27 Dose: Not Given Documented by: MAXI Non-Admin Reason: Patient Refused Ondansetron HCl (Ondansetron Hcl 4 Mg/2 Ml Vial) 4 mg IVPUSH Q8H PRN PRN Reason: Nausea and Vomiting Pharmacy Consult (Consult Rx Perform Med Rec) 1 each MISCELLANE ONCE PRN PRN Reason: Consult order Primidone (Primidone 50 Mg Tablet) 50 mg PO TID [facility] Last Admin: 08/09/21 10:45 Dose: 50 mg Documented by: RONALDO Rivaroxaban (Rivaroxaban 20 Mg Tablet) 20 mg PO DAILY@1700 [facility] Last Admin: 08/08/21 17:44 Dose: 20 mg Documented by: JACQUI Sodium Chloride (0.9 % Sodium Chloride Flush 3 Ml Syringe) 3 ml IVFLUSH QSHIFT [facility] Last Admin: 08/09/21 10:46 Dose: Not Given Documented by: RONALDO Non-Admin Reason: No Access Labs CBC & Chem 7: 08/08/21 07:39 08/08/21 07:39 Assessment and Plan (1) Encephalopathy: Status: Acute Assessment and Plan: This is a 61-year-old Mauritian-speaking male with history of chronic lung disease admitted with fever secondary to COVID-19 pneumonia.? Unvaccinated.? Acute on chronic respiratory failure with hypoxia secondary to COVID-19 pneumonia.? on a background of COPD unvaccinated. continue Decadron, vitamin-C, vitamin-D continue supplemental oxygen Pulmonology following repeat CXR from 08/06 showing slight progression Home o2 evaluation encephalopathy, unclear baseline family states he has been confused since diagnosis of covid awake this morning, but unable to fully assess as he is refusing to answer questions brain CT negative will hold depakote which he had previously not been getting ? causing afternoon lethargy Transaminitis no abdominal pain probably secondary to viral infection abdominal US with some sludge in GB, but otherwise unremarkable d/w GI, likely r/t covid LFTs trending down Pancytopenia/ thrombocytopenia. medication related vs alcohol and worsening with viral etiology rivaroxaban initially held, plt above 50k, will resume; asa d/c per cardiology rec Seen by Hematology No overt bleeding RESOLVED MARITA. Resolved. HFrEF Echocardiogram in April of 2021 shows EF of 15-20%; s/p ICD continue beta-robyn continue lasix seizure disorder continue home medications tremors patient reports tremors present for 1 year, although denies formal diagnosis continue primodone outpatient neurology evaluation Hyperkalemia resolved s/p Lokelma follow BMP Macrocytic anemia check B12 and folate level Chronic lung disease Albuterol treatments Doxycycline per pulmonology rec elevated troponin likely secondary to pneumonia no chest pain seen by cardiology Failure to thrive. Nutrition consult rec protein supplements with meals History of atrial fibrillation continue xarelto Continue beta-robyn Smoker Discussed the importance of smoking cessation Has history of substance abuse continue Methadone DISPO seen by PT, rec STR. discussed with family both daughter and /HCP Renetta David with the use of a historical interpreter, they do not want patient to go to rehab, they would like him to return home. he resides alone, his daugther provides improvement analyst hours in the morning and his granddaughter in the afternoon.? was previously on hospice ?return home with hospice care. Despite multiple conversations about failing health unclear how much they comprehend.? home with increased services vs home with hospice. d/w CM. DVT prophylaxis - xarelto DNR/DNI HCP Renetta David Attending Dr. Posada Quality Stroke Does the patient have a stroke diagnosis?: No VTE Prior VTE?: No VTE Risk Level:: Medical - moderate - high VTE Device Contraindication: Treatment Not Indicated VTE Drug Contraindication: Treatment Not Indicated
--- NOTE | 2021-08-09 14:44 | MHC.CLN ---
F/U INTAKE APPEARS VARIABLE, BUT USUALLY POOR. DIET=2 GRAM SODOUM WITH ENSURE BID. SUPPLEMENT PROVIDES 700 KCAL, 26 GRAMS PROTEIN. ENCOURAGE INTAKE OF MEALS AND SUPPLEMENTS ABLE.
--- NOTE | 2021-08-09 15:10 | MHC.CM.PN ---
pt dcd today at 4 by amb with hvns pt s mirella delacruz notified of dc and will meet p;t at the house
[2021-08-09 16:01] LABS: ABG Base Excess 3.7 mmol/L; ABG HCO3 26 mmol/L (22-26); ABG pCO2 33 mmHg (32-45); ABG pO2 87 mmHg (83-108)
[2021-08-09] MEDS: OLANZapine 10 MG VIAL 2.5 MG IM (21:45)
--- NOTE | 2021-08-09 22:32 | PC.NURSE ---
pt confused and combative refusing to wear 02 should be on 10L NC, wont let staff close to put 02 on, pt appearing sob and increasingly restless. made aware, new order for zyprexa IM. given as ordered. will cont to monitor
[2021-08-10 03:59] VITALS: BP 133/40; PULSE 84; RESP 18; TEMP 36.7; O2SAT 94
[2021-08-10 06:43] LABS: Hematocrit 43.9 % (42.0-52.0); Hemoglobin 14.1 g/dl (14.0-18.0); Mean Corpuscular HGB Conc 32.1 g/dl (31.0-36.0); Mean Corpuscular Volume 105.8 fL (80.0-98.0); Mean Platelet Volume 12.6 fL (9.4-12.4); Red Blood Count 4.15 X10*6/uL (4.60-5.80); Red Cell Distribution Width 13.2 % (11.0-16.0); White Blood Count 3.9 X10*3/uL (4.8-10.8)
[2021-08-10 06:46] LABS: Platelet Count 72 X10*3/uL (160-400)
[2021-08-10 06:49] LABS: Alanine Aminotransferase 86 U/L (0-40); Albumin Level 3.7 g/dL (3.5-5.0); Alkaline Phosphatase 168 U/L (39-117); Anion Gap 17 (12-20); Aspartate Amino Transferase 68 U/L (5-37); Bilirubin Total 1.5 mg/dL (0.0-1.0); Blood Urea Nitrogen 46 mg/dL (9-16); Calcium 9.7 mg/dL (8.4-10.2); Carbon Dioxide 32 mmol/L (22-29); Chloride 101 mmol/L (96-108); Creatinine Clr Calc Pharmacy 51.5; Estimated Glomerular Filt Rate > 60; Glucose Random 95 mg/dL (60-115); Potassium 4.1 mmol/L (3.3-5.1); Sodium 146 mmol/L (135-145); Total Protein 7.3 g/dL (6.5-8.0)
[2021-08-10 08:00] VITALS: BP 121/78; PULSE 73; RESP 20; TEMP 36.6; O2SAT 95
[2021-08-10 08:14] VITALS: BP 133/40; PULSE 84; O2SAT 94
[2021-08-10] MEDS: dexAMETHasone 6 MG TABLET PO (10:14)
[2021-08-10] MEDS: Metoprolol Succinate ER 50 MG TAB.ER.24H PO (10:14)
[2021-08-10] MEDS: Primidone 50 MG TABLET PO ×2 (10:15→20:47)
[2021-08-10] MEDS: Multivitamin TABLET 1 TAB PO (10:15)
[2021-08-10] MEDS: lamoTRIgine 25 MG TABLET PO ×2 (10:15→20:47)
[2021-08-10] MEDS: FLUoxetine HCl 20 MG CAPSULE PO (10:15)
[2021-08-10] MEDS: carBAMazepine 200 MG TABLET PO ×2 (10:15→20:47)
[2021-08-10 11:37] VITALS: BP 124/72; PULSE 77; RESP 20; TEMP 36.8; O2SAT 94
[2021-08-10] MEDS: methADONE HCl 20 MG/2 ML ORAL.CONC 40 MG PO (12:04)
--- NOTE | 2021-08-10 12:32 | PC.NURSE ---
IV fluids ordered for patient but unable to administer, patient has no iv access and is refusing new iv placement. Provider notified.
[2021-08-10 13:32] VITALS: PULSE 113; O2SAT 90
--- NOTE | 2021-08-10 15:17 | MHC.CM.PN ---
pt dcd rebooked for today at 430 dgter consuelo notified
--- NOTE | 2021-08-10 15:30 | PM.DS ---
DS: Providers Provider Date of Service: 08/10/21 Date of admission: 08/01/21 13:40 Primary care physician: Zita White MD Consults: 08/01/21 13:48 Consult to Pulmonology Routine Consulting Provider: Quincy Hopkins Reason for consultation: emphysema, covid 19 Has provider been notified: No 08/01/21 17:10 Consult to Cardiology Routine Consulting Provider: Jaspreet Bain Reason for consultation: elevated troponin, covid 19 Has provider been notified: No 08/02/21 11:59 Consult to Hematology / Oncology Routine Consulting Provider: Lulú Minaya Reason for consultation: pancytopenia, thrombocytopenia Has provider been notified: No 08/06/21 09:11 Consult to Neurology Routine Consulting Provider: [facility] [place] [facility] Reason for consultation: lethargy, confusion, tremors, nystagmus Has provider been notified: No Attending physician on discharge: Urbano Posada Discharging clinician: Suzanne Hopkins DS: Diagnosis Discharge Diagnosis (1) Chronic respiratory failure: Status: Acute (2) Encephalopathy: Status: Acute (3) MARITA (acute kidney injury): Status: Acute (4) Transaminitis: Status: Acute DS: Summary Hospital Course Hospital Course: 61 year old man presenting with increased shortness of breath and fever since 07/27/21. He was in the [facility] ED on 07/27/21 with fever and diagnosed with covid 19. He has seemed more confused lately according to his daughter and he was weak.? initially during the interview the patient reported that he wants leave against medical advice even putting his coat on.? I was able to reach his daughter and she convinced him to stay.? He does have a history of lung disease and follows with a bone crusher.? He also has a history of cardiomyopathy and is followed closely by a [facility] Cardiology.? He did have a fever of 101 in the ER.? He was intermittently in the low 90s, his oxygen saturation.? He reports that he is normally on 2 L at home as needed.? In the ER he was given doxycycline, Decadron, Lasix, Tylenol, ibuprofen, 1 L of IV fluid.? He will be admitted for further management and treatment of COVID-19 pneumonia. Acute on chronic respiratory failure with hypoxia secondary to COVID-19 pneumonia.? on a background of COPD and chronic lung disease unvaccinated. Treated with IV Decadron, vitamin-C, vitamin-D, supplemental oxygen, seen by respiratory therapy and evaluated for 6 L of oxygen with activity inpatient Seen by Pulmonary while inpatient encephalopathy, unclear baseline likely some delirium from hospitalization At baseline patient does have some confusion brain CT negative acute abnormality Slowly improving Plan is for continuing visiting nurse services and transition to hospice care Transaminitis no abdominal pain probably secondary to viral infection abdominal US with some sludge in GB, but otherwise unremarkable d/w GI, likely r/t covid LFTs trending down Chronic Pancytopenia/ thrombocytopenia. medication related vs alcohol and worsening with viral etiology rivaroxaban initially held, plt above 50k, will resume; asa d/c per cardiology rec Seen by Hematology No overt bleeding Time Spent with Patient Time attestation: Total time spent providing and/or coordinating discharge services: Discharge coordination time: Greater than 30 minutes Quality: Stroke Does the patient have a stroke diagnosis?: No Physical Exam Vital Signs: Vital Signs: Last Vital Signs Temp 98.2 F 08/10/21 11:37 Pulse 77 08/10/21 11:37 Resp 20 08/10/21 11:37 BP 124/72 08/10/21 11:37 Pulse Ox 94 08/10/21 11:37 Oxygen Flow Rate 3 08/01/21 08:37 BMI result Body Mass Index 24.7 Appearing in no acute distress head is normocephalic atraumatic eyes pupils are PERRLA sclera is anicteric mouth throat mucous membranes are intact and moist neck is supple no lymphadenopathy, no JVD noted lung sounds are clear to auscultation heart regular rate rhythm, clear S1, S2 positive bowel sounds, abdomen is soft, nontender neuro patient is alert, confused , no focal deficits DS: Data Data Completed and Pending Labs on day of discharge: Laboratory Results - last 24 hr 08/09/21 08/10/21 08/10/21 15:54 06:00 06:00 WBC 3.9 L RBC 4.15 L Hgb 14.1 Hct 43.9 MCV 105.8 H MCH 34.0 H MCHC 32.1 RDW 13.2 Plt Count 72 L MPV 12.6 H Absolute Nucleated RBC 0.000 Nucleated RBC % (auto) 0.0 O2 Saturation 95.0 ABG pH at Pt Temp 7.50 H ABG pCO2 at Pt Temp 33 ABG pO2 at Pt Temp 87 ABG HCO3 26 ABG Base Excess (Actual) 3.7 Sodium 146 H Potassium 4.1 Chloride 101 Carbon Dioxide 32 H Anion Gap 17 BUN 46 H Creatinine 1.18 Estim Creat Clear Calc 51.5 Estimated GFR > 60 Random Glucose 95 Calcium 9.7 Total Bilirubin 1.5 H Direct Bilirubin 1.0 H AST 68 H ALT 86 H Alkaline Phosphatase 168 H Total Protein 7.3 Albumin 3.7 Discharge Plan Discharge Anticipated Discharge Date/Time: 08/09/21 14:36 Patient Disposition: Home Health Service Discharge Diagnosis: Acute on chronic respiratory failure with hypoxia secondary to COVID-19 Encephalopathy Transaminitis Referrals: [facility] nurses [Other] - 1 Week Zita White MD [Primary Care Provider] - 1 Week Discharge Medications: New dexamethasone 6 mg Tablet 6 mg PO DAILY Qty: 2 RF: 0 Continued montelukast 10 mg tablet 10 mg PO BEDTIME Qty: 30 RF: 11 Xarelto 20 mg tablet 20 mg PO QAM Qty: 90 RF: 3 metoprolol succinate 50 mg tablet extended release 24 hr 50 mg PO QAM 90 Days Qty: 90 RF: 3 divalproex 500 mg tablet,delayed release (DR/EC) 1,000 mg PO BID RF: 0 methadone [Methadone Intensol] 10 mg/mL Concentrate 41 mg PO DAILY RF: 0 furosemide 40 mg tablet 1 tab PO QAM RF: 0 melatonin 5 mg tablet 10 mg PO BEDTIME RF: 0 fluoxetine 20 mg capsule 20 mg PO DAILY RF: 0 lamotrigine 25 mg tablet 25 mg PO BID RF: 0 primidone 50 mg tablet 50 mg PO TID RF: 0 multivitamin Tablet 1 tab PO QAM RF: 0 carbamazepine 200 mg tablet 200 mg PO BID RF: 0 ipratropium-albuterol 0.5 mg-3 mg(2.5 mg base)/3 mL solution for nebulization 3 ml inhalation QID 30 Days Qty: 360 RF: 11 Anoro Ellipta 62.5-25 mcg/actuation blister with device 1 inh inhalation DAILY Qty: 60 RF: 5 albuterol sulfate [Ventolin HFA] 90 mcg/actuation HFA aerosol inhaler 2 puff inhalation Q6H PRN (Reason: Shortness Of Breath Or Wheezing) RF: 0 omeprazole 40 mg capsule,delayed release(DR/EC) 40 mg PO DAILY RF: 0 Discharge Orders: Discharge Order (Routine); Ordered 08/10/21 Ordered By: Suzanne Hopkins Diet: advance to usual diet Activity on Discharge: As tolerated Stand Alone Forms: Patient Portal Discharge page Care Plan Goals: resolution of COVID symptoms Health Concerns: Acute on chronic respiratory failure with hypoxia secondary to COVID-19 Encephalopathy Transaminitis YOUR LAST DOSE OF METHADONE WAS ON 08/10/21 AT 0930 Plan of Treatment: You will be sent home with home oxygen. You can use 6 L of oxygen with activity as needed and may use 2-3 L at rest maintaining oxygen saturation greater than 88% Take your medications as prescribed. If you were prescribed antibiotics today, it is important that you take your medication to their entirety, do not skip any doses, do not finish them early. Follow-up with your primary care provider this week. Return to the emergency department with new or worsening symptoms. In case of emergency call 911 Assessment: see discharge summary Patient Instructions: COVID-19 (Coronavirus Disease 2019) (ED)
--- NOTE | 2021-08-10 15:33 | MHC.CM.PN ---
dgter notified amb will not be here till 575
[2021-08-10 15:40] VITALS: BP 117/67; PULSE 75; RESP 20; TEMP 36.2; O2SAT 94
[2021-08-10] MEDS: Montelukast Sodium 10 MG TABLET PO (20:47)
[2021-08-10] MEDS: Acetaminophen 325 MG TABLET 650 MG PO (20:47)
== END 2021-08-10 21:12 | disposition home health service (06) | DRG 177 ==
LOC: HO.ED 12:33 → HO.EDOVER 13:51 → HO.IMC 08-02 15:25
PROVIDERS: Internal Medicine; Physician Assistant; Physician Assistant Medical; Admitting Provider Nurse Practitioner Acute Care; Emergency Provider Internal Medicine; PCP General Practice; Visit Provider Nurse Practitioner Acute Care
DX: U07.1 COVID-19 (principal); J12.82 Pneumonia due to coronavirus disease 2019; J96.21 Acute and chronic respiratory failure with hypoxia; F11.20 Opioid dependence, uncomplicated; J44.1 Chronic obstructive pulmonary disease with (acute) exacerbation; I42.8 Other cardiomyopathies; I48.19 Other persistent atrial fibrillation; D61.818 Other pancytopenia; N17.9 Acute kidney failure, unspecified; G93.49 Other encephalopathy; I50.22 Chronic systolic (congestive) heart failure; R62.7 Adult failure to thrive; Z99.81 Dependence on supplemental oxygen; E87.5 Hyperkalemia; Z68.24 Body mass index [BMI] 24.0-24.9, adult; G20 Parkinson's disease; F02.80 Dementia in other diseases classified elsewhere, unspecified severity, without behavioral disturbance, psychotic disturbance, mood disturbance, and anxiety; Z95.810 Presence of automatic (implantable) cardiac defibrillator; F17.210 Nicotine dependence, cigarettes, uncomplicated; Z71.6 Tobacco abuse counseling; Z88.0 Allergy status to penicillin; Z79.01 Long term (current) use of anticoagulants; Z79.899 Other long term (current) drug therapy; Z66 Do not resuscitate
CPT/HCPCS: 36415; 36600; 70450; 71045; 71275; 76700; 76705; 80048; 80053; 80076; 82140; 82550; 82607; 82728; 82746; 82784; 82803; 83605; 83615; 83880; 84145; 84484; 85025; 85027; 85379; 86140; 87040; 87635; 93005; 94640; 97110; 97162; 99285; J1940; J8540; Q9967

== ENCOUNTER → 2022-01-16 | Outpatient (RCR) | payer MEDICARE, MEDICAID, SELFPAY ==
--- NOTE | 2020-06-09 14:24 | MHC.HEMONC ---
Pt had televisit scheduled with Dr Minaya for follow up. Pt called, no answer. Message left
--- NOTE | 2020-06-09 14:45 | P.PNHO_ITS ---
[facility] Telehealth - Telehealth Patient Identification confirmed using: Name, : Yes Patient verbally consented to billing insurance company: Yes Patient informed of any privacy concerns related to visit: Yes Medical Summary - Medical Summary Chief complaint: Follow-up Medical Summary: Diagnosis: Thrombocytopenia, IgG monoclonal gammopathy Chronic Thrombocytopenia, mild microcytic anemia, history of chronic hepatitis B and hepatitis C. No diagnosis of liver cirrhosis or splenomegaly. Serum immunofixation showed IgG monoclonal gammopathy, normal immunoglobulin levels. Beta 2 microglobulin slightly elevated. Normal iron studies, normal B12 and folate levels. Interval History Interval history: This is scheduled follow-up for patient, he was consented for tele visit based on COVID-19 pandemic guidelines. [employer] company was available. Patient states that he has been having chronic back pain, he has been trying to see his PCP for this but was unable to get an appointment so far. 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 He has had no symptoms of COVID, denies excess fatigue, shortness of breath, fever or chills. He denies any bruising or bleeding. Review of Systems - Constitutional Reports no additional constitutional complaints - Cardiovascular Reports no additional cardiovascular complaints - Respiratory Reports no additional respiratory complaints - Gastrointestinal Denies abdominal pain, Denies black, tarry stools, Denies change in bowel habits - Genitourinary Genitourinary: Reports no additional male genitourinary complaints - Musculoskeletal Reports back pain, Reports body aches Home Medications and Allergies Home Medications Medication Instructions Recorded Confirmed Type albuterol sulfate mg INHALATION Q6H PRN 04/18/20 04/23/20 History azithromycin 250 mg tablet mg PO 04/18/20 04/23/20 History baclofen 10 mg tablet 5 mg PO TID 04/18/20 04/23/20 History benzonatate 100 mg capsule 100 mg PO Q8H PRN 04/18/20 04/23/20 History carbamazepine 200 mg tablet mg PO 04/18/20 04/23/20 History cefpodoxime 200 mg tablet 200 mg PO BID 04/18/20 04/23/20 History divalproex 500 mg tablet,delayed mg PO 04/18/20 04/23/20 History release erythromycin 5 mg/gram (0.5 %) eye 500 mg OPHTHALMIC-RIGHT TID 04/18/20 04/23/20 History ointment fluoxetine 20 mg capsule 20 mg PO DAILY 04/18/20 04/23/20 History fluticasone propionate 50 1 spray INTRANASAL DAILY 04/18/20 04/23/20 History mcg/actuation nasal spray,suspension furosemide 20 mg tablet 20 mg PO QAM 04/18/20 04/23/20 History lamotrigine 25 mg tablet 25 mg PO BID 04/18/20 04/23/20 History levofloxacin 500 mg tablet 500 mg PO DAILY 04/18/20 04/23/20 History lisinopril 10 mg tablet 10 mg PO QAM 04/18/20 04/23/20 History melatonin 5 mg tablet 5 mg PO BEDTIME 04/18/20 04/23/20 History metoprolol succinate 50 mg 50 mg PO QAM 04/18/20 04/23/20 History tablet,extended release 24 hr metronidazole 500 mg tablet 500 mg PO TID 04/18/20 04/23/20 History montelukast 10 mg tablet 10 mg PO BEDTIME 04/18/20 04/23/20 History multivitamin 1 tab PO QAM 04/18/20 04/23/20 History nystatin 100,000 unit/mL oral 2 PO Q3H PRN 04/18/20 04/23/20 History suspension omeprazole 20 mg capsule,delayed 20 mg PO DAILY 04/18/20 04/23/20 History release pantoprazole 20 mg tablet,delayed 20 mg PO BID 04/18/20 04/23/20 History release peg [id number] 1 1 drp OPHTHALMIC (EYE) TID-QID 04/18/20 04/23/20 History %-0.2 %-0.2 % eye drops prednisone 10 mg tablet mg PO 04/18/20 04/23/20 History prednisone 20 mg tablet 60 mg PO DAILY 04/18/20 04/23/20 History primidone 50 mg tablet 50 mg PO QID 04/18/20 04/23/20 History rivaroxaban 20 mg tablet mg PO 04/18/20 04/23/20 History Allergies Allergy/AdvReac Type Severity Reaction Status Date / Time Penicillins [PENICILLINS] Allergy Severe SWELLING Unverified 04/23/20 17:08 Progress Note: A/P (1) Thrombocytopenia Status: Chronic Assessment and plan: 1. This is a 59-year-old male with chronic hepatitis C, thrombocytopenia and mild macrocytic anemia. His cytopenias can be explained by hepatitis C which can cause immune mediated thrombocytopenia as well as anemia. Chronic liver disease can be associated with splenomegaly and hypersplenism. He is on several medications that can cause thrombocytopenia/pancytopenia: Depakote, Lamictal and carbamazepine which have all been implicated in thrombocytopenia as well as pancytopenia. Blood work showed IgG monoclonal protein, normal immunoglobulin levels. 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 This will be monitored as well. Last blood work in February was stable. Repeat in 3 months. - Time Spent With Patient Total time spent is greater than 50% in coordination of care (as documented) at patient's floor/unit and/or counseling patient: 15 - 24 minutes
--- NOTE | 2020-06-09 15:39 | MHC.HEMONC ---
Call back from Pt's daughter for pt's televisit with Dr Minaya. Only c/o is right sided back pain, described as sharp. 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 Dr Minaya aware, call transferred to .
== END | disposition home or self-care (01) ==
LOC: HO.ONC 06-09 15:37
PROVIDERS: PCP Nurse Practitioner Family; Visit Provider Internal Medicine
DX: D69.6 Thrombocytopenia, unspecified (principal); D53.9 Nutritional anemia, unspecified; B18.2 Chronic viral hepatitis C
CPT/HCPCS: Q3014